=== PATIENT | male | born 1940 | race Caucasian/White ===

== ENCOUNTER 2016-06-07 17:27 | Inpatient (IN) | payer MEDICARE ==
[~2016-06-07] VITALS: Ht 182.9 cm; Wt 131.8 kg
[~2016-06-07 17:27] MED LIST: ASCO500T3 PO; ASPI325T4 PO; CHOL100013 PO; CIPR250T30 PO; FERR325T31 PO; FINA5TAB4 PO; FURO-68 PO; HYDR-2666 PO; INSU100V SQ; INSU100V8 SQ; LOSA50TA6 PO; LOVA20TA2 PO; METO25TA4 PO; MULT-246 PO; OMEG1CAP16 PO; TAMS0.4C2 PO
[2016-06-07] MEDS ORDERED: ACETAMINOPHEN 325 MG TABLET. PO ONE (17:45)
[2016-06-07] MEDS ORDERED: IV NORMAL SALINE 500ML BAG 500 ML IV ONE (18:00)
[2016-06-07] MEDS ORDERED: ASPIRIN 81 MG TAB.CHEW PO ONE (18:00)
[2016-06-07 18:17] LABS: BASO # 0.1 x10^3/uL (0.0-0.2); BASO % 0 % (0-3); EOS % 0 % (0-3); HEMATOCRIT 41.1 % (39.0-53.0); HEMOGLOBIN 13.2 g/dL (13.0-17.5); LYMPH # 0.4 x10^3/uL (1.0-4.8); LYMPH % 2 % (24-48); MEAN CORPUSCULAR HEMOGLOBIN 29 pg (25-35); MEAN CORPUSCULAR HGB CONC 32 g/dL (31-37); MEAN CORPUSCULAR VOLUME 89 fL (79-100); MONO % 3 % (0-9); NEUT % 95 % (31-73); PLATELET COUNT 209 x10^3/uL (140-400); RED BLOOD COUNT 4.62 x10^6/uL (4.30-5.70); RED CELL DISTRIBUTION WIDTH 15.1 % (11.5-14.5); WHITE BLOOD COUNT 21.6 x10^3/uL (4.0-11.0)
[2016-06-07 18:29] LABS: CALCIUM 9.4 mg/dL (8.5-10.1); CREATININE 2.5 mg/dL (0.7-1.3); GFR 25.2; POTASSIUM 4.3 mmol/L (3.5-5.1)
[2016-06-07 18:35] LABS: ALBUMIN 3.6 g/dL (3.4-5.0); ALBUMIN/GLOBULIN RATIO 0.8 (1.0-1.7); TOTAL BILIRUBIN 0.4 mg/dL (0.2-1.0); TOTAL PROTEIN 7.9 g/dL (6.4-8.2)
[2016-06-07] MEDS ORDERED: IV NORMAL SALINE 1000ML BAG 1,000 ML IV ONE ×2 (19:00)
[2016-06-07] MEDS: IV NORMAL SALINE 1000ML BAG 1,000 ML IV SCH (19:03)
--- NOTE | 2016-06-07 19:03 | PHYS DOC ---
Past Medical History Past Medical History: Diabetes-Type II, High Cholesterol, Hypertension, Other Additional Past Medical Histor: NEUROPATHY Past Surgical History: Appendectomy Alcohol Use: None Drug Use: None Adult General Chief Complaint Chief Complaint: CHEST PAIN HPI HPI Patient is a 76 year old male who presents with chest pain. Patient reports he was working on his computer this afternoon around 1330 when he had acute onset of sharp pain in the left side of his chest. The chest pain has resolved by this time. He does report feeling short of breath as well, having chills, and has had productive cough. Vomited 3 times today, but is not nauseous right now. He has not taken anything for symptoms today. Review of Systems Review of Systems Constitutional: Chills Eyes: Denies change in visual acuity or eye pain HENT: Denies nasal congestion or sore throat Respiratory: Productive cough, shortness of breath Cardiovascular: Sharp L side chest pain (now resolved) GI: Emesis x3 today. Denies abdominal pain, nausea, bloody stools or diarrhea : Denies dysuria or hematuria Musculoskeletal: Denies back pain or joint pain Integument: Denies rash or skin lesions Neurologic: Denies headache, focal weakness or sensory changes Current Medications Current Medications Current Medications Medications (Trade) Dose Ordered Sig/[facility] Start Time Stop Time Status Last Admin Dose Admin Acetaminophen 650 mg 650 mg 1X ONCE 06/07/16 17:45 06/07/16 17:49 DC 06/07/16 18:07 650 MG Aspirin 324 mg 324 mg 1X ONCE 06/07/16 18:00 06/07/16 18:01 DC 06/07/16 18:07 324 MG Levofloxacin/ Dextrose (LEVAQUIN 750mg PREMIX) 150 ml @ 100 mls/hr 1X ONCE 06/07/16 17:45 06/07/16 19:14 DC 06/07/16 18:08 100 MLS/HR Sodium Chloride (Iv Sodium Chloride 0.9% 1000ml Bag) 1,000 ml @ 1,000 mls/hr 1X ONCE 06/07/16 19:00 06/07/16 19:59 DC 06/07/16 20:55 1,000 MLS/HR Allergies Allergies Allergies Coded Allergies Type Severity Reaction Last Updated Verified No Known Drug Allergies 10/26/15 No Physical Exam Physical Exam Constitutional: Well developed, well nourished, no acute distress, non-toxic appearance HENT: Normocephalic, atraumatic, bilateral external ears normal Eyes: EOMI, conjunctiva normal, no discharge Neck: Normal range of motion, no stridor Cardiovascular: Tachycardic, regular rhythm, no murmur Lungs & Thorax: Bilateral breath sounds clear to auscultation Abdomen: Bowel sounds normal, soft, non-distended, no TTP; large midline scar Skin: Hot to touch, dry, no erythema, no rash Extremities: No obvious deformity. Trace BLE edema Neurologic: Alert and oriented X 3, no gross deficits noted Current Patient Data Vital Signs Vital Signs Date Time Temp Pulse Resp B/P Pulse Ox O2 Delivery O2 Flow Rate FiO2 06/07/16 19:00 112 22 164/63 93 Room Air 06/07/16 17:37 101.3 101.3 Lab Values Laboratory Tests Test 06/07/16 18:07 White Blood Count 21.6x10^3/uL (4.0-11.0) H Red Blood Count 4.62x10^6/uL (4.30-5.70) Hemoglobin 13.2g/dL (13.0-17.5) Hematocrit 41.1% (39.0-53.0) Mean Corpuscular Volume 89fL (79-100) Mean Corpuscular Hemoglobin 29pg (25-35) Mean Corpuscular Hemoglobin Concent 32g/dL (31-37) Red Cell Distribution Width 15.1% (11.5-14.5) H Platelet Count 209x10^3/uL (140-400) Neutrophils (%) (Auto) 95% (31-73) H Lymphocytes (%) (Auto) 2% (24-48) L Monocytes (%) (Auto) 3% (0-9) Eosinophils (%) (Auto) 0% (0-3) Basophils (%) (Auto) 0% (0-3) Neutrophils # (Auto) 20.4x10^3uL (1.8-7.7) H Lymphocytes # (Auto) 0.4x10^3/uL (1.0-4.8) L Monocytes # (Auto) 0.7x10^3/uL (0.0-1.1) Eosinophils # (Auto) 0.0x10^3/uL (0.0-0.7) Basophils # (Auto) 0.1x10^3/uL (0.0-0.2) Segmented Neutrophils % 78% (35-66) H Band Neutrophils % 14% (0-9) H Lymphocytes % 4% (24-48) L Monocytes % 4% (0-10) Toxic Granulation Slight Platelet Estimate Adequate (ADEQUATE) Anisocytosis Slight Sodium Level 140mmol/L (136-145) Potassium Level 4.3mmol/L (3.5-5.1) Chloride Level 101mmol/L (98-107) Carbon Dioxide Level 26mmol/L (21-32) Anion Gap 13 (6-14) Blood Urea Nitrogen 32mg/dL (8-26) H Creatinine 2.5mg/dL (0.7-1.3) H Estimated GFR (Cockcroft-Gault) 25.2 BUN/Creatinine Ratio 13 (6-20) Glucose Level 284mg/dL (70-99) H Lactic Acid Level 4.3mmol/L (0.4-2.0) *H Calcium Level 9.4mg/dL (8.5-10.1) Total Bilirubin 0.4mg/dL (0.2-1.0) Aspartate Amino Transferase (AST) 24U/L (15-37) Alanine Aminotransferase (ALT) 32U/L (16-63) Alkaline Phosphatase 68U/L (46-116) Troponin I Quantitative 0.365ng/mL (0.000-0.055) IK-Vfq-E-Type Natriuretic Peptide 343pg/mL (0-449) Total Protein 7.9g/dL (6.4-8.2) Albumin 3.6g/dL (3.4-5.0) Albumin/Globulin Ratio 0.8 (1.0-1.7) L Laboratory Tests 06/07/16 18:07 Laboratory Tests 06/07/16 18:07 EKG EKG EKG (my read): appears sinus tachycardia although unclear if true P wave present , rate 123, LAD, TWI leads aVR/aVL/V1-2, nonspecific ST changes Radiology/Procedures Radiology/Procedures CXR (my read): No acute abnormality Course & Med Decision Making Course & Med Decision Making Pertinent Labs and Imaging studies reviewed. (See chart for details) Patient is 76-year-old male who presents with fever, shortness of breath, episode of chest pain. With productive cough, fever, tachycardia in the emergency department suspect pneumonia. Will check EKG, chest x-ray, labs to evaluate. Fluid bolus, Tylenol, Levaquin, aspirin ordered to cover for community -acquired pneumonia. EKG and imaging results as above. Labs notable for leukocytosis, elevated lactic acid, elevated troponin. Suspect elevated troponin due to demand ischemia rather than ACS. I did speak to Dr. Menendez; will not anticoagulate at this time but will instead trend troponin. Additional fluids ordered given elevated lactic acid; although this does not meet the 30ml/ kg goal, I believe there is significant risk of pulmonary edema with this large of bolus, and HR is trending down with fluids and BP is ok. I will order a basal fluid rate as well. Discussed results with patient and family. Discussed with Dr. Frost, will admit under his care for further evaluation and treatment. Dragon Disclaimer Dragon Disclaimer This electronic medical record was generated, in whole or in part, using a voice recognition dictation system. Departure Departure Impression: Primary Impression: Pneumonia Additional Impression: Elevated troponin Disposition: ADMITTED INPATIENT Admitting Physician: Alan Frost Condition: GUARDED Referrals: ALAN FROST MD (PCP) Problem Qualifiers NABILA WALLACE MD Jun 07, 2016 19:03
[2016-06-07 19:05] LABS: ANISOCYTOSIS SLIGHT; PLT ESTIMATE ADEQUATE (ADEQUATE); TOXIC GRANULATION SLIGHT
[2016-06-07] MEDS ORDERED: DEXTROSE 50% 25 GM / 50ML DISP.SYRIN. IV PRN (19:15)
[2016-06-07] MEDS ORDERED: MORPHINE SULFATE 2 MG/ML DISP.SYRIN. IV PRN (19:15)
[2016-06-07] MEDS ORDERED: ACETAMINOPHEN 325 MG TABLET. PO PRN (19:15)
[2016-06-07] MEDS ORDERED: ONDANSETRON PF 4 MG/2 ML VIAL. IV PRN (19:15)
[2016-06-07 21:45] VITALS: BP 113/58
[2016-06-07 22:00] VITALS: BP 113/58
[2016-06-07] MEDS ORDERED: ENOXAPARIN 40 MG/0.4 ML SYRINGE. SQ SCH (22:00)
--- NOTE | 2016-06-07 22:08 | ACF ---
Admission Forms Criteria CARDIOLOGY GRG Clinical Indications for Admission to Inpatient Care ( Place 'X' for any and all applicable criteria): Hospital admission is needed for appropriate care of the patient because of ANY ONE of the following (1): [ ] I. Hemodynamic instability as indicated by ALL of the following (1)(2)(3) (4)(5) [ ]a) Vital signs or other findings not as expected for chronic patient condition or baseline [ ]b) Instability indicated by ANY ONE of the following: [ ]i) Hypotension [ ]ii) Symptomatic Tachycardia unresponsive to treatment ( e.g., analgesia, fluids, sedation as indicated) [ ]iii) Inadequate perfusion indicated by ANY ONE of the following: [ ] 1) Lactic acidosis (> 2 mmol/L) [ ] 2) New abnormal capillary refill (> 3 seconds) [ ] 3) Reduced urine output [ ] 4) New altered mental status [ ]iv) Orthostatic vital sign changes unresponsive to treatment (e.g., fluids) [ ]v) IV inotropic or vasopressor medication required to maintain adequate blood pressure or perfusion [ ] II. Severe heart failure as indicated by ANY ONE of the following(17)(18) [ ]a) Respiratory distress [ ]b) Hypotension [ ]c) Anasarca (refractory to outpatient therapy) [ ]d) Cardiac arrhythmias of immediate concern [ ]e) Myocardial ischemia [ ] III. Cardiac arrhythmias or findings of immediate concern indicated by ANY ONE of the following (19)(20): [ ] a) Heart rhythms that are inherently dangerous or unstable indicated by ANY ONE of the following (21)(22)(23): [ ] i) Resuscitated ventricular fibrillation or cardiac arrest [ ] ii) Ventricular escape rhythm [ ] iii) Sustained ventricular tachycardia (30 seconds or more of ventricular rhythm at greater than 100 beats per minute) [ ] iv) Nonsustained ventricular tachycardia and ANY ONE of the following: [ ] 1) Suspected cardiac ischemia as cause or consequence of ventricular tachycardia [ ] 2) In setting of acute myocarditis [ ] b) Unstable cardiac conduction defects indicated by ANY ONE of the following(23)(24)(25) [ ] i) Type II second-degree atrioventricular block [ ]ii) Third-degree atrioventricular block [ ]iii) New-onset left bundle branch block with suspected myocardial ischemia [ ]c) Any heart rhythm and ANY ONE of the following (21)(22)(26)(27) (28) [ ] i) Continuous long-term ECG monitoring needed (e.g., initiation of drug requiring monitoring for more than 24 hours) [ ] ii) Patient has automatic implanted cardioverter defibrillator that is repeatedly firing, malfunctioning, or in need of immediate adjustment of settings beyond the scope of ambulatory or observation care [ ]d) Heart rhythms of concern due to ANY ONE of the following: [ ] i) Hypotension [ ] ii) Respiratory distress [ ] iii) Association with other significant symptoms (e.g., bradycardia with syncope or ongoing dizziness, supraventricular tachycardia with chest pain (14)(15)(17) [ ] IV. Monitoring for cardiac contusion beyond the scope of observation care needed [A](30)(31)(32) [ ] V. Surgical or device complication (e.g., valve replacement complication , pacemaker dysfunction) (35)(41)(44)(45)(46) [ ] . Inpatient palliative care needed. [B](49) Also use Inpatient Palliative Care Criteria [ ] VII. Nonbacterial thrombotic (marantic) endocarditis (36)(43)(47)(48) [X] VIII. Cardiology condition, symptom, or finding for which emergency and observation care has failed or are not considered appropriate. [ ] IX. Acute valvular disease requiring inpatient as indicated by ANY ONE of the following (41) [ ]a) Acute valvular regurgitation (42) [ ]b) Noninfectious valvulitis (43) [ ]c) Obstructive valve thrombosis [ ]d) Paravalvular leak [ ]e) Other significant valvular disorder remaining after emergency or observation level of care (as appropriate) [ ]X. Pericardial disease requiring inpatient treatment as indicated by ANY ONE of the following (33)(34)(35)(36)(37) [ ]a) Suspected tamponade (38)(39)(40) [ ]b) Hemopericardium [ ]c) Other significant pericardial disorder remaining after emergency or observation level of care (as appropriate) [ ] XI. Cardiac ischemia beyond scope of emergency and observation care. [ ] XII. Hypertension requiring inpatient treatment as indicated by ANY ONE of the following (6)(7)(8) [ ]a) SBP greater than 220 mm Hg or DBP greater than 120 mmHg despite treatment [ ]b) SBP greater than 140 mm Hg or DBP greater than 100 mm Hg with evidence of acute end organ damage as indicated by ANY ONE of the following [ ] i) Encephalopathy [ ] ii) Acute renal failure as indicated by new onset of ANY ONE of the following (9)(10)(11)(12)(13) [ ]1) 3-fold rise in serum creatinine from baseline [ ]2) Serum creatinine greater than 4 mg/dL ( 354 micromoles/L) with acute rise greater than 0.5 mg/dL (44.2 micromoles/L) [ ]3) Reduction of more than 75% in estimated glomerular filtration rate from baseline [ ]4) Estimated glomerular filtration rate less than 35 mL/min/1.73m2 (0.59 mL/sec/1.73m2) in child up to 18 years of age [ ]5) Cessation of urine output indicated by ALL of the following [ ]A. Adequate volume status [ ]B. Inadequate urine output as indicated by ANY ONE of the following [ ]a. Urine output less than 0.3 mL/kg/hr for 24 hours [ ]b. Anuria (urine output less than 0.1 mL/kg/hr) for 12 hours [ ] iii) Aortic dissection [ ] iv) Myocardial Ischemia [ ] v) Left ventricular heart failure [ ]vi) Retinal Hemorrhage [ ]vii) Other significant finding [ ]c) Hypertension in child requiring inpatient treatment as indicated by ALL of the following(14)(15)(16) [ ] i) Outpatient treatment not effective, not available, or not appropriate [ ]ii) SBP or DBP greater than 95th percentile for age [ ]iii) Evidence of acute end organ damage as indicated by ANY ONE of the following [ ]1) Altered mental status [ ]2) Acute renal failure as indicated by new onset of ANY ONE of the following(9)(10)(11)(12)(13) [ ]A. 3-fold rise in serum creatinine from baseline [ ]B. Serum creatinine greater than 4 mg/dL (354 micromoles/L) with acute rise greater than 0.5 mg/dL (44.2 micromoles/L) [ ]C. Reduction of more than 75% in estimated glomerular filtration rate from baseline [ ]D. Estimated glomerular filtration rate less than 35 mL/min/1.73m2 (0.59 mL/sec/1.73m2) in child up to 18 years of age [ ]E. Cessation of urine output indicated by ALL of the following [ ]a. Adequate volume status [ ]b. Inadequate urine output as indicated by ANY ONE of the following [ ]i) Urine output less than 0.3 mL/kg/hr for 24 hours [ ]ii) Anuria ( urine output less than 0.1 mL/kg/hr) for 12 hours [ ]3) Severe headache [ ]4) Visual disturbance [ ]5) Retinal hemorrhage [ ]6) Other significant finding [ ]XIII. Complications of transplanted heart indicated by ANY ONE of the following(61): [ ]a) Acute graft rejection requiring inpatient management (eg, intravenous immunosuppression)(62)(63) [ ]b) Acute graft heart failure indicated by ANY ONE of the following(64): [ ]i) Hemodynamic instability [ ]ii) Cardiac arrhythmias of immediate concern [ ]iii) Pulmonary edema that is very severe (eg, mechanical ventilation needed, imminent or likely, need for 100% oxygen to keep oxygen saturation above 90%) [ ]iv) Pulmonary edema that is persistent as indicated by ALL of the following: [ ]1) New need for oxygen therapy to keep oxygen saturation above 90% (or increased FiO2 need from baseline) [ ]2) Has not improved sufficiently with emergency department or observation care IV diuretics or other heart failure treatments[E] [ ]v) Altered mental status that is severe or persistent [ ]vi) Increased creatinine (new on laboratory test) with reduction of more than 50% in estimated glomerular filtration rate from baseline [ ]vii) Progressively (ongoing) rising creatinine (known from past laboratory test) with reduction of more than 25% in estimated glomerular filtration rate from baseline [ ]viii) Acute renal failure [ ]ix) Acute peripheral ischemia (eg, examination shows pulseless, cool, mottled, or cyanotic extremity) [ ]x) Pulmonary artery catheter monitoring needed [ ]xi) Other sign or symptom of heart failure requiring inpatient treatment (ie, too severe or not responsive to outpatient and observation care treatment) [ ]c) Infection requiring inpatient management (eg, Hemodynamic instability, need for intravenous antimicrobial treatment)(66)(67)(68)(69)(70) [ ]d) Cardiac allograft vasculopathy requiring inpatient management ( eg evidence of cardiac ischemia)(71) [ ]e) Other complication of transplanted heart (eg, stroke, severe pulmonary hypertension, severe valvular dysfunction) requiring inpatient management(72) The original [facility] content created by [facility] has been revised. The portions of the content which have been revised are identified through the use of italic text or in bold, and [facility] has neither reviewed nor approved the modified material. All other unmodified content is copyright [facility]. Please see references footnoted in the original [facility] edition 2016 Admission Criteria Met?: Yes JANINE KUMAR Jun 07, 2016 22:07
[2016-06-07] MEDS: ATORVASTATIN CALCIUM 10 MG TABLET. PO SCH (23:07)
[2016-06-07] MEDS: INSULIN DETEMIR 300 UNITS/3 ML INSULN.PEN. SQ SCH (23:08)
[2016-06-07] MEDS: INSULIN ASPART 300 UNITS/3 ML INSULN.PEN SQ SCH (23:09)
[2016-06-08] MEDS: IV NORMAL SALINE 1000ML BAG 1,000 ML IV SCH ×3 (01:43→16:44)
[2016-06-08 02:29] VITALS: BP 157/75
--- NOTE | 2016-06-08 02:56 | EKG ---
[facility] [address] [place] [address] Test Date: 2016-06-07 Test Time: 17:32:31 Pat Name: CARLOS EDUARDO BOLANOS Department: Room: 209 1 Gender: M Resident Director: : 1940 Requested By: NABILA WALLACE Order Number: [id number] Reading MD: Richie Menendez Measurements Intervals [place] Rate: 123 P: -116 NE: 142 QRS: -70 QRSD: 90 T: 80 QT: 302 QTc: 438 Interpretive Statements SINUS TACHYCARDIA ABNORMAL LEFT AXIS DEVIATION CONSIDER LEFT VENTRICULAR HYPERTROPHY CANNOT RULE OUT ANTEROLATERAL ISCHEMIA Electronically Signed On 06-26-2016 10:32:04 CDT by Richie Menendez
[2016-06-08 02:59] LABS: OBC FLU VALID
[2016-06-08 04:35] LABS: BASO % 0 % (0-3); EOS % 0 % (0-3); HEMATOCRIT 35.8 % (39.0-53.0); HEMOGLOBIN 11.6 g/dL (13.0-17.5); LYMPH # 0.9 x10^3/uL (1.0-4.8); LYMPH % 5 % (24-48); MEAN CORPUSCULAR HEMOGLOBIN 29 pg (25-35); MEAN CORPUSCULAR HGB CONC 32 g/dL (31-37); MEAN CORPUSCULAR VOLUME 88 fL (79-100); MONO % 4 % (0-9); NEUT % 91 % (31-73); PLATELET COUNT 174 x10^3/uL (140-400); RED BLOOD COUNT 4.05 x10^6/uL (4.30-5.70); RED CELL DISTRIBUTION WIDTH 15.4 % (11.5-14.5); WHITE BLOOD COUNT 20.2 x10^3/uL (4.0-11.0)
[2016-06-08 07:05] LABS: ALBUMIN 2.8 g/dL (3.4-5.0); ALBUMIN/GLOBULIN RATIO 0.8 (1.0-1.7); CALCIUM 8.2 mg/dL (8.5-10.1); CREATININE 2.3 mg/dL (0.7-1.3); GFR 27.8; POTASSIUM 4.2 mmol/L (3.5-5.1); TOTAL BILIRUBIN 0.4 mg/dL (0.2-1.0); TOTAL PROTEIN 6.1 g/dL (6.4-8.2)
[2016-06-08 07:30] VITALS: BP 107/60
--- NOTE | 2016-06-08 07:59 | RAD ---
Exam: AP portable chest. History: Chest pain, shortness of breath, fever, rule out acute process. Comparison: June 16, 2005. Findings: Cardiac silhouette appears within normal limits for size. No pneumothorax or pleural effusion is seen. No focal consolidation is identified. There appears to be accentuation of interstitial markings. Impression: 1. Interstitial markings appear mildly accentuated. This may be artifact of technique; mild fibrotic process or atypical pneumonia could be possible. Interstitial edema is thought less likely.
[2016-06-08] MEDS ORDERED: INSULIN ASPART 300 UNITS/3 ML INSULN.PEN SQ SCH (08:00)
[2016-06-08] MEDS ORDERED: ASPIRIN 325 MG TABLET PO SCH (09:00)
[2016-06-08] MEDS ORDERED: LOSARTAN POTASSIUM 50 MG TABLET. PO SCH (09:00)
--- NOTE | 2016-06-08 09:13 | PDOC2 ---
ERVIN ORELLANA EARLY BREASTFEEDING CARE SPECIALIST 06/08/16 0913: CARDIAC CONSULT DATE OF CONSULT Date of Consult DATE: 06/08/16 TIME: 08:54 REASON FOR CONSULT Reason for Consult: Elevated troponin level REFERRING PHYSICIAN Referring Physician: Brian SOURCE Source: Chart review, Patient HISTORY OF PRESENT ILLNESS HISTORY OF PRESENT ILLNESS This is a pleasant 76 yo male admitted for complains of vomiting. Reports that starting about 1 PM yesterday he felt hot, was shivering and was having chills. He then got nauseated and started vomiting. There was no diarrhea. Prior to his GI symptoms he was actually was having left chest pain sharp in consistency and lasted for about an hour. Inaddition to that he felt SOA at that time with some palpitations. He denies any hx of CAD, VTE, recent falls or injury. In the last few weeks he has been feeling more fatigued and gets BOONE using his stairs going to the basement. In addition the other day he was pulling the trash bin which was already emptied and just with this exertion he was having chest pain and SOA. IN the last few weeks there were also times when he woke up at night and he was drenched in sweat. He is positive for ESTHELA but he does not use his CPAP device consistently. He has DM2 and HTN and told me that his numbers were controlled. PAST MEDICAL HISTORY Past Medical History Cardiovascular: HTN, HLP Pulmonary: ESTHELA with CPAP CENTRAL NERVOUS SYSTEM: DPN GI: Constipation, GERD Heme/Onc: No pertinent hx Hepatobiliary: No pertinent hx Psych: No pertinent hx Musculoskeletal: OA Rheumatologic: No pertinent hx Infectious disease: No pertinent hx ENT: No pertinent hx Renal/: BPH Endocrine: DM2 Dermatology: No pertinent hx Musculoskeletal: Osteoarthritis Renal/: Benign prostatic enlarg., Hematuria PAST SURGICAL HISTORY Past Surgical History: Other (10/2015 right colon resection with abscess drain; cystoscopy; back surgery) FAMILY HISTORY Family History: Diabetes, Heart Disease, Hypertension SOCIAL HISTORY Social History Smoke: Quit (previously at least 2 ppd ) ALCOHOL: other (quit) Drugs: None Lives: Alone CURRENT MEDICATIONS CURRENT MEDICATIONS Current Medications Medications (Trade) Dose Ordered Sig/Feli Route PRN Reason Start Time Stop Time Status Last Admin Dose Admin Acetaminophen 650 mg 650 mg 1X ONCE PO 06/07/16 17:45 06/07/16 17:49 DC 06/07/16 18:07 Levofloxacin/ Dextrose (LEVAQUIN 750mg PREMIX) 150 ml @ 100 mls/hr 1X ONCE IV 06/07/16 17:45 06/07/16 19:14 DC 06/07/16 18:08 Aspirin 324 mg 324 mg 1X ONCE PO 06/07/16 18:00 06/07/16 18:01 DC 06/07/16 18:07 Sodium Chloride 500 ml @ 500 mls/hr 1X ONCE IV 06/07/16 18:00 06/07/16 18:59 DC 06/07/16 18:07 Sodium Chloride 1,000 ml @ 1,000 mls/hr 1X ONCE IV 06/07/16 19:00 06/07/16 19:59 DC 06/07/16 19:40 Sodium Chloride 1,000 ml @ 1,000 mls/hr 1X ONCE IV 06/07/16 19:00 06/07/16 19:59 DC 06/07/16 20:55 Sodium Chloride (Iv Sodium Chloride 0.9% 1000ml Bag) 1,000 ml @ 150 mls/hr Q6H40M IV 06/07/16 19:03 06/08/16 19:02 06/07/16 19:03 Acetaminophen (Tylenol) 650 mg PRN Q4HRS PRN PO FEVER 06/07/16 19:15 06/08/16 19:14 06/08/16 06:49 Atorvastatin Calcium (Lipitor) 5 mg HS PO 06/07/16 22:30 06/07/16 23:07 Insulin Detemir (Levemir) 64 units QHS SQ 06/07/16 22:30 06/07/16 23:08 Enoxaparin Sodium (Lovenox 40mg Syringe) 40 mg Q24H SQ 06/07/16 22:00 06/07/16 23:06 Insulin Aspart (Novolog) 0-12 UNITS QIDACHS SQ 06/07/16 22:30 06/07/16 23:09 ALLERGIES ALLERGIES: Coded Allergies: No Known Drug Allergies (Unverified , 10/26/15) ROS Review of System 14 point ROS evaluated with pertinent positives noted per HPI PHYSICAL EXAM General: Alert, Oriented X3, Cooperative, No acute distress HEENT: Atraumatic, Mucous membr. moist/pink Lungs: Other (faint basilar crackles) Heart: Regular rate (SR), Normal S1, Normal S2 Abdomen: Soft, No tenderness, Other (obese) Extremities: No cyanosis, Other (1+ bilateral LE pitting edema) Skin: No breakdown, No significant lesion Neuro: Normal speech, Sensation intact Psych/Mental Status: Mental status NL, Mood NL MUSCULOSKELETAL: Osteoarthritic changes both hands VITALS VITALS Vital Signs Date Time Temp Pulse Resp B/P Pulse Ox O2 Delivery O2 Flow Rate FiO2 06/08/16 07:30 99.6 97 24 107/60 93 Room Air 99.6 LABS Lab: Laboratory Tests Test 06/07/16 18:07 06/07/16 21:00 06/07/16 21:53 06/08/16 00:55 White Blood Count 21.6x10^3/uL (4.0-11.0) Red Blood Count 4.62x10^6/uL (4.30-5.70) Hemoglobin 13.2g/dL (13.0-17.5) Hematocrit 41.1% (39.0-53.0) Mean Corpuscular Volume 89fL (79-100) Mean Corpuscular Hemoglobin 29pg (25-35) Mean Corpuscular Hemoglobin Concent 32g/dL (31-37) Red Cell Distribution Width 15.1% (11.5-14.5) Platelet Count 209x10^3/uL (140-400) Neutrophils (%) (Auto) 95% (31-73) Lymphocytes (%) (Auto) 2% (24-48) Monocytes (%) (Auto) 3% (0-9) Eosinophils (%) (Auto) 0% (0-3) Basophils (%) (Auto) 0% (0-3) Neutrophils # (Auto) 20.4x10^3uL (1.8-7.7) Lymphocytes # (Auto) 0.4x10^3/uL (1.0-4.8) Monocytes # (Auto) 0.7x10^3/uL (0.0-1.1) Eosinophils # (Auto) 0.0x10^3/uL (0.0-0.7) Basophils # (Auto) 0.1x10^3/uL (0.0-0.2) Segmented Neutrophils % 78% (35-66) Band Neutrophils % 14% (0-9) Lymphocytes % 4% (24-48) Monocytes % 4% (0-10) Toxic Granulation Slight Platelet Estimate Adequate (ADEQUATE) Anisocytosis Slight Sodium Level 140mmol/L (136-145) Potassium Level 4.3mmol/L (3.5-5.1) Chloride Level 101mmol/L (98-107) Carbon Dioxide Level 26mmol/L (21-32) Anion Gap 13 (6-14) Blood Urea Nitrogen 32mg/dL (8-26) Creatinine 2.5mg/dL (0.7-1.3) Estimated GFR (Cockcroft-Gault) 25.2 BUN/Creatinine Ratio 13 (6-20) Glucose Level 284mg/dL (70-99) Lactic Acid Level 4.3mmol/L (0.4-2.0) 3.0mmol/L (0.4-2.0) Calcium Level 9.4mg/dL (8.5-10.1) Total Bilirubin 0.4mg/dL (0.2-1.0) Aspartate Amino Transf (AST/SGOT) 24U/L (15-37) Alanine Aminotransferase (ALT/SGPT) 32U/L (16-63) Alkaline Phosphatase 68U/L (46-116) Troponin I Quantitative 0.365ng/mL (0.000-0.055) 0.726ng/mL (0.000-0.055) OU-Gbd-P-Type Natriuretic Peptide 343pg/mL (0-449) Total Protein 7.9g/dL (6.4-8.2) Albumin 3.6g/dL (3.4-5.0) Albumin/Globulin Ratio 0.8 (1.0-1.7) Glucose (Fingerstick) 271mg/dL (70-99) Test 06/08/16 02:30 06/08/16 04:05 06/08/16 06:50 06/08/16 07:25 Influenza Type A Antigen Negative (NEGATIVE) Influenza Type B Antigen Negative (NEGATIVE) White Blood Count 20.2x10^3/uL (4.0-11.0) Red Blood Count 4.05x10^6/uL (4.30-5.70) Hemoglobin 11.6g/dL (13.0-17.5) Hematocrit 35.8% (39.0-53.0) Mean Corpuscular Volume 88fL (79-100) Mean Corpuscular Hemoglobin 29pg (25-35) Mean Corpuscular Hemoglobin Concent 32g/dL (31-37) Red Cell Distribution Width 15.4% (11.5-14.5) Platelet Count 174x10^3/uL (140-400) Neutrophils (%) (Auto) 91% (31-73) Lymphocytes (%) (Auto) 5% (24-48) Monocytes (%) (Auto) 4% (0-9) Eosinophils (%) (Auto) 0% (0-3) Basophils (%) (Auto) 0% (0-3) Neutrophils # (Auto) 18.4x10^3uL (1.8-7.7) Lymphocytes # (Auto) 0.9x10^3/uL (1.0-4.8) Monocytes # (Auto) 0.8x10^3/uL (0.0-1.1) Eosinophils # (Auto) 0.0x10^3/uL (0.0-0.7) Basophils # (Auto) 0.0x10^3/uL (0.0-0.2) Sodium Level 140mmol/L (136-145) Potassium Level 4.2mmol/L (3.5-5.1) Chloride Level 105mmol/L (98-107) Carbon Dioxide Level 24mmol/L (21-32) Anion Gap 11 (6-14) Blood Urea Nitrogen 29mg/dL (8-26) Creatinine 2.3mg/dL (0.7-1.3) Estimated GFR (Cockcroft-Gault) 27.8 BUN/Creatinine Ratio 13 (6-20) Glucose Level 242mg/dL (70-99) Calcium Level 8.2mg/dL (8.5-10.1) Total Bilirubin 0.4mg/dL (0.2-1.0) Aspartate Amino Transf (AST/SGOT) 29U/L (15-37) Alanine Aminotransferase (ALT/SGPT) 31U/L (16-63) Alkaline Phosphatase 55U/L (46-116) Troponin I Quantitative 1.078ng/mL (0.000-0.055) Total Protein 6.1g/dL (6.4-8.2) Albumin 2.8g/dL (3.4-5.0) Albumin/Globulin Ratio 0.8 (1.0-1.7) Lactic Acid Level 2.8mmol/L (0.4-2.0) Test 06/08/16 08:24 Glucose (Fingerstick) 216mg/dL (70-99) ECHOCARDIOGRAM ECHOCARDIOGRAM <Conclusion> The left ventricular systolic function is normal. The Ejection Fraction is estimated at 55-60%. There is normal LV segmental wall motion. Mild aortic regurgitation. Trace mitral regurgitation. There is no evidence of significant pericardial effusion. DATE: 10/24/15 1451 ASSESSMENT/PLAN ASSESSMENT/PLAN 1. Pneumonia/fever/sepsis 2. NSTEMI: Notable for typical features. Troponin at 1.8, trending. EKG SR/LAFB with posterolateral changes. Neg for S1Q3T3. 3. CKD4: baseline Cr 2.0. 4. HTN: controlled 5. DM2/HLP/DPN 6. ESTHELA: does not utilized his CPAP 7. Family hx of premature CAD: mother in her 30s 8. Morbid obesity: BMI 41 Recommendations 1. Pulmonary consult pending 2. Recommend renal consult for optimization in anticipation for ischemic workup once pneumonia/sepsis controlled. 3. Continue on ASA. Stop lovenox and start on heparin drip. 4. Continue with secondary prevention. Hold ARB. 5. Await TTE, Mg, lipid panel. 6. Lifestyle modifications. Problems: AGATA CARDENAS MD 06/09/16 0746: CARDIAC CONSULT ALLERGIES ALLERGIES: Coded Allergies: No Known Drug Allergies (Unverified , 10/26/15) ASSESSMENT/PLAN ASSESSMENT/PLAN Patient seen and examined 06/08/16. Agree with SUPERVISING EDITOR NEWS REEL's assessment and plan Patient presently chest pain-free. Continue intravenous antibiotics for pneumonia/sepsis. Agree with heparin infusion per protocol for non-STEMI. Plan for cardiac catheterization possibly Sunday. Thank you for your consultation. Problems: ERVIN ORELLANA EARLY BREASTFEEDING CARE SPECIALIST Jun 08, 2016 09:13 AGATA CARDENAS MD Jun 09, 2016 07:46
[2016-06-08 09:29] LABS: MAGNESIUM 2.2 mg/dL (1.8-2.4)
[2016-06-08 09:30] LABS: CHOLESTEROL/HDL RATIO 2.7
[2016-06-08] MEDS: FERROUS SULFATE 325 MG TABLET. PO SCH (10:04)
[2016-06-08] MEDS: ASCORBIC ACID 500 MG TABLET PO SCH (10:04)
[2016-06-08] MEDS: ASPIRIN ENTERIC COATED 81 MG TABLET.DR. PO SCH (10:04)
[2016-06-08] MEDS: TAMSULOSIN 0.4 MG CAP.ER.24H. PO SCH (10:04)
[2016-06-08] MEDS: FINASTERIDE 5 MG TABLET. PO SCH (10:05)
[2016-06-08] MEDS: OMEGA-3 FATTY ACIDS/FISH OIL 1,000 MG CAPSULE. PO SCH (10:05)
[2016-06-08] MEDS: INSULIN ASPART 300 UNITS/3 ML INSULN.PEN SQ SCH ×7 (10:39→21:31)
[2016-06-08] MEDS: HEPARIN 25,000UTS/500ML PREMIX 500 ML IV PRN (10:53)
[2016-06-08 11:31] VITALS: BP 128/72
--- NOTE | 2016-06-08 11:51 | PDOC ---
Provider Note Provider Note dictated ISMA CHAMPAGNE MD Jun 08, 2016 11:51
[2016-06-08] MEDS ORDERED: VANCOMYCIN PER PHARMACY MC PRN (12:15)
[2016-06-08] MEDS ORDERED: hydrALAZINE 20 MG/ML VIAL. IVP PRN (12:15)
--- NOTE | 2016-06-08 12:31 | HP ---
ADMIT DATE: 06/07/2016 CHIEF COMPLAINT: Chest pain. HISTORY OF PRESENT ILLNESS AND HOSPITAL COURSE: The patient is a 76-year-old male with history of diabetes, hypertension and chronic renal insufficiency, came to the hospital with acute chest pain. He states he was feeling well 48 hours prior to admission and was actually able to mow his lawn. After this, the patient had an episode of chest pain and shortness of breath. He also complained of fever and chills. The patient states he had a similar episode of chills approximately one month prior to this Emergency Room visit. He was seen in the Emergency Room and felt to clinically have pneumonia with chest x-ray showing fibrosis and possible infiltrate with a high white count noted. The patient also had elevated troponin of 0.356, increasing to 0.726 and then 1.078. Due to severity of symptoms, the patient was admitted for further evaluation, was given IV antibiotics and consults for Cardiology and Pulmonology were made. PAST MEDICAL HISTORY: Significant for, 1. Type 2 diabetes, under control. 2. Hypertension. 3. High cholesterol. 4. Obstructive sleep apnea. 5. Chronic kidney disease, stage 3. 6. Peripheral neuropathy. 7. Obesity. 8. Peripheral vascular disease. PAST SURGICAL HISTORY: Significant for wisdom teeth extraction in 1959, back surgery in 1981, knee scope in 2011, laparoscopic drainage of abdominal abscess in October 2015, hemorrhoidectomy and right hemicolectomy in 2015. FAMILY HISTORY: Mother of complications of diabetes, hypertension and did have cardiac disease and leg amputation. Two brothers who with prostate cancer. SOCIAL HISTORY: The patient denies smoking. The patient does live alone. Denies alcohol use. REVIEW OF SYSTEMS: The patient was in his usual state of health until 48 hours prior to admission. He did have one episode of night sweats approximately one month ago. PHYSICAL EXAMINATION: GENERAL: This is a well-nourished, obese male in no apparent distress on my exam, 12 hours after admission. HEENT: Benign. NECK: Supple, without JVD or bruit. CARDIAC: Regular rate and rhythm. LUNGS: Clear. ABDOMEN: Protuberant, but soft, nontender with positive bowel sounds and a well-healed surgical scar. EXTREMITIES: Showed 1+ pulses bilaterally with 1-2+ pitting edema. NEUROLOGIC: Showed no unilateral findings. ASSESSMENT: 1. Chest pain with elevated troponins. 2. Elevated white count with suspicion for pneumonia. 3. Acute on chronic renal failure. 4. Type 2 diabetes. 5. Lactic acidosis. PLAN: To proceed with IV antibiotics, IV fluids. Consult Pulmonary Medicine and Cardiology for further evaluation. Monitor patient's symptoms. ALAN VERDIN MD DR: MARI/christophe JOB#: [id number] / [id number]
--- NOTE | 2016-06-08 12:51 | CONS ---
DATE OF CONSULTATION: ATTENDING PHYSICIAN: Dr. Ricardo Frost. REASON FOR CONSULTATION: Chest pain, dyspnea, abnormal chest x-ray. HISTORY OF PRESENT ILLNESS: The patient is a 76-year-old male who has a history of heavy tobacco use in the past, but he quit more than 25 years ago. He presented to the hospital with complaint of left-sided chest pain. He also had some shortness of breath as well. The patient states he was working on his computer and the dyspnea and chest pain came on suddenly and was affecting his left side of the chest. He states pain was on his back as well. It did not radiate to the shoulder or arm. He also had a history of recent productive cough. He said he threw up 3 times. The patient was noted to have a low grade fever of 99.6 during admission. I have reviewed chest x-ray, it shows prominent interstitial marking and possible focal infiltrate in the left lung base in the retrocardiac area. Cardiology has been consulted. I have been asked to see him for further evaluation. PAST MEDICAL HISTORY: Significant for history of type 2 diabetes, history of dyslipidemia, hypertension, history of neuropathy, history of underlying COPD, unknown FEV1. He smoked heavily in the past. PAST SURGICAL HISTORY: Appendectomy and colon resection. ALLERGIES: None. CURRENT MEDICATIONS: Reviewed as listed in the MRAD. REVIEW OF SYSTEMS: Twelve-point systems were obtained. Pertinent positives discussed in my history of present illness, otherwise noncontributory. All systems that were negative were reviewed as well. SOCIAL HISTORY: Smoked heavily up to 3 packs per day. However, he quit more than 25 years ago. FAMILY HISTORY: Noncontributory. PHYSICAL EXAMINATION: VITAL SIGNS: T-max of 99.6. Pulse ox 94% on room air, blood pressure ____. HEENT: Sclerae nonicteric. NECK: Supple. LUNGS: With diminished breath sounds. No wheezing. CARDIOVASCULAR: Regular ____. ABDOMEN: Soft, obese. EXTREMITIES: With bilateral pitting edema and signs of venous stasis. LABORATORY DATA: Reviewed. White cell count was 21.6, hemoglobin 11.6 and platelets are 174. BUN is 29 and the creatinine of ____. Albumin 2.8. IMPRESSION: 1. Acute chest pain and dyspnea. I suspect related to mild congestive heart failure. However, cannot exclude the possibility of thromboembolic disease and will obtain VQ scan. 2. Fever / chills with recent cough and emesis. Could be related to viral syndrome. Cannot exclude mild left lower lobe pneumonia. r/o bacteremia. We will obtain noncontrast CT chest for further evaluation. If no source in lungs, consider ct abdomen. 3. Suspected underlying chronic obstructive pulmonary disease. 4. Increased troponin level, possible non-ST myocardial infarction. Cardiology is following. RECOMMENDATIONS: 1. Obtain VQ scan. 2. Venous Dopplers of the lower extremities. 3. PFTs as an outpatient. 4. Echocardiogram and follow Cardiology recommendation. 5. Diuresis. 6. Empiric antibiotics. 7. Noncontrast CT chest to better assess for focal infiltrate in the retrocardiac area. 8. Follow BC ISMA CHAMPAGNE MD DR: EDWIN/christophe JOB#: [id number] / [id number] MEHUL
[2016-06-08] MEDS ORDERED: VANCOMYCIN 2 GM in IV NORMAL SALINE 500ML BAG 500 ML IV ONE (13:00)
[2016-06-08] MEDS ORDERED: SULFUR HEXAFLUORIDE MICROSPHR 25 MG VIAL. IVP ONE (14:48)
[2016-06-08 15:00] VITALS: BP 130/63
--- NOTE | 2016-06-08 15:59 | CARD ---
APPROVED REPORT EXAM: Two-dimensional and M-mode echocardiogram with Doppler and color Doppler. Other Information Quality : FairHR: 98bpm Rhythm : NSRTechnically limited study due to body habitus. INDICATION Abnormal ECG Elevated troponin 2D DIMENSIONS RVDd3.0 (2.9-3.5cm)Left Atrium(2D)3.0 (1.6-4.0cm) IVSd0.9 (0.7-1.1cm)Aortic Root(2D)3.5 (2.0-3.7cm) LVDd5.2 (3.9-5.9cm)LVOT Diameter2.2 (1.8-2.4cm) PWd0.9 (0.7-1.1cm)LVDs3.3 (2.5-4.0cm) FS (%) 36.5 %SV84.6 ml LVEF(%)65.9 (>50%) Aortic Valve AoV Peak Colby.90.2cm/sAoV VTI19.0cm AO Peak GR.3.3mmHgAO Mean GR.2mmHg AUBREY (VTI)3.99cm2 Mitral Valve MV E Extretqm718.3cm/sMV E Peak Gr.4mmHg MV DECEL [id number] A Ekqkqanh74.6cm/s MV [id number] Ratio1.3 MVA (PHT)3.67cm2 TDI Lateral E' P. V11.84cm/sMedial E' P. V9.72cm/s E/Lateral E'9.8E/Medial E'12.0 LEFT VENTRICLE The left ventricle is normal size. There is normal left ventricular wall thickness. Left ventricle sy stolic function is normal. The Ejection Fraction is 55-60%. There is normal LV segmental wall motion. The left ventricular diastolic function and filling is normal for age. There is no ventricular septa l defect visualized. RIGHT VENTRICLE The right ventricle is not well visualized but appears normal in size. The right ventricular systolic function is normal. ATRIA The left atrium size is normal. The right atrium size is normal. The interatrial septum is intact wit h no evidence for an atrial septal defect or patent foramen ovale as noted on 2-D or Doppler imaging. AORTIC VALVE The aortic valve is calcified but opens well. The aortic valve is trileaflet. Doppler and Color Flow revealed no significant aortic regurgitation. There is no significant aortic valvular stenosis. MITRAL VALVE The mitral valve is calcified but opens well. There is no evidence of mitral valve prolapse. There is no mitral valve stenosis. Doppler and Color Flow revealed trace mitral regurgitation. TRICUSPID VALVE The tricuspid valve is normal in structure and function. Doppler and Color Flow revealed trace tricus pid regurgitation. There is no tricuspid valve stenosis. PULMONIC VALVE The pulmonary valve is normal in structure and function. Doppler and Color Flow revealed no pulmonic valvular regurgitation. There is no pulmonic valvular stenosis. GREAT VESSELS The aortic root is normal in size. The ascending aorta is not well seen. The IVC is normal in size an d collapses >50% with inspiration. PERICARDIAL EFFUSION There is no pleural effusion. There is no evidence of significant pericardial effusion. Critical Notification Critical Value: No <Conclusion> The left ventricle is normal size. Left ventricle systolic function is normal. The Ejection Fraction is 55-60%. There is normal left ventricular wall thickness. There is no significant aortic valvular stenosis. Doppler and Color Flow revealed no significant aortic regurgitation. Doppler and Color Flow revealed trace mitral regurgitation. Doppler and Color Flow revealed trace tricuspid regurgitation.
--- NOTE | 2016-06-08 16:30 | RAD ---
CT of the chest without contrast, 06/08/2016: History: Pneumonia Noncontrast scans were obtained through the patient's known renal insufficiency. There is moderate calcific plaquing of the thoracic aorta without evidence of aneurysm. Moderate scattered coronary artery calcifications are present. No mediastinal adenopathy is seen. There are scattered calcified granulomata in both lungs. There is interlobular septal thickening in the lung basis and posterior aspects of both lungs. There are also peripheral linear opacities in both lung bases. Some of these peripheral opacities were present on an old study from 10/23/2015, suggesting a component of fibrosis. There appears to be a trace amount of bilateral pleural fluid posteriorly. IMPRESSION: 1. Calcific plaquing of the aorta and coronary arteries. 2. Streaky bibasilar pulmonary opacities most likely represent a combination of interstitial pulmonary edema and fibrosis. PQRS Compliance Statement: One or more of the following individualized dose reduction techniques were utilized for this examination: 1. Automated exposure control 2. Adjustment of the mA and/or kV according to patient size 3. Use of iterative reconstruction technique
[2016-06-08] MEDS: METOPROLOL TART IMMED RELEASE 25 MG TABLET. PO SCH ×2 (16:44→21:23)
[2016-06-08] MEDS: HEPARIN for IV BOLUS 10,000 UNIT/10 ML VIAL. IV PRN ×2 (17:31→23:24)
--- NOTE | 2016-06-08 19:03 | RAD ---
PROCEDURE Lung scan 06/08/2016 HISTORY Shortness of breath for 1 day. Chest pain. TECHNIQUE After the administration of 17 millicuries of Xenon 133 gas, ventilation images of both lungs were obtained using the Gamma camera. After the intravenous administration of 6.6 millicuries of Technetium 99 M MAA, perfusion images of both lungs were obtained using the Gamma camera. FINDINGS Comparison is made to a portable chest radiograph dated 06/07/2016. This demonstrates mild congestive changes involving both lungs. Homogeneous ventilation and perfusion to both lungs is seen. No perfusion defect is noted. These findings are consistent with a normal lung scan. IMPRESSION Normal lung scan. Electronically signed by: Otoniel Lozada MD (Jun 08, 2016 19:02:26)
[2016-06-08 19:21] VITALS: BP 133/57
[2016-06-08] MEDS ORDERED: ATORVASTATIN CALCIUM 10 MG TABLET. PO SCH (21:00)
[2016-06-08] MEDS: ATORVASTATIN CALCIUM 10 MG TABLET. PO SCH (21:23)
[2016-06-08] MEDS: INSULIN DETEMIR 300 UNITS/3 ML INSULN.PEN. SQ SCH (21:27)
[2016-06-08 23:00] VITALS: BP 129/64
[2016-06-09 02:39] VITALS: BP 132/63
[2016-06-09] MEDS: HEPARIN 25,000UTS/500ML PREMIX 500 ML IV PRN ×2 (03:08→15:05)
[2016-06-09] MEDS: INSULIN ASPART 300 UNITS/3 ML INSULN.PEN SQ SCH ×7 (07:30→20:50)
[2016-06-09 07:55] VITALS: BP 110/53
--- NOTE | 2016-06-09 07:55 | RAD ---
Bilateral lower extremity venous Doppler ultrasound History: Shortness of air, chronic bilateral lower extremity swelling. Comparison: None. Procedure: Color Doppler, spectral Doppler, and grayscale images are obtained with and without compression in the area of the common femoral vein, superficial femoral vein - femoral vein junction, main femoral vein (superficial femoral vein) and popliteal vein. Veins of the proximal calf are suboptimally visualized. Findings: There is normal duplex flow, color flow and compressibility of all visualized vein segments. No evidence of deep venous thrombosis is present. Impression: No evidence of lower extremity deep venous thrombosis.
--- NOTE | 2016-06-09 08:55 | PDOC ---
Infectious Disease Note ROS ROS GEN: Denies fevers, chills, sweats HEENT: Denies blurred vision, sore throat CV: Denies chest pain RESP: Denies shortness of air, cough GI: Denies n/v/d NEURO: Denies confusion, dizziness MSK: Denies weakness, joint pain/swelling Vital Sign Vital Signs Vital Signs Date Time Temp Pulse Resp B/P Pulse Ox O2 Delivery O2 Flow Rate FiO2 06/09/16 02:39 100.0 88 18 132/63 91 Nasal Cannula 2.0 100.0 Physical Exam PHYSICAL EXAM GENERAL: NAD, Alert HEENT: PERRL, OC/OP NECK: Supple, no JVD, no LN LUNGS: Clear HEART: S1S2, no gallop, no murmur ABD: Soft, NT, no organomegaly, no rebound EXT: No edema, no cyanosis TEST TECHNICIAN: Alert, oriented x 3, no focal neurologic deficit SKIN: No rash IV: ok Labs Lab Laboratory Tests Test 06/08/16 13:10 06/08/16 16:05 06/08/16 16:42 06/08/16 19:15 Troponin I Quantitative 1.839ng/mL (0.000-0.055) 1.597ng/mL (0.000-0.055) Heparin Anti-Xa Act, Unfractionated < 0.10IU/mL (0.30-0.70) Lactic Acid Level 1.5mmol/L (0.4-2.0) Glucose (Fingerstick) 136mg/dL (70-99) Test 06/08/16 22:00 06/09/16 05:30 06/09/16 07:57 Heparin Anti-Xa Act, Unfractionated 0.11IU/mL (0.30-0.70) 0.25IU/mL (0.30-0.70) Glucose (Fingerstick) 149mg/dL (70-99) Objective Assessment Strep G sepsis - POA 4/5 - d/w micro LLE cellulitis s/p NSTEMI CKD Plan Plan of Care D/c Vanc Cont Rocephin but change to 2 gm F/u ECHO Repeat Blood cults in am Monitor leg labs today Thank you # [id number] KALI GUERRERO MD Jun 09, 2016 08:55
--- NOTE | 2016-06-09 09:08 | PDOC ---
ERVIN ORELLANA ATM TECHNICIAN 06/09/16 0908: CARDIO Progress Notes Date and Time Date of Service 06/09/2016 Time of Evaluation 1020 Subjective Subjective: No Chest Pain, No Palpitations, No Dizziness, Other (feels SOA today) Vitals Vitals Vital Signs Date Time Temp Pulse Resp B/P Pulse Ox O2 Delivery O2 Flow Rate FiO2 06/09/16 02:39 100.0 88 18 132/63 91 Nasal Cannula 2.0 100.0 Weight Weight [ ] Input and Output Intake and Output Intake and Output 06/09/16 07:00 Intake Total 760 ml Output Total 1225 ml Balance -465 ml Intake Oral 360 ml Other 400 ml Output Urine Total 1225 ml # Voids 1 # Bowel Movements 1 Laboratory Labs Laboratory Tests Test 06/08/16 13:10 06/08/16 16:05 06/08/16 16:42 06/08/16 19:15 Troponin I Quantitative 1.839ng/mL (0.000-0.055) 1.597ng/mL (0.000-0.055) Heparin Anti-Xa Act, Unfractionated < 0.10IU/mL (0.30-0.70) Lactic Acid Level 1.5mmol/L (0.4-2.0) Glucose (Fingerstick) 136mg/dL (70-99) Test 06/08/16 22:00 06/09/16 05:30 06/09/16 07:57 Heparin Anti-Xa Act, Unfractionated 0.11IU/mL (0.30-0.70) 0.25IU/mL (0.30-0.70) Glucose (Fingerstick) 149mg/dL (70-99) Microbiology Micro Microbiology 06/07/16 Blood Culture - Final, Complete Physical Exam HEENT: Neck Supple W Full Motion Chest: Symmetric LUNGS: Other (bibasilar crackles) Heart: S1S2, RRR (SR) Abdomen: Soft N/T, Other (obese) Extremities: No Calf Tenderness, Other (3+ bilateral LE pitting edema) Neurology: alert, oriented, follow commands Assessment Assessment 1. Pneumonia/fever/sepsis/LLE cellulitis: preliminary BC+, remains febrile 2. NSTEMI: peaked trop at 1.8 with posterolateral changes to EKG. NEG for PE 3. Acute diastolic CHF: TTE with normal EF and wall motion. superimposed 4. CKD4: baseline Cr 2.0. 5. HTN: controlled 6. DM2/HLP/DPN 7. ESTHELA: noncompliant with CPAP 8. Family hx of premature CAD: mother in her 30s 9. Morbid obesity: BMI 41 Recommendations 1. Pulmonary/ID on board. 2. Nephrology consult for optimization in anticipation for ischemic workup once infectious process controlled. Likely Sunday for [facility]. 3. Continue on ASA. Continue with heparin drip. Lasix 4. Continue with secondary prevention. Hold ARB. 5. BMP, Mg, CBC 6. Lifestyle modifications. AGATA CARDENAS MD 06/09/16 1704: CARDIO Progress Notes Assessment Assessment Patient seen and examined. Agree with CERTIFIED MEDICAL TECHNICIAN ASSISTANT's assessment and plan. CV status stable. Continue heparin infusion. Telemetry did not show any significant arrhythmias. Plan for cardiac catheterization on Sunday. ERVIN ORELLANA APRN Jun 09, 2016 09:08 AGATA CARDENAS MD Jun 09, 2016 17:06
[2016-06-09] MEDS: OMEGA-3 FATTY ACIDS/FISH OIL 1,000 MG CAPSULE. PO SCH (09:12)
[2016-06-09] MEDS: ASCORBIC ACID 500 MG TABLET PO SCH (09:12)
[2016-06-09] MEDS: TAMSULOSIN 0.4 MG CAP.ER.24H. PO SCH (09:12)
[2016-06-09] MEDS: FERROUS SULFATE 325 MG TABLET. PO SCH (09:12)
[2016-06-09] MEDS: ASPIRIN ENTERIC COATED 81 MG TABLET.DR. PO SCH (09:12)
[2016-06-09] MEDS: METOPROLOL TART IMMED RELEASE 25 MG TABLET. PO SCH ×2 (09:13→20:43)
[2016-06-09] MEDS: FINASTERIDE 5 MG TABLET. PO SCH (09:13)
--- NOTE | 2016-06-09 09:15 | PDOC ---
PROGRESS NOTES Subjective Subjective Patient feeling better. Blood clx +. card work up pending. renal status stable. Objective Objective Vital Signs Date Time Temp Pulse Resp B/P Pulse Ox O2 Delivery O2 Flow Rate FiO2 06/09/16 02:39 100.0 88 18 132/63 91 Nasal Cannula 2.0 100.0 Intake and Output 06/09/16 07:00 Intake Total 760 ml Output Total 1225 ml Balance -465 ml Intake Oral 360 ml Other 400 ml Output Urine Total 1225 ml # Voids 1 # Bowel Movements 1 Physical Exam Abdomen: Normal bowel sounds Heart: Regular rate Extremities: No edema General: Alert Lungs: Clear to auscultation Assessment Assessment Problems Medical Problems: (1) Elevated troponin Status: Acute (2) Pneumonia Status: Acute Positive blood clx Chest pain with elevated troponins. Elevated white count with suspicion for pneumonia. Acute on chronic renal failure. Type 2 diabetes. Lactic acidosis. Plan Plan of Care Consult renal med to optimize renal status prior to likely card cath Sunday Continue iv antbx ASA planned Comment Review of Relevant I have reviewed the following items tereso (where applicable) has been applied. Labs Laboratory Tests Test 06/07/16 18:07 06/07/16 21:00 06/07/16 21:53 06/08/16 00:55 White Blood Count 21.6x10^3/uL (4.0-11.0) Red Blood Count 4.62x10^6/uL (4.30-5.70) Hemoglobin 13.2g/dL (13.0-17.5) Hematocrit 41.1% (39.0-53.0) Mean Corpuscular Volume 89fL (79-100) Mean Corpuscular Hemoglobin 29pg (25-35) Mean Corpuscular Hemoglobin Concent 32g/dL (31-37) Red Cell Distribution Width 15.1% (11.5-14.5) Platelet Count 209x10^3/uL (140-400) Neutrophils (%) (Auto) 95% (31-73) Lymphocytes (%) (Auto) 2% (24-48) Monocytes (%) (Auto) 3% (0-9) Eosinophils (%) (Auto) 0% (0-3) Basophils (%) (Auto) 0% (0-3) Neutrophils # (Auto) 20.4x10^3uL (1.8-7.7) Lymphocytes # (Auto) 0.4x10^3/uL (1.0-4.8) Monocytes # (Auto) 0.7x10^3/uL (0.0-1.1) Eosinophils # (Auto) 0.0x10^3/uL (0.0-0.7) Basophils # (Auto) 0.1x10^3/uL (0.0-0.2) Segmented Neutrophils % 78% (35-66) Band Neutrophils % 14% (0-9) Lymphocytes % 4% (24-48) Monocytes % 4% (0-10) Toxic Granulation Slight Platelet Estimate Adequate (ADEQUATE) Anisocytosis Slight Sodium Level 140mmol/L (136-145) Potassium Level 4.3mmol/L (3.5-5.1) Chloride Level 101mmol/L (98-107) Carbon Dioxide Level 26mmol/L (21-32) Anion Gap 13 (6-14) Blood Urea Nitrogen 32mg/dL (8-26) Creatinine 2.5mg/dL (0.7-1.3) Estimated GFR (Cockcroft-Gault) 25.2 BUN/Creatinine Ratio 13 (6-20) Glucose Level 284mg/dL (70-99) Lactic Acid Level 4.3mmol/L (0.4-2.0) 3.0mmol/L (0.4-2.0) Calcium Level 9.4mg/dL (8.5-10.1) Total Bilirubin 0.4mg/dL (0.2-1.0) Aspartate Amino Transf (AST/SGOT) 24U/L (15-37) Alanine Aminotransferase (ALT/SGPT) 32U/L (16-63) Alkaline Phosphatase 68U/L (46-116) Troponin I Quantitative 0.365ng/mL (0.000-0.055) 0.726ng/mL (0.000-0.055) ZC-Tkl-Q-Type Natriuretic Peptide 343pg/mL (0-449) Total Protein 7.9g/dL (6.4-8.2) Albumin 3.6g/dL (3.4-5.0) Albumin/Globulin Ratio 0.8 (1.0-1.7) Glucose (Fingerstick) 271mg/dL (70-99) Test 06/08/16 02:30 06/08/16 04:05 06/08/16 06:50 06/08/16 07:25 Influenza Type A Antigen Negative (NEGATIVE) Influenza Type B Antigen Negative (NEGATIVE) White Blood Count 20.2x10^3/uL (4.0-11.0) Red Blood Count 4.05x10^6/uL (4.30-5.70) Hemoglobin 11.6g/dL (13.0-17.5) Hematocrit 35.8% (39.0-53.0) Mean Corpuscular Volume 88fL (79-100) Mean Corpuscular Hemoglobin 29pg (25-35) Mean Corpuscular Hemoglobin Concent 32g/dL (31-37) Red Cell Distribution Width 15.4% (11.5-14.5) Platelet Count 174x10^3/uL (140-400) Neutrophils (%) (Auto) 91% (31-73) Lymphocytes (%) (Auto) 5% (24-48) Monocytes (%) (Auto) 4% (0-9) Eosinophils (%) (Auto) 0% (0-3) Basophils (%) (Auto) 0% (0-3) Neutrophils # (Auto) 18.4x10^3uL (1.8-7.7) Lymphocytes # (Auto) 0.9x10^3/uL (1.0-4.8) Monocytes # (Auto) 0.8x10^3/uL (0.0-1.1) Eosinophils # (Auto) 0.0x10^3/uL (0.0-0.7) Basophils # (Auto) 0.0x10^3/uL (0.0-0.2) Sodium Level 140mmol/L (136-145) Potassium Level 4.2mmol/L (3.5-5.1) Chloride Level 105mmol/L (98-107) Carbon Dioxide Level 24mmol/L (21-32) Anion Gap 11 (6-14) Blood Urea Nitrogen 29mg/dL (8-26) Creatinine 2.3mg/dL (0.7-1.3) Estimated GFR (Cockcroft-Gault) 27.8 BUN/Creatinine Ratio 13 (6-20) Glucose Level 242mg/dL (70-99) Calcium Level 8.2mg/dL (8.5-10.1) Magnesium Level 2.2mg/dL (1.8-2.4) Total Bilirubin 0.4mg/dL (0.2-1.0) Aspartate Amino Transf (AST/SGOT) 29U/L (15-37) Alanine Aminotransferase (ALT/SGPT) 31U/L (16-63) Alkaline Phosphatase 55U/L (46-116) Troponin I Quantitative 1.078ng/mL (0.000-0.055) Total Protein 6.1g/dL (6.4-8.2) Albumin 2.8g/dL (3.4-5.0) Albumin/Globulin Ratio 0.8 (1.0-1.7) Triglycerides Level 95mg/dL (0-150) Cholesterol Level 104mg/dL (0-200) LDL Cholesterol, Calculated 46mg/dL (0-100) VLDL Cholesterol, Calculated 19mg/dL (0-40) HDL Cholesterol 39mg/dL (40-60) Cholesterol/HDL Ratio 2.7 Lactic Acid Level 2.8mmol/L (0.4-2.0) Test 06/08/16 08:24 06/08/16 13:10 06/08/16 16:05 06/08/16 16:42 Glucose (Fingerstick) 216mg/dL (70-99) 136mg/dL (70-99) Troponin I Quantitative 1.839ng/mL (0.000-0.055) Heparin Anti-Xa Act, Unfractionated < 0.10IU/mL (0.30-0.70) Lactic Acid Level 1.5mmol/L (0.4-2.0) Test 06/08/16 19:15 06/08/16 22:00 06/09/16 05:30 06/09/16 07:57 Troponin I Quantitative 1.597ng/mL (0.000-0.055) Heparin Anti-Xa Act, Unfractionated 0.11IU/mL (0.30-0.70) 0.25IU/mL (0.30-0.70) Glucose (Fingerstick) 149mg/dL (70-99) Laboratory Tests Test 06/08/16 13:10 06/08/16 16:05 06/08/16 16:42 06/08/16 19:15 Troponin I Quantitative 1.839ng/mL (0.000-0.055) 1.597ng/mL (0.000-0.055) Heparin Anti-Xa Act, Unfractionated < 0.10IU/mL (0.30-0.70) Lactic Acid Level 1.5mmol/L (0.4-2.0) Glucose (Fingerstick) 136mg/dL (70-99) Test 06/08/16 22:00 06/09/16 05:30 06/09/16 07:57 Heparin Anti-Xa Act, Unfractionated 0.11IU/mL (0.30-0.70) 0.25IU/mL (0.30-0.70) Glucose (Fingerstick) 149mg/dL (70-99) Microbiology 06/07/16 Blood Culture - Final, Complete Medications Current Medications Acetaminophen 650 mg 650 mg 1X ONCE PO Last administered on 06/07/16 18:07; Start 06/07/16 at 17:45; Stop 06/07/16 at 17:49; Status DC Levofloxacin/ Dextrose (LEVAQUIN 750mg PREMIX) 150 ml @ 100 mls/hr 1X ONCE IV Last administered on 06/07/16 18:08; Start 06/07/16 at 17:45; Stop 06/07/16 at 19:14; Status DC Aspirin 324 mg 324 mg 1X ONCE PO Last administered on 06/07/16 18:07; Start at 18:00; Stop 06/07/16 at 18:01; Status DC Sodium Chloride 500 ml @ 500 mls/hr 1X ONCE IV Last administered on 06/07/16 18:07; Start 06/07/16 at 18:00; Stop 06/07/16 at 18:59; Status DC Sodium Chloride 1,000 ml @ 1,000 mls/hr 1X ONCE IV Last administered on 19:40; Start 06/07/16 at 19:00; Stop 06/07/16 at 19:59; Status DC Sodium Chloride (Iv Sodium Chloride 0.9% 1000ml Bag) 1,000 ml @ 1,000 mls/hr 1X ONCE IV Last administered on 06/07/16 20:55; Start 06/07/16 at 19:00; Stop 06/07/16 at 19:59; Status DC Ondansetron HCl (Zofran) 4 mg PRN Q8HRS PRN IV NAUSEA/VOMITING; Start 06/07/16 at 19:15; Stop 06/08/16 at 19:14; Status DC Morphine Sulfate 2 mg 2 mg PRN Q2HR PRN IV PAIN; Start 06/07/16 at 19:15; Stop 06/08/16 at 19:14; Status DC Sodium Chloride (Iv Sodium Chloride 0.9% 1000ml Bag) 1,000 ml @ 150 mls/hr Q6H40M IV Last administered on 06/08/16 16:44; Start 06/07/16 at 19:03; Stop 06/08/16 at 19:02; Status DC Acetaminophen (Tylenol) 650 mg PRN Q4HRS PRN PO FEVER Last administered on 06:49; Start 06/07/16 at 19:15; Stop 06/08/16 at 19:14; Status DC Insulin Aspart (Novolog) 0-7 UNITS TIDWMEALS SQ ; Start 06/08/16 at 08:00; Stop 06/08/16 at 11:42; Status DC Dextrose (Dextrose 50%-Water Syringe) 12.5 gm PRN Q15MIN PRN IV SEE COMMENTS; Start 06/07/16 at 19:15 Ascorbic Acid (Vitamin C) 500 mg DAILY PO Last administered on 06/08/16 10:04; Start 06/08/16 at 09:00 Aspirin (Cherelle Aspirin) 325 mg DAILY PO ; Start 06/08/16 at 09:00; Stop 06/08/16 at 09:13; Status DC Ferrous Sulfate (Feosol) 325 mg DAILY PO Last administered on 06/08/16 10:04; Start 06/08/16 at 09:00 Finasteride (Proscar) 5 mg DAILY PO Last administered on 06/08/16 10:05; Start 06/08/16 at 09:00 Losartan Potassium (Cozaar) 50 mg DAILY PO ; Start 06/08/16 at 09:00; Stop at 09:05; Status DC Tamsulosin HCl (Flomax) 0.4 mg DAILY PO Last administered on 06/08/16 10:04; Start 06/08/16 at 09:00 Atorvastatin Calcium (Lipitor) 5 mg HS PO Last administered on 06/08/16 21:23; Start 06/07/16 at 22:30 Insulin Detemir (Levemir) 64 units QHS SQ Last administered on 06/08/16 21:27; Start 06/07/16 at 22:30 Insulin Aspart (Novolog) 40 units TIDAC SQ Last administered on 06/08/16 16:54 ; Start 06/08/16 at 07:30 Fish Oil (Fish Oil) 1,000 mg DAILY PO Last administered on 06/08/16 10:05; Start 06/08/16 at 09:00 Enoxaparin Sodium (Lovenox 40mg Syringe) 40 mg Q24H SQ Last administered on 06/07 23:06; Start 06/07/16 at 22:00; Stop 06/08/16 at 09:13; Status DC Insulin Aspart 0-12 UNITS QIDACHS SQ Last administered on 06/08/16 21:31; Start 06/07/16 at 22:30 Heparin Sodium/ Dextrose 500 ml @ 0 mls/hr CONT PRN IV SEE I/O RECORD Last administered on 06/09/16 03:08; Start 06/08/16 at 09:15 Heparin Sodium (Porcine) (Heparin Sodium) 3,400 unit PRN Q6HRS PRN IV FOR UFH LEVEL LESS THAN 0.2 Last administered on 06/08/16 23:24; Start 06/08/16 at 09:15 Aspirin (Ecotrin) 81 mg [id number] PO Last administered on 06/08/16 10:04; Start 06/08/16 at 10:00 Info 1 each 1 each PRN DAILY PRN MC SEE COMMENTS; Start 06/08/16 at 09:30 Ceftriaxone Sodium/Sodium Chloride (Rocephin/Iv Sodium Chloride 0.9% 50ml) 50 ml @ 100 mls/hr Q24H IV Last administered on 06/08/16 16:45; Start 06/08/16 at 13:00; Stop 06/09/16 at 08:44; Status DC Vancomycin HCl 1 each 1 each PRN DAILY PRN MC SEE COMMENTS Last administered on 06/08/16 14:08; Start 06/08/16 at 12:15; Stop 06/09/16 at 08:44; Status DC Vancomycin HCl/ Sodium Chloride (Iv Sodium Chloride 0.9% 500ml Bag) 500 ml @ 250 mls/hr 1X ONCE IV Last administered on 06/08/16 16:45; Start 06/08/16 at 13 :00; Stop 06/08/16 at 14:59; Status DC Metoprolol Tartrate (Lopressor) 25 mg BID PO Last administered on 06/08/16 21: 23; Start 06/08/16 at 13:00 Atorvastatin Calcium (Lipitor) 5 mg QHS PO ; Start 06/08/16 at 21:00; Status UNV Hydralazine HCl 10 mg 10 mg PRN Q4HRS PRN IVP ELEVATED BP, SEE COMMENTS; Start 06/08/16 at 12:15 Vancomycin HCl/ Sodium Chloride (Iv Sodium Chloride 0.9% 500ml Bag) 500 ml @ 250 mls/hr Q24H IV ; Start 06/09/16 at 15:00; Stop 06/09/16 at 15:00; Status DC Vancomycin HCl 1 each 1X ONCE MC ; Start 06/09/16 at 14:30; Stop 06/09/16 at 14: 31 Sulfur Hexafluoride Microspheres 25 mg 25 mg STK-MED ONCE IVP ; Start 06/08/16 at 14:48; Stop 06/08/16 at 14:49; Status DC Ceftriaxone Sodium/Sodium Chloride (Rocephin/Iv Sodium Chloride 0.9% 50ml) 50 ml @ 100 mls/hr Q24H IV ; Start 06/09/16 at 17:00 Active Scripts Active Hydrocodone-Apap 5-325 (Hydrocodone Bit/Acetaminophen) 1 Each Tablet 1 Tab PO PRN Q4HRS PRN Cipro (Ciprofloxacin Hcl) 250 Mg Tablet 250 Mg PO BID Reported Finasteride 5 Mg Tablet 5 Mg PO DAILY Tamsulosin Hcl 0.4 Mg Cap.er.24h 0.4 Mg PO DAILY Iron (Ferrous Sulfate) 325 Mg Tablet 325 Mg PO Fish Oil 1,000 Mg Softgel ([place]-3 Fatty Acids/Fish Oil) 1 Each Capsule 1,000 Each PO Vitamin D (Cholecalciferol (Vitamin D3)) 1,000 Unit Capsule 1,000 Unit PO Ascorbic Acid 500 Mg Tablet 500 Mg PO Aspirin 325 Mg Tablet 325 Mg PO Lantus (Insulin Glargine,Hum.rec.anlog) 100 Unit/1 Ml Vial 1 Unit SQ Humalog (Insulin Lispro) 100 Unit/1 Ml Vial 100 Unit SQ Lovastatin 20 Mg Tablet 20 Mg PO HS Lasix (Furosemide) 40 Mg Tablet 40 Mg PO BID Losartan Potassium 50 Mg Tablet 50 Mg PO DAILY Vitals/I & O Vital Sign - Last 24 Hours 06/08/16 06/08/16 06/08/16 06/08/16 11:31 15:00 16:44 19:21 Temp 99.0 98.4 99.3 99.0 98.4 99.3 Pulse 91 93 93 89 Resp 22 24 22 B/P 128/72 130/63 130/63 133/57 Pulse Ox 94 93 O2 Delivery Room Air Room Air Room Air 06/08/16 06/08/16 06/08/16 06/08/16 19:30 19:35 21:23 23:00 Temp 100.8 100.8 Pulse 89 90 Resp 18 B/P 133/57 129/64 Pulse Ox 92 91 O2 Delivery Nasal Cannula Nasal Cannula Nasal Cannula O2 Flow Rate 2.0 2.0 2.0 06/08/16 06/09/16 23:29 02:39 Temp 98.5 100.0 98.5 100.0 Pulse 88 Resp 18 B/P 132/63 Pulse Ox 91 O2 Delivery Nasal Cannula O2 Flow Rate 2.0 Intake and Output 06/08/16 06/08/16 06/09/16 15:00 23:00 07:00 Intake Total 360 ml 400 ml Output Total 450 ml 775 ml Balance -90 ml -375 ml ALAN VERDIN MD Jun 09, 2016 09:15
[2016-06-09 11:01] VITALS: BP 130/66
[2016-06-09 12:45] LABS: BASO # 0.1 x10^3/uL (0.0-0.2); BASO % 0 % (0-3); EOS % 1 % (0-3); HEMATOCRIT 37.3 % (39.0-53.0); HEMOGLOBIN 11.8 g/dL (13.0-17.5); LYMPH # 1.4 x10^3/uL (1.0-4.8); LYMPH % 11 % (24-48); MEAN CORPUSCULAR HEMOGLOBIN 28 pg (25-35); MEAN CORPUSCULAR HGB CONC 32 g/dL (31-37); MEAN CORPUSCULAR VOLUME 90 fL (79-100); MONO % 5 % (0-9); NEUT % 84 % (31-73); PLATELET COUNT 161 x10^3/uL (140-400); RED BLOOD COUNT 4.17 x10^6/uL (4.30-5.70); RED CELL DISTRIBUTION WIDTH 15.8 % (11.5-14.5); WHITE BLOOD COUNT 12.6 x10^3/uL (4.0-11.0)
--- NOTE | 2016-06-09 12:51 | PDOC2 ---
CONSULT Date of Consult Date of Consult DATE: 06/09/16 TIME: 12:44 Reason for Consult Reason for Consult: CKD III? IV Referring Physician Referring Physician: Dr Frost Identification/Chief Complaint Chief Complaint CP BOONE Problems: Source Source: Chart review, Patient History of Present Illness Reason for Visit: as dictated Past Medical History Cardiovascular: HTN, Hyperlipidemia Pulmonary: No pertinent hx CENTRAL NERVOUS SYSTEM: Periperal neuropathy GI: Constipation Heme/Onc: No pertinent hx Hepatobiliary: No pertinent hx Psych: No pertinent hx Musculoskeletal: Osteoarthritis Rheumatologic: No pertinent hx Infectious disease: No pertinent hx Renal/: Benign prostatic enlarg., Hematuria Endocrine: Diabetes Past Surgical History Past Surgical History: Other (10/2015 right colon resection with abscess drain; cystoscopy; back surgery) Family History Family History: Diabetes, Heart Disease, Hypertension Social History ALCOHOL: other Drugs: None Lives: Alone Current Problem List Problem List Problems Medical Problems: (1) Elevated troponin Status: Acute (2) Pneumonia Status: Acute Current Medications Current Medications Current Medications Acetaminophen 650 mg 650 mg 1X ONCE PO Last administered on 06/07/16 18:07; Start 06/07/16 at 17:45; Stop 06/07/16 at 17:49; Status DC Levofloxacin/ Dextrose (LEVAQUIN 750mg PREMIX) 150 ml @ 100 mls/hr 1X ONCE IV Last administered on 06/07/16 18:08; Start 06/07/16 at 17:45; Stop 06/07/16 at 19:14; Status DC Aspirin 324 mg 324 mg 1X ONCE PO Last administered on 06/07/16 18:07; Start at 18:00; Stop 06/07/16 at 18:01; Status DC Sodium Chloride 500 ml @ 500 mls/hr 1X ONCE IV Last administered on 06/07/16 18:07; Start 06/07/16 at 18:00; Stop 06/07/16 at 18:59; Status DC Sodium Chloride 1,000 ml @ 1,000 mls/hr 1X ONCE IV Last administered on 19:40; Start 06/07/16 at 19:00; Stop 06/07/16 at 19:59; Status DC Sodium Chloride (Iv Sodium Chloride 0.9% 1000ml Bag) 1,000 ml @ 1,000 mls/hr 1X ONCE IV Last administered on 06/07/16 20:55; Start 06/07/16 at 19:00; Stop 06/07/16 at 19:59; Status DC Ondansetron HCl (Zofran) 4 mg PRN Q8HRS PRN IV NAUSEA/VOMITING; Start 06/07/16 at 19:15; Stop 06/08/16 at 19:14; Status DC Morphine Sulfate 2 mg 2 mg PRN Q2HR PRN IV PAIN; Start 06/07/16 at 19:15; Stop 06/08/16 at 19:14; Status DC Sodium Chloride (Iv Sodium Chloride 0.9% 1000ml Bag) 1,000 ml @ 150 mls/hr Q6H40M IV Last administered on 06/08/16 16:44; Start 06/07/16 at 19:03; Stop 06/08/16 at 19:02; Status DC Acetaminophen (Tylenol) 650 mg PRN Q4HRS PRN PO FEVER Last administered on 06:49; Start 06/07/16 at 19:15; Stop 06/08/16 at 19:14; Status DC Insulin Aspart (Novolog) 0-7 UNITS TIDWMEALS SQ ; Start 06/08/16 at 08:00; Stop 06/08/16 at 11:42; Status DC Dextrose (Dextrose 50%-Water Syringe) 12.5 gm PRN Q15MIN PRN IV SEE COMMENTS; Start 06/07/16 at 19:15 Ascorbic Acid (Vitamin C) 500 mg DAILY PO Last administered on 06/09/16 09:12; Start 06/08/16 at 09:00 Aspirin (Cherelle Aspirin) 325 mg DAILY PO ; Start 06/08/16 at 09:00; Stop 06/08/16 at 09:13; Status DC Ferrous Sulfate (Feosol) 325 mg DAILY PO Last administered on 06/09/16 09:12; Start 06/08/16 at 09:00 Finasteride (Proscar) 5 mg DAILY PO Last administered on 06/09/16 09:13; Start 06/08/16 at 09:00 Losartan Potassium (Cozaar) 50 mg DAILY PO ; Start 06/08/16 at 09:00; Stop at 09:05; Status DC Tamsulosin HCl (Flomax) 0.4 mg DAILY PO Last administered on 06/09/16 09:12; Start 06/08/16 at 09:00 Atorvastatin Calcium (Lipitor) 5 mg HS PO Last administered on 06/08/16 21:23; Start 06/07/16 at 22:30 Insulin Detemir (Levemir) 64 units QHS SQ Last administered on 06/08/16 21:27; Start 06/07/16 at 22:30 Insulin Aspart (Novolog) 40 units TIDAC SQ Last administered on 06/09/16 09:23 ; Start 06/08/16 at 07:30 Fish Oil (Fish Oil) 1,000 mg DAILY PO Last administered on 06/09/16 09:12; Start 06/08/16 at 09:00 Enoxaparin Sodium (Lovenox 40mg Syringe) 40 mg Q24H SQ Last administered on 06/07 23:06; Start 06/07/16 at 22:00; Stop 06/08/16 at 09:13; Status DC Insulin Aspart 0-12 UNITS QIDACHS SQ Last administered on 06/08/16 21:31; Start 06/07/16 at 22:30 Heparin Sodium/ Dextrose 500 ml @ 0 mls/hr CONT PRN IV SEE I/O RECORD Last administered on 06/09/16 03:08; Start 06/08/16 at 09:15 Heparin Sodium (Porcine) (Heparin Sodium) 3,400 unit PRN Q6HRS PRN IV FOR UFH LEVEL LESS THAN 0.2 Last administered on 06/08/16 23:24; Start 06/08/16 at 09:15 Aspirin (Ecotrin) 81 mg DAILYWBKFT PO Last administered on 06/09/16 09:12; Start 06/08/16 at 10:00 Info 1 each 1 each PRN DAILY PRN MC SEE COMMENTS; Start 06/08/16 at 09:30 Ceftriaxone Sodium/Sodium Chloride (Rocephin/Iv Sodium Chloride 0.9% 50ml) 50 ml @ 100 mls/hr Q24H IV Last administered on 06/08/16 16:45; Start 06/08/16 at 13:00; Stop 06/09/16 at 08:44; Status DC Vancomycin HCl 1 each 1 each PRN DAILY PRN MC SEE COMMENTS Last administered on 06/08/16 14:08; Start 06/08/16 at 12:15; Stop 06/09/16 at 08:44; Status DC Vancomycin HCl/ Sodium Chloride (Iv Sodium Chloride 0.9% 500ml Bag) 500 ml @ 250 mls/hr 1X ONCE IV Last administered on 06/08/16 16:45; Start 06/08/16 at 13 :00; Stop 06/08/16 at 14:59; Status DC Metoprolol Tartrate (Lopressor) 25 mg BID PO Last administered on 06/09/16 09: 13; Start 06/08/16 at 13:00 Atorvastatin Calcium (Lipitor) 5 mg QHS PO ; Start 06/08/16 at 21:00; Status UNV Hydralazine HCl 10 mg 10 mg PRN Q4HRS PRN IVP ELEVATED BP, SEE COMMENTS; Start 06/08/16 at 12:15 Vancomycin HCl/ Sodium Chloride (Iv Sodium Chloride 0.9% 500ml Bag) 500 ml @ 250 mls/hr Q24H IV ; Start 06/09/16 at 15:00; Stop 06/09/16 at 15:00; Status DC Vancomycin HCl 1 each 1X ONCE MC ; Start 06/09/16 at 14:30; Stop 06/09/16 at 14: 31 Sulfur Hexafluoride Microspheres 25 mg 25 mg STK-MED ONCE IVP ; Start 06/08/16 at 14:48; Stop 06/08/16 at 14:49; Status DC Ceftriaxone Sodium 2 gm/ Sodium Chloride 50 ml @ 100 mls/hr Q24H IV ; Start 06/09/16 at 17:00; Stop 06/09/16 at 17:00; Status DC Ceftriaxone Sodium/Sodium Chloride (Rocephin/Iv Sodium Chloride 0.9% 100ml) 100 ml @ 200 mls/hr Q24H IV ; Start 06/09/16 at 17:00 Active Scripts Active Hydrocodone-Apap 5-325 (Hydrocodone Bit/Acetaminophen) 1 Each Tablet 1 Tab PO PRN Q4HRS PRN Cipro (Ciprofloxacin Hcl) 250 Mg Tablet 250 Mg PO BID Reported Finasteride 5 Mg Tablet 5 Mg PO DAILY Tamsulosin Hcl 0.4 Mg Cap.er.24h 0.4 Mg PO DAILY Iron (Ferrous Sulfate) 325 Mg Tablet 325 Mg PO Fish Oil 1,000 Mg Softgel (Colbert-3 Fatty Acids/Fish Oil) 1 Each Capsule 1,000 Each PO Vitamin D (Cholecalciferol (Vitamin D3)) 1,000 Unit Capsule 1,000 Unit PO Ascorbic Acid 500 Mg Tablet 500 Mg PO Aspirin 325 Mg Tablet 325 Mg PO Lantus (Insulin Glargine,Hum.rec.anlog) 100 Unit/1 Ml Vial 1 Unit SQ Humalog (Insulin Lispro) 100 Unit/1 Ml Vial 100 Unit SQ Lovastatin 20 Mg Tablet 20 Mg PO HS Lasix (Furosemide) 40 Mg Tablet 40 Mg PO BID Losartan Potassium 50 Mg Tablet 50 Mg PO DAILY Allergies Allergies: Coded Allergies: No Known Drug Allergies (Unverified , 10/26/15) ROS Review of System GEN: subj Fevers ? Chills EYES: no new Visual Complaints ENT: no EN Drainage no Hearing deficiets CVS: + Orthopnea + CP RESP: + SOB + BOONE GI: no Nausea no Vomiting : no Dysuria occ Urgency HEME: no easy bruising no Palp Ly Nodes NEURO no Focal Weakness no Sz PSYCH: no Suicidal Ideation no Depression SKIN: no Rashes ENDO: no Polyuria or Polydipsia no Hot/Cold Intolerance MU SK: occ Arthraigia no Myalgia Physical Exam Physical Exam General Appearance: Awake Alert Oriented x 3 In no Distress Eyes: VIsion Unchanged Conjunctiva Normal EN: No EN Drainage Mucous Memb. moist Neck: no JVD no JVP Supple no Thyromegaly; Thick neck CVS: S1 S2 no audible Murmur No Gallop No Rub +2 Edema Resp: rare Rales no Rhonchi no Acc. Muscle use; distal BS GI: BAS +ve NO Bruit Non Tender Non Distended; Morbildy obese : no CVA tenderness; no Suprapubic Tenderness SKIN: no visible Rashes Breast Exam deferred Mu.Sk: Adequate ROM no Muscle Atrophy Heme: Unable to palpate Obvious LAD n o palp Splenomegaly NEURO: Good Strength and Tone Cranial Nerves II - XII grossly intact Psych: not Depressed no Active hallucination Vital Signs Vital Signs Date Time Temp Pulse Resp B/P Pulse Ox O2 Delivery O2 Flow Rate FiO2 06/09/16 11:01 98.0 87 19 130/66 91 Nasal Cannula 4.0 98.0 Assessment & Plan CKD IV - No uremic s/s, Current FLuid and E-lyte status does not necessitate emergent need for Dialysis. Will re-evaluate for Dialysis in am, chechk 24-hr Urine for CrCl BOONE and Orthopnea - IV lasix as ordered Anemia: check Rooks; may need Epogen Transfuse as needed. NSTEMI with Previous Angina - now resolved - For [facility] on Sunday - will optimize fluid status over the weekend for same. HTN: Current BP meds reviewed. See orders for changes. Febrile illness with Grp G Strep bacteremia -defer to Dr Frost et al; Discussed Plan of Care and prognosis etc. at length with family. Labs Labs Laboratory Tests Test 06/07/16 18:07 06/07/16 21:00 06/07/16 21:53 06/08/16 00:55 White Blood Count 21.6x10^3/uL (4.0-11.0) Red Blood Count 4.62x10^6/uL (4.30-5.70) Hemoglobin 13.2g/dL (13.0-17.5) Hematocrit 41.1% (39.0-53.0) Mean Corpuscular Volume 89fL (79-100) Mean Corpuscular Hemoglobin 29pg (25-35) Mean Corpuscular Hemoglobin Concent 32g/dL (31-37) Red Cell Distribution Width 15.1% (11.5-14.5) Platelet Count 209x10^3/uL (140-400) Neutrophils (%) (Auto) 95% (31-73) Lymphocytes (%) (Auto) 2% (24-48) Monocytes (%) (Auto) 3% (0-9) Eosinophils (%) (Auto) 0% (0-3) Basophils (%) (Auto) 0% (0-3) Neutrophils # (Auto) 20.4x10^3uL (1.8-7.7) Lymphocytes # (Auto) 0.4x10^3/uL (1.0-4.8) Monocytes # (Auto) 0.7x10^3/uL (0.0-1.1) Eosinophils # (Auto) 0.0x10^3/uL (0.0-0.7) Basophils # (Auto) 0.1x10^3/uL (0.0-0.2) Segmented Neutrophils % 78% (35-66) Band Neutrophils % 14% (0-9) Lymphocytes % 4% (24-48) Monocytes % 4% (0-10) Toxic Granulation Slight Platelet Estimate Adequate (ADEQUATE) Anisocytosis Slight Sodium Level 140mmol/L (136-145) Potassium Level 4.3mmol/L (3.5-5.1) Chloride Level 101mmol/L (98-107) Carbon Dioxide Level 26mmol/L (21-32) Anion Gap 13 (6-14) Blood Urea Nitrogen 32mg/dL (8-26) Creatinine 2.5mg/dL (0.7-1.3) Estimated GFR (Cockcroft-Gault) 25.2 BUN/Creatinine Ratio 13 (6-20) Glucose Level 284mg/dL (70-99) Lactic Acid Level 4.3mmol/L (0.4-2.0) 3.0mmol/L (0.4-2.0) Calcium Level 9.4mg/dL (8.5-10.1) Total Bilirubin 0.4mg/dL (0.2-1.0) Aspartate Amino Transf (AST/SGOT) 24U/L (15-37) Alanine Aminotransferase (ALT/SGPT) 32U/L (16-63) Alkaline Phosphatase 68U/L (46-116) Troponin I Quantitative 0.365ng/mL (0.000-0.055) 0.726ng/mL (0.000-0.055) IV-Wyz-M-Type Natriuretic Peptide 343pg/mL (0-449) Total Protein 7.9g/dL (6.4-8.2) Albumin 3.6g/dL (3.4-5.0) Albumin/Globulin Ratio 0.8 (1.0-1.7) Glucose (Fingerstick) 271mg/dL (70-99) Test 06/08/16 02:30 06/08/16 04:05 06/08/16 06:50 06/08/16 07:25 Influenza Type A Antigen Negative (NEGATIVE) Influenza Type B Antigen Negative (NEGATIVE) White Blood Count 20.2x10^3/uL (4.0-11.0) Red Blood Count 4.05x10^6/uL (4.30-5.70) Hemoglobin 11.6g/dL (13.0-17.5) Hematocrit 35.8% (39.0-53.0) Mean Corpuscular Volume 88fL (79-100) Mean Corpuscular Hemoglobin 29pg (25-35) Mean Corpuscular Hemoglobin Concent 32g/dL (31-37) Red Cell Distribution Width 15.4% (11.5-14.5) Platelet Count 174x10^3/uL (140-400) Neutrophils (%) (Auto) 91% (31-73) Lymphocytes (%) (Auto) 5% (24-48) Monocytes (%) (Auto) 4% (0-9) Eosinophils (%) (Auto) 0% (0-3) Basophils (%) (Auto) 0% (0-3) Neutrophils # (Auto) 18.4x10^3uL (1.8-7.7) Lymphocytes # (Auto) 0.9x10^3/uL (1.0-4.8) Monocytes # (Auto) 0.8x10^3/uL (0.0-1.1) Eosinophils # (Auto) 0.0x10^3/uL (0.0-0.7) Basophils # (Auto) 0.0x10^3/uL (0.0-0.2) Sodium Level 140mmol/L (136-145) Potassium Level 4.2mmol/L (3.5-5.1) Chloride Level 105mmol/L (98-107) Carbon Dioxide Level 24mmol/L (21-32) Anion Gap 11 (6-14) Blood Urea Nitrogen 29mg/dL (8-26) Creatinine 2.3mg/dL (0.7-1.3) Estimated GFR (Cockcroft-Gault) 27.8 BUN/Creatinine Ratio 13 (6-20) Glucose Level 242mg/dL (70-99) Calcium Level 8.2mg/dL (8.5-10.1) Magnesium Level 2.2mg/dL (1.8-2.4) Total Bilirubin 0.4mg/dL (0.2-1.0) Aspartate Amino Transf (AST/SGOT) 29U/L (15-37) Alanine Aminotransferase (ALT/SGPT) 31U/L (16-63) Alkaline Phosphatase 55U/L (46-116) Troponin I Quantitative 1.078ng/mL (0.000-0.055) Total Protein 6.1g/dL (6.4-8.2) Albumin 2.8g/dL (3.4-5.0) Albumin/Globulin Ratio 0.8 (1.0-1.7) Triglycerides Level 95mg/dL (0-150) Cholesterol Level 104mg/dL (0-200) LDL Cholesterol, Calculated 46mg/dL (0-100) VLDL Cholesterol, Calculated 19mg/dL (0-40) HDL Cholesterol 39mg/dL (40-60) Cholesterol/HDL Ratio 2.7 Lactic Acid Level 2.8mmol/L (0.4-2.0) Test 06/08/16 08:24 06/08/16 13:10 06/08/16 16:05 06/08/16 16:42 Glucose (Fingerstick) 216mg/dL (70-99) 136mg/dL (70-99) Troponin I Quantitative 1.839ng/mL (0.000-0.055) Heparin Anti-Xa Act, Unfractionated < 0.10IU/mL (0.30-0.70) Lactic Acid Level 1.5mmol/L (0.4-2.0) Test 06/08/16 19:15 06/08/16 22:00 06/09/16 05:30 06/09/16 07:57 Troponin I Quantitative 1.597ng/mL (0.000-0.055) Heparin Anti-Xa Act, Unfractionated 0.11IU/mL (0.30-0.70) 0.25IU/mL (0.30-0.70) Glucose (Fingerstick) 149mg/dL (70-99) Test 06/09/16 12:05 Glucose (Fingerstick) 120mg/dL (70-99) Laboratory Tests Test 06/08/16 13:10 06/08/16 16:05 06/08/16 16:42 06/08/16 19:15 Troponin I Quantitative 1.839ng/mL (0.000-0.055) 1.597ng/mL (0.000-0.055) Heparin Anti-Xa Act, Unfractionated < 0.10IU/mL (0.30-0.70) Lactic Acid Level 1.5mmol/L (0.4-2.0) Glucose (Fingerstick) 136mg/dL (70-99) Test 06/08/16 22:00 06/09/16 05:30 06/09/16 07:57 06/09/16 12:05 Heparin Anti-Xa Act, Unfractionated 0.11IU/mL (0.30-0.70) 0.25IU/mL (0.30-0.70) Glucose (Fingerstick) 149mg/dL (70-99) 120mg/dL (70-99) Images Images 1. Calcific plaquing of the aorta and coronary arteries. 2. Streaky bibasilar pulmonary opacities most likely represent a combination of interstitial pulmonary edema and fibrosis. ECHO The left ventricle is normal size. Left ventricle systolic function is normal. The Ejection Fraction is 55-60%. There is normal left ventricular wall thickness. There is no significant aortic valvular stenosis. Doppler and Color Flow revealed no significant aortic regurgitation. Doppler and Color Flow revealed trace mitral regurgitation. Doppler and Color Flow revealed trace tricuspid regurgitation. UNA AMAYA MD Jun 09, 2016 12:51
[2016-06-09] MEDS ORDERED: MAGNESIUM SULFATE 2GM 50 ML IV PRN (13:00)
[2016-06-09 13:05] LABS: CALCIUM 8.7 mg/dL (8.5-10.1); CREATININE 2.3 mg/dL (0.7-1.3); GFR 27.8; POTASSIUM 4.1 mmol/L (3.5-5.1)
--- NOTE | 2016-06-09 13:17 | RAD ---
Exam: AP portable chest. History: Congestive heart failure, shortness of air. Comparison: 06/07/2016. Findings: Cardiac silhouette is borderline in size. No pneumothorax is seen. There is evidence of small bilateral pleural effusions. Pulmonary vascularity appears increased. Right perihilar and infrahilar parenchymal densities are seen. These could represent asymmetric pulmonary edema versus pneumonia. Impression: 1. Congestive heart failure. 2. Right perihilar infiltrate second represent pulmonary edema. Pneumonia would be additional possibility.
--- NOTE | 2016-06-09 13:30 | CONS ---
DATE OF CONSULTATION: 06/09/2016 PATIENT'S ROOM: 209. REQUESTING PHYSICIAN: Dr. Frost. REASON FOR CONSULTATION: Sepsis. HISTORY OF PRESENT ILLNESS: The patient is a pleasant 76-year-old gentleman with longstanding history of diabetes for approximately 25 years or so and has neuropathy. He does have a history of tobacco abuse, but quit 25 years ago. He presented to [facility] with left-sided chest pain which he states came on very suddenly. He denies any trauma and no cough. He did vomit several times, had low-grade fever. No gross headaches. No problems with passing his urine. He denies any rashes. At presentation, he had a white blood cell count of 21.6 on 06/07/2016. Blood cultures were obtained. He was placed on vancomycin and Rocephin on the 06/08/2016 after blood cultures returned positive for Gram-positive cocci in chains. I was consulted. I reviewed his chart and agreed and continued with the current antibiotics. I also spoke with the nurse, Arianne. This morning, the patient states he is feeling okay. He did have an IV in his left arm that apparently infiltrated but has subsequently improved. He does have an appetite. He has since been diagnosed with a non-STEMI, and he is to undergo an echocardiogram. PAST MEDICAL HISTORY: Positive for type 2 diabetes, history of dyslipidemia, hypertension, neuropathy, and COPD. He has also undergone a previous cystoscopy and appendectomy, which had some periapical inflammation with phlegmon and resulted as part of a right colon resection as well. REVIEW OF SYSTEMS: Otherwise negative except for mentioned above. ALLERGIES: No known drug allergies. SOCIAL HISTORY: He quit smoking 25 years ago. FAMILY HISTORY: Noncontributory. CURRENT MEDICATIONS: Include vancomycin and Rocephin. Other medications include heparin, aspirin, ferrous sulfate, hydralazine, insulin, morphine, and Flomax. Other medications available have been reviewed in chart. PHYSICAL EXAMINATION: VITAL SIGNS: Temperature is 100 degrees, pulse 80, respirations 18, blood pressure 132/63, and saturating 91% on 2 liters. CONSTITUTIONAL: He is cooperative. He is in no acute distress. He is lying in bed. He is obese. HEENT: Pupils are equal and reactive. He has normal conjunctivae. Oral cavity, pharynx is clear. NECK: Supple, no JVD. HEART: S1 and S2 without murmur. LUNGS: Clear to auscultation. ABDOMEN: Obese, soft, nontender, nondistended, positive bowel sounds. EXTREMITIES: No clubbing, cyanosis. He has got chronic pitting edema bilaterally. However, his left lower extremity is warm to touch. There are no open wounds or drainage, but the erythema is just below his knee through above his ankle. There is no fluctuance. SKIN: Otherwise, warm to touch without signs of rash. NEUROLOGIC: He is nonfocal, moves all extremities. PSYCHIATRIC: Affect is appropriate. LABORATORY DATA: White count from 06/08/2016 is 20.2, hemoglobin 11.6, and platelets of 171 with 91% neutrophils. Creatinine in October was 1.8, yesterday was 2.3, glucose of 216, normal liver function study tests. Urinalysis is not consistent with urinary tract infections. Blood cultures are again positive for Gram-positive cocci. CT scan of the chest showed streaky bilateral basilar pulmonary opacities, and pulmonary perfusion scan was normal. IMPRESSION: 1. Group G Streptococcal sepsis present on admission. I did discuss with Microbiology this morning. Sensitivities are pending. 2. Left lower extremity cellulitis. 3. Status post non-ST elevation myocardial infarction. 4. Chronic kidney disease. RECOMMENDATIONS: For now, we will discontinue the vancomycin. We will continue the Rocephin but change to 2 grams. We will follow up with an echocardiogram. Repeat blood cultures in the morning and monitor his legs and get labs today. Thank you for allowing me to participate in this patient's care. If you have any questions, please do not hesitate to contact me. I reviewed previous records. KALI GUERRERO MD DR: ARIN/christophe JOB#: [id number] / [id number]
[2016-06-09] MEDS: FUROSEMIDE 40 MG/4 ML VIAL. IVP SCH (13:38)
--- NOTE | 2016-06-09 14:11 | PDOC ---
PULMONARY PROGRESS NOTES Subjective feels better Vitals Vital Signs Date Time Temp Pulse Resp B/P Pulse Ox O2 Delivery O2 Flow Rate FiO2 06/09/16 11:01 98.0 87 19 130/66 91 Nasal Cannula 4.0 98.0 General: Alert, No acute distress Lungs: Clear Cardiovascular: S1 Abdomen: Soft, Other (obese) Neuro Exam: Alert Extremities: Other (1+edema) Labs Laboratory Tests Test 06/07/16 18:07 06/07/16 21:00 06/07/16 21:53 06/08/16 00:55 White Blood Count 21.6x10^3/uL (4.0-11.0) Red Blood Count 4.62x10^6/uL (4.30-5.70) Hemoglobin 13.2g/dL (13.0-17.5) Hematocrit 41.1% (39.0-53.0) Mean Corpuscular Volume 89fL (79-100) Mean Corpuscular Hemoglobin 29pg (25-35) Mean Corpuscular Hemoglobin Concent 32g/dL (31-37) Red Cell Distribution Width 15.1% (11.5-14.5) Platelet Count 209x10^3/uL (140-400) Neutrophils (%) (Auto) 95% (31-73) Lymphocytes (%) (Auto) 2% (24-48) Monocytes (%) (Auto) 3% (0-9) Eosinophils (%) (Auto) 0% (0-3) Basophils (%) (Auto) 0% (0-3) Neutrophils # (Auto) 20.4x10^3uL (1.8-7.7) Lymphocytes # (Auto) 0.4x10^3/uL (1.0-4.8) Monocytes # (Auto) 0.7x10^3/uL (0.0-1.1) Eosinophils # (Auto) 0.0x10^3/uL (0.0-0.7) Basophils # (Auto) 0.1x10^3/uL (0.0-0.2) Segmented Neutrophils % 78% (35-66) Band Neutrophils % 14% (0-9) Lymphocytes % 4% (24-48) Monocytes % 4% (0-10) Toxic Granulation Slight Platelet Estimate Adequate (ADEQUATE) Anisocytosis Slight Sodium Level 140mmol/L (136-145) Potassium Level 4.3mmol/L (3.5-5.1) Chloride Level 101mmol/L (98-107) Carbon Dioxide Level 26mmol/L (21-32) Anion Gap 13 (6-14) Blood Urea Nitrogen 32mg/dL (8-26) Creatinine 2.5mg/dL (0.7-1.3) Estimated GFR (Cockcroft-Gault) 25.2 BUN/Creatinine Ratio 13 (6-20) Glucose Level 284mg/dL (70-99) Lactic Acid Level 4.3mmol/L (0.4-2.0) 3.0mmol/L (0.4-2.0) Calcium Level 9.4mg/dL (8.5-10.1) Total Bilirubin 0.4mg/dL (0.2-1.0) Aspartate Amino Transf (AST/SGOT) 24U/L (15-37) Alanine Aminotransferase (ALT/SGPT) 32U/L (16-63) Alkaline Phosphatase 68U/L (46-116) Troponin I Quantitative 0.365ng/mL (0.000-0.055) 0.726ng/mL (0.000-0.055) QT-Mrr-E-Type Natriuretic Peptide 343pg/mL (0-449) Total Protein 7.9g/dL (6.4-8.2) Albumin 3.6g/dL (3.4-5.0) Albumin/Globulin Ratio 0.8 (1.0-1.7) Glucose (Fingerstick) 271mg/dL (70-99) Test 06/08/16 02:30 06/08/16 04:05 06/08/16 06:50 06/08/16 07:25 Influenza Type A Antigen Negative (NEGATIVE) Influenza Type B Antigen Negative (NEGATIVE) White Blood Count 20.2x10^3/uL (4.0-11.0) Red Blood Count 4.05x10^6/uL (4.30-5.70) Hemoglobin 11.6g/dL (13.0-17.5) Hematocrit 35.8% (39.0-53.0) Mean Corpuscular Volume 88fL (79-100) Mean Corpuscular Hemoglobin 29pg (25-35) Mean Corpuscular Hemoglobin Concent 32g/dL (31-37) Red Cell Distribution Width 15.4% (11.5-14.5) Platelet Count 174x10^3/uL (140-400) Neutrophils (%) (Auto) 91% (31-73) Lymphocytes (%) (Auto) 5% (24-48) Monocytes (%) (Auto) 4% (0-9) Eosinophils (%) (Auto) 0% (0-3) Basophils (%) (Auto) 0% (0-3) Neutrophils # (Auto) 18.4x10^3uL (1.8-7.7) Lymphocytes # (Auto) 0.9x10^3/uL (1.0-4.8) Monocytes # (Auto) 0.8x10^3/uL (0.0-1.1) Eosinophils # (Auto) 0.0x10^3/uL (0.0-0.7) Basophils # (Auto) 0.0x10^3/uL (0.0-0.2) Sodium Level 140mmol/L (136-145) Potassium Level 4.2mmol/L (3.5-5.1) Chloride Level 105mmol/L (98-107) Carbon Dioxide Level 24mmol/L (21-32) Anion Gap 11 (6-14) Blood Urea Nitrogen 29mg/dL (8-26) Creatinine 2.3mg/dL (0.7-1.3) Estimated GFR (Cockcroft-Gault) 27.8 BUN/Creatinine Ratio 13 (6-20) Glucose Level 242mg/dL (70-99) Calcium Level 8.2mg/dL (8.5-10.1) Magnesium Level 2.2mg/dL (1.8-2.4) Total Bilirubin 0.4mg/dL (0.2-1.0) Aspartate Amino Transf (AST/SGOT) 29U/L (15-37) Alanine Aminotransferase (ALT/SGPT) 31U/L (16-63) Alkaline Phosphatase 55U/L (46-116) Troponin I Quantitative 1.078ng/mL (0.000-0.055) Total Protein 6.1g/dL (6.4-8.2) Albumin 2.8g/dL (3.4-5.0) Albumin/Globulin Ratio 0.8 (1.0-1.7) Triglycerides Level 95mg/dL (0-150) Cholesterol Level 104mg/dL (0-200) LDL Cholesterol, Calculated 46mg/dL (0-100) VLDL Cholesterol, Calculated 19mg/dL (0-40) HDL Cholesterol 39mg/dL (40-60) Cholesterol/HDL Ratio 2.7 Lactic Acid Level 2.8mmol/L (0.4-2.0) Test 06/08/16 08:24 06/08/16 13:10 06/08/16 16:05 06/08/16 16:42 Glucose (Fingerstick) 216mg/dL (70-99) 136mg/dL (70-99) Troponin I Quantitative 1.839ng/mL (0.000-0.055) Heparin Anti-Xa Act, Unfractionated < 0.10IU/mL (0.30-0.70) Lactic Acid Level 1.5mmol/L (0.4-2.0) Test 06/08/16 19:15 06/08/16 22:00 06/09/16 05:30 06/09/16 07:57 Troponin I Quantitative 1.597ng/mL (0.000-0.055) Heparin Anti-Xa Act, Unfractionated 0.11IU/mL (0.30-0.70) 0.25IU/mL (0.30-0.70) Glucose (Fingerstick) 149mg/dL (70-99) Test 06/09/16 12:05 06/09/16 12:30 Glucose (Fingerstick) 120mg/dL (70-99) White Blood Count 12.6x10^3/uL (4.0-11.0) Red Blood Count 4.17x10^6/uL (4.30-5.70) Hemoglobin 11.8g/dL (13.0-17.5) Hematocrit 37.3% (39.0-53.0) Mean Corpuscular Volume 90fL (79-100) Mean Corpuscular Hemoglobin 28pg (25-35) Mean Corpuscular Hemoglobin Concent 32g/dL (31-37) Red Cell Distribution Width 15.8% (11.5-14.5) Platelet Count 161x10^3/uL (140-400) Neutrophils (%) (Auto) 84% (31-73) Lymphocytes (%) (Auto) 11% (24-48) Monocytes (%) (Auto) 5% (0-9) Eosinophils (%) (Auto) 1% (0-3) Basophils (%) (Auto) 0% (0-3) Neutrophils # (Auto) 10.5x10^3uL (1.8-7.7) Lymphocytes # (Auto) 1.4x10^3/uL (1.0-4.8) Monocytes # (Auto) 0.6x10^3/uL (0.0-1.1) Eosinophils # (Auto) 0.1x10^3/uL (0.0-0.7) Basophils # (Auto) 0.1x10^3/uL (0.0-0.2) Heparin Anti-Xa Act, Unfractionated 0.25IU/mL (0.30-0.70) Sodium Level 140mmol/L (136-145) Potassium Level 4.1mmol/L (3.5-5.1) Chloride Level 107mmol/L (98-107) Carbon Dioxide Level 24mmol/L (21-32) Anion Gap 9 (6-14) Blood Urea Nitrogen 27mg/dL (8-26) Creatinine 2.3mg/dL (0.7-1.3) Estimated GFR (Cockcroft-Gault) 27.8 Glucose Level 117mg/dL (70-99) Calcium Level 8.7mg/dL (8.5-10.1) Magnesium Level 2.3mg/dL (1.8-2.4) Laboratory Tests Test 06/08/16 16:05 06/08/16 16:42 06/08/16 19:15 06/08/16 22:00 Heparin Anti-Xa Act, Unfractionated < 0.10IU/mL (0.30-0.70) 0.11IU/mL (0.30-0.70) Lactic Acid Level 1.5mmol/L (0.4-2.0) Glucose (Fingerstick) 136mg/dL (70-99) Troponin I Quantitative 1.597ng/mL (0.000-0.055) Test 06/09/16 05:30 06/09/16 07:57 06/09/16 12:05 06/09/16 12:30 Heparin Anti-Xa Act, Unfractionated 0.25IU/mL (0.30-0.70) 0.25IU/mL (0.30-0.70) Glucose (Fingerstick) 149mg/dL (70-99) 120mg/dL (70-99) White Blood Count 12.6x10^3/uL (4.0-11.0) Red Blood Count 4.17x10^6/uL (4.30-5.70) Hemoglobin 11.8g/dL (13.0-17.5) Hematocrit 37.3% (39.0-53.0) Mean Corpuscular Volume 90fL (79-100) Mean Corpuscular Hemoglobin 28pg (25-35) Mean Corpuscular Hemoglobin Concent 32g/dL (31-37) Red Cell Distribution Width 15.8% (11.5-14.5) Platelet Count 161x10^3/uL (140-400) Neutrophils (%) (Auto) 84% (31-73) Lymphocytes (%) (Auto) 11% (24-48) Monocytes (%) (Auto) 5% (0-9) Eosinophils (%) (Auto) 1% (0-3) Basophils (%) (Auto) 0% (0-3) Neutrophils # (Auto) 10.5x10^3uL (1.8-7.7) Lymphocytes # (Auto) 1.4x10^3/uL (1.0-4.8) Monocytes # (Auto) 0.6x10^3/uL (0.0-1.1) Eosinophils # (Auto) 0.1x10^3/uL (0.0-0.7) Basophils # (Auto) 0.1x10^3/uL (0.0-0.2) Sodium Level 140mmol/L (136-145) Potassium Level 4.1mmol/L (3.5-5.1) Chloride Level 107mmol/L (98-107) Carbon Dioxide Level 24mmol/L (21-32) Anion Gap 9 (6-14) Blood Urea Nitrogen 27mg/dL (8-26) Creatinine 2.3mg/dL (0.7-1.3) Estimated GFR (Cockcroft-Gault) 27.8 Glucose Level 117mg/dL (70-99) Calcium Level 8.7mg/dL (8.5-10.1) Magnesium Level 2.3mg/dL (1.8-2.4) Medications Active Scripts Medications Dose Route/Sig Days Date Category Hydrocodone-Apap 5-325 (Hydrocodone Bit/Acetaminophen) 1 Each Tablet 1 Tab PO PRN Q4HRS PRN 10/29/15 Rx Cipro (Ciprofloxacin Hcl) 250 Mg Tablet 250 Mg PO BID 10/29/15 Rx Finasteride 5 Mg Tablet 5 Mg PO DAILY 10/23/15 Reported Tamsulosin Hcl 0.4 Mg Cap.er.24h 0.4 Mg PO DAILY 10/23/15 Reported Iron (Ferrous Sulfate) 325 Mg Tablet 325 Mg PO 10/23/15 Reported Fish Oil 1,000 Mg Softgel ([place]-3 Fatty Acids/Fish Oil) 1 Each Capsule 1,000 Each PO 10/23/15 Reported Vitamin D (Cholecalciferol (Vitamin D3)) 1,000 Unit Capsule 1,000 Unit PO 10/23/15 Reported Ascorbic Acid 500 Mg Tablet 500 Mg PO 10/23/15 Reported Aspirin 325 Mg Tablet 325 Mg PO 10/23/15 Reported Lantus (Insulin Glargine,Hum.rec.anlog) 100 Unit/1 Ml Vial 1 Unit SQ 10/23/15 Reported Humalog (Insulin Lispro) 100 Unit/1 Ml Vial 100 Unit SQ 10/23/15 Reported Lovastatin 20 Mg Tablet 20 Mg PO HS 10/23/15 Reported Lasix (Furosemide) 40 Mg Tablet 40 Mg PO BID 10/23/15 Reported Losartan Potassium 50 Mg Tablet 50 Mg PO DAILY 10/23/15 Reported Impression . 1. Acute chest pain and dyspnea. I suspect related to mild congestive heart failure. No evidence of thromboembolic disease by VQ scan. 2. Fever / chills with recent cough and emesis. Could be related to viral syndrome. no pneumonia seen on ct chest. strep G bacteremia. 3. Suspected underlying chronic obstructive pulmonary disease. 4. Increased troponin level, possible non-ST myocardial infarction. Cardiology is following. Plan . 1. Neg VQ scan. 2. Neg Venous Dopplers of the lower extremities. 3. PFTs as an outpatient. 4. Echocardiogram with normal EF. follow Cardiology recommendation. cath Sunday 5. Diuresis. 6. Empiric antibiotics. repeat BC/ follow ID recommendations ISMA CHAMPAGNE MD Jun 09, 2016 14:11
[2016-06-09 15:00] VITALS: BP 96/63
[2016-06-09] MEDS ORDERED: VANCOMYCIN 1.75 GM in IV NORMAL SALINE 500ML BAG 500 ML IV SCH (15:00)
[2016-06-09] MEDS: ANTI-COAG MONITOR BY PHARMACY. MC PRN (15:29)
[2016-06-09] MEDS ORDERED: ACETAMINOPHEN 325 MG TABLET. PO PRN (19:15)
[2016-06-09 19:22] VITALS: BP 110/61
[2016-06-09] MEDS: ATORVASTATIN CALCIUM 10 MG TABLET. PO SCH (20:42)
[2016-06-09] MEDS: INSULIN DETEMIR 300 UNITS/3 ML INSULN.PEN. SQ SCH (20:48)
[2016-06-09 23:19] VITALS: BP 141/72
[2016-06-10] MEDS: HEPARIN 25,000UTS/500ML PREMIX 500 ML IV PRN ×3 (01:43→20:49)
[2016-06-10 02:21] VITALS: BP 140/73
--- NOTE | 2016-06-10 02:36 | CONS ---
DATE OF CONSULTATION: HISTORY OF PRESENT ILLNESS: The patient is a 76-year-old gentleman followed by Dr. 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 He developed anginal chest pain and presented to the ER, was found to have gradually rising troponins with a preserved EF. He also vomited thrice before he came in. He also complains of shortness of breath with ambulation and some amount of orthopnea in the setting, we were asked to see him in anticipation of optimizing his fluid and renal status prior to left heart catheterization on Sunday. His creatinine currently runs at 2.5-2.3 range. EF is preserved as mentioned previously. Urine specimens were not available at this time. He is not sure if he has underlying proteinuria per se. In this setting, we were asked to see him for further evaluation. For rest of details, see electronic records. UNA AMAYA MD DR: CLAUDIA/christophe JOB#: [id number] / [id number]
[2016-06-10 04:01] LABS: BASO % 0 % (0-3); EOS % 2 % (0-3); HEMATOCRIT 36.8 % (39.0-53.0); HEMOGLOBIN 11.7 g/dL (13.0-17.5); LYMPH # 1.2 x10^3/uL (1.0-4.8); LYMPH % 12 % (24-48); MEAN CORPUSCULAR HEMOGLOBIN 29 pg (25-35); MEAN CORPUSCULAR HGB CONC 32 g/dL (31-37); MEAN CORPUSCULAR VOLUME 89 fL (79-100); MONO % 7 % (0-9); NEUT % 79 % (31-73); PLATELET COUNT 160 x10^3/uL (140-400); RED BLOOD COUNT 4.12 x10^6/uL (4.30-5.70); RED CELL DISTRIBUTION WIDTH 15.5 % (11.5-14.5); WHITE BLOOD COUNT 10.1 x10^3/uL (4.0-11.0)
[2016-06-10 04:37] LABS: ALBUMIN 2.4 g/dL (3.4-5.0); CALCIUM 8.5 mg/dL (8.5-10.1); CREATININE 2.1 mg/dL (0.7-1.3); GFR 30.9; POTASSIUM 3.6 mmol/L (3.5-5.1)
[2016-06-10 07:00] VITALS: BP 133/74
[2016-06-10] MEDS: INSULIN ASPART 300 UNITS/3 ML INSULN.PEN SQ SCH ×7 (07:30→20:47)
[2016-06-10] MEDS: FINASTERIDE 5 MG TABLET. PO SCH (08:39)
[2016-06-10] MEDS: FERROUS SULFATE 325 MG TABLET. PO SCH (08:39)
[2016-06-10] MEDS: METOPROLOL TART IMMED RELEASE 25 MG TABLET. PO SCH ×2 (08:39→20:46)
[2016-06-10] MEDS: ASPIRIN ENTERIC COATED 81 MG TABLET.DR. PO SCH (08:39)
[2016-06-10] MEDS: OMEGA-3 FATTY ACIDS/FISH OIL 1,000 MG CAPSULE. PO SCH (08:39)
[2016-06-10] MEDS: FUROSEMIDE 40 MG/4 ML VIAL. IVP SCH ×2 (08:39→15:03)
[2016-06-10] MEDS: TAMSULOSIN 0.4 MG CAP.ER.24H. PO SCH (08:39)
[2016-06-10] MEDS: ASCORBIC ACID 500 MG TABLET PO SCH (08:39)
--- NOTE | 2016-06-10 09:00 | PDOC ---
PULMONARY PROGRESS NOTES Subjective sob better, has cough, sputum, no pain. Vitals Vital Signs Date Time Temp Pulse Resp B/P Pulse Ox O2 Delivery O2 Flow Rate FiO2 06/10/16 08:39 73 133/74 06/10/16 07:00 97.9 25 96 Nasal Cannula 97.9 06/10/16 02:21 4.0 ROS: No Nausea, No Chest Pain, No Abdominal Pain, No Increase Cough General: Alert, No acute distress Lungs: Clear Cardiovascular: S1, S2 Abdomen: Soft, Non-tender, Other (no mass) Neuro Exam: Alert Extremities: Other (1+edema) Skin: Warm Labs Laboratory Tests Test 06/08/16 13:10 06/08/16 16:05 06/08/16 16:42 06/08/16 19:15 Troponin I Quantitative 1.839ng/mL (0.000-0.055) 1.597ng/mL (0.000-0.055) Heparin Anti-Xa Act, Unfractionated < 0.10IU/mL (0.30-0.70) Lactic Acid Level 1.5mmol/L (0.4-2.0) Glucose (Fingerstick) 136mg/dL (70-99) Test 06/08/16 22:00 06/09/16 05:30 06/09/16 07:57 06/09/16 12:05 Heparin Anti-Xa Act, Unfractionated 0.11IU/mL (0.30-0.70) 0.25IU/mL (0.30-0.70) Glucose (Fingerstick) 149mg/dL (70-99) 120mg/dL (70-99) Test 06/09/16 12:30 06/09/16 20:05 06/09/16 20:41 06/10/16 03:00 White Blood Count 12.6x10^3/uL (4.0-11.0) 10.1x10^3/uL (4.0-11.0) Red Blood Count 4.17x10^6/uL (4.30-5.70) 4.12x10^6/uL (4.30-5.70) Hemoglobin 11.8g/dL (13.0-17.5) 11.7g/dL (13.0-17.5) Hematocrit 37.3% (39.0-53.0) 36.8% (39.0-53.0) Mean Corpuscular Volume 90fL (79-100) 89fL (79-100) Mean Corpuscular Hemoglobin 28pg (25-35) 29pg (25-35) Mean Corpuscular Hemoglobin Concent 32g/dL (31-37) 32g/dL (31-37) Red Cell Distribution Width 15.8% (11.5-14.5) 15.5% (11.5-14.5) Platelet Count 161x10^3/uL (140-400) 160x10^3/uL (140-400) Neutrophils (%) (Auto) 84% (31-73) 79% (31-73) Lymphocytes (%) (Auto) 11% (24-48) 12% (24-48) Monocytes (%) (Auto) 5% (0-9) 7% (0-9) Eosinophils (%) (Auto) 1% (0-3) 2% (0-3) Basophils (%) (Auto) 0% (0-3) 0% (0-3) Neutrophils # (Auto) 10.5x10^3uL (1.8-7.7) 8.0x10^3uL (1.8-7.7) Lymphocytes # (Auto) 1.4x10^3/uL (1.0-4.8) 1.2x10^3/uL (1.0-4.8) Monocytes # (Auto) 0.6x10^3/uL (0.0-1.1) 0.7x10^3/uL (0.0-1.1) Eosinophils # (Auto) 0.1x10^3/uL (0.0-0.7) 0.2x10^3/uL (0.0-0.7) Basophils # (Auto) 0.1x10^3/uL (0.0-0.2) 0.0x10^3/uL (0.0-0.2) Heparin Anti-Xa Act, Unfractionated 0.25IU/mL (0.30-0.70) 0.38IU/mL (0.30-0.70) 0.39IU/mL (0.30-0.70) Sodium Level 140mmol/L (136-145) 137mmol/L (136-145) Potassium Level 4.1mmol/L (3.5-5.1) 3.6mmol/L (3.5-5.1) Chloride Level 107mmol/L (98-107) 104mmol/L (98-107) Carbon Dioxide Level 24mmol/L (21-32) 23mmol/L (21-32) Anion Gap 9 (6-14) 10 (6-14) Blood Urea Nitrogen 27mg/dL (8-26) 27mg/dL (8-26) Creatinine 2.3mg/dL (0.7-1.3) 2.1mg/dL (0.7-1.3) Estimated GFR (Cockcroft-Gault) 27.8 30.9 Glucose Level 117mg/dL (70-99) 144mg/dL (70-99) Calcium Level 8.7mg/dL (8.5-10.1) 8.5mg/dL (8.5-10.1) Magnesium Level 2.3mg/dL (1.8-2.4) Glucose (Fingerstick) 119mg/dL (70-99) Phosphorus Level 4.0mg/dL (2.6-4.7) Albumin 2.4g/dL (3.4-5.0) Test 06/10/16 04:36 06/10/16 07:46 Magnesium Level 2.1mg/dL (1.8-2.4) Glucose (Fingerstick) 114mg/dL (70-99) Laboratory Tests Test 06/09/16 12:05 06/09/16 12:30 06/09/16 20:05 06/09/16 20:41 Glucose (Fingerstick) 120mg/dL (70-99) 119mg/dL (70-99) White Blood Count 12.6x10^3/uL (4.0-11.0) Red Blood Count 4.17x10^6/uL (4.30-5.70) Hemoglobin 11.8g/dL (13.0-17.5) Hematocrit 37.3% (39.0-53.0) Mean Corpuscular Volume 90fL (79-100) Mean Corpuscular Hemoglobin 28pg (25-35) Mean Corpuscular Hemoglobin Concent 32g/dL (31-37) Red Cell Distribution Width 15.8% (11.5-14.5) Platelet Count 161x10^3/uL (140-400) Neutrophils (%) (Auto) 84% (31-73) Lymphocytes (%) (Auto) 11% (24-48) Monocytes (%) (Auto) 5% (0-9) Eosinophils (%) (Auto) 1% (0-3) Basophils (%) (Auto) 0% (0-3) Neutrophils # (Auto) 10.5x10^3uL (1.8-7.7) Lymphocytes # (Auto) 1.4x10^3/uL (1.0-4.8) Monocytes # (Auto) 0.6x10^3/uL (0.0-1.1) Eosinophils # (Auto) 0.1x10^3/uL (0.0-0.7) Basophils # (Auto) 0.1x10^3/uL (0.0-0.2) Heparin Anti-Xa Act, Unfractionated 0.25IU/mL (0.30-0.70) 0.38IU/mL (0.30-0.70) Sodium Level 140mmol/L (136-145) Potassium Level 4.1mmol/L (3.5-5.1) Chloride Level 107mmol/L (98-107) Carbon Dioxide Level 24mmol/L (21-32) Anion Gap 9 (6-14) Blood Urea Nitrogen 27mg/dL (8-26) Creatinine 2.3mg/dL (0.7-1.3) Estimated GFR (Cockcroft-Gault) 27.8 Glucose Level 117mg/dL (70-99) Calcium Level 8.7mg/dL (8.5-10.1) Magnesium Level 2.3mg/dL (1.8-2.4) Test 06/10/16 03:00 06/10/16 04:36 06/10/16 07:46 White Blood Count 10.1x10^3/uL (4.0-11.0) Red Blood Count 4.12x10^6/uL (4.30-5.70) Hemoglobin 11.7g/dL (13.0-17.5) Hematocrit 36.8% (39.0-53.0) Mean Corpuscular Volume 89fL (79-100) Mean Corpuscular Hemoglobin 29pg (25-35) Mean Corpuscular Hemoglobin Concent 32g/dL (31-37) Red Cell Distribution Width 15.5% (11.5-14.5) Platelet Count 160x10^3/uL (140-400) Neutrophils (%) (Auto) 79% (31-73) Lymphocytes (%) (Auto) 12% (24-48) Monocytes (%) (Auto) 7% (0-9) Eosinophils (%) (Auto) 2% (0-3) Basophils (%) (Auto) 0% (0-3) Neutrophils # (Auto) 8.0x10^3uL (1.8-7.7) Lymphocytes # (Auto) 1.2x10^3/uL (1.0-4.8) Monocytes # (Auto) 0.7x10^3/uL (0.0-1.1) Eosinophils # (Auto) 0.2x10^3/uL (0.0-0.7) Basophils # (Auto) 0.0x10^3/uL (0.0-0.2) Heparin Anti-Xa Act, Unfractionated 0.39IU/mL (0.30-0.70) Sodium Level 137mmol/L (136-145) Potassium Level 3.6mmol/L (3.5-5.1) Chloride Level 104mmol/L (98-107) Carbon Dioxide Level 23mmol/L (21-32) Anion Gap 10 (6-14) Blood Urea Nitrogen 27mg/dL (8-26) Creatinine 2.1mg/dL (0.7-1.3) Estimated GFR (Cockcroft-Gault) 30.9 Glucose Level 144mg/dL (70-99) Calcium Level 8.5mg/dL (8.5-10.1) Phosphorus Level 4.0mg/dL (2.6-4.7) Albumin 2.4g/dL (3.4-5.0) Magnesium Level 2.1mg/dL (1.8-2.4) Glucose (Fingerstick) 114mg/dL (70-99) Medications Active Scripts Medications Dose Route/Sig Days Date Category Hydrocodone-Apap 5-325 (Hydrocodone Bit/Acetaminophen) 1 Each Tablet 1 Tab PO PRN Q4HRS PRN 10/29/15 Rx Cipro (Ciprofloxacin Hcl) 250 Mg Tablet 250 Mg PO BID 10/29/15 Rx Finasteride 5 Mg Tablet 5 Mg PO DAILY 10/23/15 Reported Tamsulosin Hcl 0.4 Mg Cap.er.24h 0.4 Mg PO DAILY 10/23/15 Reported Iron (Ferrous Sulfate) 325 Mg Tablet 325 Mg PO 10/23/15 Reported Fish Oil 1,000 Mg Softgel ([place]-3 Fatty Acids/Fish Oil) 1 Each Capsule 1,000 Each PO 10/23/15 Reported Vitamin D (Cholecalciferol (Vitamin D3)) 1,000 Unit Capsule 1,000 Unit PO 10/23/15 Reported Ascorbic Acid 500 Mg Tablet 500 Mg PO 10/23/15 Reported Aspirin 325 Mg Tablet 325 Mg PO 10/23/15 Reported Lantus (Insulin Glargine,Hum.rec.anlog) 100 Unit/1 Ml Vial 1 Unit SQ 10/23/15 Reported Humalog (Insulin Lispro) 100 Unit/1 Ml Vial 100 Unit SQ 10/23/15 Reported Lovastatin 20 Mg Tablet 20 Mg PO HS 10/23/15 Reported Lasix (Furosemide) 40 Mg Tablet 40 Mg PO BID 10/23/15 Reported Losartan Potassium 50 Mg Tablet 50 Mg PO DAILY 10/23/15 Reported Impression . 1. Acute chest pain and dyspnea. I suspect related to mild congestive heart failure. No evidence of thromboembolic disease by VQ scan. 2. Fever / chills with recent cough and emesis. Could be related to viral syndrome. no pneumonia seen on ct chest. strep G bacteremia. 3. Suspected underlying chronic obstructive pulmonary disease. 4. Increased troponin level, possible non-ST myocardial infarction. Cardiology is following. 5. ? stefania Plan . 1. Neg VQ scan. 2. Neg Venous Dopplers of the lower extremities. 3. PFTs as an outpatient. 4. Echocardiogram with normal EF. follow Cardiology recommendation. cath Sunday 5. Diuresis. 6. Empiric antibiotics. repeat BC/ follow ID recommendations 7. psg as out pt discussed w pt POLY CURIEL MD Jun 10, 2016 09:00
--- NOTE | 2016-06-10 09:20 | PDOC ---
PROGRESS NOTES Subjective Subjective Patient feeling better. Still requiring o2 3l and SOB with activity. fever improved. Objective Objective Vital Signs Date Time Temp Pulse Resp B/P Pulse Ox O2 Delivery O2 Flow Rate FiO2 06/10/16 08:39 73 133/74 06/10/16 07:00 97.9 25 96 Nasal Cannula 97.9 06/10/16 02:21 4.0 Intake and Output 06/10/16 07:00 Intake Total 1163 ml Output Total 3200 ml Balance -2037 ml Intake Oral 600 ml Other 563 ml Output Urine Total 3200 ml # Bowel Movements 1 Physical Exam Abdomen: Normal bowel sounds Heart: Regular rate Extremities: Other (3 + edema) General: Alert Lungs: Clear to auscultation Assessment Assessment Problems Medical Problems: (1) Elevated troponin Status: Acute (2) Pneumonia Status: Acute Bronchitis Sepsis Acute on chronic renal failure acute respiratory failure NSTEMI copd Plan Plan of Care Continue Pulm toilet Renal eval in progress Card cath sunday if stable Continue ID care. Comment Review of Relevant I have reviewed the following items tereso (where applicable) has been applied. Labs Laboratory Tests Test 06/08/16 13:10 06/08/16 16:05 06/08/16 16:42 06/08/16 19:15 Troponin I Quantitative 1.839ng/mL (0.000-0.055) 1.597ng/mL (0.000-0.055) Heparin Anti-Xa Act, Unfractionated < 0.10IU/mL (0.30-0.70) Lactic Acid Level 1.5mmol/L (0.4-2.0) Glucose (Fingerstick) 136mg/dL (70-99) Test 06/08/16 22:00 06/09/16 05:30 06/09/16 07:57 06/09/16 12:05 Heparin Anti-Xa Act, Unfractionated 0.11IU/mL (0.30-0.70) 0.25IU/mL (0.30-0.70) Glucose (Fingerstick) 149mg/dL (70-99) 120mg/dL (70-99) Test 06/09/16 12:30 06/09/16 20:05 06/09/16 20:41 06/10/16 03:00 White Blood Count 12.6x10^3/uL (4.0-11.0) 10.1x10^3/uL (4.0-11.0) Red Blood Count 4.17x10^6/uL (4.30-5.70) 4.12x10^6/uL (4.30-5.70) Hemoglobin 11.8g/dL (13.0-17.5) 11.7g/dL (13.0-17.5) Hematocrit 37.3% (39.0-53.0) 36.8% (39.0-53.0) Mean Corpuscular Volume 90fL (79-100) 89fL (79-100) Mean Corpuscular Hemoglobin 28pg (25-35) 29pg (25-35) Mean Corpuscular Hemoglobin Concent 32g/dL (31-37) 32g/dL (31-37) Red Cell Distribution Width 15.8% (11.5-14.5) 15.5% (11.5-14.5) Platelet Count 161x10^3/uL (140-400) 160x10^3/uL (140-400) Neutrophils (%) (Auto) 84% (31-73) 79% (31-73) Lymphocytes (%) (Auto) 11% (24-48) 12% (24-48) Monocytes (%) (Auto) 5% (0-9) 7% (0-9) Eosinophils (%) (Auto) 1% (0-3) 2% (0-3) Basophils (%) (Auto) 0% (0-3) 0% (0-3) Neutrophils # (Auto) 10.5x10^3uL (1.8-7.7) 8.0x10^3uL (1.8-7.7) Lymphocytes # (Auto) 1.4x10^3/uL (1.0-4.8) 1.2x10^3/uL (1.0-4.8) Monocytes # (Auto) 0.6x10^3/uL (0.0-1.1) 0.7x10^3/uL (0.0-1.1) Eosinophils # (Auto) 0.1x10^3/uL (0.0-0.7) 0.2x10^3/uL (0.0-0.7) Basophils # (Auto) 0.1x10^3/uL (0.0-0.2) 0.0x10^3/uL (0.0-0.2) Heparin Anti-Xa Act, Unfractionated 0.25IU/mL (0.30-0.70) 0.38IU/mL (0.30-0.70) 0.39IU/mL (0.30-0.70) Sodium Level 140mmol/L (136-145) 137mmol/L (136-145) Potassium Level 4.1mmol/L (3.5-5.1) 3.6mmol/L (3.5-5.1) Chloride Level 107mmol/L (98-107) 104mmol/L (98-107) Carbon Dioxide Level 24mmol/L (21-32) 23mmol/L (21-32) Anion Gap 9 (6-14) 10 (6-14) Blood Urea Nitrogen 27mg/dL (8-26) 27mg/dL (8-26) Creatinine 2.3mg/dL (0.7-1.3) 2.1mg/dL (0.7-1.3) Estimated GFR (Cockcroft-Gault) 27.8 30.9 Glucose Level 117mg/dL (70-99) 144mg/dL (70-99) Calcium Level 8.7mg/dL (8.5-10.1) 8.5mg/dL (8.5-10.1) Magnesium Level 2.3mg/dL (1.8-2.4) Glucose (Fingerstick) 119mg/dL (70-99) Phosphorus Level 4.0mg/dL (2.6-4.7) Albumin 2.4g/dL (3.4-5.0) Test 06/10/16 04:36 06/10/16 07:46 Magnesium Level 2.1mg/dL (1.8-2.4) Glucose (Fingerstick) 114mg/dL (70-99) Laboratory Tests Test 06/09/16 12:05 06/09/16 12:30 06/09/16 20:05 06/09/16 20:41 Glucose (Fingerstick) 120mg/dL (70-99) 119mg/dL (70-99) White Blood Count 12.6x10^3/uL (4.0-11.0) Red Blood Count 4.17x10^6/uL (4.30-5.70) Hemoglobin 11.8g/dL (13.0-17.5) Hematocrit 37.3% (39.0-53.0) Mean Corpuscular Volume 90fL (79-100) Mean Corpuscular Hemoglobin 28pg (25-35) Mean Corpuscular Hemoglobin Concent 32g/dL (31-37) Red Cell Distribution Width 15.8% (11.5-14.5) Platelet Count 161x10^3/uL (140-400) Neutrophils (%) (Auto) 84% (31-73) Lymphocytes (%) (Auto) 11% (24-48) Monocytes (%) (Auto) 5% (0-9) Eosinophils (%) (Auto) 1% (0-3) Basophils (%) (Auto) 0% (0-3) Neutrophils # (Auto) 10.5x10^3uL (1.8-7.7) Lymphocytes # (Auto) 1.4x10^3/uL (1.0-4.8) Monocytes # (Auto) 0.6x10^3/uL (0.0-1.1) Eosinophils # (Auto) 0.1x10^3/uL (0.0-0.7) Basophils # (Auto) 0.1x10^3/uL (0.0-0.2) Heparin Anti-Xa Act, Unfractionated 0.25IU/mL (0.30-0.70) 0.38IU/mL (0.30-0.70) Sodium Level 140mmol/L (136-145) Potassium Level 4.1mmol/L (3.5-5.1) Chloride Level 107mmol/L (98-107) Carbon Dioxide Level 24mmol/L (21-32) Anion Gap 9 (6-14) Blood Urea Nitrogen 27mg/dL (8-26) Creatinine 2.3mg/dL (0.7-1.3) Estimated GFR (Cockcroft-Gault) 27.8 Glucose Level 117mg/dL (70-99) Calcium Level 8.7mg/dL (8.5-10.1) Magnesium Level 2.3mg/dL (1.8-2.4) Test 06/10/16 03:00 06/10/16 04:36 06/10/16 07:46 White Blood Count 10.1x10^3/uL (4.0-11.0) Red Blood Count 4.12x10^6/uL (4.30-5.70) Hemoglobin 11.7g/dL (13.0-17.5) Hematocrit 36.8% (39.0-53.0) Mean Corpuscular Volume 89fL (79-100) Mean Corpuscular Hemoglobin 29pg (25-35) Mean Corpuscular Hemoglobin Concent 32g/dL (31-37) Red Cell Distribution Width 15.5% (11.5-14.5) Platelet Count 160x10^3/uL (140-400) Neutrophils (%) (Auto) 79% (31-73) Lymphocytes (%) (Auto) 12% (24-48) Monocytes (%) (Auto) 7% (0-9) Eosinophils (%) (Auto) 2% (0-3) Basophils (%) (Auto) 0% (0-3) Neutrophils # (Auto) 8.0x10^3uL (1.8-7.7) Lymphocytes # (Auto) 1.2x10^3/uL (1.0-4.8) Monocytes # (Auto) 0.7x10^3/uL (0.0-1.1) Eosinophils # (Auto) 0.2x10^3/uL (0.0-0.7) Basophils # (Auto) 0.0x10^3/uL (0.0-0.2) Heparin Anti-Xa Act, Unfractionated 0.39IU/mL (0.30-0.70) Sodium Level 137mmol/L (136-145) Potassium Level 3.6mmol/L (3.5-5.1) Chloride Level 104mmol/L (98-107) Carbon Dioxide Level 23mmol/L (21-32) Anion Gap 10 (6-14) Blood Urea Nitrogen 27mg/dL (8-26) Creatinine 2.1mg/dL (0.7-1.3) Estimated GFR (Cockcroft-Gault) 30.9 Glucose Level 144mg/dL (70-99) Calcium Level 8.5mg/dL (8.5-10.1) Phosphorus Level 4.0mg/dL (2.6-4.7) Albumin 2.4g/dL (3.4-5.0) Magnesium Level 2.1mg/dL (1.8-2.4) Glucose (Fingerstick) 114mg/dL (70-99) Microbiology 06/07/16 Blood Culture - Final, Complete 06/07/16 Blood Culture Result 1 (AUBREE) - Final, Complete 06/07/16 Antimicrobic Susceptibility - Final, Complete Medications Current Medications Acetaminophen 650 mg 650 mg 1X ONCE PO Last administered on 06/07/16 18:07; Start 06/07/16 at 17:45; Stop 06/07/16 at 17:49; Status DC Levofloxacin/ Dextrose (LEVAQUIN 750mg PREMIX) 150 ml @ 100 mls/hr 1X ONCE IV Last administered on 06/07/16 18:08; Start 06/07/16 at 17:45; Stop 06/07/16 at 19:14; Status DC Aspirin 324 mg 324 mg 1X ONCE PO Last administered on 06/07/16 18:07; Start at 18:00; Stop 06/07/16 at 18:01; Status DC Sodium Chloride 500 ml @ 500 mls/hr 1X ONCE IV Last administered on 06/07/16 18:07; Start 06/07/16 at 18:00; Stop 06/07/16 at 18:59; Status DC Sodium Chloride 1,000 ml @ 1,000 mls/hr 1X ONCE IV Last administered on 19:40; Start 06/07/16 at 19:00; Stop 06/07/16 at 19:59; Status DC Sodium Chloride (Iv Sodium Chloride 0.9% 1000ml Bag) 1,000 ml @ 1,000 mls/hr 1X ONCE IV Last administered on 06/07/16 20:55; Start 06/07/16 at 19:00; Stop 06/07/16 at 19:59; Status DC Ondansetron HCl (Zofran) 4 mg PRN Q8HRS PRN IV NAUSEA/VOMITING; Start 06/07/16 at 19:15; Stop 06/08/16 at 19:14; Status DC Morphine Sulfate 2 mg 2 mg PRN Q2HR PRN IV PAIN; Start 06/07/16 at 19:15; Stop 06/08/16 at 19:14; Status DC Sodium Chloride (Iv Sodium Chloride 0.9% 1000ml Bag) 1,000 ml @ 150 mls/hr Q6H40M IV Last administered on 06/08/16 16:44; Start 06/07/16 at 19:03; Stop 06/08/16 at 19:02; Status DC Acetaminophen (Tylenol) 650 mg PRN Q4HRS PRN PO FEVER Last administered on 06:49; Start 06/07/16 at 19:15; Stop 06/08/16 at 19:14; Status DC Insulin Aspart (Novolog) 0-7 UNITS TIDWMEALS SQ ; Start 06/08/16 at 08:00; Stop 06/08/16 at 11:42; Status DC Dextrose (Dextrose 50%-Water Syringe) 12.5 gm PRN Q15MIN PRN IV SEE COMMENTS; Start 06/07/16 at 19:15 Ascorbic Acid (Vitamin C) 500 mg DAILY PO Last administered on 06/10/16 08:39; Start 06/08/16 at 09:00 Aspirin (Cherelle Aspirin) 325 mg DAILY PO ; Start 06/08/16 at 09:00; Stop 06/08/16 at 09:13; Status DC Ferrous Sulfate (Feosol) 325 mg DAILY PO Last administered on 06/10/16 08:39; Start 06/08/16 at 09:00 Finasteride (Proscar) 5 mg DAILY PO Last administered on 06/10/16 08:39; Start 06/08/16 at 09:00 Losartan Potassium (Cozaar) 50 mg DAILY PO ; Start 06/08/16 at 09:00; Stop at 09:05; Status DC Tamsulosin HCl (Flomax) 0.4 mg DAILY PO Last administered on 06/10/16 08:39; Start 06/08/16 at 09:00 Atorvastatin Calcium (Lipitor) 5 mg HS PO Last administered on 06/09/16 20:42; Start 06/07/16 at 22:30 Insulin Detemir (Levemir) 64 units QHS SQ Last administered on 06/09/16 20:48; Start 06/07/16 at 22:30 Insulin Aspart (Novolog) 40 units TIDAC SQ Last administered on 06/10/16 08:48 ; Start 06/08/16 at 07:30 Fish Oil (Fish Oil) 1,000 mg DAILY PO Last administered on 06/10/16 08:39; Start 06/08/16 at 09:00 Enoxaparin Sodium (Lovenox 40mg Syringe) 40 mg Q24H SQ Last administered on 06/07 23:06; Start 06/07/16 at 22:00; Stop 06/08/16 at 09:13; Status DC Insulin Aspart 0-12 UNITS QIDACHS SQ Last administered on 06/08/16 21:31; Start 06/07/16 at 22:30 Heparin Sodium/ Dextrose 500 ml @ 0 mls/hr CONT PRN IV SEE I/O RECORD Last administered on 06/10/16 01:43; Start 06/08/16 at 09:15 Heparin Sodium (Porcine) (Heparin Sodium) 3,400 unit PRN Q6HRS PRN IV FOR UFH LEVEL LESS THAN 0.2 Last administered on 06/08/16 23:24; Start 06/08/16 at 09:15 Aspirin (Ecotrin) 81 mg [id number] PO Last administered on 06/10/16 08:39; Start 06/08/16 at 10:00 Info 1 each 1 each PRN DAILY PRN MC SEE COMMENTS Last administered on 06/09/16 15:29; Start 06/08/16 at 09:30 Ceftriaxone Sodium/Sodium Chloride (Rocephin/Iv Sodium Chloride 0.9% 50ml) 50 ml @ 100 mls/hr Q24H IV Last administered on 06/08/16 16:45; Start 06/08/16 at 13:00; Stop 06/09/16 at 08:44; Status DC Vancomycin HCl 1 each 1 each PRN DAILY PRN MC SEE COMMENTS Last administered on 06/08/16 14:08; Start 06/08/16 at 12:15; Stop 06/09/16 at 08:44; Status DC Vancomycin HCl/ Sodium Chloride (Iv Sodium Chloride 0.9% 500ml Bag) 500 ml @ 250 mls/hr 1X ONCE IV Last administered on 06/08/16 16:45; Start 06/08/16 at 13 :00; Stop 06/08/16 at 14:59; Status DC Metoprolol Tartrate (Lopressor) 25 mg BID PO Last administered on 06/10/16 08: 39; Start 06/08/16 at 13:00 Atorvastatin Calcium (Lipitor) 5 mg QHS PO ; Start 06/08/16 at 21:00; Status UNV Hydralazine HCl 10 mg 10 mg PRN Q4HRS PRN IVP ELEVATED BP, SEE COMMENTS; Start 06/08/16 at 12:15 Vancomycin HCl/ Sodium Chloride (Iv Sodium Chloride 0.9% 500ml Bag) 500 ml @ 250 mls/hr Q24H IV ; Start 06/09/16 at 15:00; Stop 06/09/16 at 15:00; Status DC Vancomycin HCl 1 each 1X ONCE MC ; Start 06/09/16 at 14:30; Stop 06/09/16 at 14: 31; Status Cancel Sulfur Hexafluoride Microspheres 25 mg 25 mg STK-MED ONCE IVP ; Start 06/08/16 at 14:48; Stop 06/08/16 at 14:49; Status DC Ceftriaxone Sodium 2 gm/ Sodium Chloride 50 ml @ 100 mls/hr Q24H IV ; Start 06/09/16 at 17:00; Stop 06/09/16 at 17:00; Status DC Ceftriaxone Sodium 2 gm/ Sodium Chloride 100 ml @ 200 mls/hr Q24H IV Last administered on 06/09/16 18:36; Start 06/09/16 at 17:00 Magnesium Sulfate/ Dextrose (Magnesium Sulfate PREMIX 2GM) 50 ml @ 25 mls/hr PRN DAILY PRN IV for Mag < 1.7 on am labs; Start 06/09/16 at 13:00 Furosemide (Lasix) 60 mg [id number] IVP Last administered on 06/10/16 08:39; Start 06/09/16 at 14:00; Stop 06/10/16 at 14:01 Acetaminophen (Tylenol) 650 mg PRN Q6HRS PRN PO fever; Start 06/09/16 at 19:15 Active Scripts Active Hydrocodone-Apap 5-325 (Hydrocodone Bit/Acetaminophen) 1 Each Tablet 1 Tab PO PRN Q4HRS PRN Cipro (Ciprofloxacin Hcl) 250 Mg Tablet 250 Mg PO BID Reported Finasteride 5 Mg Tablet 5 Mg PO DAILY Tamsulosin Hcl 0.4 Mg Cap.er.24h 0.4 Mg PO DAILY Iron (Ferrous Sulfate) 325 Mg Tablet 325 Mg PO Fish Oil 1,000 Mg Softgel (May-3 Fatty Acids/Fish Oil) 1 Each Capsule 1,000 Each PO Vitamin D (Cholecalciferol (Vitamin D3)) 1,000 Unit Capsule 1,000 Unit PO Ascorbic Acid 500 Mg Tablet 500 Mg PO Aspirin 325 Mg Tablet 325 Mg PO Lantus (Insulin Glargine,Hum.rec.anlog) 100 Unit/1 Ml Vial 1 Unit SQ Humalog (Insulin Lispro) 100 Unit/1 Ml Vial 100 Unit SQ Lovastatin 20 Mg Tablet 20 Mg PO HS Lasix (Furosemide) 40 Mg Tablet 40 Mg PO BID Losartan Potassium 50 Mg Tablet 50 Mg PO DAILY Vitals/I & O Vital Sign - Last 24 Hours 06/09/16 06/09/16 06/09/16 06/09/16 09:13 11:01 15:00 19:15 Temp 98.0 98.6 98.0 98.6 Pulse 88 87 90 Resp 19 20 B/P 132/63 130/66 96/63 Pulse Ox 91 95 O2 Delivery Nasal Cannula Nasal Cannula Room Air O2 Flow Rate 4.0 4.0 4.0 06/09/16 06/09/16 06/09/16 06/10/16 19:22 20:43 23:19 02:21 Temp 98.7 98.8 98.0 98.7 98.8 98.0 Pulse 84 84 83 84 Resp 18 18 18 B/P 110/61 110/61 141/72 140/73 Pulse Ox 92 93 92 O2 Delivery Nasal Cannula Nasal Cannula Nasal Cannula O2 Flow Rate 4.0 3.0 4.0 06/10/16 06/10/16 07:00 08:39 Temp 97.9 97.9 Pulse 73 73 Resp 25 B/P 133/74 133/74 Pulse Ox 96 O2 Delivery Nasal Cannula Intake and Output 06/09/16 06/09/16 06/10/16 15:00 23:00 07:00 Intake Total 1163 ml Output Total 1450 ml 1750 ml Balance -1450 ml -587 ml ALAN VERDIN MD Jun 10, 2016 09:20
[2016-06-10 10:47] VITALS: BP 142/67
--- NOTE | 2016-06-10 11:29 | PDOC ---
Infectious Disease Note Subjective Subjective Feeling much better today, + productive cough. Denies SOA/CP Supplemental O2 4LNC No fever past 24 hours Denies pain ROS ROS GEN: Denies chills, sweats CV: Denies chest pain GI: Denies n/v/d NEURO: Denies confusion, dizziness MSK: Denies weakness, joint pain Vital Sign Vital Signs Vital Signs Date Time Temp Pulse Resp B/P Pulse Ox O2 Delivery O2 Flow Rate FiO2 06/10/16 10:47 97.9 82 24 142/67 97 Nasal Cannula 97.9 06/10/16 02:21 4.0 Physical Exam PHYSICAL EXAM GENERAL: Up in the chair, relaxed appearance, legs dangling LUNGS: Clear HEART: S1S2, no gallop, no murmur ABD: Obese, BS present, soft, NT EXT: BLE edema, no cyanosis. LLE erythematous and warm. CURB SETTER: Alert, oriented x 3, no focal neurologic deficit SKIN: No rash IV: ok Labs Lab Laboratory Tests Test 06/09/16 12:05 06/09/16 12:30 06/09/16 20:05 06/09/16 20:41 Glucose (Fingerstick) 120mg/dL (70-99) 119mg/dL (70-99) White Blood Count 12.6x10^3/uL (4.0-11.0) Red Blood Count 4.17x10^6/uL (4.30-5.70) Hemoglobin 11.8g/dL (13.0-17.5) Hematocrit 37.3% (39.0-53.0) Mean Corpuscular Volume 90fL (79-100) Mean Corpuscular Hemoglobin 28pg (25-35) Mean Corpuscular Hemoglobin Concent 32g/dL (31-37) Red Cell Distribution Width 15.8% (11.5-14.5) Platelet Count 161x10^3/uL (140-400) Neutrophils (%) (Auto) 84% (31-73) Lymphocytes (%) (Auto) 11% (24-48) Monocytes (%) (Auto) 5% (0-9) Eosinophils (%) (Auto) 1% (0-3) Basophils (%) (Auto) 0% (0-3) Neutrophils # (Auto) 10.5x10^3uL (1.8-7.7) Lymphocytes # (Auto) 1.4x10^3/uL (1.0-4.8) Monocytes # (Auto) 0.6x10^3/uL (0.0-1.1) Eosinophils # (Auto) 0.1x10^3/uL (0.0-0.7) Basophils # (Auto) 0.1x10^3/uL (0.0-0.2) Heparin Anti-Xa Act, Unfractionated 0.25IU/mL (0.30-0.70) 0.38IU/mL (0.30-0.70) Sodium Level 140mmol/L (136-145) Potassium Level 4.1mmol/L (3.5-5.1) Chloride Level 107mmol/L (98-107) Carbon Dioxide Level 24mmol/L (21-32) Anion Gap 9 (6-14) Blood Urea Nitrogen 27mg/dL (8-26) Creatinine 2.3mg/dL (0.7-1.3) Estimated GFR (Cockcroft-Gault) 27.8 Glucose Level 117mg/dL (70-99) Calcium Level 8.7mg/dL (8.5-10.1) Magnesium Level 2.3mg/dL (1.8-2.4) Test 06/10/16 03:00 06/10/16 04:36 06/10/16 07:46 White Blood Count 10.1x10^3/uL (4.0-11.0) Red Blood Count 4.12x10^6/uL (4.30-5.70) Hemoglobin 11.7g/dL (13.0-17.5) Hematocrit 36.8% (39.0-53.0) Mean Corpuscular Volume 89fL (79-100) Mean Corpuscular Hemoglobin 29pg (25-35) Mean Corpuscular Hemoglobin Concent 32g/dL (31-37) Red Cell Distribution Width 15.5% (11.5-14.5) Platelet Count 160x10^3/uL (140-400) Neutrophils (%) (Auto) 79% (31-73) Lymphocytes (%) (Auto) 12% (24-48) Monocytes (%) (Auto) 7% (0-9) Eosinophils (%) (Auto) 2% (0-3) Basophils (%) (Auto) 0% (0-3) Neutrophils # (Auto) 8.0x10^3uL (1.8-7.7) Lymphocytes # (Auto) 1.2x10^3/uL (1.0-4.8) Monocytes # (Auto) 0.7x10^3/uL (0.0-1.1) Eosinophils # (Auto) 0.2x10^3/uL (0.0-0.7) Basophils # (Auto) 0.0x10^3/uL (0.0-0.2) Heparin Anti-Xa Act, Unfractionated 0.39IU/mL (0.30-0.70) Sodium Level 137mmol/L (136-145) Potassium Level 3.6mmol/L (3.5-5.1) Chloride Level 104mmol/L (98-107) Carbon Dioxide Level 23mmol/L (21-32) Anion Gap 10 (6-14) Blood Urea Nitrogen 27mg/dL (8-26) Creatinine 2.1mg/dL (0.7-1.3) Estimated GFR (Cockcroft-Gault) 30.9 Glucose Level 144mg/dL (70-99) Calcium Level 8.5mg/dL (8.5-10.1) Phosphorus Level 4.0mg/dL (2.6-4.7) Albumin 2.4g/dL (3.4-5.0) Magnesium Level 2.1mg/dL (1.8-2.4) Glucose (Fingerstick) 114mg/dL (70-99) Micro BLD CULT RESULT 1 Final Comment Beta hemolytic Streptococcus, group G Recovered from aerobic and anaerobic bottles. ANTIMICROBIAL SUSCEPTIBILITY Final Comment S = Susceptible; I = Intermediate; R = Resistant P = Positive; N = Negative MICS are expressed in micrograms per mL Antibiotic RSLT#1 Cefepime S Cefotaxime S Ceftriaxone S Chloramphenicol S Clindamycin S Erythromycin S Levofloxacin S Penicillin S Vancomycin S Objective Assessment Strep G sepsis - POA 06/07 -Repeat BC 06/10 pending. Echo neg veg Cellulitis of left lower leg s/p NSTEMI CKD Plan Plan of Care Cont Rocephin Repeat Blood pending Monitor leg Attending Co-Sign The patient was seen and interviewed as well as examined at the bedside. The chart was reviewed. The case was discussed. Agree with the plan of care. SAM MAYFIELD APRN Jun 10, 2016 11:29 TAE AMAYA MD Jun 10, 2016 15:17
[2016-06-10 15:32] VITALS: BP 112/52
--- NOTE | 2016-06-10 16:25 | PDOC ---
Provider Note Provider Note RENAL F/U : CINTHYA. Subjective No active c/o reported. Feels better. No CP/SOA Vitals: Stable. Afebrile. ROS : No new c/o or issues. General: No distreess. Awake. HEENT: Neck supple. No JVD. Lungs: Decreased bases.No rales. Cardiovascular: S1, S2 Abdomen: Soft, Non-tender, Other (no mass). Portly. Extremities: No Edema, Other Skin: Warm Neuro ; Non focal. Labs, I/Os, meds : reviewed. A/P : ARF CKD. HTN w CKD. CHEST PAIN/CHF. 24 hr urine done. Check. CPM. JOMAR MENDES MD Jun 10, 2016 16:24
[2016-06-10 19:01] VITALS: BP 130/62
[2016-06-10] MEDS: ATORVASTATIN CALCIUM 10 MG TABLET. PO SCH (20:45)
[2016-06-10] MEDS: INSULIN DETEMIR 300 UNITS/3 ML INSULN.PEN. SQ SCH (20:48)
[2016-06-10 23:15] VITALS: BP 138/68
[2016-06-11 03:00] VITALS: BP 144/65
[2016-06-11 04:13] LABS: ALBUMIN 2.6 g/dL (3.4-5.0); CALCIUM 8.8 mg/dL (8.5-10.1); CREATININE 2.2 mg/dL (0.7-1.3); GFR 29.2; POTASSIUM 3.4 mmol/L (3.5-5.1)
[2016-06-11 07:00] VITALS: BP 148/77
[2016-06-11] MEDS: INSULIN ASPART 300 UNITS/3 ML INSULN.PEN SQ SCH ×7 (07:30→21:00)
[2016-06-11] MEDS: ASPIRIN ENTERIC COATED 81 MG TABLET.DR. PO SCH (08:25)
[2016-06-11] MEDS: OMEGA-3 FATTY ACIDS/FISH OIL 1,000 MG CAPSULE. PO SCH (08:25)
[2016-06-11] MEDS: METOPROLOL TART IMMED RELEASE 25 MG TABLET. PO SCH ×2 (08:26→21:09)
[2016-06-11] MEDS: FERROUS SULFATE 325 MG TABLET. PO SCH (08:26)
[2016-06-11] MEDS: ASCORBIC ACID 500 MG TABLET PO SCH (08:26)
[2016-06-11] MEDS: TAMSULOSIN 0.4 MG CAP.ER.24H. PO SCH (08:26)
[2016-06-11] MEDS: FINASTERIDE 5 MG TABLET. PO SCH (08:26)
[2016-06-11] MEDS: HEPARIN 25,000UTS/500ML PREMIX 500 ML IV PRN ×2 (08:30→21:22)
[2016-06-11 09:37] LABS: BILIRUBIN,URINE NEGATIVE (NEG); GLUCOSE,URINE NEGATIVE (NEG); NITRITE,URINE NEGATIVE (NEG); PROTEIN,URINE NEGATIVE (NEG-TRACE); UROBILINOGEN,URINE 0.2 mg/dL (0.2 mg/dL)
--- NOTE | 2016-06-11 09:59 | PDOC ---
PULMONARY PROGRESS NOTES Subjective sob better, has cough, sputum, no pain. Vitals Vital Signs Date Time Temp Pulse Resp B/P Pulse Ox O2 Delivery O2 Flow Rate FiO2 06/11/16 08:26 85 148/77 06/11/16 08:00 Room Air 06/11/16 07:00 97.8 22 97 97.8 06/10/16 23:15 4.0 ROS: No Nausea, No Chest Pain, No Abdominal Pain, No Increase Cough General: Alert, No acute distress Lungs: Clear Cardiovascular: S1, S2 Abdomen: Soft, Non-tender, Other (no mass) Neuro Exam: Alert Extremities: Other (1+edema) Skin: Warm Labs Laboratory Tests Test 06/09/16 12:05 06/09/16 12:30 06/09/16 20:05 06/09/16 20:41 Glucose (Fingerstick) 120mg/dL (70-99) 119mg/dL (70-99) White Blood Count 12.6x10^3/uL (4.0-11.0) Red Blood Count 4.17x10^6/uL (4.30-5.70) Hemoglobin 11.8g/dL (13.0-17.5) Hematocrit 37.3% (39.0-53.0) Mean Corpuscular Volume 90fL (79-100) Mean Corpuscular Hemoglobin 28pg (25-35) Mean Corpuscular Hemoglobin Concent 32g/dL (31-37) Red Cell Distribution Width 15.8% (11.5-14.5) Platelet Count 161x10^3/uL (140-400) Neutrophils (%) (Auto) 84% (31-73) Lymphocytes (%) (Auto) 11% (24-48) Monocytes (%) (Auto) 5% (0-9) Eosinophils (%) (Auto) 1% (0-3) Basophils (%) (Auto) 0% (0-3) Neutrophils # (Auto) 10.5x10^3uL (1.8-7.7) Lymphocytes # (Auto) 1.4x10^3/uL (1.0-4.8) Monocytes # (Auto) 0.6x10^3/uL (0.0-1.1) Eosinophils # (Auto) 0.1x10^3/uL (0.0-0.7) Basophils # (Auto) 0.1x10^3/uL (0.0-0.2) Heparin Anti-Xa Act, Unfractionated 0.25IU/mL (0.30-0.70) 0.38IU/mL (0.30-0.70) Sodium Level 140mmol/L (136-145) Potassium Level 4.1mmol/L (3.5-5.1) Chloride Level 107mmol/L (98-107) Carbon Dioxide Level 24mmol/L (21-32) Anion Gap 9 (6-14) Blood Urea Nitrogen 27mg/dL (8-26) Creatinine 2.3mg/dL (0.7-1.3) Estimated GFR (Cockcroft-Gault) 27.8 Glucose Level 117mg/dL (70-99) Calcium Level 8.7mg/dL (8.5-10.1) Magnesium Level 2.3mg/dL (1.8-2.4) Test 06/10/16 03:00 06/10/16 04:36 06/10/16 07:46 06/10/16 11:38 White Blood Count 10.1x10^3/uL (4.0-11.0) Red Blood Count 4.12x10^6/uL (4.30-5.70) Hemoglobin 11.7g/dL (13.0-17.5) Hematocrit 36.8% (39.0-53.0) Mean Corpuscular Volume 89fL (79-100) Mean Corpuscular Hemoglobin 29pg (25-35) Mean Corpuscular Hemoglobin Concent 32g/dL (31-37) Red Cell Distribution Width 15.5% (11.5-14.5) Platelet Count 160x10^3/uL (140-400) Neutrophils (%) (Auto) 79% (31-73) Lymphocytes (%) (Auto) 12% (24-48) Monocytes (%) (Auto) 7% (0-9) Eosinophils (%) (Auto) 2% (0-3) Basophils (%) (Auto) 0% (0-3) Neutrophils # (Auto) 8.0x10^3uL (1.8-7.7) Lymphocytes # (Auto) 1.2x10^3/uL (1.0-4.8) Monocytes # (Auto) 0.7x10^3/uL (0.0-1.1) Eosinophils # (Auto) 0.2x10^3/uL (0.0-0.7) Basophils # (Auto) 0.0x10^3/uL (0.0-0.2) Heparin Anti-Xa Act, Unfractionated 0.39IU/mL (0.30-0.70) Sodium Level 137mmol/L (136-145) Potassium Level 3.6mmol/L (3.5-5.1) Chloride Level 104mmol/L (98-107) Carbon Dioxide Level 23mmol/L (21-32) Anion Gap 10 (6-14) Blood Urea Nitrogen 27mg/dL (8-26) Creatinine 2.1mg/dL (0.7-1.3) Estimated GFR (Cockcroft-Gault) 30.9 Glucose Level 144mg/dL (70-99) Calcium Level 8.5mg/dL (8.5-10.1) Phosphorus Level 4.0mg/dL (2.6-4.7) Albumin 2.4g/dL (3.4-5.0) Magnesium Level 2.1mg/dL (1.8-2.4) Glucose (Fingerstick) 114mg/dL (70-99) 143mg/dL (70-99) Test 06/10/16 16:41 06/10/16 20:43 06/11/16 03:30 06/11/16 08:26 Glucose (Fingerstick) 117mg/dL (70-99) 219mg/dL (70-99) 130mg/dL (70-99) Heparin Anti-Xa Act, Unfractionated 0.46IU/mL (0.30-0.70) Sodium Level 139mmol/L (136-145) Potassium Level 3.4mmol/L (3.5-5.1) Chloride Level 104mmol/L (98-107) Carbon Dioxide Level 24mmol/L (21-32) Anion Gap 11 (6-14) Blood Urea Nitrogen 33mg/dL (8-26) Creatinine 2.2mg/dL (0.7-1.3) Estimated GFR (Cockcroft-Gault) 29.2 Glucose Level 145mg/dL (70-99) Calcium Level 8.8mg/dL (8.5-10.1) Phosphorus Level 5.0mg/dL (2.6-4.7) Magnesium Level 2.5mg/dL (1.8-2.4) Albumin 2.6g/dL (3.4-5.0) Laboratory Tests Test 06/10/16 11:38 06/10/16 16:41 06/10/16 20:43 06/11/16 03:30 Glucose (Fingerstick) 143mg/dL (70-99) 117mg/dL (70-99) 219mg/dL (70-99) Heparin Anti-Xa Act, Unfractionated 0.46IU/mL (0.30-0.70) Sodium Level 139mmol/L (136-145) Potassium Level 3.4mmol/L (3.5-5.1) Chloride Level 104mmol/L (98-107) Carbon Dioxide Level 24mmol/L (21-32) Anion Gap 11 (6-14) Blood Urea Nitrogen 33mg/dL (8-26) Creatinine 2.2mg/dL (0.7-1.3) Estimated GFR (Cockcroft-Gault) 29.2 Glucose Level 145mg/dL (70-99) Calcium Level 8.8mg/dL (8.5-10.1) Phosphorus Level 5.0mg/dL (2.6-4.7) Magnesium Level 2.5mg/dL (1.8-2.4) Albumin 2.6g/dL (3.4-5.0) Test 06/11/16 08:26 Glucose (Fingerstick) 130mg/dL (70-99) Medications Active Scripts Medications Dose Route/Sig Days Date Category Hydrocodone-Apap 5-325 (Hydrocodone Bit/Acetaminophen) 1 Each Tablet 1 Tab PO PRN Q4HRS PRN 10/29/15 Rx Cipro (Ciprofloxacin Hcl) 250 Mg Tablet 250 Mg PO BID 10/29/15 Rx Finasteride 5 Mg Tablet 5 Mg PO DAILY 10/23/15 Reported Tamsulosin Hcl 0.4 Mg Cap.er.24h 0.4 Mg PO DAILY 10/23/15 Reported Iron (Ferrous Sulfate) 325 Mg Tablet 325 Mg PO 10/23/15 Reported Fish Oil 1,000 Mg Softgel ([place]-3 Fatty Acids/Fish Oil) 1 Each Capsule 1,000 Each PO 10/23/15 Reported Vitamin D (Cholecalciferol (Vitamin D3)) 1,000 Unit Capsule 1,000 Unit PO 10/23/15 Reported Ascorbic Acid 500 Mg Tablet 500 Mg PO 10/23/15 Reported Aspirin 325 Mg Tablet 325 Mg PO 10/23/15 Reported Lantus (Insulin Glargine,Hum.rec.anlog) 100 Unit/1 Ml Vial 1 Unit SQ 10/23/15 Reported Humalog (Insulin Lispro) 100 Unit/1 Ml Vial 100 Unit SQ 10/23/15 Reported Lovastatin 20 Mg Tablet 20 Mg PO HS 10/23/15 Reported Lasix (Furosemide) 40 Mg Tablet 40 Mg PO BID 10/23/15 Reported Losartan Potassium 50 Mg Tablet 50 Mg PO DAILY 10/23/15 Reported Comments CXR reviewed. 1. Congestive heart failure. 2. Right perihilar infiltrate second represent pulmonary edema. Pneumonia would be additional possibility. Impression . 1. Acute chest pain and dyspnea. I suspect related to mild congestive heart failure. No evidence of thromboembolic disease by VQ scan. 2. Fever / chills with recent cough and emesis. Could be related to viral syndrome. no pneumonia seen on ct chest. strep G bacteremia. 3. Suspected underlying chronic obstructive pulmonary disease. 4. Increased troponin level, possible non-ST myocardial infarction. Cardiology is following. 5. ? stefania Plan . 1. Neg VQ scan. 2. Neg Venous Dopplers of the lower extremities. 3. PFTs as an outpatient. 4. Echocardiogram with normal EF. follow Cardiology recommendation. cath Sunday 5. Diuresis. 6. Empiric antibiotics. repeat BC/ follow ID recommendations 7. psg as out pt 8. lose wt 9. 6 min walk bf dc discussed w pt POLY CURIEL MD Jun 11, 2016 09:59
--- NOTE | 2016-06-11 10:06 | PDOC ---
Infectious Disease Note Subjective Subjective Feels well, Less O2 supplementation, 2LNC + productive cough. Denies SOA/CP Denies pain ROS ROS GEN: Denies fevers, chills, sweats HEENT: Denies sore throat GI: Denies n/v/d NEURO: Denies confusion, dizziness Vital Sign Vital Signs Vital Signs Date Time Temp Pulse Resp B/P Pulse Ox O2 Delivery O2 Flow Rate FiO2 06/11/16 08:26 85 148/77 06/11/16 08:00 Room Air 06/11/16 07:00 97.8 22 97 97.8 06/10/16 23:15 4.0 Physical Exam PHYSICAL EXAM GENERAL: Up in the chair, relaxed appearance, legs dangling LUNGS: Clear HEART: S1S2, no gallop, no murmur ABD: Obese, BS present, soft, NT EXT: BLE edema, no cyanosis. LLE erythematous and warm. CREDIT ADJUSTER: Alert, oriented x 3, no focal neurologic deficit SKIN: No rash IV: ok Labs Lab Laboratory Tests Test 06/10/16 11:38 06/10/16 16:41 06/10/16 20:43 06/11/16 03:30 Glucose (Fingerstick) 143mg/dL (70-99) 117mg/dL (70-99) 219mg/dL (70-99) Heparin Anti-Xa Act, Unfractionated 0.46IU/mL (0.30-0.70) Sodium Level 139mmol/L (136-145) Potassium Level 3.4mmol/L (3.5-5.1) Chloride Level 104mmol/L (98-107) Carbon Dioxide Level 24mmol/L (21-32) Anion Gap 11 (6-14) Blood Urea Nitrogen 33mg/dL (8-26) Creatinine 2.2mg/dL (0.7-1.3) Estimated GFR (Cockcroft-Gault) 29.2 Glucose Level 145mg/dL (70-99) Calcium Level 8.8mg/dL (8.5-10.1) Phosphorus Level 5.0mg/dL (2.6-4.7) Magnesium Level 2.5mg/dL (1.8-2.4) Albumin 2.6g/dL (3.4-5.0) Test 4/9/17 08:26 Glucose (Fingerstick) 130mg/dL (70-99) Micro 06/10. BLOOD CULTURE Preliminary NO GROWTH AFTER 1 DAY 06/07. BLOOD CULT RESULT 1 Final Beta hemolytic Streptococcus, group G MICS are expressed in micrograms per mL Antibiotic RSLT#1 Cefepime S Cefotaxime S Ceftriaxone S Chloramphenicol S Clindamycin S Erythromycin S Levofloxacin S Penicillin S Vancomycin S Objective Assessment Strep G sepsis - POA 06/07 -Repeat BC 06/10 pending. Echo neg veg Cellulitis of left lower leg s/p NSTEMI CKD Plan Plan of Care Cont Rocephin Repeat Blood neg so far Leg elevation Attending Co-Sign The patient was seen and interviewed as well as examined at the bedside. The chart was reviewed. The case was discussed. Agree with the plan of care. SAM MAYFIELD APRN Jun 11, 2016 10:05 TAE AMAYA MD Jun 11, 2016 13:28
[2016-06-11 10:18] LABS: BACTERIA,URINE 0 /HPF (0-FEW); RBC,URINE 0 /HPF (0-2); SQUAMOUS EPITHELIAL CELL,UR FEW /LPF; WBC,URINE 0 /HPF (0-4)
--- NOTE | 2016-06-11 11:21 | PDOC ---
PROGRESS NOTES Subjective Subjective Feeling better - denied any chest pain Objective Objective Vital Signs Date Time Temp Pulse Resp B/P Pulse Ox O2 Delivery O2 Flow Rate FiO2 06/11/16 08:26 85 148/77 06/11/16 08:00 Room Air 06/11/16 07:00 97.8 22 97 97.8 06/10/16 23:15 4.0 Intake and Output 06/11/16 07:00 Intake Total 2240 ml Output Total 4700 ml Balance -2460 ml Intake Oral 2240 ml Output Urine Total 4700 ml Physical Exam Abdomen: Normal bowel sounds Heart: Regular rate Extremities: Other (3 + edema) General: Alert HEENT: Atraumatic, Mucous membr. moist/pink Lungs: Clear to auscultation MUSCULOSKELETAL: Osteoarthritic changes both hands Neuro: Normal speech, Sensation intact Psych/Mental Status: Mental status NL, Mood NL Skin: No breakdown, No significant lesion Assessment Assessment 1. Pneumonia/fever/sepsis/LLE cellulitis: continue IV abx 2. NSTEMI: peaked trop at 1.8 with posterolateral changes to EKG. NEG for PE. Plan for cardiac cath tomorrow - risks and benefits explained. Continue heparin gtt 3. Acute diastolic CHF: TTE with normal EF and wall motion. superimposed 4. CKD4: baseline Cr 2.0. - nephrology following 5. HTN: controlled 6. DM2/HLP/DPN - per IM Plan Plan of Care Problems Medical Problems: (1) Elevated troponin Status: Acute (2) Pneumonia Status: Acute Comment Review of Relevant I have reviewed the following items tereso (where applicable) has been applied. Labs Laboratory Tests Test 06/10/16 11:38 06/10/16 16:41 06/10/16 20:43 06/11/16 01:00 Glucose (Fingerstick) 143mg/dL (70-99) 117mg/dL (70-99) 219mg/dL (70-99) Urine Collection Type Unknown Urine Color Yellow Urine Clarity Clear Urine pH 6.0 Urine Specific [place] <=1.005 Urine Protein Negativemg/dL (NEG-TRACE) Urine Glucose (UA) Negativemg/dL (NEG) Urine Ketones (Stick) Negativemg/dL (NEG) Urine Blood Negative (NEG) Urine Nitrite Negative (NEG) Urine Bilirubin Negative (NEG) Urine Urobilinogen Dipstick 0.2mg/dL (0.2 mg/dL) Urine Leukocyte Esterase Negative (NEG) Urine RBC 0/HPF (0-2) Urine WBC 0/HPF (0-4) Urine Squamous Epithelial Cells Few/LPF Urine Bacteria 0/HPF (0-FEW) Test 06/11/16 03:30 06/11/16 08:26 Heparin Anti-Xa Act, Unfractionated 0.46IU/mL (0.30-0.70) Sodium Level 139mmol/L (136-145) Potassium Level 3.4mmol/L (3.5-5.1) Chloride Level 104mmol/L (98-107) Carbon Dioxide Level 24mmol/L (21-32) Anion Gap 11 (6-14) Blood Urea Nitrogen 33mg/dL (8-26) Creatinine 2.2mg/dL (0.7-1.3) Estimated GFR (Cockcroft-Gault) 29.2 Glucose Level 145mg/dL (70-99) Calcium Level 8.8mg/dL (8.5-10.1) Phosphorus Level 5.0mg/dL (2.6-4.7) Magnesium Level 2.5mg/dL (1.8-2.4) Albumin 2.6g/dL (3.4-5.0) Glucose (Fingerstick) 130mg/dL (70-99) Microbiology 06/10/16 Blood Culture - Preliminary, Resulted NO GROWTH AFTER 1 DAY Vitals/I & O Vital Sign - Last 24 Hours 06/10/16 06/10/16 06/10/16 06/10/16 15:32 19:00 19:01 20:46 Temp 97.5 98.4 97.5 98.4 Pulse 84 83 86 Resp 20 18 B/P 112/52 130/62 130/62 Pulse Ox 97 96 O2 Delivery Room Air Nasal Cannula Nasal Cannula O2 Flow Rate 4.0 2.0 06/10/16 06/11/16 06/11/16 06/11/16 23:15 03:00 07:00 08:00 Temp 98.2 98.2 97.8 98.2 98.2 97.8 Pulse 80 80 82 Resp 23 24 22 B/P 138/68 144/65 148/77 Pulse Ox 97 94 97 O2 Delivery Nasal Cannula Room Air Nasal Cannula Room Air O2 Flow Rate 4.0 06/11/16 08:26 Pulse 85 B/P 148/77 Intake and Output 06/10/16 06/10/16 06/11/16 15:00 23:00 07:00 Intake Total 1840 ml 400 ml Output Total 2025 ml 1675 ml 1000 ml Balance -2025 ml 165 ml -600 ml AGATA CARDENAS MD Jun 11, 2016 11:21
[2016-06-11 11:34] VITALS: BP 126/56
--- NOTE | 2016-06-11 12:15 | PDOC ---
PROGRESS NOTES Subjective Subjective Patient continue to improve. Patient gives new hx of recent dental cleaning which may have lead to his bacteremia. Card eval planned Objective Objective Vital Signs Date Time Temp Pulse Resp B/P Pulse Ox O2 Delivery O2 Flow Rate FiO2 06/11/16 11:34 98.1 73 20 126/56 95 Room Air 98.1 06/10/16 23:15 4.0 Intake and Output 06/11/16 07:00 Intake Total 2240 ml Output Total 4700 ml Balance -2460 ml Intake Oral 2240 ml Output Urine Total 4700 ml Physical Exam Abdomen: Normal bowel sounds Heart: Regular rate Extremities: Other (2+ edema) General: Alert Lungs: Clear to auscultation Assessment Assessment Problems Medical Problems: (1) Elevated troponin Status: Acute (2) Pneumonia Status: Acute Bronchitis Sepsis Acute on chronic renal failure acute respiratory failure NSTEMI copd Plan Plan of Care Continue pulm toilet card cath in am await 24hr urine results Comment Review of Relevant I have reviewed the following items tereso (where applicable) has been applied. Labs Laboratory Tests Test 06/09/16 12:30 06/09/16 20:05 06/09/16 20:41 06/10/16 03:00 White Blood Count 12.6x10^3/uL (4.0-11.0) 10.1x10^3/uL (4.0-11.0) Red Blood Count 4.17x10^6/uL (4.30-5.70) 4.12x10^6/uL (4.30-5.70) Hemoglobin 11.8g/dL (13.0-17.5) 11.7g/dL (13.0-17.5) Hematocrit 37.3% (39.0-53.0) 36.8% (39.0-53.0) Mean Corpuscular Volume 90fL (79-100) 89fL (79-100) Mean Corpuscular Hemoglobin 28pg (25-35) 29pg (25-35) Mean Corpuscular Hemoglobin Concent 32g/dL (31-37) 32g/dL (31-37) Red Cell Distribution Width 15.8% (11.5-14.5) 15.5% (11.5-14.5) Platelet Count 161x10^3/uL (140-400) 160x10^3/uL (140-400) Neutrophils (%) (Auto) 84% (31-73) 79% (31-73) Lymphocytes (%) (Auto) 11% (24-48) 12% (24-48) Monocytes (%) (Auto) 5% (0-9) 7% (0-9) Eosinophils (%) (Auto) 1% (0-3) 2% (0-3) Basophils (%) (Auto) 0% (0-3) 0% (0-3) Neutrophils # (Auto) 10.5x10^3uL (1.8-7.7) 8.0x10^3uL (1.8-7.7) Lymphocytes # (Auto) 1.4x10^3/uL (1.0-4.8) 1.2x10^3/uL (1.0-4.8) Monocytes # (Auto) 0.6x10^3/uL (0.0-1.1) 0.7x10^3/uL (0.0-1.1) Eosinophils # (Auto) 0.1x10^3/uL (0.0-0.7) 0.2x10^3/uL (0.0-0.7) Basophils # (Auto) 0.1x10^3/uL (0.0-0.2) 0.0x10^3/uL (0.0-0.2) Heparin Anti-Xa Act, Unfractionated 0.25IU/mL (0.30-0.70) 0.38IU/mL (0.30-0.70) 0.39IU/mL (0.30-0.70) Sodium Level 140mmol/L (136-145) 137mmol/L (136-145) Potassium Level 4.1mmol/L (3.5-5.1) 3.6mmol/L (3.5-5.1) Chloride Level 107mmol/L (98-107) 104mmol/L (98-107) Carbon Dioxide Level 24mmol/L (21-32) 23mmol/L (21-32) Anion Gap 9 (6-14) 10 (6-14) Blood Urea Nitrogen 27mg/dL (8-26) 27mg/dL (8-26) Creatinine 2.3mg/dL (0.7-1.3) 2.1mg/dL (0.7-1.3) Estimated GFR (Cockcroft-Gault) 27.8 30.9 Glucose Level 117mg/dL (70-99) 144mg/dL (70-99) Calcium Level 8.7mg/dL (8.5-10.1) 8.5mg/dL (8.5-10.1) Magnesium Level 2.3mg/dL (1.8-2.4) Glucose (Fingerstick) 119mg/dL (70-99) Phosphorus Level 4.0mg/dL (2.6-4.7) Albumin 2.4g/dL (3.4-5.0) Test 06/10/16 04:36 06/10/16 07:46 06/10/16 11:38 06/10/16 16:41 Magnesium Level 2.1mg/dL (1.8-2.4) Glucose (Fingerstick) 114mg/dL (70-99) 143mg/dL (70-99) 117mg/dL (70-99) Test 06/10/16 20:43 06/11/16 01:00 06/11/16 03:30 06/11/16 08:26 Glucose (Fingerstick) 219mg/dL (70-99) 130mg/dL (70-99) Urine Collection Type Unknown Urine Color Yellow Urine Clarity Clear Urine pH 6.0 Urine Specific [place] <=1.005 Urine Protein Negativemg/dL (NEG-TRACE) Urine Glucose (UA) Negativemg/dL (NEG) Urine Ketones (Stick) Negativemg/dL (NEG) Urine Blood Negative (NEG) Urine Nitrite Negative (NEG) Urine Bilirubin Negative (NEG) Urine Urobilinogen Dipstick 0.2mg/dL (0.2 mg/dL) Urine Leukocyte Esterase Negative (NEG) Urine RBC 0/HPF (0-2) Urine WBC 0/HPF (0-4) Urine Squamous Epithelial Cells Few/LPF Urine Bacteria 0/HPF (0-FEW) Heparin Anti-Xa Act, Unfractionated 0.46IU/mL (0.30-0.70) Sodium Level 139mmol/L (136-145) Potassium Level 3.4mmol/L (3.5-5.1) Chloride Level 104mmol/L (98-107) Carbon Dioxide Level 24mmol/L (21-32) Anion Gap 11 (6-14) Blood Urea Nitrogen 33mg/dL (8-26) Creatinine 2.2mg/dL (0.7-1.3) Estimated GFR (Cockcroft-Gault) 29.2 Glucose Level 145mg/dL (70-99) Calcium Level 8.8mg/dL (8.5-10.1) Phosphorus Level 5.0mg/dL (2.6-4.7) Magnesium Level 2.5mg/dL (1.8-2.4) Albumin 2.6g/dL (3.4-5.0) Laboratory Tests Test 06/10/16 16:41 06/10/16 20:43 06/11/16 01:00 06/11/16 03:30 Glucose (Fingerstick) 117mg/dL (70-99) 219mg/dL (70-99) Urine Collection Type Unknown Urine Color Yellow Urine Clarity Clear Urine pH 6.0 Urine Specific [place] <=1.005 Urine Protein Negativemg/dL (NEG-TRACE) Urine Glucose (UA) Negativemg/dL (NEG) Urine Ketones (Stick) Negativemg/dL (NEG) Urine Blood Negative (NEG) Urine Nitrite Negative (NEG) Urine Bilirubin Negative (NEG) Urine Urobilinogen Dipstick 0.2mg/dL (0.2 mg/dL) Urine Leukocyte Esterase Negative (NEG) Urine RBC 0/HPF (0-2) Urine WBC 0/HPF (0-4) Urine Squamous Epithelial Cells Few/LPF Urine Bacteria 0/HPF (0-FEW) Heparin Anti-Xa Act, Unfractionated 0.46IU/mL (0.30-0.70) Sodium Level 139mmol/L (136-145) Potassium Level 3.4mmol/L (3.5-5.1) Chloride Level 104mmol/L (98-107) Carbon Dioxide Level 24mmol/L (21-32) Anion Gap 11 (6-14) Blood Urea Nitrogen 33mg/dL (8-26) Creatinine 2.2mg/dL (0.7-1.3) Estimated GFR (Cockcroft-Gault) 29.2 Glucose Level 145mg/dL (70-99) Calcium Level 8.8mg/dL (8.5-10.1) Phosphorus Level 5.0mg/dL (2.6-4.7) Magnesium Level 2.5mg/dL (1.8-2.4) Albumin 2.6g/dL (3.4-5.0) Test 06/11/16 08:26 Glucose (Fingerstick) 130mg/dL (70-99) Microbiology 06/10/16 Blood Culture - Preliminary, Resulted NO GROWTH AFTER 1 DAY Medications Current Medications Acetaminophen 650 mg 650 mg 1X ONCE PO Last administered on 06/07/16 18:07; Start 06/07/16 at 17:45; Stop 06/07/16 at 17:49; Status DC Levofloxacin/ Dextrose (LEVAQUIN 750mg PREMIX) 150 ml @ 100 mls/hr 1X ONCE IV Last administered on 06/07/16 18:08; Start 06/07/16 at 17:45; Stop 06/07/16 at 19:14; Status DC Aspirin 324 mg 324 mg 1X ONCE PO Last administered on 06/07/16 18:07; Start at 18:00; Stop 06/07/16 at 18:01; Status DC Sodium Chloride 500 ml @ 500 mls/hr 1X ONCE IV Last administered on 06/07/16 18:07; Start 06/07/16 at 18:00; Stop 06/07/16 at 18:59; Status DC Sodium Chloride 1,000 ml @ 1,000 mls/hr 1X ONCE IV Last administered on 19:40; Start 06/07/16 at 19:00; Stop 06/07/16 at 19:59; Status DC Sodium Chloride (Iv Sodium Chloride 0.9% 1000ml Bag) 1,000 ml @ 1,000 mls/hr 1X ONCE IV Last administered on 06/07/16 20:55; Start 06/07/16 at 19:00; Stop 06/07/16 at 19:59; Status DC Ondansetron HCl (Zofran) 4 mg PRN Q8HRS PRN IV NAUSEA/VOMITING; Start 06/07/16 at 19:15; Stop 06/08/16 at 19:14; Status DC Morphine Sulfate 2 mg 2 mg PRN Q2HR PRN IV PAIN; Start 06/07/16 at 19:15; Stop 06/08/16 at 19:14; Status DC Sodium Chloride (Iv Sodium Chloride 0.9% 1000ml Bag) 1,000 ml @ 150 mls/hr Q6H40M IV Last administered on 06/08/16 16:44; Start 06/07/16 at 19:03; Stop 06/08/16 at 19:02; Status DC Acetaminophen (Tylenol) 650 mg PRN Q4HRS PRN PO FEVER Last administered on 06:49; Start 06/07/16 at 19:15; Stop 06/08/16 at 19:14; Status DC Insulin Aspart (Novolog) 0-7 UNITS TIDWMEALS SQ ; Start 06/08/16 at 08:00; Stop 06/08/16 at 11:42; Status DC Dextrose (Dextrose 50%-Water Syringe) 12.5 gm PRN Q15MIN PRN IV SEE COMMENTS; Start 06/07/16 at 19:15 Ascorbic Acid (Vitamin C) 500 mg DAILY PO Last administered on 06/11/16 08:26; Start 06/08/16 at 09:00 Aspirin (Cherelle Aspirin) 325 mg DAILY PO ; Start 06/08/16 at 09:00; Stop 06/08/16 at 09:13; Status DC Ferrous Sulfate (Feosol) 325 mg DAILY PO Last administered on 06/11/16 08:26; Start 06/08/16 at 09:00 Finasteride (Proscar) 5 mg DAILY PO Last administered on 06/11/16 08:26; Start 06/08/16 at 09:00 Losartan Potassium (Cozaar) 50 mg DAILY PO ; Start 06/08/16 at 09:00; Stop at 09:05; Status DC Tamsulosin HCl (Flomax) 0.4 mg DAILY PO Last administered on 06/11/16 08:26; Start 06/08/16 at 09:00 Atorvastatin Calcium (Lipitor) 5 mg HS PO Last administered on 06/10/16 20:45; Start 06/07/16 at 22:30 Insulin Detemir (Levemir) 64 units QHS SQ Last administered on 06/10/16 20:48; Start 06/07/16 at 22:30 Insulin Aspart (Novolog) 40 units TIDAC SQ Last administered on 06/11/16 08:31 ; Start 06/08/16 at 07:30 Fish Oil (Fish Oil) 1,000 mg DAILY PO Last administered on 06/11/16 08:25; Start 06/08/16 at 09:00 Enoxaparin Sodium (Lovenox 40mg Syringe) 40 mg Q24H SQ Last administered on 06/07 23:06; Start 06/07/16 at 22:00; Stop 06/08/16 at 09:13; Status DC Insulin Aspart 0-12 UNITS QIDACHS SQ Last administered on 06/10/16 20:47; Start 06/07/16 at 22:30 Heparin Sodium/ Dextrose 500 ml @ 0 mls/hr CONT PRN IV SEE I/O RECORD Last administered on 06/11/16 08:30; Start 06/08/16 at 09:15 Heparin Sodium (Porcine) (Heparin Sodium) 3,400 unit PRN Q6HRS PRN IV FOR UFH LEVEL LESS THAN 0.2 Last administered on 06/08/16 23:24; Start 06/08/16 at 09:15 Aspirin (Ecotrin) 81 mg [id number] PO Last administered on 06/11/16 08:25; Start 06/08/16 at 10:00 Info 1 each 1 each PRN DAILY PRN MC SEE COMMENTS Last administered on 06/09/16 15:29; Start 06/08/16 at 09:30 Ceftriaxone Sodium/Sodium Chloride (Rocephin/Iv Sodium Chloride 0.9% 50ml) 50 ml @ 100 mls/hr Q24H IV Last administered on 06/08/16 16:45; Start 06/08/16 at 13:00; Stop 06/09/16 at 08:44; Status DC Vancomycin HCl 1 each 1 each PRN DAILY PRN MC SEE COMMENTS Last administered on 06/08/16 14:08; Start 06/08/16 at 12:15; Stop 06/09/16 at 08:44; Status DC Vancomycin HCl/ Sodium Chloride (Iv Sodium Chloride 0.9% 500ml Bag) 500 ml @ 250 mls/hr 1X ONCE IV Last administered on 06/08/16 16:45; Start 06/08/16 at 13 :00; Stop 06/08/16 at 14:59; Status DC Metoprolol Tartrate (Lopressor) 25 mg BID PO Last administered on 06/11/16 08: 26; Start 06/08/16 at 13:00 Atorvastatin Calcium (Lipitor) 5 mg QHS PO ; Start 06/08/16 at 21:00; Status UNV Hydralazine HCl 10 mg 10 mg PRN Q4HRS PRN IVP ELEVATED BP, SEE COMMENTS; Start 06/08/16 at 12:15 Vancomycin HCl/ Sodium Chloride (Iv Sodium Chloride 0.9% 500ml Bag) 500 ml @ 250 mls/hr Q24H IV ; Start 06/09/16 at 15:00; Stop 06/09/16 at 15:00; Status DC Vancomycin HCl 1 each 1X ONCE MC ; Start 06/09/16 at 14:30; Stop 06/09/16 at 14: 31; Status Cancel Sulfur Hexafluoride Microspheres 25 mg 25 mg STK-MED ONCE IVP ; Start 06/08/16 at 14:48; Stop 06/08/16 at 14:49; Status DC Ceftriaxone Sodium 2 gm/ Sodium Chloride 50 ml @ 100 mls/hr Q24H IV ; Start 06/09/16 at 17:00; Stop 06/09/16 at 17:00; Status DC Ceftriaxone Sodium 2 gm/ Sodium Chloride 100 ml @ 200 mls/hr Q24H IV Last administered on 06/10/16 17:05; Start 06/09/16 at 17:00 Magnesium Sulfate/ Dextrose (Magnesium Sulfate PREMIX 2GM) 50 ml @ 25 mls/hr PRN DAILY PRN IV for Mag < 1.7 on am labs; Start 06/09/16 at 13:00 Furosemide (Lasix) 60 mg [id number] IVP Last administered on 06/10/16 15:03; Start 06/09/16 at 14:00; Stop 06/10/16 at 14:01; Status DC Acetaminophen (Tylenol) 650 mg PRN Q6HRS PRN PO fever; Start 06/09/16 at 19:15 Active Scripts Active Hydrocodone-Apap 5-325 (Hydrocodone Bit/Acetaminophen) 1 Each Tablet 1 Tab PO PRN Q4HRS PRN Cipro (Ciprofloxacin Hcl) 250 Mg Tablet 250 Mg PO BID Reported Finasteride 5 Mg Tablet 5 Mg PO DAILY Tamsulosin Hcl 0.4 Mg Cap.er.24h 0.4 Mg PO DAILY Iron (Ferrous Sulfate) 325 Mg Tablet 325 Mg PO Fish Oil 1,000 Mg Softgel ([place]-3 Fatty Acids/Fish Oil) 1 Each Capsule 1,000 Each PO Vitamin D (Cholecalciferol (Vitamin D3)) 1,000 Unit Capsule 1,000 Unit PO Ascorbic Acid 500 Mg Tablet 500 Mg PO Aspirin 325 Mg Tablet 325 Mg PO Lantus (Insulin Glargine,Hum.rec.anlog) 100 Unit/1 Ml Vial 1 Unit SQ Humalog (Insulin Lispro) 100 Unit/1 Ml Vial 100 Unit SQ Lovastatin 20 Mg Tablet 20 Mg PO HS Lasix (Furosemide) 40 Mg Tablet 40 Mg PO BID Losartan Potassium 50 Mg Tablet 50 Mg PO DAILY Vitals/I & O Vital Sign - Last 24 Hours 06/10/16 06/10/16 06/10/16 06/10/16 15:32 19:00 19:01 20:46 Temp 97.5 98.4 97.5 98.4 Pulse 84 83 86 Resp 20 18 B/P 112/52 130/62 130/62 Pulse Ox 97 96 O2 Delivery Room Air Nasal Cannula Nasal Cannula O2 Flow Rate 4.0 2.0 06/10/16 06/11/16 06/11/16 06/11/16 23:15 03:00 07:00 08:00 Temp 98.2 98.2 97.8 98.2 98.2 97.8 Pulse 80 80 82 Resp 23 24 22 B/P 138/68 144/65 148/77 Pulse Ox 97 94 97 O2 Delivery Nasal Cannula Room Air Nasal Cannula Room Air O2 Flow Rate 4.0 06/11/16 06/11/16 08:26 11:34 Temp 98.1 98.1 Pulse 85 73 Resp 20 B/P 148/77 126/56 Pulse Ox 95 O2 Delivery Room Air Intake and Output 06/10/16 06/10/16 06/11/16 15:00 23:00 07:00 Intake Total 1840 ml 400 ml Output Total 2025 ml 1675 ml 1000 ml Balance -2025 ml 165 ml -600 ml ALAN VERDIN MD Jun 11, 2016 12:15
[2016-06-11] MEDS: POLYETHYLENE GLYCOL 3350 17 GM PACKET. PO SCH (12:32)
[2016-06-11 13:12] LABS: PROTEIN 24 HR UR 783.8 mg/24 hr (30.0-150.0)
[2016-06-11 15:44] VITALS: BP 130/56
--- NOTE | 2016-06-11 17:15 | PDOC ---
Provider Note Provider Note Subjective No active c/o reported. Feels better. No CP/SOA Vitals: Stable. Afebrile. ROS : No new c/o or issues. General: No distreess. Awake. HEENT: Neck supple. No JVD. Lungs: Decreased bases.No rales. Cardiovascular: S1, S2 Abdomen: Soft, Non-tender, Other (no mass). Portly. Extremities: No Edema, Other Skin: Warm Neuro ; Non focal. Labs, I/Os, meds : reviewed. A/P : ARF CKD. HTN w CKD. CHEST PAIN/CHF. Doing OK CATH in am. CPM. JOMAR MENDES MD Jun 11, 2016 17:15
[2016-06-11 18:07] LABS: TOTAL SERUM CREATININE 2.11 mg/dL (0.76-1.27)
[2016-06-11 19:40] VITALS: BP 144/63
[2016-06-11] MEDS: ATORVASTATIN CALCIUM 10 MG TABLET. PO SCH (21:09)
[2016-06-11] MEDS: INSULIN DETEMIR 300 UNITS/3 ML INSULN.PEN. SQ SCH (21:16)
[2016-06-11 23:35] VITALS: BP 139/68
[2016-06-12] VITALS (18 sets, daily range): BP systolic 114–182; BP diastolic 52–92
[2016-06-12 05:13] LABS: ALBUMIN 2.5 g/dL (3.4-5.0); CALCIUM 8.2 mg/dL (8.5-10.1); CREATININE 1.9 mg/dL (0.7-1.3); GFR 34.6; PHOSPHORUS 4.6 mg/dL (2.6-4.7)
[2016-06-12] MEDS: HEPARIN 25,000UTS/500ML PREMIX 500 ML IV PRN ×2 (06:19→19:13)
[2016-06-12] MEDS: INSULIN ASPART 300 UNITS/3 ML INSULN.PEN SQ SCH ×7 (07:30→20:45)
[2016-06-12] MEDS: ANTI-COAG MONITOR BY PHARMACY. MC PRN (08:28)
--- NOTE | 2016-06-12 08:54 | PDOC ---
Infectious Disease Note Subjective Subjective Feels well, Less O2 supplementation, 2LNC + productive cough. Denies SOA/CP Denies pain ROS ROS GEN: Denies fevers, chills, sweats HEENT: Denies blurred vision, sore throat CV: Denies chest pain RESP: Denies shortness of air, cough GI: Denies n/v/d NEURO: Denies confusion, dizziness MSK: Denies weakness, joint pain/swelling Vital Sign Vital Signs Vital Signs Date Time Temp Pulse Resp B/P Pulse Ox O2 Delivery O2 Flow Rate FiO2 06/12/16 07:30 98.6 80 20 139/70 97 Nasal Cannula 2.0 98.6 Physical Exam PHYSICAL EXAM GENERAL: NAD, Alert HEENT: PERRL, OC/OP NECK: Supple, no JVD, no LN LUNGS: Clear HEART: S1S2, no gallop, no murmur ABD: Soft, NT, no organomegaly, no rebound EXT: No edema, no cyanosis,, dry skin and yeast in bet toes [employer]: Alert, oriented x 3, no focal neurologic deficit SKIN: No rash IV: ok Labs Lab Laboratory Tests Test 06/11/16 11:49 06/11/16 17:12 06/11/16 20:42 06/12/16 03:30 Glucose (Fingerstick) 115mg/dL (70-99) 58mg/dL (70-99) 174mg/dL (70-99) Heparin Anti-Xa Act, Unfractionated 0.45IU/mL (0.30-0.70) Sodium Level 143mmol/L (136-145) Potassium Level 4.0mmol/L (3.5-5.1) Chloride Level 107mmol/L (98-107) Carbon Dioxide Level 24mmol/L (21-32) Anion Gap 12 (6-14) Blood Urea Nitrogen 28mg/dL (8-26) Creatinine 1.9mg/dL (0.7-1.3) Estimated GFR (Cockcroft-Gault) 34.6 Glucose Level 160mg/dL (70-99) Calcium Level 8.2mg/dL (8.5-10.1) Phosphorus Level 4.6mg/dL (2.6-4.7) Magnesium Level 2.4mg/dL (1.8-2.4) Albumin 2.5g/dL (3.4-5.0) Test 06/12/16 06:16 Glucose (Fingerstick) 142mg/dL (70-99) Objective Assessment Strep G sepsis - POA 06/07 -Repeat BC 06/10 pending. Echo neg veg Cellulitis of left lower leg s/p NSTEMI CKD Very dry skin and yeast in feet/toes Plan Plan of Care Cont Rocephin Repeat Blood neg so far Leg elevation TAE Perez MD Jun 12, 2016 08:54
[2016-06-12] MEDS: ASPIRIN ENTERIC COATED 81 MG TABLET.DR. PO SCH (09:12)
[2016-06-12] MEDS: METOPROLOL TART IMMED RELEASE 25 MG TABLET. PO SCH ×2 (09:13→20:23)
[2016-06-12] MEDS ORDERED: LIDOCAINE 2% 20 ML VIAL. ONE (10:02)
[2016-06-12] MEDS ORDERED: VERAPAMIL 5 MG/2 ML VIAL. ONE (10:08)
[2016-06-12] MEDS ORDERED: HEPARIN for IV BOLUS 10,000 UNIT/10 ML VIAL. ONE (10:08)
[2016-06-12] MEDS ORDERED: NITROGLYCERIN 200 MCG/2 ML SYRINGE FOR CATH/VASC LAB. ONE (10:08)
[2016-06-12] MEDS ORDERED: fentaNYL PF VIAL 100 MCG/2 ML VIAL ONE (10:09)
[2016-06-12] MEDS ORDERED: MIDAZOLAM HCL/PF 2 MG/2 ML VIAL. ONE (10:09)
[2016-06-12] MEDS ORDERED: IOHEXOL 300 MG/ML 100ML VIAL. ONE (10:31)
[2016-06-12] MEDS ORDERED: MIDAZOLAM HCL/PF 2 MG/2 ML VIAL. IV ONE (10:45)
[2016-06-12] MEDS ORDERED: NITROGLYCERIN 200 MCG/2 ML SYRINGE FOR CATH/VASC LAB. IART ONE (10:45)
[2016-06-12] MEDS ORDERED: HEPARIN for IV BOLUS 10,000 UNIT/10 ML VIAL. IART ONE (10:45)
[2016-06-12] MEDS ORDERED: VERAPAMIL 5 MG/2 ML VIAL. IART ONE (10:45)
[2016-06-12] MEDS ORDERED: fentaNYL PF VIAL 100 MCG/2 ML VIAL IV ONE (10:45)
[2016-06-12] MEDS ORDERED: LIDOCAINE 2% 20 ML VIAL. IJ ONE (10:45)
--- NOTE | 2016-06-12 10:51 | PDOC ---
Renal-Progress Notes Subjective Notes Notes NONE, FEELING BETTER, SWELLING HAS IMPROVED History of Present Illness Hx of present illness STABLE Vitals Vitals Vital Signs Date Time Temp Pulse Resp B/P Pulse Ox O2 Delivery O2 Flow Rate FiO2 06/12/16 10:47 71 119/55 06/12/16 08:00 Nasal Cannula 2.0 06/12/16 07:30 98.6 20 97 98.6 Weight Weight [ ] I.O. Intake and Output Intake and Output 06/12/16 07:00 Intake Total 1490 ml Output Total 2150 ml Balance -660 ml Intake Oral 1000 ml IV Total 490 ml Output Urine Total 2150 ml # Voids 3 # Bowel Movements 3 Labs Labs Laboratory Tests Test 06/11/16 11:49 06/11/16 17:12 06/11/16 20:42 06/12/16 03:30 Glucose (Fingerstick) 115mg/dL (70-99) 58mg/dL (70-99) 174mg/dL (70-99) Heparin Anti-Xa Act, Unfractionated 0.45IU/mL (0.30-0.70) Sodium Level 143mmol/L (136-145) Potassium Level 4.0mmol/L (3.5-5.1) Chloride Level 107mmol/L (98-107) Carbon Dioxide Level 24mmol/L (21-32) Anion Gap 12 (6-14) Blood Urea Nitrogen 28mg/dL (8-26) Creatinine 1.9mg/dL (0.7-1.3) Estimated GFR (Cockcroft-Gault) 34.6 Glucose Level 160mg/dL (70-99) Calcium Level 8.2mg/dL (8.5-10.1) Phosphorus Level 4.6mg/dL (2.6-4.7) Magnesium Level 2.4mg/dL (1.8-2.4) Albumin 2.5g/dL (3.4-5.0) Test 06/12/16 06:16 06/12/16 10:12 Glucose (Fingerstick) 142mg/dL (70-99) 145mg/dL (70-99) Micro Micro Microbiology 06/10/16 Blood Culture - Preliminary, Resulted NO GROWTH AFTER 2 DAYS Review of Systems Constitutional: yes: alert, oriented Ears/Nose/Throat: Yes: no symptom reported Eyes: Yes: no symptom reported Pulmonary: Yes dyspnea Cardiovascular: Yes no symptom reported Gastrointestional: Yes: no symptom reported Psychiatric/Neurological: Yes: no symptom reported Physical Exam General Appearance: no apparent distress Skin: warm Respiratory: bilateral CTA Heart: S1S2, RRR Abdomen: soft, bowel sounds present Extremities: pulses present Neurology: alert, oriented Assessment Assessment IMP CKD STAGE 3 WITH CR AT BASELINE OF 1.6 SEPSIS CHF/EDEMA-BETTER NSTEMI DM II HTN PLAN HEART CATH TODAY ANTIBIOTICS LABS IN AM NO LASIX AT THIS TIME IVF'S HELD DUE TO CHF OF RECENT WILL AD OCAMPO MD Jun 12, 2016 10:51
[2016-06-12] MEDS: OMEGA-3 FATTY ACIDS/FISH OIL 1,000 MG CAPSULE. PO SCH (11:45)
[2016-06-12] MEDS: FLUCONAZOLE 100 MG TABLET. PO SCH (11:46)
[2016-06-12] MEDS: POLYETHYLENE GLYCOL 3350 17 GM PACKET. PO SCH (11:50)
[2016-06-12] MEDS: FERROUS SULFATE 325 MG TABLET. PO SCH (11:50)
[2016-06-12] MEDS: ASCORBIC ACID 500 MG TABLET PO SCH (11:50)
[2016-06-12] MEDS: FINASTERIDE 5 MG TABLET. PO SCH (11:50)
[2016-06-12] MEDS: TAMSULOSIN 0.4 MG CAP.ER.24H. PO SCH (11:50)
[2016-06-12 13:18] LABS: PTH INTACT 51 pg/mL (15-65)
--- NOTE | 2016-06-12 14:17 | PDOC ---
PULMONARY PROGRESS NOTES Subjective PT NOT MORE SOA Vitals Vital Signs Date Time Temp Pulse Resp B/P Pulse Ox O2 Delivery O2 Flow Rate FiO2 06/12/16 11:15 97 Nasal Cannula 2.0 06/12/16 10:57 73 18 06/12/16 10:47 119/55 06/12/16 07:30 98.6 98.6 ROS: No Nausea, No Chest Pain, No Abdominal Pain, No Increase Cough General: Alert, No acute distress Lungs: Clear Cardiovascular: S1, S2 Abdomen: Soft, Non-tender, Other (no mass) Neuro Exam: Alert Extremities: Other (1+edema) Skin: Warm Labs Laboratory Tests Test 06/10/16 15:50 06/10/16 16:41 06/10/16 20:43 06/11/16 01:00 Urine Protein 11.4mg/dL (Not Estab.) Negativemg/dL (NEG-TRACE) Urine Creatinine 24 Hour 1856mg/24 hr (4750-3596) Creatinine Clearance 24 Hour 61mL/min (97-137) Urine Protein 24 Hr Calculated 783.8mg/24 hr (30.0-150.0) Creatinine 2.11mg/dL (0.76-1.27) Estimated GFR (Non- 30 (>59) EGFR 34 (>59) Glucose (Fingerstick) 117mg/dL (70-99) 219mg/dL (70-99) Urine Collection Type Unknown Urine Color Yellow Urine Clarity Clear Urine pH 6.0 Urine Specific [place] <=1.005 Urine Glucose (UA) Negativemg/dL (NEG) Urine Ketones (Stick) Negativemg/dL (NEG) Urine Blood Negative (NEG) Urine Nitrite Negative (NEG) Urine Bilirubin Negative (NEG) Urine Urobilinogen Dipstick 0.2mg/dL (0.2 mg/dL) Urine Leukocyte Esterase Negative (NEG) Urine RBC 0/HPF (0-2) Urine WBC 0/HPF (0-4) Urine Squamous Epithelial Cells Few/LPF Urine Bacteria 0/HPF (0-FEW) Test 06/11/16 03:30 06/11/16 08:26 06/11/16 11:49 06/11/16 17:12 Heparin Anti-Xa Act, Unfractionated 0.46IU/mL (0.30-0.70) Sodium Level 139mmol/L (136-145) Potassium Level 3.4mmol/L (3.5-5.1) Chloride Level 104mmol/L (98-107) Carbon Dioxide Level 24mmol/L (21-32) Anion Gap 11 (6-14) Blood Urea Nitrogen 33mg/dL (8-26) Creatinine 2.2mg/dL (0.7-1.3) Estimated GFR (Cockcroft-Gault) 29.2 Glucose Level 145mg/dL (70-99) Calcium Level 8.8mg/dL (8.5-10.1) Phosphorus Level 5.0mg/dL (2.6-4.7) Magnesium Level 2.5mg/dL (1.8-2.4) Albumin 2.6g/dL (3.4-5.0) Glucose (Fingerstick) 130mg/dL (70-99) 115mg/dL (70-99) 58mg/dL (70-99) Test 06/11/16 20:42 06/12/16 03:30 06/12/16 06:16 06/12/16 10:12 Glucose (Fingerstick) 174mg/dL (70-99) 142mg/dL (70-99) 145mg/dL (70-99) Heparin Anti-Xa Act, Unfractionated 0.45IU/mL (0.30-0.70) Sodium Level 143mmol/L (136-145) Potassium Level 4.0mmol/L (3.5-5.1) Chloride Level 107mmol/L (98-107) Carbon Dioxide Level 24mmol/L (21-32) Anion Gap 12 (6-14) Blood Urea Nitrogen 28mg/dL (8-26) Creatinine 1.9mg/dL (0.7-1.3) Estimated GFR (Cockcroft-Gault) 34.6 Glucose Level 160mg/dL (70-99) Calcium Level 8.2mg/dL (8.5-10.1) Phosphorus Level 4.6mg/dL (2.6-4.7) Magnesium Level 2.4mg/dL (1.8-2.4) Albumin 2.5g/dL (3.4-5.0) Test 06/12/16 12:06 Glucose (Fingerstick) 144mg/dL (70-99) Laboratory Tests Test 06/11/16 17:12 06/11/16 20:42 06/12/16 03:30 06/12/16 06:16 Glucose (Fingerstick) 58mg/dL (70-99) 174mg/dL (70-99) 142mg/dL (70-99) Heparin Anti-Xa Act, Unfractionated 0.45IU/mL (0.30-0.70) Sodium Level 143mmol/L (136-145) Potassium Level 4.0mmol/L (3.5-5.1) Chloride Level 107mmol/L (98-107) Carbon Dioxide Level 24mmol/L (21-32) Anion Gap 12 (6-14) Blood Urea Nitrogen 28mg/dL (8-26) Creatinine 1.9mg/dL (0.7-1.3) Estimated GFR (Cockcroft-Gault) 34.6 Glucose Level 160mg/dL (70-99) Calcium Level 8.2mg/dL (8.5-10.1) Phosphorus Level 4.6mg/dL (2.6-4.7) Magnesium Level 2.4mg/dL (1.8-2.4) Albumin 2.5g/dL (3.4-5.0) Test 06/12/16 10:12 06/12/16 12:06 Glucose (Fingerstick) 145mg/dL (70-99) 144mg/dL (70-99) Medications Active Scripts Medications Dose Route/Sig Days Date Category Hydrocodone-Apap 5-325 (Hydrocodone Bit/Acetaminophen) 1 Each Tablet 1 Tab PO PRN Q4HRS PRN 10/29/15 Rx Cipro (Ciprofloxacin Hcl) 250 Mg Tablet 250 Mg PO BID 10/29/15 Rx Finasteride 5 Mg Tablet 5 Mg PO DAILY 10/23/15 Reported Tamsulosin Hcl 0.4 Mg Cap.er.24h 0.4 Mg PO DAILY 10/23/15 Reported Iron (Ferrous Sulfate) 325 Mg Tablet 325 Mg PO 10/23/15 Reported Fish Oil 1,000 Mg Softgel (Sentinel-3 Fatty Acids/Fish Oil) 1 Each Capsule 1,000 Each PO 10/23/15 Reported Vitamin D (Cholecalciferol (Vitamin D3)) 1,000 Unit Capsule 1,000 Unit PO 10/23/15 Reported Ascorbic Acid 500 Mg Tablet 500 Mg PO 10/23/15 Reported Aspirin 325 Mg Tablet 325 Mg PO 10/23/15 Reported Lantus (Insulin Glargine,Hum.rec.anlog) 100 Unit/1 Ml Vial 1 Unit SQ 10/23/15 Reported Humalog (Insulin Lispro) 100 Unit/1 Ml Vial 100 Unit SQ 10/23/15 Reported Lovastatin 20 Mg Tablet 20 Mg PO HS 10/23/15 Reported Lasix (Furosemide) 40 Mg Tablet 40 Mg PO BID 10/23/15 Reported Losartan Potassium 50 Mg Tablet 50 Mg PO DAILY 10/23/15 Reported Comments CXR reviewed. 1. Congestive heart failure. 2. Right perihilar infiltrate second represent pulmonary edema. Pneumonia would be additional possibility. Impression . 1. Acute chest pain and dyspnea. I suspect related to mild congestive heart failure. No evidence of thromboembolic disease by VQ scan. 2. Fever 3. Suspected underlying chronic obstructive pulmonary disease. 4. Increased troponin level, S/P cath 5. ? stefania Plan . follow card input pt may need surgery 1. Neg VQ scan. 2. Neg Venous Dopplers of the lower extremities. 3. PFTs as an outpatient. 4. Echocardiogram with normal EF. follow Cardiology recommendation. cath Sunday 5. Diuresis. 6. Empiric antibiotics. repeat BC/ follow ID recommendations 7. psg as out pt 8. lose wt 9. 6 min walk bf RIVAS Wolfe MD Jun 12, 2016 14:17
--- NOTE | 2016-06-12 18:26 | PDOC ---
PROGRESS NOTES Subjective Subjective Patient doing well s/p card cath with verbal report of three vessel dz. awaiting Card recc. Objective Objective Vital Signs Date Time Temp Pulse Resp B/P Pulse Ox O2 Delivery O2 Flow Rate FiO2 06/12/16 15:55 97.9 75 20 141/52 99 Nasal Cannula 2.0 97.9 Intake and Output 06/12/16 07:00 Intake Total 1490 ml Output Total 2150 ml Balance -660 ml Intake Oral 1000 ml IV Total 490 ml Output Urine Total 2150 ml # Voids 3 # Bowel Movements 3 Physical Exam Abdomen: Normal bowel sounds Heart: Regular rate Extremities: Other (Edema 2 +) General: Alert Lungs: Clear to auscultation Assessment Assessment Problems Medical Problems: (1) Elevated troponin Status: Acute (2) Pneumonia Status: Acute CAD Bronchitis Sepsis Acute on chronic renal failure acute respiratory failure NSTEMI COPD Plan Plan of Care Continue supportive care await Card recc. Comment Review of Relevant I have reviewed the following items tereso (where applicable) has been applied. Labs Laboratory Tests Test 06/10/16 20:43 06/11/16 01:00 06/11/16 03:30 06/11/16 08:26 Glucose (Fingerstick) 219mg/dL (70-99) 130mg/dL (70-99) Urine Collection Type Unknown Urine Color Yellow Urine Clarity Clear Urine pH 6.0 Urine Specific [place] <=1.005 Urine Protein Negativemg/dL (NEG-TRACE) Urine Glucose (UA) Negativemg/dL (NEG) Urine Ketones (Stick) Negativemg/dL (NEG) Urine Blood Negative (NEG) Urine Nitrite Negative (NEG) Urine Bilirubin Negative (NEG) Urine Urobilinogen Dipstick 0.2mg/dL (0.2 mg/dL) Urine Leukocyte Esterase Negative (NEG) Urine RBC 0/HPF (0-2) Urine WBC 0/HPF (0-4) Urine Squamous Epithelial Cells Few/LPF Urine Bacteria 0/HPF (0-FEW) Heparin Anti-Xa Act, Unfractionated 0.46IU/mL (0.30-0.70) Sodium Level 139mmol/L (136-145) Potassium Level 3.4mmol/L (3.5-5.1) Chloride Level 104mmol/L (98-107) Carbon Dioxide Level 24mmol/L (21-32) Anion Gap 11 (6-14) Blood Urea Nitrogen 33mg/dL (8-26) Creatinine 2.2mg/dL (0.7-1.3) Estimated GFR (Cockcroft-Gault) 29.2 Glucose Level 145mg/dL (70-99) Calcium Level 8.8mg/dL (8.5-10.1) Phosphorus Level 5.0mg/dL (2.6-4.7) Magnesium Level 2.5mg/dL (1.8-2.4) Albumin 2.6g/dL (3.4-5.0) Test 06/11/16 11:49 06/11/16 17:12 06/11/16 20:42 06/12/16 03:30 Glucose (Fingerstick) 115mg/dL (70-99) 58mg/dL (70-99) 174mg/dL (70-99) Heparin Anti-Xa Act, Unfractionated 0.45IU/mL (0.30-0.70) Sodium Level 143mmol/L (136-145) Potassium Level 4.0mmol/L (3.5-5.1) Chloride Level 107mmol/L (98-107) Carbon Dioxide Level 24mmol/L (21-32) Anion Gap 12 (6-14) Blood Urea Nitrogen 28mg/dL (8-26) Creatinine 1.9mg/dL (0.7-1.3) Estimated GFR (Cockcroft-Gault) 34.6 Glucose Level 160mg/dL (70-99) Calcium Level 8.2mg/dL (8.5-10.1) Phosphorus Level 4.6mg/dL (2.6-4.7) Magnesium Level 2.4mg/dL (1.8-2.4) Albumin 2.5g/dL (3.4-5.0) Test 06/12/16 06:16 06/12/16 10:12 06/12/16 12:06 06/12/16 16:57 Glucose (Fingerstick) 142mg/dL (70-99) 145mg/dL (70-99) 144mg/dL (70-99) 88mg/dL (70-99) Laboratory Tests Test 06/11/16 20:42 06/12/16 03:30 06/12/16 06:16 06/12/16 10:12 Glucose (Fingerstick) 174mg/dL (70-99) 142mg/dL (70-99) 145mg/dL (70-99) Heparin Anti-Xa Act, Unfractionated 0.45IU/mL (0.30-0.70) Sodium Level 143mmol/L (136-145) Potassium Level 4.0mmol/L (3.5-5.1) Chloride Level 107mmol/L (98-107) Carbon Dioxide Level 24mmol/L (21-32) Anion Gap 12 (6-14) Blood Urea Nitrogen 28mg/dL (8-26) Creatinine 1.9mg/dL (0.7-1.3) Estimated GFR (Cockcroft-Gault) 34.6 Glucose Level 160mg/dL (70-99) Calcium Level 8.2mg/dL (8.5-10.1) Phosphorus Level 4.6mg/dL (2.6-4.7) Magnesium Level 2.4mg/dL (1.8-2.4) Albumin 2.5g/dL (3.4-5.0) Test 06/12/16 12:06 06/12/16 16:57 Glucose (Fingerstick) 144mg/dL (70-99) 88mg/dL (70-99) Microbiology 06/10/16 Blood Culture - Preliminary, Resulted NO GROWTH AFTER 2 DAYS Medications Current Medications Acetaminophen 650 mg 650 mg 1X ONCE PO Last administered on 06/07/16 18:07; Start 06/07/16 at 17:45; Stop 06/07/16 at 17:49; Status DC Levofloxacin/ Dextrose (LEVAQUIN 750mg PREMIX) 150 ml @ 100 mls/hr 1X ONCE IV Last administered on 06/07/16 18:08; Start 06/07/16 at 17:45; Stop 06/07/16 at 19:14; Status DC Aspirin 324 mg 324 mg 1X ONCE PO Last administered on 06/07/16 18:07; Start at 18:00; Stop 06/07/16 at 18:01; Status DC Sodium Chloride 500 ml @ 500 mls/hr 1X ONCE IV Last administered on 06/07/16 18:07; Start 06/07/16 at 18:00; Stop 06/07/16 at 18:59; Status DC Sodium Chloride 1,000 ml @ 1,000 mls/hr 1X ONCE IV Last administered on 19:40; Start 06/07/16 at 19:00; Stop 06/07/16 at 19:59; Status DC Sodium Chloride (Iv Sodium Chloride 0.9% 1000ml Bag) 1,000 ml @ 1,000 mls/hr 1X ONCE IV Last administered on 06/07/16 20:55; Start 06/07/16 at 19:00; Stop 06/07/16 at 19:59; Status DC Ondansetron HCl (Zofran) 4 mg PRN Q8HRS PRN IV NAUSEA/VOMITING; Start 06/07/16 at 19:15; Stop 06/08/16 at 19:14; Status DC Morphine Sulfate 2 mg 2 mg PRN Q2HR PRN IV PAIN; Start 06/07/16 at 19:15; Stop 06/08/16 at 19:14; Status DC Sodium Chloride (Iv Sodium Chloride 0.9% 1000ml Bag) 1,000 ml @ 150 mls/hr Q6H40M IV Last administered on 06/08/16 16:44; Start 06/07/16 at 19:03; Stop 06/08/16 at 19:02; Status DC Acetaminophen (Tylenol) 650 mg PRN Q4HRS PRN PO FEVER Last administered on 06:49; Start 06/07/16 at 19:15; Stop 06/08/16 at 19:14; Status DC Insulin Aspart (Novolog) 0-7 UNITS TIDWMEALS SQ ; Start 06/08/16 at 08:00; Stop 06/08/16 at 11:42; Status DC Dextrose (Dextrose 50%-Water Syringe) 12.5 gm PRN Q15MIN PRN IV SEE COMMENTS Last administered on 06/11/16 17:20; Start 06/07/16 at 19:15 Ascorbic Acid (Vitamin C) 500 mg DAILY PO Last administered on 06/12/16 11:50 ; Start 06/08/16 at 09:00 Aspirin (Cherelle Aspirin) 325 mg DAILY PO ; Start 06/08/16 at 09:00; Stop 06/08/16 at 09:13; Status DC Ferrous Sulfate (Feosol) 325 mg DAILY PO Last administered on 06/12/16 11:50; Start 06/08/16 at 09:00 Finasteride (Proscar) 5 mg DAILY PO Last administered on 06/12/16 11:50; Start 06/08/16 at 09:00 Losartan Potassium (Cozaar) 50 mg DAILY PO ; Start 06/08/16 at 09:00; Stop at 09:05; Status DC Tamsulosin HCl (Flomax) 0.4 mg DAILY PO Last administered on 06/12/16 11:50; Start 06/08/16 at 09:00 Atorvastatin Calcium (Lipitor) 5 mg HS PO Last administered on 06/11/16 21:09; Start 06/07/16 at 22:30 Insulin Detemir (Levemir) 64 units QHS SQ Last administered on 06/11/16 21:16; Start 06/07/16 at 22:30 Insulin Aspart (Novolog) 40 units TIDAC SQ Last administered on 06/12/16 13:36 ; Start 06/08/16 at 07:30 Fish Oil (Fish Oil) 1,000 mg DAILY PO Last administered on 06/12/16 11:45; Start 06/08/16 at 09:00 Enoxaparin Sodium (Lovenox 40mg Syringe) 40 mg Q24H SQ Last administered on 06/07 23:06; Start 06/07/16 at 22:00; Stop 06/08/16 at 09:13; Status DC Insulin Aspart 0-12 UNITS QIDACHS SQ Last administered on 06/10/16 20:47; Start 06/07/16 at 22:30 Heparin Sodium/ Dextrose 500 ml @ 0 mls/hr CONT PRN IV SEE I/O RECORD Last administered on 06/12/16 06:19; Start 06/08/16 at 09:15 Heparin Sodium (Porcine) (Heparin Sodium) 3,400 unit PRN Q6HRS PRN IV FOR UFH LEVEL LESS THAN 0.2 Last administered on 06/08/16 23:24; Start 06/08/16 at 09:15 Aspirin (Ecotrin) 81 mg DAILYWBKFT PO Last administered on 06/12/16 09:12; Start 06/08/16 at 10:00 Info 1 each 1 each PRN DAILY PRN MC SEE COMMENTS Last administered on 08:28; Start 06/08/16 at 09:30 Ceftriaxone Sodium/Sodium Chloride (Rocephin/Iv Sodium Chloride 0.9% 50ml) 50 ml @ 100 mls/hr Q24H IV Last administered on 06/08/16 16:45; Start 06/08/16 at 13:00; Stop 06/09/16 at 08:44; Status DC Vancomycin HCl 1 each 1 each PRN DAILY PRN MC SEE COMMENTS Last administered on 06/08/16 14:08; Start 06/08/16 at 12:15; Stop 06/09/16 at 08:44; Status DC Vancomycin HCl/ Sodium Chloride (Iv Sodium Chloride 0.9% 500ml Bag) 500 ml @ 250 mls/hr 1X ONCE IV Last administered on 06/08/16 16:45; Start 06/08/16 at 13 :00; Stop 06/08/16 at 14:59; Status DC Metoprolol Tartrate (Lopressor) 25 mg BID PO Last administered on 06/12/16 09: 13; Start 06/08/16 at 13:00 Atorvastatin Calcium (Lipitor) 5 mg QHS PO ; Start 06/08/16 at 21:00; Status UNV Hydralazine HCl 10 mg 10 mg PRN Q4HRS PRN IVP ELEVATED BP, SEE COMMENTS Last administered on 06/12/16 14:21; Start 06/08/16 at 12:15 Vancomycin HCl/ Sodium Chloride (Iv Sodium Chloride 0.9% 500ml Bag) 500 ml @ 250 mls/hr Q24H IV ; Start 06/09/16 at 15:00; Stop 06/09/16 at 15:00; Status DC Vancomycin HCl 1 each 1X ONCE MC ; Start 06/09/16 at 14:30; Stop 06/09/16 at 14: 31; Status Cancel Sulfur Hexafluoride Microspheres 25 mg 25 mg STK-MED ONCE IVP ; Start 06/08/16 at 14:48; Stop 06/08/16 at 14:49; Status DC Ceftriaxone Sodium 2 gm/ Sodium Chloride 50 ml @ 100 mls/hr Q24H IV ; Start 06/09/16 at 17:00; Stop 06/09/16 at 17:00; Status DC Ceftriaxone Sodium 2 gm/ Sodium Chloride 100 ml @ 200 mls/hr Q24H IV Last administered on 06/12/16 18:04; Start 06/09/16 at 17:00 Magnesium Sulfate/ Dextrose (Magnesium Sulfate PREMIX 2GM) 50 ml @ 25 mls/hr PRN DAILY PRN IV for Mag < 1.7 on am labs; Start 06/09/16 at 13:00 Furosemide (Lasix) 60 mg BID92 IVP Last administered on 06/10/16 15:03; Start 06/09/16 at 14:00; Stop 06/10/16 at 14:01; Status DC Acetaminophen (Tylenol) 650 mg PRN Q6HRS PRN PO fever; Start 06/09/16 at 19:15 Polyethylene Glycol (miraLAX PACKET) 17 gm DAILY PO Last administered on 11:50; Start 06/11/16 at 13:00 Fluconazole 200 mg 200 mg DAILY PO Last administered on 06/12/16 11:46; Start 06/12/16 at 09:00 Heparin Sodium/ Sodium Chloride 1,000 ml @ As Directed STK-MED ONCE .ROUTE ; Start 06/12/16 at 10:02; Stop 06/12/16 at 10:03; Status DC Lidocaine HCl 20 ml STK-MED ONCE .ROUTE ; Start 06/12/16 at 10:02; Stop at 10:03; Status DC Nitroglycerin (Nitroglycerin) 200 mcg STK-MED ONCE .ROUTE ; Start 06/12/16 at 10 :08; Stop 06/12/16 at 10:09; Status DC Verapamil HCl (Verapamil) 5 mg STK-MED ONCE .ROUTE ; Start 06/12/16 at 10:08; Stop 06/12/16 at 10:09; Status DC Heparin Sodium (Porcine) (Heparin Sodium) 10,000 unit STK-MED ONCE .ROUTE ; Start 06/12/16 at 10:08; Stop 06/12/16 at 10:09; Status DC Fentanyl Citrate (Fentanyl 2ml Vial) 100 mcg STK-MED ONCE .ROUTE ; Start at 10:09; Stop 06/12/16 at 10:10; Status DC Midazolam HCl (Versed) 2 mg STK-MED ONCE .ROUTE ; Start 06/12/16 at 10:09; Stop 06/12/16 at 10:10; Status DC Iohexol (Omnipaque 300 Mg/ml) 100 ml STK-MED ONCE .ROUTE ; Start 06/12/16 at 10: 31; Stop 06/12/16 at 10:32; Status DC Nitroglycerin (Nitroglycerin) 200 mcg 1X ONCE IART Last administered on 10:47; Start 06/12/16 at 10:45; Stop 06/12/16 at 10:46; Status DC Verapamil HCl (Verapamil) 2.5 mg 1X ONCE IART Last administered on 06/12/16 10:47; Start 06/12/16 at 10:45; Stop 06/12/16 at 10:46; Status DC Heparin Sodium (Porcine) (Heparin Sodium) 2,500 unit 1X ONCE IART Last administered on 06/12/16 10:57; Start 06/12/16 at 10:45; Stop 06/12/16 at 10:46 ; Status DC Heparin Sodium/ Sodium Chloride 1,000 unit 1X ONCE IART Last administered on 10:47; Start 06/12/16 at 10:45; Stop 06/12/16 at 10:46; Status DC Midazolam HCl (Versed) 2 mg 1X ONCE IV Last administered on 06/12/16 10:49; Start 06/12/16 at 10:45; Stop 06/12/16 at 10:46; Status DC Fentanyl Citrate (Fentanyl 2ml Vial) 100 mcg 1X ONCE IV Last administered on 10:49; Start 06/12/16 at 10:45; Stop 06/12/16 at 10:46; Status DC Lidocaine HCl 20 ml 1X ONCE IJ Last administered on 06/12/16 10:48; Start 12/19 at 10:45; Stop 06/12/16 at 10:46; Status DC Active Scripts Active Hydrocodone-Apap 5-325 (Hydrocodone Bit/Acetaminophen) 1 Each Tablet 1 Tab PO PRN Q4HRS PRN Cipro (Ciprofloxacin Hcl) 250 Mg Tablet 250 Mg PO BID Reported Finasteride 5 Mg Tablet 5 Mg PO DAILY Tamsulosin Hcl 0.4 Mg Cap.er.24h 0.4 Mg PO DAILY Iron (Ferrous Sulfate) 325 Mg Tablet 325 Mg PO Fish Oil 1,000 Mg Softgel ([place]-3 Fatty Acids/Fish Oil) 1 Each Capsule 1,000 Each PO Vitamin D (Cholecalciferol (Vitamin D3)) 1,000 Unit Capsule 1,000 Unit PO Ascorbic Acid 500 Mg Tablet 500 Mg PO Aspirin 325 Mg Tablet 325 Mg PO Lantus (Insulin Glargine,Hum.rec.anlog) 100 Unit/1 Ml Vial 1 Unit SQ Humalog (Insulin Lispro) 100 Unit/1 Ml Vial 100 Unit SQ Lovastatin 20 Mg Tablet 20 Mg PO HS Lasix (Furosemide) 40 Mg Tablet 40 Mg PO BID Losartan Potassium 50 Mg Tablet 50 Mg PO DAILY Vitals/I & O Vital Sign - Last 24 Hours 06/11/16 06/11/16 06/11/16 06/11/16 19:40 20:00 21:09 23:35 Temp 97.9 97.5 97.9 97.5 Pulse 82 82 86 Resp 20 18 B/P 144/63 144/63 139/68 Pulse Ox 98 96 O2 Delivery Nasal Cannula Room Air Nasal Cannula O2 Flow Rate 2.0 2.0 06/12/16 06/12/16 06/12/16 06/12/16 03:05 07:30 08:00 09:13 Temp 97.6 98.6 97.6 98.6 Pulse 81 80 80 Resp 20 20 B/P 131/67 139/70 139/70 Pulse Ox 96 97 O2 Delivery Nasal Cannula Nasal Cannula Nasal Cannula O2 Flow Rate 2.0 2.0 2.0 06/12/16 06/12/16 06/12/16 06/12/16 10:47 10:49 10:57 11:15 Pulse 71 73 Resp 18 B/P 119/55 Pulse Ox 95 90 97 O2 Delivery Nasal Cannula Nasal Cannula Nasal Cannula O2 Flow Rate 2.0 2.0 2.0 06/12/16 06/12/16 14:21 15:55 Temp 97.9 97.9 Pulse 79 75 Resp 20 B/P 182/92 141/52 Pulse Ox 99 O2 Delivery Nasal Cannula O2 Flow Rate 2.0 Intake and Output 06/11/16 06/11/16 06/12/16 15:00 23:00 07:00 Intake Total 490 ml 1000 ml 0 ml Output Total 600 ml 500 ml 1050 ml Balance -110 ml 500 ml -1050 ml ALAN VERDIN MD Jun 12, 2016 18:26
[2016-06-12] MEDS: ATORVASTATIN CALCIUM 10 MG TABLET. PO SCH (20:22)
[2016-06-12] MEDS: INSULIN DETEMIR 300 UNITS/3 ML INSULN.PEN. SQ SCH (20:45)
[2016-06-13] VITALS (18 sets, daily range): BP systolic 136–187; BP diastolic 63–101
--- NOTE | 2016-06-13 00:01 | PDOC ---
Provider Note Provider Note Patient with 3 V CAD. Discussed options including medical mgmt, PCI and CABG with patient and family. Discussed cath films with Dr. Young. He feels that CABG would not be ideal given his poor LAD targets. Will plan for PCI tomorrow. Discussed r/b/a to the procedure with son and patient including , [place], stroke and renal failure/bleeding. They understand risks/benefits and wish to proceed. Plan PCI in a.katie. JAIRON ESPINOZA MD Jun 13, 2016 00:01
[2016-06-13 05:48] LABS: ALBUMIN 2.7 g/dL (3.4-5.0); CALCIUM 8.7 mg/dL (8.5-10.1); CREATININE 1.8 mg/dL (0.7-1.3); GFR 36.9; PHOSPHORUS 3.9 mg/dL (2.6-4.7); POTASSIUM 4.1 mmol/L (3.5-5.1)
[2016-06-13] MEDS: HEPARIN 25,000UTS/500ML PREMIX 500 ML IV PRN (06:46)
[2016-06-13] MEDS: INSULIN ASPART 300 UNITS/3 ML INSULN.PEN SQ SCH ×6 (07:30→20:30)
[2016-06-13] MEDS: ASPIRIN ENTERIC COATED 81 MG TABLET.DR. PO SCH (07:41)
[2016-06-13] MEDS: METOPROLOL TART IMMED RELEASE 25 MG TABLET. PO SCH ×2 (07:42→20:17)
[2016-06-13] MEDS ORDERED: HEPARIN for ARTERIAL LINE 1,500 ML ONE (08:04)
[2016-06-13] MEDS ORDERED: IODIXANOL 320 MG/ML 100 ML VIAL. ONE ×2 (08:05→09:59)
[2016-06-13] MEDS ORDERED: LIDOCAINE 2% 20 ML VIAL. ONE (08:05)
[2016-06-13] MEDS ORDERED: VERAPAMIL 5 MG/2 ML VIAL. ONE (08:41)
[2016-06-13] MEDS ORDERED: HEPARIN for IV BOLUS 10,000 UNIT/10 ML VIAL. ONE (08:41)
[2016-06-13] MEDS ORDERED: fentaNYL PF VIAL 250 MCG/5 ML VIAL ONE (08:41)
[2016-06-13] MEDS ORDERED: NITROGLYCERIN 200 MCG/2 ML SYRINGE FOR CATH/VASC LAB. ONE ×2 (08:41→09:40)
[2016-06-13] MEDS ORDERED: MIDAZOLAM HCL/PF 5 MG/5 ML VIAL. ONE (08:42)
[2016-06-13] MEDS ORDERED: TIROFIBAN 12.5MG -0.9% NS 250 ML IV ONE (08:59)
[2016-06-13] MEDS ORDERED: PHENYLEPHRINE in 0.9% NACL PF 1 MG/10 ML DISP.SYRIN. IV ONE (09:09)
[2016-06-13] MEDS ORDERED: TIROFIBAN 12.5MG -0.9% NS 250 ML IV PRN (09:11)
[2016-06-13] MEDS ORDERED: MIDAZOLAM HCL/PF 5 MG/5 ML VIAL. IV ONE (09:30)
[2016-06-13] MEDS ORDERED: NITROGLYCERIN 200 MCG/2 ML SYRINGE FOR CATH/VASC LAB. IART ONE ×2 (09:30→10:15)
[2016-06-13] MEDS ORDERED: LIDOCAINE 2% 20 ML VIAL. IJ ONE (09:30)
[2016-06-13] MEDS ORDERED: IODIXANOL 320 MG/ML 100 ML VIAL. IART ONE (09:30)
[2016-06-13] MEDS ORDERED: VERAPAMIL 5 MG/2 ML VIAL. IART ONE (09:30)
[2016-06-13] MEDS ORDERED: HEPARIN for IV BOLUS 10,000 UNIT/10 ML VIAL. IART ONE (09:30)
[2016-06-13] MEDS ORDERED: fentaNYL PF VIAL 250 MCG/5 ML VIAL IV ONE (09:30)
[2016-06-13] MEDS ORDERED: HEPARIN for IV BOLUS 10,000 UNIT/10 ML VIAL. IV ONE (10:15)
[2016-06-13] MEDS ORDERED: PRASUGREL 10 MG TABLET. ONE (10:27)
[2016-06-13] MEDS ORDERED: IV NORMAL SALINE 1000ML BAG 1,000 ML IV ONE (10:30)
[2016-06-13] MEDS ORDERED: PRASUGREL 10 MG TABLET. PO ONE (10:30)
--- NOTE | 2016-06-13 10:52 | PDOC ---
Renal-Progress Notes Subjective Notes Notes NONE History of Present Illness Hx of present illness NO CHANGE Vitals Vitals Vital Signs Date Time Temp Pulse Resp B/P Pulse Ox O2 Delivery O2 Flow Rate FiO2 06/13/16 08:00 Nasal Cannula 2.0 06/13/16 07:56 98.0 81 21 151/68 99 98.0 Weight Weight [ ] I.O. Intake and Output Intake and Output 06/13/16 07:00 Output Total 900 ml Balance -900 ml Output Urine Total 900 ml # Voids 4 # Bowel Movements 1 Labs Labs Laboratory Tests Test 06/12/16 12:06 06/12/16 16:57 06/12/16 17:45 06/12/16 20:25 Glucose (Fingerstick) 144mg/dL (70-99) 88mg/dL (70-99) 119mg/dL (70-99) Heparin Anti-Xa Act, Unfractionated 0.57IU/mL (0.30-0.70) Test 06/13/16 04:44 06/13/16 07:23 Heparin Anti-Xa Act, Unfractionated 0.43IU/mL (0.30-0.70) Sodium Level 142mmol/L (136-145) Potassium Level 4.1mmol/L (3.5-5.1) Chloride Level 107mmol/L (98-107) Carbon Dioxide Level 24mmol/L (21-32) Anion Gap 11 (6-14) Blood Urea Nitrogen 23mg/dL (8-26) Creatinine 1.8mg/dL (0.7-1.3) Estimated GFR (Cockcroft-Gault) 36.9 Glucose Level 145mg/dL (70-99) Calcium Level 8.7mg/dL (8.5-10.1) Phosphorus Level 3.9mg/dL (2.6-4.7) Magnesium Level 2.6mg/dL (1.8-2.4) Albumin 2.7g/dL (3.4-5.0) Glucose (Fingerstick) 147mg/dL (70-99) Micro Micro Microbiology 06/10/16 Blood Culture - Preliminary, Resulted NO GROWTH AFTER 3 DAYS Review of Systems Constitutional: yes: alert, oriented Ears/Nose/Throat: Yes: no symptom reported Eyes: Yes: no symptom reported Pulmonary: Yes dyspnea Cardiovascular: Yes no symptom reported Gastrointestional: Yes: no symptom reported Psychiatric/Neurological: Yes: no symptom reported Physical Exam General Appearance: no apparent distress Skin: warm Respiratory: bilateral CTA Heart: S1S2, RRR Abdomen: soft, bowel sounds present Extremities: pulses present Neurology: alert, oriented Assessment Assessment IMP CKD STAGE 3 WITH CR AT BASELINE OF 1.6 SEPSIS CHF/EDEMA-BETTER NSTEMI-CAD DM II HTN PLAN PCI TOMORROW ANTIBIOTICS LOW FLOW NS WILL FOLLOW AD ALCALA MD Jun 13, 2016 10:52
[2016-06-13] MEDS: OMEGA-3 FATTY ACIDS/FISH OIL 1,000 MG CAPSULE. PO SCH (12:49)
[2016-06-13] MEDS: TAMSULOSIN 0.4 MG CAP.ER.24H. PO SCH (12:49)
[2016-06-13] MEDS: POLYETHYLENE GLYCOL 3350 17 GM PACKET. PO SCH (12:49)
[2016-06-13] MEDS: FLUCONAZOLE 100 MG TABLET. PO SCH (12:49)
[2016-06-13] MEDS: FERROUS SULFATE 325 MG TABLET. PO SCH (12:49)
[2016-06-13] MEDS: ASCORBIC ACID 500 MG TABLET PO SCH (12:49)
[2016-06-13] MEDS: FINASTERIDE 5 MG TABLET. PO SCH (12:49)
[2016-06-13] MEDS: IV NORMAL SALINE 1000ML BAG 1,000 ML IV SCH (12:50)
--- NOTE | 2016-06-13 13:56 | CARD ---
APPROVED REPORT Procedure(s) performed: [facility], Coronary angiography HISTORY The patient is a 76 year-old male with a history of : previous [place], diabetes mellitus with treatment, hypertension, dyslipidemia. INDICATION The indication(s) include : non-STEMI . PROCEDURE NARRATIVE The patient was brought electively to the cardiac catheterization lab. A timeout was performed confi rming the patient's name, date of , procedure, and site of procedure. All necessary personnel w ere wearing the appropriate protective equipment and radiation monitor devices. After explaining the risks and benefits of the procedure and alternatives, informed consent was obtained. (See nursing no jessica for medications administered). The right wrist was sterilely prepped and draped in the usual fas hion. The right wrist was infiltrated with 1 mL of 2% lidocaine for subcutaneous anesthesia. A 6 Fr ench Terumo glide sheath was inserted into the right radial artery without difficulty. Right and lef t coronary angiography was performed using a 6Fr TIG 4.0 catheter. Left ventricular end diastolic pr essure was obtained with a pigtail catheter and pullback was performed. All catheter exchanges and a dvancements were performed over a guidewire. At case completion the right radial sheath was removed and a Terumo radial band was applied with 13 ml of air. The patient tolerated the procedure well and there were no immediate complications. HEMODYNAMICS: LVEDP 18 mm Hg No gradient on LV to aortic pullback. LEFT VENTRICULOGRAM: Deferred due to renal insufficiency. CORONARY ANGIOGRAPHY: LM is a large caliber vessel with normal angiographic appearance. LAD is a moderate caliber vessel with proximal 80% stenosis, and distal/apical moderate to severe dif fuse disease in a less than 2mm caliber vessel. D1 is a moderate caliber vessel with moderate diffuse disease of up to 50%. LCx is a moderate caliber non-dominant vessel with a mid 80% stenosis at the origion of OM1 extending into a small caliber AV groove circumflex. OM1 is a moderate caliber vesse proximallyl with an ostial 80% stenosis and a subtotal occlusion of a small caliber superior branch. RCA is a large caliber dominant vessel with diffuse disease of up to 80% from the proximal to distal segment. RPDA is a small caliber vessel with an ostial occlusion, the distal vessel is seen to fill via left t o right collaterals. RPL is a small caliber bifurcating vessel with mild diffuse irregularities of up to 50%. Conclusion 1. Severe three vessel coronary artery disease with small caliber distal vessels Recommendations CABG consultation. If deemed to have poor targets, then plan for PCI of the RCA/LAD and then staged PCI of the LCx if ne eded.
--- NOTE | 2016-06-13 16:41 | PDOC ---
PULMONARY PROGRESS NOTES Subjective PT NOT MORE SOA Vitals Vital Signs Date Time Temp Pulse Resp B/P Pulse Ox O2 Delivery O2 Flow Rate FiO2 06/13/16 14:40 98.1 84 20 159/66 100 Nasal Cannula 2.0 98.1 ROS: No Nausea, No Chest Pain, No Abdominal Pain, No Increase Cough General: Alert, No acute distress Lungs: Clear Cardiovascular: S1, S2 Abdomen: Soft, Non-tender, Other (no mass) Neuro Exam: Alert Extremities: Other (1+edema) Skin: Warm Labs Laboratory Tests Test 06/11/16 17:12 06/11/16 20:42 06/12/16 03:30 06/12/16 06:16 Glucose (Fingerstick) 58mg/dL (70-99) 174mg/dL (70-99) 142mg/dL (70-99) Heparin Anti-Xa Act, Unfractionated 0.45IU/mL (0.30-0.70) Sodium Level 143mmol/L (136-145) Potassium Level 4.0mmol/L (3.5-5.1) Chloride Level 107mmol/L (98-107) Carbon Dioxide Level 24mmol/L (21-32) Anion Gap 12 (6-14) Blood Urea Nitrogen 28mg/dL (8-26) Creatinine 1.9mg/dL (0.7-1.3) Estimated GFR (Cockcroft-Gault) 34.6 Glucose Level 160mg/dL (70-99) Calcium Level 8.2mg/dL (8.5-10.1) Phosphorus Level 4.6mg/dL (2.6-4.7) Magnesium Level 2.4mg/dL (1.8-2.4) Albumin 2.5g/dL (3.4-5.0) Test 06/12/16 10:12 06/12/16 12:06 06/12/16 16:57 06/12/16 17:45 Glucose (Fingerstick) 145mg/dL (70-99) 144mg/dL (70-99) 88mg/dL (70-99) Heparin Anti-Xa Act, Unfractionated 0.57IU/mL (0.30-0.70) Test 06/12/16 20:25 06/13/16 04:44 06/13/16 07:23 06/13/16 11:26 Glucose (Fingerstick) 119mg/dL (70-99) 147mg/dL (70-99) 146mg/dL (70-99) Heparin Anti-Xa Act, Unfractionated 0.43IU/mL (0.30-0.70) Sodium Level 142mmol/L (136-145) Potassium Level 4.1mmol/L (3.5-5.1) Chloride Level 107mmol/L (98-107) Carbon Dioxide Level 24mmol/L (21-32) Anion Gap 11 (6-14) Blood Urea Nitrogen 23mg/dL (8-26) Creatinine 1.8mg/dL (0.7-1.3) Estimated GFR (Cockcroft-Gault) 36.9 Glucose Level 145mg/dL (70-99) Calcium Level 8.7mg/dL (8.5-10.1) Phosphorus Level 3.9mg/dL (2.6-4.7) Magnesium Level 2.6mg/dL (1.8-2.4) Albumin 2.7g/dL (3.4-5.0) Laboratory Tests Test 06/12/16 16:57 06/12/16 17:45 06/12/16 20:25 06/13/16 04:44 Glucose (Fingerstick) 88mg/dL (70-99) 119mg/dL (70-99) Heparin Anti-Xa Act, Unfractionated 0.57IU/mL (0.30-0.70) 0.43IU/mL (0.30-0.70) Sodium Level 142mmol/L (136-145) Potassium Level 4.1mmol/L (3.5-5.1) Chloride Level 107mmol/L (98-107) Carbon Dioxide Level 24mmol/L (21-32) Anion Gap 11 (6-14) Blood Urea Nitrogen 23mg/dL (8-26) Creatinine 1.8mg/dL (0.7-1.3) Estimated GFR (Cockcroft-Gault) 36.9 Glucose Level 145mg/dL (70-99) Calcium Level 8.7mg/dL (8.5-10.1) Phosphorus Level 3.9mg/dL (2.6-4.7) Magnesium Level 2.6mg/dL (1.8-2.4) Albumin 2.7g/dL (3.4-5.0) Test 06/13/16 07:23 06/13/16 11:26 Glucose (Fingerstick) 147mg/dL (70-99) 146mg/dL (70-99) Medications Active Scripts Medications Dose Route/Sig Days Date Category Hydrocodone-Apap 5-325 (Hydrocodone Bit/Acetaminophen) 1 Each Tablet 1 Tab PO PRN Q4HRS PRN 10/29/15 Rx Cipro (Ciprofloxacin Hcl) 250 Mg Tablet 250 Mg PO BID 10/29/15 Rx Finasteride 5 Mg Tablet 5 Mg PO DAILY 10/23/15 Reported Tamsulosin Hcl 0.4 Mg Cap.er.24h 0.4 Mg PO DAILY 10/23/15 Reported Iron (Ferrous Sulfate) 325 Mg Tablet 325 Mg PO 10/23/15 Reported Fish Oil 1,000 Mg Softgel ([place]-3 Fatty Acids/Fish Oil) 1 Each Capsule 1,000 Each PO 10/23/15 Reported Vitamin D (Cholecalciferol (Vitamin D3)) 1,000 Unit Capsule 1,000 Unit PO 10/23/15 Reported Ascorbic Acid 500 Mg Tablet 500 Mg PO 10/23/15 Reported Aspirin 325 Mg Tablet 325 Mg PO 10/23/15 Reported Lantus (Insulin Glargine,Hum.rec.anlog) 100 Unit/1 Ml Vial 1 Unit SQ 10/23/15 Reported Humalog (Insulin Lispro) 100 Unit/1 Ml Vial 100 Unit SQ 10/23/15 Reported Lovastatin 20 Mg Tablet 20 Mg PO HS 10/23/15 Reported Lasix (Furosemide) 40 Mg Tablet 40 Mg PO BID 10/23/15 Reported Losartan Potassium 50 Mg Tablet 50 Mg PO DAILY 10/23/15 Reported Comments CXR reviewed. 1. Congestive heart failure. 2. Right perihilar infiltrate second represent pulmonary edema. Pneumonia would be additional possibility. Impression . 1. Acute chest pain and dyspnea. I suspect related to mild congestive heart failure. No evidence of thromboembolic disease by VQ scan, Venous Doppler negative 2. Fever 3. Suspected underlying chronic obstructive pulmonary disease. 4. CAD 5. ? stefania Plan . not a candidate for CABG PCI today outpt sleep study 6 min walk prior to d/c antibx per RIVAS DOCKERY MD Jun 13, 2016 16:41
--- NOTE | 2016-06-13 17:16 | CARD ---
APPROVED REPORT Procedure(s) performed: PTCA/PCI of the RCA PTCA/PCI of the proximal LAD PTCA of the distal LAD PTCA of the ostial 1st Diagonal HISTORY The patient is a 76 year-old male with a history of : previous SC, coronary artery disease. INDICATION The indication(s) include : non-STEMI . PROCEDURE NARRATIVE Please see previous report for full details. After appropriate informed consent the patient was broug ht back to the catheterization laboratory for a planned percutaneous coronary intervention of the RCA and LAD. Under 1% lidocaine local anesthesia a 6 Monegasque sheath was inserted into the right radial artery via t he Seldinger technique. Next, a 6 Monegasque AR-2 guide catheter was used to engage the RCA. Initial prosper ography confirmed severe diffuse calcified proximal to distal RCA disease of up to 80%. The bifurcati ng right posterolateral branches were small to moderate in caliber with mild to moderate diffuse dise ase. Heparin weight-based bolus dosing was used to achieve anticoagulation. In addition a bolus and d rip of tirofiban was started. Through the guide catheter a 0.014 inch Prowater wire was placed in the distal RPL. Next, a 2.5 x 20 mm Trek balloon was used to angioplasty the distal to proximal LAD. Ne xt repeat angioplasty was performed with a 3.0 x 15 mm balloon, noncompliant. Next with the aid of a 6 Monegasque guide liner a 2.75 x 38 mm drug-eluting stent was placed in the distal RCA. Subsequently, a 3.0 x 38 mm, 3.25 x 38 mm and a 3.5 mm x 15 mm drug-eluting stents were placed in overlapping fashio n from the distal to proximal RCA. The proximal RCA was then angioplastied with a noncompliant 4 mm b alloon at high pressure. Post-PCI angiography demonstrated excellent stent expansion with HELEN-3 flow in the vessel. No acute guider wire-related complications were noted. Attention was then turned towards the LAD stenosis. Through a 6 Monegasque EBU 3.5 guide catheter a 0.014 '' Prowater wire was placed in the distal LAD. The distal to apical LAD was quite small and diameter and therefore a balloon angioplasty only was performed using a 2.0 x 12 mm balloon at nominal pressur es. The distal LAD had a good enteroplasty result with resolution of the stenosis. Next, a noncomplia nt 3.0 by 12 mm balloon was used to angioplasty the proximal LAD and the lesion was stented with a 3. 0 x 18 mm drug-eluting stent. Post stent implantation the first diagonal had some plaque shift and an ostial 80% stenosis. Therefore this vessel was then rewired and balloon angioplasty was performed us ing a 2.0 x 15 mm balloon. Subsequently, a final post-dilation was performed on the proximal LAD sten t using a noncompliant balloon at high pressure. Final post-PCI angiography revealed excellent stent expansion in the LAD with residual less than 50% stenosis of the diagonal which was previously diseas ed. Given good flow in the diagonal vessel no further intervention was performed in favor of a single stent strategy. The patient received 60 mg of Effient at case completion. There were no acute compli cations. Conclusion 1. Successful PCI of the proximal to distal RCA with implantation of 4 overlapping Xience drug-elutin g stents (2.75 mm x 38 mm, 3.0 x 38 mm, 3.25 mm x 38 mm, 3.5 mm x 15 mm) 2. Successful PTCA of the distal LAD with a 2.0 mm balloon. 3. Successful PTCA of the 1st diagonal for plaque shift with good residual flow. 4. Successful PCI of the proximal LAD with implantation of a Xience 3.0/18 mm TOVA. 5. Residual LCx stenosis involving small caliber distal bifurcating OM1 was not intervened upon due t o subtotal occlusion. Recommendations ASA 81mg daily indefinitely Plavix 75mg daily indefinitely if tolerated Cardiac rehab referral Consider outpt cath if he has symptoms to intervene on residual small vessel disease. Repeat renal panel in 1 week to assess Cr given CKD and contrast load.
[2016-06-13] MEDS: ATORVASTATIN CALCIUM 10 MG TABLET. PO SCH (20:16)
[2016-06-13] MEDS ORDERED: INSULIN DETEMIR 300 UNITS/3 ML INSULN.PEN. SQ SCH (21:00)
[2016-06-14] MEDS: IV NORMAL SALINE 1000ML BAG 1,000 ML IV SCH (00:07)
[2016-06-14 03:35] VITALS: BP 114/69
[2016-06-14 04:16] LABS: ALBUMIN 2.7 g/dL (3.4-5.0); CALCIUM 8.6 mg/dL (8.5-10.1); GFR 32.6; PHOSPHORUS 3.8 mg/dL (2.6-4.7); POTASSIUM 4.1 mmol/L (3.5-5.1)
[2016-06-14 07:00] VITALS: BP 129/63
[2016-06-14] MEDS: INSULIN ASPART 300 UNITS/3 ML INSULN.PEN SQ SCH ×4 (07:30→12:30)
[2016-06-14] MEDS ORDERED: CLOPIDOGREL BISULFATE 75 MG TABLET PO SCH (08:00)
--- NOTE | 2016-06-14 08:39 | PDOC ---
Infectious Disease Note Subjective Subjective feeling good ROS ROS GEN: Denies fevers, chills, sweats HEENT: Denies blurred vision, sore throat CV: Denies chest pain RESP: Denies shortness of air, cough GI: Denies n/v/d NEURO: Denies confusion, dizziness MSK: Denies weakness, joint pain/swelling Vital Sign Vital Signs Vital Signs Date Time Temp Pulse Resp B/P Pulse Ox O2 Delivery O2 Flow Rate FiO2 06/14/16 07:00 97.9 80 17 129/63 98 Nasal Cannula 97.9 06/13/16 23:20 2.0 Physical Exam PHYSICAL EXAM GENERAL: NAD, Alert HEENT: PERRL, OC/OP NECK: Supple, no JVD, no LN LUNGS: Clear HEART: S1S2, no gallop, no murmur ABD: Soft, NT, no organomegaly, no rebound EXT: No edema, no cyanosis FAMILY PROGRAM SPECIALIST: Alert, oriented x 3, no focal neurologic deficit SKIN: No rash IV: ok Labs Lab Laboratory Tests Test 06/13/16 11:26 06/13/16 16:36 06/13/16 20:15 06/14/16 03:10 Glucose (Fingerstick) 146mg/dL (70-99) 129mg/dL (70-99) 207mg/dL (70-99) Sodium Level 142mmol/L (136-145) Potassium Level 4.1mmol/L (3.5-5.1) Chloride Level 109mmol/L (98-107) Carbon Dioxide Level 23mmol/L (21-32) Anion Gap 10 (6-14) Blood Urea Nitrogen 23mg/dL (8-26) Creatinine 2.0mg/dL (0.7-1.3) Estimated GFR (Cockcroft-Gault) 32.6 Glucose Level 142mg/dL (70-99) Calcium Level 8.6mg/dL (8.5-10.1) Phosphorus Level 3.8mg/dL (2.6-4.7) Magnesium Level 2.5mg/dL (1.8-2.4) Albumin 2.7g/dL (3.4-5.0) Test 06/14/16 07:59 Glucose (Fingerstick) 119mg/dL (70-99) Objective Assessment Strep G sepsis - POA 06/07 -Repeat BC 06/10 pending. Echo neg veg Cellulitis of left lower leg s/p NSTEMI CKD Very dry skin and yeast in feet/toes Plan Plan of Care Change Rocephin to po augmentin Repeat Blood neg so far Leg elevation diflucan d/c ok from ID stand point TAE AMAYA MD Jun 14, 2016 08:39
[2016-06-14] MEDS ORDERED: AMOXICILLIN/K CLAV 875/125MG TABLET. PO SCH (09:00)
[2016-06-14] MEDS ORDERED: AMOX1TAB11 PO (09:03)
[2016-06-14] MEDS ORDERED: CLOP75TA PO (09:03)
[2016-06-14] MEDS ORDERED: ASPI81TA9 PO (09:03)
[2016-06-14] MEDS ORDERED: FLUC100T4 PO (09:16)
[2016-06-14] MEDS ORDERED: INSU100V SQ (09:19)
[2016-06-14] MEDS ORDERED: INSU100V8 SQ (09:19)
[2016-06-14] MEDS: FERROUS SULFATE 325 MG TABLET. PO SCH (10:12)
[2016-06-14] MEDS: ASPIRIN ENTERIC COATED 81 MG TABLET.DR. PO SCH (10:12)
[2016-06-14] MEDS: FLUCONAZOLE 100 MG TABLET. PO SCH (10:12)
[2016-06-14] MEDS: TAMSULOSIN 0.4 MG CAP.ER.24H. PO SCH (10:12)
[2016-06-14] MEDS: ASCORBIC ACID 500 MG TABLET PO SCH (10:12)
[2016-06-14] MEDS: OMEGA-3 FATTY ACIDS/FISH OIL 1,000 MG CAPSULE. PO SCH (10:12)
[2016-06-14] MEDS: FINASTERIDE 5 MG TABLET. PO SCH (10:12)
[2016-06-14] MEDS: POLYETHYLENE GLYCOL 3350 17 GM PACKET. PO SCH (10:13)
[2016-06-14] MEDS: METOPROLOL TART IMMED RELEASE 25 MG TABLET. PO SCH (10:14)
--- NOTE | 2016-06-14 10:36 | DS ---
DATE OF DISCHARGE: 06/14/2016 ADMITTING DIAGNOSIS: Non-ST elevated myocardial infarction. SECONDARY DIAGNOSES: 1. Severe bronchitis. 2. Lactic acidosis. 3. Acute on chronic renal failure. 4. Type 2 diabetes. 5. Morbid obesity. 6. Chronic kidney disease stage III. HISTORY OF PRESENT ILLNESS AND HOSPITAL COURSE: This patient was seen in the hospital with increasing chest pain which approximately 24-48 hours prior to admission. He also had severe cough with congestion and a high white count. Due to the constellation of symptoms, the patient was admitted for cardiac evaluation and was also treated for suspected pneumonia. The patient proved not to have pneumonia or evidence of PE, but did have elevating troponins and was evaluated by Cardiology. Once infectious process was under control, he was found to have multivessel disease, but due to poor runoff and after thoracic surgery consultation, he was deemed a poor surgical candidate and underwent percutaneous intervention and stent placement by Cardiology. The patient's renal status remained stable and pulmonary status improved during his hospital stay and post stenting and cardiac catheterization, the patient was nearly back to baseline; therefore, plans for discharge were made pending a 6-minute walk for evaluation of oxygen needs. DISCHARGE MEDICATIONS: The patient will be discharged on the following medications: Augmentin 875 one p.o. b.i.d., aspirin 81 mg daily, Plavix 75 mg daily, NovoLog 20 units with meals, Levemir 40 units at bedtime, metoprolol 25 mg b.i.d., vitamin C 500 mg daily, vitamin D 1000 international units daily, iron sulfate 325 mg daily, finasteride 5 mg daily, Lasix 40 mg b.i.d., hydrocodone 5 q. 4 hours p.r.n., losartan 50 mg daily, lovastatin 20 mg daily, omega 3 fatty acid 1000 mg daily, tamsulosin 0.4 mg daily, Diflucan 200 mg daily for 1 week. The patient will follow up in family practice clinic in 1 week and will have BUN and creatinine redrawn in 1 week. Follow up with Cardiology in 1-2 weeks and Renal Medicine in 2 weeks. LAAN VERDIN MD DR: MARI/christophe JOB#: [id number] / [id number]
--- NOTE | 2016-06-14 11:25 | PDOC ---
ERVIN ORELLANA OLIVE BRINE TESTER 06/14/16 1125: CARDIO Progress Notes Date and Time Date of Service 06/14/2016 Time of Evaluation 1210 Subjective Subjective: No Chest Pain, No shortness of breath, No Palpitations, No Dizziness Vitals Vitals Vital Signs Date Time Temp Pulse Resp B/P Pulse Ox O2 Delivery O2 Flow Rate FiO2 06/14/16 10:14 80 129/63 06/14/16 08:00 Nasal Cannula 2.0 06/14/16 07:00 97.9 17 98 97.9 Weight Weight [ ] Input and Output Intake and Output Intake and Output 06/14/16 07:00 Intake Total 2439 ml Output Total 1900 ml Balance 539 ml Intake Oral 1460 ml IV Total 979 ml Output Urine Total 1900 ml Laboratory Labs Laboratory Tests Test 06/13/16 11:26 06/13/16 16:36 06/13/16 20:15 06/14/16 03:10 Glucose (Fingerstick) 146mg/dL (70-99) 129mg/dL (70-99) 207mg/dL (70-99) Sodium Level 142mmol/L (136-145) Potassium Level 4.1mmol/L (3.5-5.1) Chloride Level 109mmol/L (98-107) Carbon Dioxide Level 23mmol/L (21-32) Anion Gap 10 (6-14) Blood Urea Nitrogen 23mg/dL (8-26) Creatinine 2.0mg/dL (0.7-1.3) Estimated GFR (Cockcroft-Gault) 32.6 Glucose Level 142mg/dL (70-99) Calcium Level 8.6mg/dL (8.5-10.1) Phosphorus Level 3.8mg/dL (2.6-4.7) Magnesium Level 2.5mg/dL (1.8-2.4) Albumin 2.7g/dL (3.4-5.0) Test 06/14/16 07:59 Glucose (Fingerstick) 119mg/dL (70-99) Microbiology Micro Microbiology 06/10/16 Blood Culture - Preliminary, Resulted NO GROWTH AFTER 4 DAYS Review of Systems Constitutional: yes: alert, oriented Ears/Nose/Throat: Yes: no symptom reported Eyes: Yes: no symptom reported Pulmonary: Yes dyspnea Cardiovascular: Yes no symptom reported Gastrointestional: Yes: no symptom reported Psychiatric/Neurological: Yes: no symptom reported Physical Exam HEENT: Neck Supple W Full Motion Chest: Symmetric LUNGS: Other (bibasilar crackles) Heart: S1S2, RRR (SR, no significant ectopies overnight) Abdomen: Soft N/T, Other (obese) Extremities: No Calf Tenderness, Other (trace to 1+ bilateral LE edema) Neurology: alert, oriented, follow commands Other Exams right radial arteriotomy site D/I with no erythema, neurovascular status normal. Assessment Assessment 1. Pneumonia/fever/sepsis/LLE cellulitis: ID following 2. NSTEMI/CAD: S/P PCI/TOVA to RCA/proximalLAD, PTCA to distal LAD/D1, Residual LCx stenosis involving small caliber distal bifurcating OM1 was not intervened upon due to subtotal occlusion. 3. Acute diastolic CHF: compensated 4. 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 nephrology following 5. HTN: controlled 6. DM2/HLP/DPN 7. ESTHELA: noncompliant with CPAP 8. Morbid obesity: BMI 41 Recommendations 1. Follow Renal/Pulmonary/ID recommendation 2. Start on low dose ARB once OK with nephrology 3. DAPT with ASA/plavix 4. Continue with secondary prevention. 5. Lifestyle modifications. 6. Consider outpt cath if he has symptoms to intervene on residual small vessel disease. 7. BP check and renal panel in our office in 1 week 8. Follow up in 4 weeks. 9. Lasix therapy per renal JAIRON ESPINOZA MD 06/14/16 3113: CARDIO Progress Notes Plan Plan Pt. seen and examined. Doing well overnight. Agree with above GRAINING MACHINE OPERATOR note. R wrist access site is C/D/I. No chest pain. Labs stable. Ok to dc today with close f/u in the office. ERVIN ORELLANA APRN Jun 14, 2016 11:25 JAIRON ESPINOZA MD Jun 14, 2016 22:43
--- NOTE | 2016-06-14 11:28 | PDOC ---
Renal-Progress Notes Subjective Notes Notes NONE History of Present Illness Hx of present illness STABLE Vitals Vitals Vital Signs Date Time Temp Pulse Resp B/P Pulse Ox O2 Delivery O2 Flow Rate FiO2 06/14/16 10:14 80 129/63 06/14/16 08:00 Nasal Cannula 2.0 06/14/16 07:00 97.9 17 98 97.9 Weight Weight [ ] I.O. Intake and Output Intake and Output 06/14/16 07:00 Intake Total 2439 ml Output Total 1900 ml Balance 539 ml Intake Oral 1460 ml IV Total 979 ml Output Urine Total 1900 ml Labs Labs Laboratory Tests Test 06/13/16 16:36 06/13/16 20:15 06/14/16 03:10 06/14/16 07:59 Glucose (Fingerstick) 129mg/dL (70-99) 207mg/dL (70-99) 119mg/dL (70-99) Sodium Level 142mmol/L (136-145) Potassium Level 4.1mmol/L (3.5-5.1) Chloride Level 109mmol/L (98-107) Carbon Dioxide Level 23mmol/L (21-32) Anion Gap 10 (6-14) Blood Urea Nitrogen 23mg/dL (8-26) Creatinine 2.0mg/dL (0.7-1.3) Estimated GFR (Cockcroft-Gault) 32.6 Glucose Level 142mg/dL (70-99) Calcium Level 8.6mg/dL (8.5-10.1) Phosphorus Level 3.8mg/dL (2.6-4.7) Magnesium Level 2.5mg/dL (1.8-2.4) Albumin 2.7g/dL (3.4-5.0) Micro Micro Microbiology 06/10/16 Blood Culture - Preliminary, Resulted NO GROWTH AFTER 4 DAYS Review of Systems Constitutional: yes: alert, oriented Ears/Nose/Throat: Yes: no symptom reported Eyes: Yes: no symptom reported Pulmonary: Yes dyspnea Cardiovascular: Yes no symptom reported Gastrointestional: Yes: no symptom reported Psychiatric/Neurological: Yes: no symptom reported Physical Exam General Appearance: no apparent distress Skin: warm Respiratory: bilateral CTA Heart: S1S2, RRR Abdomen: soft, bowel sounds present Extremities: pulses present Neurology: alert, oriented Assessment Assessment IMP CKD STAGE 3 WITH CR AT BASELINE OF 1.6-2.0 SEPSIS CHF/EDEMA-BETTER NSTEMI-CAD DM II HTN PLAN OK TO D/C FROM RENAL STANDPOINT STOP IVF'S START PO LASIX WILL FOLLOW AD ALCALA MD Jun 14, 2016 11:28
[2016-06-14 11:31] VITALS: BP 176/69
--- NOTE | 2016-06-14 14:53 | PDOC ---
PULMONARY PROGRESS NOTES Subjective PT NOT MORE SOA Vitals Vital Signs Date Time Temp Pulse Resp B/P Pulse Ox O2 Delivery O2 Flow Rate FiO2 06/14/16 11:31 98.0 94 25 176/69 97 Nasal Cannula 98.0 06/14/16 08:00 2.0 ROS: No Nausea, No Chest Pain, No Abdominal Pain, No Increase Cough General: Alert, No acute distress Lungs: Clear Cardiovascular: S1, S2 Abdomen: Soft, Non-tender, Other (no mass) Neuro Exam: Alert Extremities: Other (1+edema) Skin: Warm Labs Laboratory Tests Test 06/12/16 16:57 06/12/16 17:45 06/12/16 20:25 06/13/16 04:44 Glucose (Fingerstick) 88mg/dL (70-99) 119mg/dL (70-99) Heparin Anti-Xa Act, Unfractionated 0.57IU/mL (0.30-0.70) 0.43IU/mL (0.30-0.70) Sodium Level 142mmol/L (136-145) Potassium Level 4.1mmol/L (3.5-5.1) Chloride Level 107mmol/L (98-107) Carbon Dioxide Level 24mmol/L (21-32) Anion Gap 11 (6-14) Blood Urea Nitrogen 23mg/dL (8-26) Creatinine 1.8mg/dL (0.7-1.3) Estimated GFR (Cockcroft-Gault) 36.9 Glucose Level 145mg/dL (70-99) Calcium Level 8.7mg/dL (8.5-10.1) Phosphorus Level 3.9mg/dL (2.6-4.7) Magnesium Level 2.6mg/dL (1.8-2.4) Albumin 2.7g/dL (3.4-5.0) Test 06/13/16 07:23 06/13/16 11:26 06/13/16 16:36 06/13/16 20:15 Glucose (Fingerstick) 147mg/dL (70-99) 146mg/dL (70-99) 129mg/dL (70-99) 207mg/dL (70-99) Test 06/14/16 03:10 06/14/16 07:59 Sodium Level 142mmol/L (136-145) Potassium Level 4.1mmol/L (3.5-5.1) Chloride Level 109mmol/L (98-107) Carbon Dioxide Level 23mmol/L (21-32) Anion Gap 10 (6-14) Blood Urea Nitrogen 23mg/dL (8-26) Creatinine 2.0mg/dL (0.7-1.3) Estimated GFR (Cockcroft-Gault) 32.6 Glucose Level 142mg/dL (70-99) Calcium Level 8.6mg/dL (8.5-10.1) Phosphorus Level 3.8mg/dL (2.6-4.7) Magnesium Level 2.5mg/dL (1.8-2.4) Albumin 2.7g/dL (3.4-5.0) Glucose (Fingerstick) 119mg/dL (70-99) Laboratory Tests Test 06/13/16 16:36 06/13/16 20:15 06/14/16 03:10 06/14/16 07:59 Glucose (Fingerstick) 129mg/dL (70-99) 207mg/dL (70-99) 119mg/dL (70-99) Sodium Level 142mmol/L (136-145) Potassium Level 4.1mmol/L (3.5-5.1) Chloride Level 109mmol/L (98-107) Carbon Dioxide Level 23mmol/L (21-32) Anion Gap 10 (6-14) Blood Urea Nitrogen 23mg/dL (8-26) Creatinine 2.0mg/dL (0.7-1.3) Estimated GFR (Cockcroft-Gault) 32.6 Glucose Level 142mg/dL (70-99) Calcium Level 8.6mg/dL (8.5-10.1) Phosphorus Level 3.8mg/dL (2.6-4.7) Magnesium Level 2.5mg/dL (1.8-2.4) Albumin 2.7g/dL (3.4-5.0) Medications Active Scripts Medications Dose Route/Sig Days Date Category Hydrocodone-Apap 5-325 (Hydrocodone Bit/Acetaminophen) 1 Each Tablet 1 Tab PO PRN Q4HRS PRN 10/29/15 Rx Cipro (Ciprofloxacin Hcl) 250 Mg Tablet 250 Mg PO BID 10/29/15 Rx Finasteride 5 Mg Tablet 5 Mg PO DAILY 10/23/15 Reported Tamsulosin Hcl 0.4 Mg Cap.er.24h 0.4 Mg PO DAILY 10/23/15 Reported Iron (Ferrous Sulfate) 325 Mg Tablet 325 Mg PO 10/23/15 Reported Fish Oil 1,000 Mg Softgel (Rembrandt-3 Fatty Acids/Fish Oil) 1 Each Capsule 1,000 Each PO 10/23/15 Reported Vitamin D (Cholecalciferol (Vitamin D3)) 1,000 Unit Capsule 1,000 Unit PO 10/23/15 Reported Ascorbic Acid 500 Mg Tablet 500 Mg PO 10/23/15 Reported Aspirin 325 Mg Tablet 325 Mg PO 10/23/15 Reported Lantus (Insulin Glargine,Hum.rec.anlog) 100 Unit/1 Ml Vial 1 Unit SQ 10/23/15 Reported Humalog (Insulin Lispro) 100 Unit/1 Ml Vial 100 Unit SQ 10/23/15 Reported Lovastatin 20 Mg Tablet 20 Mg PO HS 10/23/15 Reported Lasix (Furosemide) 40 Mg Tablet 40 Mg PO BID 10/23/15 Reported Losartan Potassium 50 Mg Tablet 50 Mg PO DAILY 10/23/15 Reported Comments CXR reviewed. 1. Congestive heart failure. 2. Right perihilar infiltrate second represent pulmonary edema. Pneumonia would be additional possibility. Impression . 1. Acute chest pain and dyspnea. I suspect related to mild congestive heart failure. No evidence of thromboembolic disease by VQ scan, Venous Doppler negative 2. Fever 3. Suspected underlying chronic obstructive pulmonary disease. 4. CAD 5. ? stefania Plan . D/C HOME WILL SET UP SLEEP STUDY AND THEN FOLLOW UP IN OFFIC PCI SUCCESSFUL RIVAS ALFARO MD Jun 14, 2016 14:53
== END 2016-06-14 14:22 | disposition home or self-care (01) | DRG 853 ==
LOC: ER 17:27 → 2 NORTH 19:01
PROVIDERS: ADMIT Family Medicine; ATTEND Family Medicine
PROC: 4A023N7 Measurement of Cardiac Sampling and Pressure, Left Heart, Percutaneous Approach (ICD-10-PCS; principal; 2016-06-13)
PROC: B2111ZZ Fluoroscopy of Multiple Coronary Arteries using Low Osmolar Contrast (ICD-10-PCS; 2016-06-13)
PROC: 027137Z Dilation of Coronary Artery, Two Arteries with Four or More Drug-eluting Intraluminal Devices, Percutaneous Approach (ICD-10-PCS; 2016-06-13)
PROC: 02713ZZ Dilation of Coronary Artery, Two Arteries, Percutaneous Approach (ICD-10-PCS; 2016-06-13)
DX: A40.1 Sepsis due to streptococcus, group B (principal); I21.4 Non-ST elevation (NSTEMI) myocardial infarction; J96.00 Acute respiratory failure, unspecified whether with hypoxia or hypercapnia; I50.31 Acute diastolic (congestive) heart failure; I13.0 Hypertensive heart and chronic kidney disease with heart failure and stage 1 through stage 4 chronic kidney disease, or unspecified chronic kidney disease; J44.0 Chronic obstructive pulmonary disease with (acute) lower respiratory infection; L03.116 Cellulitis of left lower limb; N17.9 Acute kidney failure, unspecified; N18.4 Chronic kidney disease, stage 4 (severe); Z68.41 Body mass index [BMI] 40.0-44.9, adult; E11.22 Type 2 diabetes mellitus with diabetic chronic kidney disease; E11.40 Type 2 diabetes mellitus with diabetic neuropathy, unspecified; K21.9 Gastro-esophageal reflux disease without esophagitis; N40.0 Benign prostatic hyperplasia without lower urinary tract symptoms; E66.01 Morbid (severe) obesity due to excess calories; E78.00 Pure hypercholesterolemia, unspecified; E78.5 Hyperlipidemia, unspecified; G47.33 Obstructive sleep apnea (adult) (pediatric); I25.119 Atherosclerotic heart disease of native coronary artery with unspecified angina pectoris; I73.9 Peripheral vascular disease, unspecified; E11.51 Type 2 diabetes mellitus with diabetic peripheral angiopathy without gangrene; Z79.4 Long term (current) use of insulin; Z80.42 Family history of malignant neoplasm of prostate; Z82.49 Family history of ischemic heart disease and other diseases of the circulatory system; Z83.3 Family history of diabetes mellitus; Z87.891 Personal history of nicotine dependence; Z90.49 Acquired absence of other specified parts of digestive tract; Z91.19 Patient's noncompliance with other medical treatment and regimen; Z98.61 Coronary angioplasty status; J40 Bronchitis, not specified as acute or chronic
CPT/HCPCS: 36415; 71010; 71250; 78582; 80048; 80053; 80061; 80069; 81001; 82575; 82947; 83605; 83735; 83880; 83970; 84156; 84484; 85007; 85027; 85347; 85520; 87040; 87205; 87804; 92920; 92928; 93005; 93306; 93458; 93571; 93970; 94620; 96361; 96374; A9540; A9558; C1725; C1769; C1874; C1887; C1892; J0360; J0696; J1650; J1815; J1940; J1956; J2250; J3010; J3370; J3490; J7030; J7040; J7042; 99285-25; J3246

== ENCOUNTER → 2016-07-11 | Outpatient (CLI) | payer BC, MEDICARE ==
[2016-06-14 11:31] VITALS: BP 176/69
[~2016-07-11] MED LIST changes: +AMOX1TAB11 PO; +ASPI81TA9 PO; +CLOP75TA PO; +FLUC100T4 PO
--- NOTE | 2016-07-12 17:22 | SLEEP ---
DATE OF STUDY: 07/11/2016 ATTENDING PHYSICIAN: Dr. Frost. REFERRED BY: Dr. Ding. The patient is a 76-year-old, who weighs 292 pounds with a BMI of 39. The patient's Holden score was 17 suggesting moderate to severe subjective hypersomnia. A split night study was performed at [facility]. During the night study, the patient spent 444 minutes in bed and slept for 298 minutes with a sleep efficiency of 67%, which was low. Sleep latency was 30 minutes with a REM latency of 95 minutes. Overall, sleep architecture showed increased stage I sleep, reduced stage II sleep, normal slow wave and increased REM sleep. During the initial diagnostic portion of the study, the patient slept for 182 minutes. During this time, there were 33 obstructive apneas, 136 mixed apneas, no central apneas and 37 hypopneas. The patient's apnea-hypopnea index was 68 per hour. Supine index 100 per hour and REM index of 69 per hour. Review of nocturnal oximetry study revealed a mean oxygen saturation 90% with the lowest of 84%. 48% of time oxygen saturation remained between 80% and 89%. EKG monitoring revealed normal sinus rhythm. Occasional PVCs were seen. Average heart rate was 81 beats per minute. PLMS were seen at an index of 18 per hour, but none caused EEG arousals. The patient met the criteria for CPAP initiation. It was started at 5 cm of water and titrated up to 12 cm of water. With therapeutic CPAP pressure was not achieved on this split night study with the patient's AHI was still 87 per hour from 26 minutes of sleep. Mixed apneas did persisted. Oxygen saturations remained above 88% at the final pressure with 1 spot desaturation of 84%. The patient used small sized nasal pillows. I would recommend the patient should be placed on auto CPAP with a minimum pressure of 13 and a maximum pressure of 19. IMPRESSION: 1. Severe sleep apnea-hypopnea syndrome at an AHI of 68 per hour. 2. Nocturnal hypoxia secondary to obstructive sleep apnea, significantly improved with CPAP. 3. Mild PLMS without any significant EEG arousals. This does not need to be treated unless the patient has symptoms of restless legs during the day. RECOMMENDATIONS: 1. The patient should be placed on auto CPAP with a minimum pressure of 13 and a maximum pressure of 19. 2. The patient should have download information in 30 days to assess the need for any changes in patients CPAP pressure. 3. Weight loss is strongly advised. 4. Avoid ARCHITECTURAL ENGINEER depressants. 5. Caution regarding driving until symptoms of sleep apnea resolve with the use of CPAP. ISMA CHAMPAGNE MD DR: EDWIN/christophe JOB#: [id number] / [id number] ALAN Sosa MD, SABATO MD MTDD
== END | disposition home or self-care (01) ==
LOC: SLPLAB 18:12
PROVIDERS: ATTEND Internal Medicine Pulmonary Disease
DX: G47.33 Obstructive sleep apnea (adult) (pediatric) (principal)
CPT/HCPCS: 95810

== ENCOUNTER → 2016-07-14 | Outpatient (CLI) | payer BC ==
[2016-06-14 11:31] VITALS: BP 176/69
--- NOTE | 2016-07-14 16:29 | RAD ---
APPROVED REPORT Left Lower Extremity Venous Study for DVT Patient Location: OUT-PATIENT Indications Lower Extremity Edema: Left Stasis Disease Shortness of breath CHRONIC EDEMA, BRAWNY APPEARANCE AND THICKENED SKIN OF LT. LOWER EXT. Risk Factors Cardiac Disease Obesity Post OP 5 STENTS PLACED 4 WKS. AGO Findings Medina scale images of the left lower extremity were performed for evaluation of deep venous thrombosis . The left common femoral vein, superficial femoral vein, deep femoral vein and popliteal veins appea r to be fully compressible. The spectral waveforms and color Doppler do not reveal any evidence of ob struction. The below-knee veins reveal spontaneous flow. Overall no evidence of deep venous thrombosi s. Critical Notification Critical Value: No <Conclusion> Negative for DVT in the left lower extremity.
== END | disposition home or self-care (01) ==
LOC: US 11:54
PROVIDERS: ATTEND Internal Medicine Cardiovascular Disease
DX: R60.0 Localized edema (principal)
CPT/HCPCS: 93971

== ENCOUNTER 2016-12-17 20:02 | Inpatient (IN) | payer BC ==
[~2016-12-17] VITALS: Ht 182.9 cm; Wt 130.6 kg
[~2016-12-17 20:02] MED LIST changes: +ASPI-612 PO; -ASPI325T4 PO; +ASPI325T8 PO; -ASPI81TA9 PO; +FERR-36 PO; -FERR325T31 PO; -HYDR-2666 PO; +HYDR-2758 PO; -OMEG1CAP16 PO; +OMEG1CAP27 PO
[2016-12-17 20:22] LABS: BASO # 0.1 x10^3/uL (0.0-0.2); BASO % 1 % (0-3); EOS % 2 % (0-3); HEMATOCRIT 42.4 % (39.0-53.0); HEMOGLOBIN 14.1 g/dL (13.0-17.5); LYMPH # 1.8 x10^3/uL (1.0-4.8); LYMPH % 18 % (24-48); MEAN CORPUSCULAR HEMOGLOBIN 30 pg (25-35); MEAN CORPUSCULAR HGB CONC 33 g/dL (31-37); MEAN CORPUSCULAR VOLUME 91 fL (79-100); MONO % 8 % (0-9); NEUT % 71 % (31-73); PLATELET COUNT 266 x10^3/uL (140-400); RED BLOOD COUNT 4.68 x10^6/uL (4.30-5.70); RED CELL DISTRIBUTION WIDTH 14.9 % (11.5-14.5); WHITE BLOOD COUNT 9.8 x10^3/uL (4.0-11.0)
[2016-12-17] MEDS ORDERED: INSU100C4 SQ (20:30)
[2016-12-17] MEDS ORDERED: HEPARIN for IV BOLUS 10,000 UNIT/10 ML VIAL. IV ONE ×2 (20:30→22:00)
[2016-12-17] MEDS ORDERED: POTA20TA82 PO (20:30)
[2016-12-17] MEDS ORDERED: CINN500C2 PO (20:30)
[2016-12-17] MEDS ORDERED: MULT-366 PO (20:30)
[2016-12-17] MEDS ORDERED: OMEG1CAP6 PO (20:30)
[2016-12-17] MEDS ORDERED: SAW450CA2 PO (20:30)
--- NOTE | 2016-12-17 20:30 | PHYS DOC ---
Past Medical History Past Medical History: Diabetes-Type II, High Cholesterol, Hypertension, Other Additional Past Medical Histor: NEUROPATHY Past Surgical History: Appendectomy Smoking: Quit Greater Than 1 Year Alcohol Use: None Drug Use: None Adult General Chief Complaint Chief Complaint: CHEST PAIN HPI HPI Patient is a 76 year old male who presents with chest pain. His family member brings him and that he's been having chest pain off and on for at least 4 days. The pain increased tonight after eating at 1900 p.m. It feels like "a rock in the middle my chest". Pain is 8 on a pain scale and radiates to his left shoulder blade. Some mild shortness of breath. No nausea vomiting. He states he' s had a mild cough but no hemoptysis. No recent travel. he had prior cardiac stents placed here [facility] in June 2016. Review of Systems Review of Systems Constitutional: Denies fever or chills Eyes: Denies change in visual acuity, redness, or eye pain HENT: Denies nasal congestion or sore throat Respiratory: dry cough with shortness of breath Cardiovascular: See HPI GI: Denies abdominal pain, nausea, vomiting, bloody stools or diarrhea : Denies dysuria or hematuria Musculoskeletal: Denies back pain or joint pain Integument: Denies rash or skin lesions Neurologic: Denies headache, focal weakness or sensory changes Current Medications Current Medications Current Medications Medications (Trade) Dose Ordered Sig/Feli Start Time Stop Time Status Last Admin Dose Admin Aspirin (Children'S Aspirin) 324 mg 1X ONCE 12/17/16 20:45 12/17/16 20:46 DC 12/17/16 20:23 324 MG Dopamine HCl/ Dextrose 250 ml @ As Directed STK-MED ONCE 12/17/16 20:40 12/17/16 20:41 DC Fentanyl Citrate (Fentanyl 2ml Vial) 100 mcg STK-MED ONCE 12/17/16 20:39 12/17/16 20:40 DC Heparin Sodium (Porcine) (Heparin Sodium) 10,000 unit STK-MED ONCE 12/17/16 20:39 12/17/16 20:40 DC Heparin Sodium/ Sodium Chloride 1,000 ml @ As Directed STK-MED ONCE 12/17/16 20:48 12/17/16 20:49 DC Iohexol (Omnipaque 350 Mg/ml) 100 ml STK-MED ONCE 12/17/16 20:47 12/17/16 20:48 DC Lidocaine HCl 20 ml STK-MED ONCE 12/17/16 20:47 12/17/16 20:48 DC Midazolam HCl (Versed) 2 mg STK-MED ONCE 12/17/16 20:39 12/17/16 20:40 DC Morphine Sulfate 2 mg 1X ONCE 12/17/16 21:15 12/17/16 21:16 Ondansetron HCl (Zofran) 4 mg 1X ONCE 12/17/16 21:15 12/17/16 21:16 Tirofiban/Sodium Chloride 250 ml @ As Directed STK-MED ONCE 12/17/16 20:39 12/17/16 20:40 DC Allergies Allergies Allergies Coded Allergies Type Severity Reaction Last Updated Verified No Known Drug Allergies 10/26/15 No Physical Exam Physical Exam Constitutional: Well developed, well nourished, no acute distress, non-toxic appearance. HENT: Normocephalic, atraumatic, bilateral external ears normal, oropharynx moist, no oral exudates, nose normal. Eyes: PERRLA, EOMI, conjunctiva normal, no discharge. Neck: Normal range of motion, no tenderness, supple, no stridor. Cardiovascular:Heart rate regular rhythm, no murmur Lungs & Thorax: Bilateral breath sounds clear to auscultation Abdomen: Bowel sounds normal, soft, no tenderness, no masses, no pulsatile masses. Skin: Warm, dry, no erythema, no rash. Back: No tenderness, no CVA tenderness. Extremities: No tenderness, no cyanosis, no clubbing, ROM intact, no edema. Neurologic: Alert and oriented X 3, normal motor function, normal sensory function, no focal deficits noted. Current Patient Data Vital Signs Vital Signs Date Time Temp Pulse Resp B/P (MAP) Pulse Ox O2 Delivery O2 Flow Rate FiO2 12/17/16 20:16 97.8 105 18 209/88 (128) 98 Room Air 97.8 Lab Values Laboratory Tests Test 12/17/16 20:15 White Blood Count 9.8 x10^3/uL (4.0-11.0) Red Blood Count 4.68 x10^6/uL (4.30-5.70) Hemoglobin 14.1 g/dL (13.0-17.5) Hematocrit 42.4 % (39.0-53.0) Mean Corpuscular Volume 91 fL (79-100) Mean Corpuscular Hemoglobin 30 pg (25-35) Mean Corpuscular Hemoglobin Concent 33 g/dL (31-37) Red Cell Distribution Width 14.9 % (11.5-14.5) H Platelet Count 266 x10^3/uL (140-400) Neutrophils (%) (Auto) 71 % (31-73) Lymphocytes (%) (Auto) 18 % (24-48) L Monocytes (%) (Auto) 8 % (0-9) Eosinophils (%) (Auto) 2 % (0-3) Basophils (%) (Auto) 1 % (0-3) Neutrophils # (Auto) 7.0 x10^3uL (1.8-7.7) Lymphocytes # (Auto) 1.8 x10^3/uL (1.0-4.8) Monocytes # (Auto) 0.8 x10^3/uL (0.0-1.1) Eosinophils # (Auto) 0.1 x10^3/uL (0.0-0.7) Basophils # (Auto) 0.1 x10^3/uL (0.0-0.2) Sodium Level 139 mmol/L (136-145) Potassium Level 4.0 mmol/L (3.5-5.1) Chloride Level 102 mmol/L (98-107) Carbon Dioxide Level 27 mmol/L (21-32) Anion Gap 10 (6-14) Blood Urea Nitrogen 40 mg/dL (8-26) H Creatinine 2.4 mg/dL (0.7-1.3) H Estimated GFR (Cockcroft-Gault) 26.5 BUN/Creatinine Ratio 17 (6-20) Glucose Level 287 mg/dL (70-99) H Calcium Level 8.9 mg/dL (8.5-10.1) Magnesium Level 2.4 mg/dL (1.8-2.4) Total Bilirubin 0.3 mg/dL (0.2-1.0) Aspartate Amino Transferase (AST) 31 U/L (15-37) Alanine Aminotransferase (ALT) 27 U/L (16-63) Alkaline Phosphatase 84 U/L (46-116) Creatine Kinase 117 U/L (39-308) Troponin I Quantitative 1.333 ng/mL (0.000-0.055) Total Protein 8.4 g/dL (6.4-8.2) H Albumin 3.6 g/dL (3.4-5.0) Albumin/Globulin Ratio 0.8 (1.0-1.7) L Lipase 95 U/L (73-393) Laboratory Tests 12/17/16 20:15 Laboratory Tests 12/17/16 20:15 EKG EKG EKG at 2009 PM: ST ELEVATION INFERIOR LEADS WITH RECIPROCAL DEPRESSION LATERAL ( changed from prior 06/07/2016)-STEMI ACTIVATED Course & Med Decision Making Course & Med Decision Making Received EKG; STEMI ACTIVATED UPON READING. ASA dosed. Spoke with Dr Gomez at 2015 PM; added 4000 U heparin per his request. Updated patient on findings. Kept NPO. Contacted PCP Dr [facility] (Dr Ramirez trade union secretary at 2034 PM). Trop elevated lab called at 2044 PM. Morphine IV for pain. 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 CXR not performed prior to leaving ED. I spent approximately 30 minutes working and engaged directly in the patient care providing critical care evaluation this includes but not limited to time spent engaged in work directly related to the individual patients care. I spent time at the bedside, reviewing test results, discussing the case with staff, documenting the medical record and time spent with EMS discussing specific treatment issues when the patient presented and during his evaluation. This includes any discussion and updates with family members and/or patient. I have spoken with the patient and/or caregivers. I have explained the patient' s condition, diagnosis and treatment plan based on the information available to me at this time. I have answered the patient's and/or caregiver's questions and addressed any concerns. The patient and/or caregivers have as good an understanding of the patient's diagnosis, condition and treatment plan as can be expected at this point. The patient has been stabilized within the capability of the emergency department. The patient will be transported for further care and management or will be moved to an observation or inpatient service. I have communicated with the staff or medical practitioner taking over this patient's care. Dragon Disclaimer Dragon Disclaimer This electronic medical record was generated, in whole or in part, using a voice recognition dictation system. Departure Departure Impression: Primary Impression: Acute LA, inferior wall, initial episode of care Additional Impression: Kidney disease Disposition: ADMITTED INPATIENT Admitting Physician: Yaz Ramirez Condition: CRITICAL Referrals: ALAN [facility] MD (PCP) Problem Qualifiers MICHELL GANDHI MD Dec 17, 2016 20:30
[2016-12-17 20:38] LABS: ALBUMIN 3.6 g/dL (3.4-5.0); ALBUMIN/GLOBULIN RATIO 0.8 (1.0-1.7); CALCIUM 8.9 mg/dL (8.5-10.1); CREATININE 2.4 mg/dL (0.7-1.3); GFR 26.5; TOTAL BILIRUBIN 0.3 mg/dL (0.2-1.0); TOTAL PROTEIN 8.4 g/dL (6.4-8.2)
[2016-12-17] MEDS ORDERED: HEPARIN for IV BOLUS 10,000 UNIT/10 ML VIAL. ONE ×2 (20:39→21:37)
[2016-12-17] MEDS ORDERED: fentaNYL PF VIAL 100 MCG/2 ML VIAL ONE (20:39)
[2016-12-17] MEDS ORDERED: TIROFIBAN 12.5MG -0.9% NS 0 ML IV ONE (20:39)
[2016-12-17] MEDS ORDERED: MIDAZOLAM HCL/PF 2 MG/2 ML VIAL. ONE (20:39)
[2016-12-17 20:41] LABS: MAGNESIUM 2.4 mg/dL (1.8-2.4)
[2016-12-17] MEDS ORDERED: ASPIRIN CHEWABLE 81 MG TABLET. PO ONE (20:45)
[2016-12-17 20:46] LABS: CKMB MASS 2.7 ng/mL (0.0-3.6)
[2016-12-17] MEDS ORDERED: IOHEXOL 350 MG/ML 100 ML VIAL. ONE (20:47)
[2016-12-17] MEDS ORDERED: LIDOCAINE 2% 20 ML VIAL. ONE (20:47)
[2016-12-17] MEDS ORDERED: NITROGLYCERIN PREMIX 250 ML IV ONE ×2 (21:01→21:30)
[2016-12-17] MEDS ORDERED: MORPHINE SULFATE 2 MG/ML DISP.SYRIN. IV ONE (21:15)
[2016-12-17] MEDS ORDERED: ONDANSETRON PF 4 MG/2 ML VIAL. IV ONE (21:15)
[2016-12-17] MEDS ORDERED: IODIXANOL 320 MG/ML 100 ML VIAL. IART ONE (21:15)
[2016-12-17] MEDS ORDERED: LIDOCAINE 2% 20 ML VIAL. IJ ONE (21:15)
[2016-12-17] MEDS ORDERED: fentaNYL PF VIAL 100 MCG/2 ML VIAL IV ONE (21:15)
[2016-12-17] MEDS ORDERED: MIDAZOLAM HCL/PF 2 MG/2 ML VIAL. IV ONE (21:15)
[2016-12-17] MEDS ORDERED: HEPARIN 25,000UTS/500ML PREMIX 500 ML IV ONE ×3 (21:24→21:45)
[2016-12-17 21:41] VITALS: BP 176/95
[2016-12-17 22:08] VITALS: BP 158/70
--- NOTE | 2016-12-17 22:11 | PDOC2 ---
CONSULT Date of Consult Date of Consult DATE: 12/17/16 TIME: 22:00 Reason for Consult Reason for Consult: Chest pain Referring Physician Referring Physician: Dr. Ramirez Identification/Chief Complaint Chief Complaint Chest pain Problems: Source Source: Patient History of Present Illness Reason for Visit: The patient is a 76 year old male who presented to the ER with four days of periodic chest pain. He has a history of CAD and had multiple stents placed on 06-07-16. His pain increased later today and he was brought to the ER. Initial creat. is elevated at 2.4 and his EKG shows ST changes in the inferior leads. He has been treated with ASA and heparin. Old records show that he received four stents to his RCA, a proximal LAD stent and a distal LAD PTCA on his previous cath. Past Medical History Cardiovascular: CAD, CHF, HTN, [place], Hyperlipidemia Pulmonary: No pertinent hx CENTRAL NERVOUS SYSTEM: Periperal neuropathy GI: Constipation Heme/Onc: No pertinent hx Hepatobiliary: No pertinent hx Psych: No pertinent hx Rheumatologic: No pertinent hx Infectious disease: No pertinent hx Renal/: Chronic renal failure, Benign prostatic enlarg., Hematuria Endocrine: Diabetes Past Surgical History Past Surgical History: Other (stenting as above) Family History Family History: Diabetes, Heart Disease, Hypertension Social History ALCOHOL: other Drugs: None Lives: Alone Current Problem List Problem List Problems Medical Problems: (1) Acute [place], inferior wall, initial episode of care Status: Acute (2) Kidney disease Status: Acute Current Medications Current Medications Current Medications Aspirin (Children'S Aspirin) 324 mg 1X ONCE PO Last administered on 20:23; Start 12/17/16 at 20:45; Stop 12/17/16 at 20:46; Status DC Heparin Sodium (Porcine) (Heparin Sodium) 4,000 unit 1X ONCE IV Last administered on 12/17/16 20:24; Start 12/17/16 at 20:30; Stop 12/17/16 at 20 :31; Status DC Fentanyl Citrate (Fentanyl 2ml Vial) 100 mcg STK-MED ONCE .ROUTE ; Start at 20:39; Stop 12/17/16 at 20:40; Status DC Midazolam HCl (Versed) 2 mg STK-MED ONCE .ROUTE ; Start 12/17/16 at 20:39; Stop 12/17/16 at 20:40; Status DC Heparin Sodium (Porcine) (Heparin Sodium) 10,000 unit STK-MED ONCE .ROUTE ; Start 12/17/16 at 20:39; Stop 12/17/16 at 20:40; Status DC Tirofiban/Sodium Chloride 0 ml @ As Directed STK-MED ONCE IV ; Start 12/17/16 at 20:39; Stop 12/17/16 at 20:40; Status DC Dopamine HCl/ Dextrose 0 ml @ As Directed STK-MED ONCE IV ; Start 12/17/16 at 20:40; Stop 12/17/16 at 20:41; Status DC Lidocaine HCl 20 ml STK-MED ONCE .ROUTE ; Start 12/17/16 at 20:47; Stop at 20:48; Status DC Iohexol (Omnipaque 350 Mg/ml) 100 ml STK-MED ONCE .ROUTE ; Start 12/17/16 at 20 :47; Stop 12/17/16 at 20:48; Status DC Heparin Sodium/ Sodium Chloride 1,000 ml @ As Directed STK-MED ONCE .ROUTE ; Start 12/17/16 at 20:48; Stop 12/17/16 at 20:49; Status DC Morphine Sulfate 2 mg 1X ONCE IV ; Start 12/17/16 at 21:15; Stop 12/17/16 at 21:16; Status DC Ondansetron HCl (Zofran) 4 mg 1X ONCE IV ; Start 12/17/16 at 21:15; Stop at 21:16; Status DC Nitroglycerin/ Dextrose 250 ml @ As Directed STK-MED ONCE IV ; Start 12/17/16 at 21:01; Stop 12/17/16 at 21:02; Status DC Heparin Sodium/ Sodium Chloride 1,000 unit 1X ONCE IART ; Start 12/17/16 at 21 :15; Stop 12/17/16 at 21:19; Status DC Midazolam HCl (Versed) 1 mg 1X ONCE IV ; Start 12/17/16 at 21:15; Stop at 21:19; Status DC Fentanyl Citrate (Fentanyl 2ml Vial) 25 mcg 1X ONCE IV ; Start 12/17/16 at 21: 15; Stop 12/17/16 at 21:19; Status DC Iodixanol (Visipaque 320) 100 ml 1X ONCE IART ; Start 12/17/16 at 21:15; Stop 12/17/16 at 21:19; Status DC Lidocaine HCl 20 ml 1X ONCE IJ ; Start 12/17/16 at 21:15; Stop 12/17/16 at 21 :20; Status DC Nitroglycerin/ Dextrose 250 ml @ 0 mls/hr 1X ONCE IV ; Start 12/17/16 at 21:30 ; Stop 12/17/16 at 21:31; Status DC Heparin Sodium/ Sodium Chloride 500 ml @ As Directed STK-MED ONCE .ROUTE ; Start 12/17/16 at 21:21; Stop 12/17/16 at 21:22; Status DC Heparin Sodium/ Dextrose 500 ml @ As Directed STK-MED ONCE IV ; Start at 21:24; Stop 12/17/16 at 21:49; Status DC Heparin Sodium/ Dextrose 500 ml @ 0 mls/hr 1X ONCE IV ; Start 12/17/16 at 21: 30; Stop 12/17/16 at 21:31; Status DC Heparin Sodium (Porcine) (Heparin Sodium) 10,000 unit STK-MED ONCE .ROUTE ; Start 12/17/16 at 21:37; Stop 12/17/16 at 21:38; Status DC Heparin Sodium (Porcine) (Heparin Sodium) 1,500 unit 1X ONCE IV ; Start at 22:00; Stop 12/17/16 at 22:01 Heparin Sodium/ Dextrose 500 ml @ 0 mls/hr 1X ONCE IV ; Start 12/17/16 at 21: 45; Stop 12/17/16 at 21:46; Status UNV Heparin Sodium/ Dextrose 500 ml @ 0 mls/hr CONT PRN IV SEE I/O RECORD; Start 12/17/16 at 21:45 Heparin Sodium (Porcine) (Heparin Sodium) 3,400 unit PRN Q6HRS PRN IV FOR UFH LEVEL LESS THAN 0.2; Start 12/17/16 at 21:45 Active Scripts Active Lantus (Insulin Glargine,Hum.rec.anlog) 100 Unit/1 Ml Vial 40 Unit SQ HS Humalog (Insulin Lispro) 100 Unit/1 Ml Vial 20 Unit SQ TIDAC Fluconazole 100 Mg Tablet 200 Mg PO DAILY Amox Tr-K Clv 875-125 Mg Tab (Amoxicillin/Potassium Clav) 1 Each Tablet 1 Tab PO BID Aspirin Ec (Aspirin) 81 Mg Tablet.dr 81 Mg PO DAILYWBKFT Clopidogrel (Clopidogrel Bisulfate) 75 Mg Tablet 75 Mg PO DAILYWBKFT Hydrocodone-Apap 5-325 (Hydrocodone Bit/Acetaminophen) 1 Each Tablet 1 Tab PO PRN Q4HRS PRN Metoprolol Tartrate 25 Mg Tablet 25 Mg PO BID Reported Potassium Chloride 20 Meq Tablet.er 20 Meq PO DAILY Saw [place] (Saw [place] Fruit) 450 Mg Capsule 450 Mg PO Novolog (Insulin Aspart) 100 Unit/1 Ml Cartridge 40 Unit SQ Cinnamon (Cinnamon Bark) 500 Mg Capsule 1,000 Mg PO Spectravite Senior (Multivitamin W/Iron, Minerals) 1 Each Tablet 1 Each PO Fish Oil 1,000 Mg Capsule (Benton-3 Fatty Acids/Fish Oil) 1 Each Capsule 1 Each PO Finasteride 5 Mg Tablet 5 Mg PO DAILY Tamsulosin Hcl 0.4 Mg Cap.er.24h 0.4 Mg PO DAILY Iron (Ferrous Sulfate) 325 Mg Tablet 325 Mg PO Fish Oil 1,000 Mg Softgel (Benton-3 Fatty Acids/Fish Oil) 1 Each Capsule 1,000 Each PO Vitamin D (Cholecalciferol (Vitamin D3)) 1,000 Unit Capsule 1,000 Unit PO Ascorbic Acid 500 Mg Tablet 500 Mg PO Lovastatin 20 Mg Tablet 20 Mg PO HS Lasix (Furosemide) 40 Mg Tablet 40 Mg PO BID Losartan Potassium 50 Mg Tablet 50 Mg PO DAILY Allergies Allergies: Coded Allergies: No Known Drug Allergies (Unverified , 10/26/15) ROS General: YES: Fatigue Cardiovascular: yes Chest Pain Physical Exam General: mild distress HEENT: Atraumatic Lungs: Other (mildly decreased breath sounds) Heart: Regular rate Abdomen: Normal bowel sounds Vitals VITALS Vital Signs Date Time Temp Pulse Resp B/P (MAP) Pulse Ox O2 Delivery O2 Flow Rate FiO2 12/17/16 21:41 87 20 100 NonRebreather Mask 15.0 12/17/16 20:45 175/77 (109) 12/17/16 20:16 97.8 97.8 Labs Labs Laboratory Tests Test 12/17/16 20:15 White Blood Count 9.8 x10^3/uL (4.0-11.0) Red Blood Count 4.68 x10^6/uL (4.30-5.70) Hemoglobin 14.1 g/dL (13.0-17.5) Hematocrit 42.4 % (39.0-53.0) Mean Corpuscular Volume 91 fL (79-100) Mean Corpuscular Hemoglobin 30 pg (25-35) Mean Corpuscular Hemoglobin Concent 33 g/dL (31-37) Red Cell Distribution Width 14.9 % (11.5-14.5) Platelet Count 266 x10^3/uL (140-400) Neutrophils (%) (Auto) 71 % (31-73) Lymphocytes (%) (Auto) 18 % (24-48) Monocytes (%) (Auto) 8 % (0-9) Eosinophils (%) (Auto) 2 % (0-3) Basophils (%) (Auto) 1 % (0-3) Neutrophils # (Auto) 7.0 x10^3uL (1.8-7.7) Lymphocytes # (Auto) 1.8 x10^3/uL (1.0-4.8) Monocytes # (Auto) 0.8 x10^3/uL (0.0-1.1) Eosinophils # (Auto) 0.1 x10^3/uL (0.0-0.7) Basophils # (Auto) 0.1 x10^3/uL (0.0-0.2) Sodium Level 139 mmol/L (136-145) Potassium Level 4.0 mmol/L (3.5-5.1) Chloride Level 102 mmol/L (98-107) Carbon Dioxide Level 27 mmol/L (21-32) Anion Gap 10 (6-14) Blood Urea Nitrogen 40 mg/dL (8-26) Creatinine 2.4 mg/dL (0.7-1.3) Estimated GFR (Cockcroft-Gault) 26.5 BUN/Creatinine Ratio 17 (6-20) Glucose Level 287 mg/dL (70-99) Calcium Level 8.9 mg/dL (8.5-10.1) Magnesium Level 2.4 mg/dL (1.8-2.4) Total Bilirubin 0.3 mg/dL (0.2-1.0) Aspartate Amino Transf (AST/SGOT) 31 U/L (15-37) Alanine Aminotransferase (ALT/SGPT) 27 U/L (16-63) Alkaline Phosphatase 84 U/L (46-116) Creatine Kinase 117 U/L (39-308) Creatine Kinase MB (Mass) 2.7 ng/mL (0.0-3.6) Creatine Kinase MB Relative Index 2.4 % (0-4) Troponin I Quantitative 1.333 ng/mL (0.000-0.055) MN-Vqw-A-Type Natriuretic Peptide 1061 pg/mL (0-449) Total Protein 8.4 g/dL (6.4-8.2) Albumin 3.6 g/dL (3.4-5.0) Albumin/Globulin Ratio 0.8 (1.0-1.7) Lipase 95 U/L (73-393) Laboratory Tests Test 12/17/16 20:15 White Blood Count 9.8 x10^3/uL (4.0-11.0) Red Blood Count 4.68 x10^6/uL (4.30-5.70) Hemoglobin 14.1 g/dL (13.0-17.5) Hematocrit 42.4 % (39.0-53.0) Mean Corpuscular Volume 91 fL (79-100) Mean Corpuscular Hemoglobin 30 pg (25-35) Mean Corpuscular Hemoglobin Concent 33 g/dL (31-37) Red Cell Distribution Width 14.9 % (11.5-14.5) Platelet Count 266 x10^3/uL (140-400) Neutrophils (%) (Auto) 71 % (31-73) Lymphocytes (%) (Auto) 18 % (24-48) Monocytes (%) (Auto) 8 % (0-9) Eosinophils (%) (Auto) 2 % (0-3) Basophils (%) (Auto) 1 % (0-3) Neutrophils # (Auto) 7.0 x10^3uL (1.8-7.7) Lymphocytes # (Auto) 1.8 x10^3/uL (1.0-4.8) Monocytes # (Auto) 0.8 x10^3/uL (0.0-1.1) Eosinophils # (Auto) 0.1 x10^3/uL (0.0-0.7) Basophils # (Auto) 0.1 x10^3/uL (0.0-0.2) Sodium Level 139 mmol/L (136-145) Potassium Level 4.0 mmol/L (3.5-5.1) Chloride Level 102 mmol/L (98-107) Carbon Dioxide Level 27 mmol/L (21-32) Anion Gap 10 (6-14) Blood Urea Nitrogen 40 mg/dL (8-26) Creatinine 2.4 mg/dL (0.7-1.3) Estimated GFR (Cockcroft-Gault) 26.5 BUN/Creatinine Ratio 17 (6-20) Glucose Level 287 mg/dL (70-99) Calcium Level 8.9 mg/dL (8.5-10.1) Magnesium Level 2.4 mg/dL (1.8-2.4) Total Bilirubin 0.3 mg/dL (0.2-1.0) Aspartate Amino Transf (AST/SGOT) 31 U/L (15-37) Alanine Aminotransferase (ALT/SGPT) 27 U/L (16-63) Alkaline Phosphatase 84 U/L (46-116) Creatine Kinase 117 U/L (39-308) Creatine Kinase MB (Mass) 2.7 ng/mL (0.0-3.6) Creatine Kinase MB Relative Index 2.4 % (0-4) Troponin I Quantitative 1.333 ng/mL (0.000-0.055) AE-Ket-R-Type Natriuretic Peptide 1061 pg/mL (0-449) Total Protein 8.4 g/dL (6.4-8.2) Albumin 3.6 g/dL (3.4-5.0) Albumin/Globulin Ratio 0.8 (1.0-1.7) Lipase 95 U/L (73-393) Assessment/Plan Assessment/Plan 1. Chest pain. Multiple previous stents. Probable [place]. Discussed heart cath and possible intervention with the patient. He has agreed to proceed. 2. Accelerated HTN. SBP of 200. Will treat with IV NTG and monitor. 3. CKD. Creatinine of 2.4. Believe the need for a cardiac cath is of first priority. Will attempt to minimize contrast and give fluids as tolerated. 4. HLD. Statin and check lab. 5. DM. As per the primary service. Thank you for allowing us to participate in the care of your patient. CINDY HERNANDEZ MD Dec 17, 2016 22:11
[2016-12-17 22:20] VITALS: BP 142/60
[2016-12-17] MEDS ORDERED: NITROGLYCERIN SUBLINGUAL 0.4 MG BOTTLE OF 25. SL PRN (22:30)
[2016-12-17] MEDS ORDERED: ACETAMINOPHEN 325 MG TABLET. PO PRN (22:30)
[2016-12-17] MEDS ORDERED: 0.9 % SODIUM CHLORIDE 10 ML DISP.SYRIN. IV PRN (22:30)
--- NOTE | 2016-12-17 22:36 | PDOC4 ---
OPERATIVE NOTE: Brief cath note. Initial Systolic BP greater than 200, controlled with IV NTG. Cath results. LAD. Proximal lesion 80%, mid distal lesion of 80%, distal lesion of 90%, D1 lesion of 90%. LCX. Proximal lesion of 30%. Smaller vessel disease of OM1 of 85%, mid LCX lesion of 90%. RCA. Proximal lesion of greater than 90%, mid lesion of 85%, more distal lesion of greater than 90%. LVEDP of 25 mmHg. Creatine of 2.4. The patient became pain free after control of his BP and 25 mics of Fent. In the setting of multiple lesions in multiple vessels and the patient becoming pain fee. Will continue NTG and heparin. Will discuss best option for repeat revascularization. Discussed with the patient's family. CINDY HERNANDEZ MD Dec 17, 2016 22:36
[2016-12-17 22:45] VITALS: BP 158/60
[2016-12-17] MEDS ORDERED: HYDROcodone/APAP 5/325MG 1 TAB TABLET PO PRN (22:45)
[2016-12-17] MEDS: fentaNYL PF VIAL 100 MCG/2 ML VIAL IV PRN (22:48)
[2016-12-17] MEDS: IV NORMAL SALINE 1000ML BAG 1,000 ML IV SCH (22:55)
[2016-12-17 23:00] VITALS: BP 150/64
[2016-12-18] VITALS (28 sets, daily range): BP systolic 95–163; BP diastolic 48–81
[2016-12-18] MEDS ORDERED: ONDANSETRON PF 4 MG/2 ML VIAL. IV ONE (00:45)
[2016-12-18] MEDS ORDERED: INFLUENZA VAX SCREEN BY RX. MC ONE (01:30)
[2016-12-18] MEDS ORDERED: BISACODYL 10 MG SUPP.RECT. PR ONE (04:00)
[2016-12-18 05:05] LABS: BASO % 0 % (0-3); EOS % 0 % (0-3); HEMATOCRIT 38.8 % (39.0-53.0); HEMOGLOBIN 12.8 g/dL (13.0-17.5); LYMPH # 0.7 x10^3/uL (1.0-4.8); LYMPH % 7 % (24-48); MEAN CORPUSCULAR HEMOGLOBIN 30 pg (25-35); MEAN CORPUSCULAR HGB CONC 33 g/dL (31-37); MEAN CORPUSCULAR VOLUME 90 fL (79-100); MONO % 4 % (0-9); NEUT % 89 % (31-73); PLATELET COUNT 265 x10^3/uL (140-400); RED BLOOD COUNT 4.32 x10^6/uL (4.30-5.70); RED CELL DISTRIBUTION WIDTH 14.1 % (11.5-14.5); WHITE BLOOD COUNT 9.9 x10^3/uL (4.0-11.0)
[2016-12-18] MEDS: HEPARIN for IV BOLUS 10,000 UNIT/10 ML VIAL. IV PRN ×2 (05:29→23:50)
[2016-12-18 05:35] LABS: ALBUMIN 3.4 g/dL (3.4-5.0); ALBUMIN/GLOBULIN RATIO 0.9 (1.0-1.7); CALCIUM 8.5 mg/dL (8.5-10.1); CREATININE 2.1 mg/dL (0.7-1.3); GFR 30.9; MAGNESIUM 2.6 mg/dL (1.8-2.4); TOTAL BILIRUBIN 0.4 mg/dL (0.2-1.0); TOTAL PROTEIN 7.2 g/dL (6.4-8.2)
[2016-12-18 06:03] LABS: CHOLESTEROL/HDL RATIO 4.1
--- NOTE | 2016-12-18 06:13 | EKG ---
[facility] [address] [place] [address] Test Date: 2016-12-17 Test Time: 20:10:05 Pat Name: CARLOS EDUARDO BOLANOS Department: Room: Gender: M Publisher Assistant: : 1940 Requested By: MICHELL GANDHI Order Number: [id number] Reading MD: Measurements Intervals [place] Rate: 103 P: -90 KS: 222 QRS: -22 QRSD: 106 T: 101 QT: 350 QTc: 461 Interpretive Statements SINUS TACHYCARDIA PROLONGED [place] INTERVAL LEFTWARD AXIS LVH WITH REPOLARIZATION ABNORMALITY RI6.01 Unconfirmed report No previous ECG available for comparison
[2016-12-18] MEDS: fentaNYL PF VIAL 100 MCG/2 ML VIAL IV PRN ×3 (06:57→10:05)
[2016-12-18] MEDS: INSULIN ASPART 300 UNITS/3 ML INSULN.PEN SQ SCH ×7 (07:30→21:00)
--- NOTE | 2016-12-18 07:36 | RAD ---
Indication: Post STEMI. Technique: Supine portable chest radiograph was obtained and compared to a study from June 09, 2016. Findings: The heart is upper limits of normal in size. The pulmonary vasculature is cephalized and interstitial lung markings mildly increased. There is no pleural effusion. There is atheromatous disease in the thoracic aorta. Leads overlie the patient. Impression: Mild CHF suspected.
[2016-12-18] MEDS: ASPIRIN ENTERIC COATED 81 MG TABLET.DR. PO SCH (07:49)
[2016-12-18] MEDS: LOSARTAN POTASSIUM 50 MG TABLET. PO SCH (07:50)
[2016-12-18] MEDS: TAMSULOSIN 0.4 MG CAP.ER.24H. PO SCH (07:50)
[2016-12-18] MEDS: METOPROLOL TART IMMED RELEASE 25 MG TABLET. PO SCH ×2 (07:51→21:13)
[2016-12-18] MEDS: FINASTERIDE 5 MG TABLET. PO SCH (07:51)
[2016-12-18] MEDS ORDERED: ASPIRIN ENTERIC COATED 81 MG TABLET.DR. PO SCH (08:00)
[2016-12-18] MEDS ORDERED: CLOPIDOGREL BISULFATE 75 MG TABLET PO SCH (08:00)
[2016-12-18] MEDS ORDERED: FLU VACC QS2017-18 (36MOS+)/PF 0.5 ML SYRINGE. VAX IM ONE (09:00)
[2016-12-18] MEDS ORDERED: METOPROLOL TART IMMED RELEASE 25 MG TABLET. PO SCH (09:00)
[2016-12-18] MEDS ORDERED: LOSARTAN POTASSIUM 50 MG TABLET. PO SCH (09:00)
[2016-12-18] MEDS: ASCORBIC ACID 500 MG TABLET PO SCH (09:00)
[2016-12-18] MEDS ORDERED: IV NORMAL SALINE 1000ML BAG 1,000 ML IV SCH (09:45)
--- NOTE | 2016-12-18 09:46 | PDOC ---
CARDIO Progress Notes Date and Time Date of Service 12/18/2016 Time of Evaluation 0930 Subjective Subjective: No shortness of breath, No Palpitations, No Dizziness, Other ( still having CP) Vitals Vitals Vital Signs Date Time Temp Pulse Resp B/P (MAP) Pulse Ox O2 Delivery O2 Flow Rate FiO2 12/18/16 08:00 98.0 98 20 148/67 (94) 93 Nasal Cannula 98.0 12/18/16 08:00 5.0 Weight Weight [ ] Input and Output Intake and Output Intake and Output 12/19/16 07:00 Intake Total 100 ml Output Total 0 ml Balance 100 ml Intake Oral 100 ml Output Urine Total 0 ml Laboratory Labs Laboratory Tests Test 12/17/16 20:15 12/17/16 20:29 12/18/16 04:49 White Blood Count 9.8 x10^3/uL (4.0-11.0) 9.9 x10^3/uL (4.0-11.0) Red Blood Count 4.68 x10^6/uL (4.30-5.70) 4.32 x10^6/uL (4.30-5.70) Hemoglobin 14.1 g/dL (13.0-17.5) 12.8 g/dL (13.0-17.5) Hematocrit 42.4 % (39.0-53.0) 38.8 % (39.0-53.0) Mean Corpuscular Volume 91 fL (79-100) 90 fL (79-100) Mean Corpuscular Hemoglobin 30 pg (25-35) 30 pg (25-35) Mean Corpuscular Hemoglobin Concent 33 g/dL (31-37) 33 g/dL (31-37) Red Cell Distribution Width 14.9 % (11.5-14.5) 14.1 % (11.5-14.5) Platelet Count 266 x10^3/uL (140-400) 265 x10^3/uL (140-400) Neutrophils (%) (Auto) 71 % (31-73) 89 % (31-73) Lymphocytes (%) (Auto) 18 % (24-48) 7 % (24-48) Monocytes (%) (Auto) 8 % (0-9) 4 % (0-9) Eosinophils (%) (Auto) 2 % (0-3) 0 % (0-3) Basophils (%) (Auto) 1 % (0-3) 0 % (0-3) Neutrophils # (Auto) 7.0 x10^3uL (1.8-7.7) 8.8 x10^3uL (1.8-7.7) Lymphocytes # (Auto) 1.8 x10^3/uL (1.0-4.8) 0.7 x10^3/uL (1.0-4.8) Monocytes # (Auto) 0.8 x10^3/uL (0.0-1.1) 0.4 x10^3/uL (0.0-1.1) Eosinophils # (Auto) 0.1 x10^3/uL (0.0-0.7) 0.0 x10^3/uL (0.0-0.7) Basophils # (Auto) 0.1 x10^3/uL (0.0-0.2) 0.0 x10^3/uL (0.0-0.2) Sodium Level 139 mmol/L (136-145) 139 mmol/L (136-145) Potassium Level 4.0 mmol/L (3.5-5.1) 5.0 mmol/L (3.5-5.1) Chloride Level 102 mmol/L (98-107) 104 mmol/L (98-107) Carbon Dioxide Level 27 mmol/L (21-32) 23 mmol/L (21-32) Anion Gap 10 (6-14) 12 (6-14) Blood Urea Nitrogen 40 mg/dL (8-26) 37 mg/dL (8-26) Creatinine 2.4 mg/dL (0.7-1.3) 2.1 mg/dL (0.7-1.3) Estimated GFR (Cockcroft-Gault) 26.5 30.9 BUN/Creatinine Ratio 17 (6-20) 18 (6-20) Glucose Level 287 mg/dL (70-99) 290 mg/dL (70-99) Calcium Level 8.9 mg/dL (8.5-10.1) 8.5 mg/dL (8.5-10.1) Magnesium Level 2.4 mg/dL (1.8-2.4) 2.6 mg/dL (1.8-2.4) Total Bilirubin 0.3 mg/dL (0.2-1.0) 0.4 mg/dL (0.2-1.0) Aspartate Amino Transf (AST/SGOT) 31 U/L (15-37) 180 U/L (15-37) Alanine Aminotransferase (ALT/SGPT) 27 U/L (16-63) 43 U/L (16-63) Alkaline Phosphatase 84 U/L (46-116) 77 U/L (46-116) Creatine Kinase 117 U/L (39-308) Creatine Kinase MB (Mass) 2.7 ng/mL (0.0-3.6) Creatine Kinase MB Relative Index 2.4 % (0-4) Troponin I Quantitative 1.333 ng/mL (0.000-0.055) 53.207 ng/mL (0.000-0.055) LK-Swj-E-Type Natriuretic Peptide 1061 pg/mL (0-449) Total Protein 8.4 g/dL (6.4-8.2) 7.2 g/dL (6.4-8.2) Albumin 3.6 g/dL (3.4-5.0) 3.4 g/dL (3.4-5.0) Albumin/Globulin Ratio 0.8 (1.0-1.7) 0.9 (1.0-1.7) Lipase 95 U/L (73-393) Bedside Troponin I 0.94 ng/ml (<0.08) Heparin Anti-Xa Act, Unfractionated < 0.10 IU/mL (0.30-0.70) Triglycerides Level 142 mg/dL (0-150) Cholesterol Level 147 mg/dL (0-200) LDL Cholesterol, Calculated 83 mg/dL (0-100) VLDL Cholesterol, Calculated 28 mg/dL (0-40) Non-HDL Cholesterol Calculated 111 mg/dL (0-129) HDL Cholesterol 36 mg/dL (40-60) Cholesterol/HDL Ratio 4.1 Physical Exam HEENT: Neck Supple W Full Motion Chest: Symmetric LUNGS: Clear to Auscultation Heart: S1S2, RRR (SR with PVC) Abdomen: Soft N/T Extremities: No Calf Tenderness Neurology: alert, oriented, follow commands Assessment Assessment 1. Severe 3VD: Post LHC. 2. CP: remains. Troponin 53. still having mild 3. Acute CHF: mild. Appears compensated. 4. YURIY on CKD3 Recommendations 1. Right femoral sheath in and intact. ASA, Heparin gtt. Uptitrate NTG per BP tolerance. Fentanyl as needed. 2. Continue with secondary prevention. DC plavix. CTS consult. 3. TTE today. 4. Discussed with primary assistant infant toddler teacher. 5. Continue with maintenance IVF while NPO. ERVIN ORELLANA APRN Dec 18, 2016 09:45
--- NOTE | 2016-12-18 10:43 | HP ---
ADMIT DATE: 12/18/2016 CHIEF COMPLAINT: Chest pain. HISTORY OF PRESENT ILLNESS AND HOSPITAL COURSE: This patient is a 76-year-old male who comes to the Emergency Room with a 4-day history of increasing chest pain. The patient states the pain became worse, especially when he eats and he was unable to sleep. The patient describes the pain as a rock in the middle of his chest, rated it 8/10 on pain scale. During Emergency Room evaluation, the patient was found to have ST depressions in the inferior leads with increased troponin and he was taken immediately the animal laboratory helper with a diagnosis of a STEMI. He was found to have significant 3-vessel disease, was placed on heparin and nitroglycerin as well as fentanyl for pain control. The patient is to be admitted directly to the ICU, and Cardiovascular Surgery was consulted. PAST MEDICAL HISTORY: Significant for: 1. Type 2 diabetes. 2. Hypertension. 3. High cholesterol. 4. Obstructive sleep apnea. 5. Coronary artery disease with previous stenting. 6. Chronic kidney disease stage III. 7. Peripheral neuropathy. 8. Peripheral vascular disease. 9. Morbid obesity. PAST SURGICAL HISTORY: Significant for wisdom teeth extraction in the 60s, back surgery in 1981. Laparoscopic drainage of abdominal abscess in 2015, colon resection in 2016, hemorrhoidectomy, right hemicolectomy. FAMILY HISTORY: His father is with history of prostate cancer. SOCIAL HISTORY: The patient has never smoked. He does not used alcohol significantly. He lives alone, but his son has recently moved to town. He is retired. ALLERGIES: Denies any known drug allergies. REVIEW OF SYSTEMS: The patient has been constipated and states his pain is worse when he eats. He denies any nausea, vomiting, fever, or congestion. PHYSICAL EXAMINATION: GENERAL: This is an obese male, in mild distress on my exam. He is alert and oriented x 3. HEENT: Benign. NECK: Supple. No JVD or bruits. CARDIAC: Regular rate and rhythm. LUNGS: Clear. ABDOMEN: Soft with some mild tenderness in the right upper quadrant and epigastrium. He had positive bowel sounds and no rebound. EXTREMITIES: 2+ pulses without significant edema. NEUROLOGIC: Showed evidence of any significant peripheral neuropathy of lower extremities and 1+ pulses bilaterally. ASSESSMENT: 1. Acute ST changes of myocardial infarction. 2. Severe 3-vessel coronary artery disease. 3. Type 2 diabetes. 4. Hypertension. 5. Chronic kidney disease with current creatinine 2.4. PLAN: To proceed with cardiac catheterization emergently as has already been done and consult cardiothoracic surgery for further evaluation. Continue gentle hydration for renal function. Baseline creatinine in October 2016 was 2.0. ALAN VERDIN MD DR: MARI/christophe JOB#: [id number] / [id number]
[2016-12-18 11:14] LABS: PLT ESTIMATE ADEQUATE (ADEQUATE)
--- NOTE | 2016-12-18 12:28 | CARD ---
APPROVED REPORT EXAM: Two-dimensional and M-mode echocardiogram with Doppler and color Doppler. Other Information Quality : Fair Rhythm : NSR INDICATION Cardiac Disease: CAD Chest Pain Congestive Heart Failure 2D DIMENSIONS RVDd2.6 (2.9-3.5cm)Left Atrium(2D)3.4 (1.6-4.0cm) IVSd1.0 (0.7-1.1cm)Aortic Root(2D)3.5 (2.0-3.7cm) LVDd4.7 (3.9-5.9cm)LVOT Diameter2.4 (1.8-2.4cm) PWd1.0 (0.7-1.1cm)LVDs3.5 (2.5-4.0cm) FS (%) 25.7 %SV51.3 ml LVEF(%)50.6 (>50%) Aortic Valve AoV Peak Colby.132.4cm/sAoV VTI21.4cm AO Peak GR.7.0mmHgLVOT VTI 14.73cm AO Mean GR.4mmHgAI P 1/2 [id number] Mitral Valve MV E Zlcxnhiq69.3cm/sMV E Peak Gr.7mmHg MV DECEL [id number] A Zuoxourr82.9cm/s MV E Mean Gr.4mmHgMV [id number] E/A Ratio1.1MV A Rairhrrx16ha MVA (PHT)4.40cm2 TDI Lateral E' P. V9.28cm/sMedial E' P. V5.33cm/s E/Lateral E'10.7E/Medial E'18.6 LEFT VENTRICLE The left ventricle is normal size. There is normal left ventricular wall thickness. Left ventricle sy stolic function is normal. The Ejection Fraction is 50-55%. The inferolateral wall is moderately hypo kinetic. Mild global hypokinesis. Technically difficult study due to body habitus. The left ventricul ar diastolic function and filling is normal for age. RIGHT VENTRICLE The right ventricle is normal size. The right ventricular systolic function is normal. ATRIA The left atrium size is normal. The right atrium size is normal. The interatrial septum is intact wit h no evidence for an atrial septal defect or patent foramen ovale as noted on 2-D or Doppler imaging. AORTIC VALVE The aortic valve is not well visualized but opens well. Doppler and Color Flow revealed trace to mild aortic regurgitation. There is no significant aortic valvular stenosis. MITRAL VALVE The mitral valve is normal in structure. There is no mitral valve stenosis. Doppler and Color Flow re vealed trace to mild to moderate mitral regurgitation. TRICUSPID VALVE The tricuspid valve is not well visualized. Doppler and Color Flow revealed no tricuspid valve regurg itation noted. Unable to estimate PA pressure. There is no tricuspid valve stenosis. PULMONIC VALVE The pulmonic valve is not well visualized. Doppler and Color Flow revealed no pulmonic valvular regur gitation. There is no pulmonic valvular stenosis. GREAT VESSELS The aortic root is normal in size. The IVC is normal in size and collapses >50% with inspiration. PERICARDIAL EFFUSION There is no evidence of significant pericardial effusion. Critical Notification Critical Value: No <Conclusion> Left ventricle systolic function is normal. The Ejection Fraction is 50-55%. The inferolateral wall is moderately hypokinetic. Mild global hypokinesis. Technically difficult stud y due to body habitus. Doppler and Color Flow revealed trace to mild to moderate mitral regurgitation. Technically difficult study
--- NOTE | 2016-12-18 14:26 | PDOC2 ---
CONSULT Date of Consult Date of Consult DATE: 12/18/16 TIME: 14:08 Reason for Consult Reason for Consult: NSTEMI Referring Physician Referring Physician: Dr Menendez Identification/Chief Complaint Chief Complaint Chest pain Problems: Source Source: Chart review, Patient History of Present Illness Reason for Visit: The patient is a 76-year-old male who was admitted yesterday with a 4 day history of intermittent chest pain. He was admitted with analogous symptoms back in June 2016, when he underwent 4 stents in the RCA, proximal stent in the LAD and a PTCA in the distal LAD. Early this morning his troponin peaked at 53. He underwent coronary angiography which demonstrated that all his stents were occluded. He is a diffusely diseased RCA with a dual RPDA, diffuse disease in the left circumflex with a possible obtuse marginal targets, a proximal mid and distal LAD stenosis, with a diffusely calcified high diagonal. His LV function is preserved. He received Plavix today. He is hypoxic with sats in the low 90s with 6 L nasal cannula. His chronic kidney disease with a baseline creatinine of 2.2. He is currently on a heparin and nitroglycerin drip. His pain has now subsided, although he did have angina earlier this morning. I was consulted to consider the patient for surgical coronary revascularization. Past Medical History Cardiovascular: CAD, CHF, HTN, IA, Hyperlipidemia Pulmonary: No pertinent hx CENTRAL NERVOUS SYSTEM: Periperal neuropathy GI: Constipation Heme/Onc: No pertinent hx Hepatobiliary: No pertinent hx Psych: No pertinent hx Rheumatologic: No pertinent hx Infectious disease: No pertinent hx Renal/: Chronic renal failure, Benign prostatic enlarg., Hematuria Endocrine: Diabetes Past Surgical History Past Surgical History: Other (stenting as above) Family History Family History: Diabetes, Heart Disease, Hypertension Social History ALCOHOL: other Drugs: None Lives: Alone Current Problem List Problem List Problems Medical Problems: (1) Acute IA, inferior wall, initial episode of care Status: Acute (2) Kidney disease Status: Acute Current Medications Current Medications Current Medications Aspirin (Children'S Aspirin) 324 mg 1X ONCE PO Last administered on 20:23; Start 12/17/16 at 20:45; Stop 12/17/16 at 20:46; Status DC Heparin Sodium (Porcine) (Heparin Sodium) 4,000 unit 1X ONCE IV Last administered on 12/17/16 20:24; Start 12/17/16 at 20:30; Stop 12/17/16 at 20 :31; Status DC Fentanyl Citrate (Fentanyl 2ml Vial) 100 mcg STK-MED ONCE .ROUTE ; Start at 20:39; Stop 12/17/16 at 20:40; Status DC Midazolam HCl (Versed) 2 mg STK-MED ONCE .ROUTE ; Start 12/17/16 at 20:39; Stop 12/17/16 at 20:40; Status DC Heparin Sodium (Porcine) (Heparin Sodium) 10,000 unit STK-MED ONCE .ROUTE ; Start 12/17/16 at 20:39; Stop 12/17/16 at 20:40; Status DC Tirofiban/Sodium Chloride 0 ml @ As Directed STK-MED ONCE IV ; Start 12/17/16 at 20:39; Stop 12/17/16 at 20:40; Status DC Dopamine HCl/ Dextrose 0 ml @ As Directed STK-MED ONCE IV ; Start 12/17/16 at 20:40; Stop 12/17/16 at 20:41; Status DC Lidocaine HCl 20 ml STK-MED ONCE .ROUTE ; Start 12/17/16 at 20:47; Stop at 20:48; Status DC Iohexol (Omnipaque 350 Mg/ml) 100 ml STK-MED ONCE .ROUTE ; Start 12/17/16 at 20 :47; Stop 12/17/16 at 20:48; Status DC Heparin Sodium/ Sodium Chloride 1,000 ml @ As Directed STK-MED ONCE .ROUTE ; Start 12/17/16 at 20:48; Stop 12/17/16 at 20:49; Status DC Morphine Sulfate 2 mg 1X ONCE IV ; Start 12/17/16 at 21:15; Stop 12/17/16 at 21:16; Status DC Ondansetron HCl (Zofran) 4 mg 1X ONCE IV ; Start 12/17/16 at 21:15; Stop at 21:16; Status DC Nitroglycerin/ Dextrose 250 ml @ As Directed STK-MED ONCE IV ; Start 12/17/16 at 21:01; Stop 12/17/16 at 21:02; Status DC Heparin Sodium/ Sodium Chloride 1,000 unit 1X ONCE IART ; Start 12/17/16 at 21 :15; Stop 12/17/16 at 21:19; Status DC Midazolam HCl (Versed) 1 mg 1X ONCE IV Last administered on 12/17/16 21:15; Start 12/17/16 at 21:15; Stop 12/17/16 at 21:19; Status DC Fentanyl Citrate (Fentanyl 2ml Vial) 25 mcg 1X ONCE IV Last administered on 21:15; Start 12/17/16 at 21:15; Stop 12/17/16 at 21:19; Status DC Iodixanol (Visipaque 320) 100 ml 1X ONCE IART Last administered on 12/17/16 21:15; Start 12/17/16 at 21:15; Stop 12/17/16 at 21:19; Status DC Lidocaine HCl 20 ml 1X ONCE IJ Last administered on 12/17/16 21:15; Start 12/17/16 at 21:15; Stop 12/17/16 at 21:20; Status DC Nitroglycerin/ Dextrose 250 ml @ 0 mls/hr 1X ONCE IV Last administered on 21:06; Start 12/17/16 at 21:30; Stop 12/17/16 at 21:31; Status DC Heparin Sodium/ Sodium Chloride 500 ml @ As Directed STK-MED ONCE .ROUTE ; Start 12/17/16 at 21:21; Stop 12/17/16 at 21:22; Status DC Heparin Sodium/ Dextrose 500 ml @ As Directed STK-MED ONCE IV ; Start at 21:24; Stop 12/17/16 at 21:49; Status DC Heparin Sodium/ Dextrose 500 ml @ 0 mls/hr 1X ONCE IV ; Start 12/17/16 at 21: 30; Stop 12/17/16 at 21:31; Status DC Heparin Sodium (Porcine) (Heparin Sodium) 10,000 unit STK-MED ONCE .ROUTE ; Start 12/17/16 at 21:37; Stop 12/17/16 at 21:38; Status DC Heparin Sodium (Porcine) (Heparin Sodium) 1,500 unit 1X ONCE IV ; Start at 22:00; Stop 12/17/16 at 22:01; Status DC Heparin Sodium/ Dextrose 500 ml @ 0 mls/hr 1X ONCE IV ; Start 12/17/16 at 21: 45; Stop 12/17/16 at 21:46; Status UNV Heparin Sodium/ Dextrose 500 ml @ 0 mls/hr CONT PRN IV SEE I/O RECORD; Start 12/17/16 at 21:45 Heparin Sodium (Porcine) (Heparin Sodium) 3,400 unit PRN Q6HRS PRN IV FOR UFH LEVEL LESS THAN 0.2 Last administered on 12/18/16 05:29; Start 12/17/16 at 21 :45 Sodium Chloride (Normal Saline Flush) 3 ml QSHIFT PRN IV AFTER MEDS AND BLOOD DRAWS; Start 12/17/16 at 22:30 Sodium Chloride 1,000 ml @ 60 mls/hr [id number] IV Last administered on 22:55; Start 12/17/16 at 22:23 Aspirin (Ecotrin) 81 mg DAILYWBKFT PO Last administered on 12/18/16 07:49; Start 12/18/16 at 08:00 Metoprolol Tartrate (Lopressor) 25 mg BID PO Last administered on 12/18/16 07 :51; Start 12/18/16 at 09:00 Losartan Potassium (Cozaar) 50 mg DAILY PO Last administered on 12/18/16 07: 50; Start 12/18/16 at 09:00 Atorvastatin Calcium (Lipitor) 20 mg QHS PO ; Start 12/18/16 at 21:00 Acetaminophen (Tylenol) 650 mg PRN Q6HRS PRN PO MILD PAIN; Start 12/17/16 at 22:30 Fentanyl Citrate (Fentanyl 2ml Vial) 25 mcg PRN Q1HR PRN IV Moderate or severe pain Last administered on 12/18/16 10:05; Start 12/17/16 at 22:30; Stop at 11:50; Status DC Nitroglycerin (Nitrostat) 0.4 mg PRN Q5MIN PRN SL CHEST PAIN; Start 12/17/16 at 22:30 Ascorbic Acid (Vitamin C) 500 mg DAILY PO ; Start 12/18/16 at 09:00 Aspirin (Ecotrin) 81 mg DAILYWBKFT PO ; Start 12/18/16 at 08:00; Status UNV Clopidogrel Bisulfate (Plavix) 75 mg DAILYWBKFT PO Last administered on 07:49; Start 12/18/16 at 08:00; Stop 12/18/16 at 09:35; Status DC Finasteride (Proscar) 5 mg DAILY PO Last administered on 12/18/16 07:51; Start 12/18/16 at 09:00 Acetaminophen/ Hydrocodone Bitart (Lortab 5/325) 1 tab PRN Q4HRS PRN PO MODERATE PAIN; Start 12/17/16 at 22:45 Losartan Potassium (Cozaar) 50 mg DAILY PO ; Start 12/18/16 at 09:00; Status UNV Metoprolol Tartrate (Lopressor) 25 mg BID PO ; Start 12/18/16 at 09:00; Status UNV Tamsulosin HCl (Flomax) 0.4 mg DAILY PO Last administered on 12/18/16 07:50; Start 12/18/16 at 09:00 Insulin Detemir (Levemir) 40 units QHS SQ ; Start 12/18/16 at 21:00 Insulin Aspart (NovoLOG) 20 units TIDAC SQ ; Start 12/18/16 at 07:30 Non-Formulary Medication 20 mg HS PO ; Start 12/18/16 at 21:00; Status UNV Insulin Aspart (NovoLOG) 0-12 UNITS QIDACHS SQ Last administered on 12/18/16 11:33; Start 12/18/16 at 07:30 Ondansetron HCl (Zofran) 4 mg 1X ONCE IV Last administered on 12/18/16 00:45 ; Start 12/18/16 at 00:45; Stop 12/18/16 at 00:51; Status DC Info (Do NOT chart on this placeholder) 1 each 1X ONCE MC ; Start 12/18/16 at 01:30; Stop 12/18/16 at 01:31; Status UNV Influenza Virus Vaccine Quadrival (Fluarix Quad 5006-3756 Syringe) 0.5 ml ONCE ONCE VAX IM ; Start 12/18/16 at 09:00; Stop 12/18/16 at 09:01; Status DC Bisacodyl (Dulcolax Supp) 10 mg 1X ONCE [place] Last administered on 12/18/16 03: 41; Start 12/18/16 at 04:00; Stop 12/18/16 at 04:01; Status DC Ondansetron HCl (Zofran) 4 mg PRN Q6HRS PRN IV NAUSEA/VOMITING; Start at 03:30 Sodium Chloride 1,000 ml @ 75 mls/hr [id number] IV ; Start 12/18/16 at 09:45 Fentanyl Citrate (Fentanyl 2ml Vial) 50 mcg PRN Q2HR PRN IV PAIN; Start at 11:45 Active Scripts Active Lantus (Insulin Glargine,Hum.rec.anlog) 100 Unit/1 Ml Vial 40 Unit SQ HS Humalog (Insulin Lispro) 100 Unit/1 Ml Vial 20 Unit SQ TIDAC Fluconazole 100 Mg Tablet 200 Mg PO DAILY Amox Tr-K Clv 875-125 Mg Tab (Amoxicillin/Potassium Clav) 1 Each Tablet 1 Tab PO BID Aspirin Ec (Aspirin) 81 Mg Tablet.dr 81 Mg PO DAILYWBKFT Clopidogrel (Clopidogrel Bisulfate) 75 Mg Tablet 75 Mg PO DAILYWBKFT Hydrocodone-Apap 5-325 (Hydrocodone Bit/Acetaminophen) 1 Each Tablet 1 Tab PO PRN Q4HRS PRN Metoprolol Tartrate 25 Mg Tablet 25 Mg PO BID Reported Potassium Chloride 20 Meq Tablet.er 20 Meq PO DAILY Saw [place] (Saw [place] Fruit) 450 Mg Capsule 450 Mg PO Novolog (Insulin Aspart) 100 Unit/1 Ml Cartridge 40 Unit SQ Cinnamon (Cinnamon Bark) 500 Mg Capsule 1,000 Mg PO Spectravite Senior (Multivitamin W/Iron, Minerals) 1 Each Tablet 1 Each PO Fish Oil 1,000 Mg Capsule ([place]-3 Fatty Acids/Fish Oil) 1 Each Capsule 1 Each PO Finasteride 5 Mg Tablet 5 Mg PO DAILY Tamsulosin Hcl 0.4 Mg Cap.er.24h 0.4 Mg PO DAILY Iron (Ferrous Sulfate) 325 Mg Tablet 325 Mg PO Fish Oil 1,000 Mg Softgel ([place]-3 Fatty Acids/Fish Oil) 1 Each Capsule 1,000 Each PO Vitamin D (Cholecalciferol (Vitamin D3)) 1,000 Unit Capsule 1,000 Unit PO Ascorbic Acid 500 Mg Tablet 500 Mg PO Lovastatin 20 Mg Tablet 20 Mg PO HS Lasix (Furosemide) 40 Mg Tablet 40 Mg PO BID Losartan Potassium 50 Mg Tablet 50 Mg PO DAILY Allergies Allergies: Coded Allergies: No Known Drug Allergies (Unverified , 10/26/15) ROS General: No: Chills, Night Sweats, Fatigue, Malaise, Appetite PSYCHOLOGICAL ROS: No: Anxiety, Behavioral Disorder, Concentration difficultie , Decreased libido, Depression, Disorientation, Hallucinations, Hostility, Irritablity, Memory difficulties, Mood Swings, Obsessive thoughts, Physical abuse, Sexual abuse, Sleep disturbances, Suicidal ideation Eyes: No Blurry vision, No Decreased vision, No Double vision, No Dry eyes, No Excessive tearing, No Eye Pain, No Itchy Eyes, No Loss of vision, No Photophobia , No Scotomata, No Uses contacts, No Uses glasses HEENT: No: Heacaches, Visual Changes, Hearing change, Nasal congestion, Nasal discharge, Oral lesions, Sinus pain, Sore Throat, Epistaxis, Sneezing, Snoring, Tinnitus, Vertigo, Vocal changes ALLERGY AND IMMUNOLOGY: No: Hives, Insect Bite Sensitivity, Itchy/Watery Eyes, Nasal Congestion, Post Nasal Drip, Seasonal Allergies Hematological and Lymphatic: No: Bleeding Problems, Blood Clots, Blood Transfusions, Brusing, Night Sweats, Pallor, Swollen Lymph Nodes ENDOCRINE: No: Breast Changes, Galactorrhea, Hair Pattern Changes, Hot Flashes , Malaise/lethargy, Mood Swings, Palpitations, Polydipsia/polyuria, Skin Changes , Temperature Intolerance, Unexpected Weight Changes Respiratory: YES: Shortness of breath, No: Cough, Hemoptysis, Orthopnea, Pleuritic Pain, SOB with excertion, Sputum Changes, Stridor, Tachypnea, Wheezing Cardiovascular: yes Chest Pain, No Palpitations, No Orthopnea, No Paroxysmal Noc. Dyspnea, No Edema, No Lt Headedness Gastrointestinal: No Nausea, No Vomiting, No Abdominal Pain, No Diarrhea, No Constipation, No Melena, No Hematochezia Genitourinary: No Dysuria, No Frequency, No Incontinence, No Hematuria, No Retention, No Discharge, No Urgency, No Pain, No Flank Pain Musculoskeletal: No Gait Disturbance, No Joint Pain, No Joint Stiffness, No Joint Swelling, No Muscle Pain, No Muscular Weakness, No Pain In:, No Swelling In: Neurological: No Behavorial Changes, No Bowel/Bladder ControlChng, No Confusion , No Dizziness, No Gait Disturbance, No Headaches, No Impaired Coord/balance, No Memory Loss, No Numbness/Tingling, No Seizures, No Speech Problems, No Tremors, No Visual Changes, No Weakness Skin: No Dry Skin, No Eczema, No Hair Changes, No Lumps, No Mole Changes, No Mottling, No Nail Changes, No Pruritus, No Rash, No Skin Lesion Changes, No Acne Physical Exam General: Alert, Oriented X3, No acute distress HEENT: Atraumatic, PERRLA Lungs: Clear to auscultation Heart: Regular rate, Normal S1, Normal S2 Abdomen: Soft, No tenderness Skin: No significant lesion Neuro: Normal gait, Normal speech, Strength at 5/5 X4 ext, Normal tone, Sensation intact, Cranial nerves 3-12 NL Psych/Mental Status: Mental status NL MUSCULOSKELETAL: No deformity Vitals VITALS Vital Signs Date Time Temp Pulse Resp B/P (MAP) Pulse Ox O2 Delivery O2 Flow Rate FiO2 12/18/16 14:00 100 21 134/54 (80) 95 5.0 12/18/16 13:00 98.6 Nasal Cannula 98.6 Labs Labs Laboratory Tests Test 12/17/16 20:15 12/17/16 20:29 12/18/16 04:49 12/18/16 09:53 White Blood Count 9.8 x10^3/uL (4.0-11.0) 9.9 x10^3/uL (4.0-11.0) Red Blood Count 4.68 x10^6/uL (4.30-5.70) 4.32 x10^6/uL (4.30-5.70) Hemoglobin 14.1 g/dL (13.0-17.5) 12.8 g/dL (13.0-17.5) Hematocrit 42.4 % (39.0-53.0) 38.8 % (39.0-53.0) Mean Corpuscular Volume 91 fL (79-100) 90 fL (79-100) Mean Corpuscular Hemoglobin 30 pg (25-35) 30 pg (25-35) Mean Corpuscular Hemoglobin Concent 33 g/dL (31-37) 33 g/dL (31-37) Red Cell Distribution Width 14.9 % (11.5-14.5) 14.1 % (11.5-14.5) Platelet Count 266 x10^3/uL (140-400) 265 x10^3/uL (140-400) Neutrophils (%) (Auto) 71 % (31-73) 89 % (31-73) Lymphocytes (%) (Auto) 18 % (24-48) 7 % (24-48) Monocytes (%) (Auto) 8 % (0-9) 4 % (0-9) Eosinophils (%) (Auto) 2 % (0-3) 0 % (0-3) Basophils (%) (Auto) 1 % (0-3) 0 % (0-3) Neutrophils # (Auto) 7.0 x10^3uL (1.8-7.7) 8.8 x10^3uL (1.8-7.7) Lymphocytes # (Auto) 1.8 x10^3/uL (1.0-4.8) 0.7 x10^3/uL (1.0-4.8) Monocytes # (Auto) 0.8 x10^3/uL (0.0-1.1) 0.4 x10^3/uL (0.0-1.1) Eosinophils # (Auto) 0.1 x10^3/uL (0.0-0.7) 0.0 x10^3/uL (0.0-0.7) Basophils # (Auto) 0.1 x10^3/uL (0.0-0.2) 0.0 x10^3/uL (0.0-0.2) Sodium Level 139 mmol/L (136-145) 139 mmol/L (136-145) Potassium Level 4.0 mmol/L (3.5-5.1) 5.0 mmol/L (3.5-5.1) Chloride Level 102 mmol/L (98-107) 104 mmol/L (98-107) Carbon Dioxide Level 27 mmol/L (21-32) 23 mmol/L (21-32) Anion Gap 10 (6-14) 12 (6-14) Blood Urea Nitrogen 40 mg/dL (8-26) 37 mg/dL (8-26) Creatinine 2.4 mg/dL (0.7-1.3) 2.1 mg/dL (0.7-1.3) Estimated GFR (Cockcroft-Gault) 26.5 30.9 BUN/Creatinine Ratio 17 (6-20) 18 (6-20) Glucose Level 287 mg/dL (70-99) 290 mg/dL (70-99) Calcium Level 8.9 mg/dL (8.5-10.1) 8.5 mg/dL (8.5-10.1) Magnesium Level 2.4 mg/dL (1.8-2.4) 2.6 mg/dL (1.8-2.4) Total Bilirubin 0.3 mg/dL (0.2-1.0) 0.4 mg/dL (0.2-1.0) Aspartate Amino Transf (AST/SGOT) 31 U/L (15-37) 180 U/L (15-37) Alanine Aminotransferase (ALT/SGPT) 27 U/L (16-63) 43 U/L (16-63) Alkaline Phosphatase 84 U/L (46-116) 77 U/L (46-116) Creatine Kinase 117 U/L (39-308) Creatine Kinase MB (Mass) 2.7 ng/mL (0.0-3.6) Creatine Kinase MB Relative Index 2.4 % (0-4) Troponin I Quantitative 1.333 ng/mL (0.000-0.055) 53.207 ng/mL (0.000-0.055) SW-Fos-E-Type Natriuretic Peptide 1061 pg/mL (0-449) Total Protein 8.4 g/dL (6.4-8.2) 7.2 g/dL (6.4-8.2) Albumin 3.6 g/dL (3.4-5.0) 3.4 g/dL (3.4-5.0) Albumin/Globulin Ratio 0.8 (1.0-1.7) 0.9 (1.0-1.7) Lipase 95 U/L (73-393) Bedside Troponin I 0.94 ng/ml (<0.08) Segmented Neutrophils % 79 % (35-66) Band Neutrophils % 10 % (0-9) Lymphocytes % 8 % (24-48) Monocytes % 3 % (0-10) Platelet Estimate Adequate (ADEQUATE) Heparin Anti-Xa Act, Unfractionated < 0.10 IU/mL (0.30-0.70) Triglycerides Level 142 mg/dL (0-150) Cholesterol Level 147 mg/dL (0-200) LDL Cholesterol, Calculated 83 mg/dL (0-100) VLDL Cholesterol, Calculated 28 mg/dL (0-40) Non-HDL Cholesterol Calculated 111 mg/dL (0-129) HDL Cholesterol 36 mg/dL (40-60) Cholesterol/HDL Ratio 4.1 Glucose (Fingerstick) 297 mg/dL (70-99) Test 12/18/16 11:27 12/18/16 12:15 Glucose (Fingerstick) 282 mg/dL (70-99) Heparin Anti-Xa Act, Unfractionated 0.40 IU/mL (0.30-0.70) Laboratory Tests Test 12/17/16 20:15 12/17/16 20:29 12/18/16 04:49 12/18/16 09:53 White Blood Count 9.8 x10^3/uL (4.0-11.0) 9.9 x10^3/uL (4.0-11.0) Red Blood Count 4.68 x10^6/uL (4.30-5.70) 4.32 x10^6/uL (4.30-5.70) Hemoglobin 14.1 g/dL (13.0-17.5) 12.8 g/dL (13.0-17.5) Hematocrit 42.4 % (39.0-53.0) 38.8 % (39.0-53.0) Mean Corpuscular Volume 91 fL (79-100) 90 fL (79-100) Mean Corpuscular Hemoglobin 30 pg (25-35) 30 pg (25-35) Mean Corpuscular Hemoglobin Concent 33 g/dL (31-37) 33 g/dL (31-37) Red Cell Distribution Width 14.9 % (11.5-14.5) 14.1 % (11.5-14.5) Platelet Count 266 x10^3/uL (140-400) 265 x10^3/uL (140-400) Neutrophils (%) (Auto) 71 % (31-73) 89 % (31-73) Lymphocytes (%) (Auto) 18 % (24-48) 7 % (24-48) Monocytes (%) (Auto) 8 % (0-9) 4 % (0-9) Eosinophils (%) (Auto) 2 % (0-3) 0 % (0-3) Basophils (%) (Auto) 1 % (0-3) 0 % (0-3) Neutrophils # (Auto) 7.0 x10^3uL (1.8-7.7) 8.8 x10^3uL (1.8-7.7) Lymphocytes # (Auto) 1.8 x10^3/uL (1.0-4.8) 0.7 x10^3/uL (1.0-4.8) Monocytes # (Auto) 0.8 x10^3/uL (0.0-1.1) 0.4 x10^3/uL (0.0-1.1) Eosinophils # (Auto) 0.1 x10^3/uL (0.0-0.7) 0.0 x10^3/uL (0.0-0.7) Basophils # (Auto) 0.1 x10^3/uL (0.0-0.2) 0.0 x10^3/uL (0.0-0.2) Sodium Level 139 mmol/L (136-145) 139 mmol/L (136-145) Potassium Level 4.0 mmol/L (3.5-5.1) 5.0 mmol/L (3.5-5.1) Chloride Level 102 mmol/L (98-107) 104 mmol/L (98-107) Carbon Dioxide Level 27 mmol/L (21-32) 23 mmol/L (21-32) Anion Gap 10 (6-14) 12 (6-14) Blood Urea Nitrogen 40 mg/dL (8-26) 37 mg/dL (8-26) Creatinine 2.4 mg/dL (0.7-1.3) 2.1 mg/dL (0.7-1.3) Estimated GFR (Cockcroft-Gault) 26.5 30.9 BUN/Creatinine Ratio 17 (6-20) 18 (6-20) Glucose Level 287 mg/dL (70-99) 290 mg/dL (70-99) Calcium Level 8.9 mg/dL (8.5-10.1) 8.5 mg/dL (8.5-10.1) Magnesium Level 2.4 mg/dL (1.8-2.4) 2.6 mg/dL (1.8-2.4) Total Bilirubin 0.3 mg/dL (0.2-1.0) 0.4 mg/dL (0.2-1.0) Aspartate Amino Transf (AST/SGOT) 31 U/L (15-37) 180 U/L (15-37) Alanine Aminotransferase (ALT/SGPT) 27 U/L (16-63) 43 U/L (16-63) Alkaline Phosphatase 84 U/L (46-116) 77 U/L (46-116) Creatine Kinase 117 U/L (39-308) Creatine Kinase MB (Mass) 2.7 ng/mL (0.0-3.6) Creatine Kinase MB Relative Index 2.4 % (0-4) Troponin I Quantitative 1.333 ng/mL (0.000-0.055) 53.207 ng/mL (0.000-0.055) HO-Ruz-Y-Type Natriuretic Peptide 1061 pg/mL (0-449) Total Protein 8.4 g/dL (6.4-8.2) 7.2 g/dL (6.4-8.2) Albumin 3.6 g/dL (3.4-5.0) 3.4 g/dL (3.4-5.0) Albumin/Globulin Ratio 0.8 (1.0-1.7) 0.9 (1.0-1.7) Lipase 95 U/L (73-393) Bedside Troponin I 0.94 ng/ml (<0.08) Segmented Neutrophils % 79 % (35-66) Band Neutrophils % 10 % (0-9) Lymphocytes % 8 % (24-48) Monocytes % 3 % (0-10) Platelet Estimate Adequate (ADEQUATE) Heparin Anti-Xa Act, Unfractionated < 0.10 IU/mL (0.30-0.70) Triglycerides Level 142 mg/dL (0-150) Cholesterol Level 147 mg/dL (0-200) LDL Cholesterol, Calculated 83 mg/dL (0-100) VLDL Cholesterol, Calculated 28 mg/dL (0-40) Non-HDL Cholesterol Calculated 111 mg/dL (0-129) HDL Cholesterol 36 mg/dL (40-60) Cholesterol/HDL Ratio 4.1 Glucose (Fingerstick) 297 mg/dL (70-99) Test 12/18/16 11:27 12/18/16 12:15 Glucose (Fingerstick) 282 mg/dL (70-99) Heparin Anti-Xa Act, Unfractionated 0.40 IU/mL (0.30-0.70) Images Images Cath results. LAD. Proximal lesion 80%, mid distal lesion of 80%, distal lesion of 90%, D1 lesion of 90%. LCX. Proximal lesion of 30%. Smaller vessel disease of OM1 of 85%, mid LCX lesion of 90%. RCA. Proximal lesion of greater than 90%, mid lesion of 85%, more distal lesion of greater than 90%. LVEDP of 25 mmHg. Creatine of 2.4. Assessment/Plan Assessment/Plan 76 year old male, admitted with NSTEMI. In June 2016 he underwent 4 stents in the RCA, proximal stent in the LAD and a PTCA in the distal LAD. His troponin this morning peaked at 53. He underwent coronary angiography which demonstrated that all his stents were occluded. He is a diffusely diseased RCA with a dual system RPDA, diffuse disease in the left circumflex with a possible obtuse marginal targets, a proximal mid and distal LAD stenosis, with a diffusely calcified high diagonal. His LV function is preserved. He received Plavix today. He is hypoxic with sats in the low 90s with 6 L nasal cannula. His chronic kidney disease with a baseline creatinine of 2.2. The patient does not have great targets. His vessels are diffusely calcified. His LAD has 3 lesions at 3 different levels. Unfortunately though, he does not have any other options apart from surgical coronary revascularization. I will plan to place the WILKERSON to the mid LAD, saphenous vein graft to an obtuse marginal and possible sequential to the diagonal, if calcifications allow for an anastomosis, and another vein graft to the RPDA. The patient received Plavix today, and we will need to wait at least 5 days before proceeding with surgery. Would recommend PTCA to the RCA, which is the culprit vessel, but a postprocedural Integrilin, as a temporizing measure. This should help with his chest pain and allow us time for the Plavix to wear off, to treat his congestive heart failure and improve pulmonary opacity and allow his myocardium to settle after this insult. Plan for CABG next Sunday, December 25, 2016. No plavix ASA OK Heparin or Integrilin OK No KEYA inhibitor Follow Troponin until down trends Non contrast CT chest Carotid duplex Vein mapping QUOC DILL MD Dec 18, 2016 14:26
[2016-12-18] MEDS: IV NORMAL SALINE 1000ML BAG 1,000 ML IV SCH (17:54)
[2016-12-18] MEDS: HEPARIN 25,000UTS/500ML PREMIX 500 ML IV PRN (17:59)
[2016-12-18] MEDS ORDERED: NON FORMULARY ITEM (Lovastatin 20 MG) PO SCH (21:00)
[2016-12-18] MEDS: ATORVASTATIN CALCIUM 20 MG TABLET PO SCH (21:13)
[2016-12-18] MEDS: INSULIN DETEMIR 300 UNITS/3 ML INSULN.PEN. SQ SCH (21:15)
[2016-12-19] VITALS (24 sets, daily range): BP systolic 11–160; BP diastolic 40–70
[2016-12-19] MEDS: NITROGLYCERIN PREMIX 250 ML IV PRN (01:14)
[2016-12-19 06:31] LABS: BASO % 0 % (0-3); EOS % 0 % (0-3); HEMATOCRIT 38.6 % (39.0-53.0); HEMOGLOBIN 12.6 g/dL (13.0-17.5); LYMPH # 1.1 x10^3/uL (1.0-4.8); LYMPH % 8 % (24-48); MEAN CORPUSCULAR HEMOGLOBIN 30 pg (25-35); MEAN CORPUSCULAR HGB CONC 33 g/dL (31-37); MEAN CORPUSCULAR VOLUME 91 fL (79-100); MONO % 6 % (0-9); NEUT % 85 % (31-73); PLATELET COUNT 243 x10^3/uL (140-400); RED BLOOD COUNT 4.25 x10^6/uL (4.30-5.70); RED CELL DISTRIBUTION WIDTH 14.3 % (11.5-14.5); WHITE BLOOD COUNT 12.8 x10^3/uL (4.0-11.0)
[2016-12-19 07:03] LABS: CALCIUM 8.5 mg/dL (8.5-10.1); GFR 32.6; MAGNESIUM 2.6 mg/dL (1.8-2.4); POTASSIUM 4.7 mmol/L (3.5-5.1)
[2016-12-19] MEDS: INSULIN ASPART 300 UNITS/3 ML INSULN.PEN SQ SCH ×7 (07:30→20:55)
[2016-12-19] MEDS: IV NORMAL SALINE 1000ML BAG 1,000 ML IV SCH ×2 (07:43→20:39)
[2016-12-19] MEDS: ASCORBIC ACID 500 MG TABLET PO SCH (08:25)
[2016-12-19] MEDS: ASPIRIN ENTERIC COATED 81 MG TABLET.DR. PO SCH (08:25)
[2016-12-19] MEDS: METOPROLOL TART IMMED RELEASE 25 MG TABLET. PO SCH ×2 (08:26→20:39)
[2016-12-19] MEDS: TAMSULOSIN 0.4 MG CAP.ER.24H. PO SCH (08:26)
[2016-12-19] MEDS: FINASTERIDE 5 MG TABLET. PO SCH (08:26)
[2016-12-19] MEDS: LOSARTAN POTASSIUM 50 MG TABLET. PO SCH (08:26)
--- NOTE | 2016-12-19 08:44 | CARD ---
APPROVED REPORT Procedures Left heart catheterization Selective coronary angiogram The patient is a 76-year-old male who had multiple stents placed approximately 6 months ago including 3 stents to the right coronary artery and 1 stent to the proximal LAD. [facility]4 days of chest pain. EKG showed ST segment changes. The patient was treated with a spirin and heparin. Emergency catheterization was recommended. Risks and benefits were discussed. The patient agreed to proceed. After informed consent was obtained the patient was brought to the catheterization lab. The area of t he right femoral artery was prepared usual manner with Betadine, sterile draping and local anesthetic . An 18-gauge needle was used to enter the right femoral artery, a wire placed and a 6 Congolese sheath placed over the wire. A diagnostic 6 Congolese JR4 catheter was advanced to the ascending aorta. It was used for an injection of the right coronary artery. A 6 Congolese JL4 diagnostic catheter was then advan navarro into ascending aorta. It was used for sequential injections in the left coronary artery system. F ollowing this an AR-1 diagnostic catheter was used for an additional injection of the right coronary artery. A pigtail catheter was advanced into ascending aorta and the left ventricle. Pressures were o btained. Pullback pressures were measured. The catheter was removed from the patient. The sheath was sutured into place with the patient remaining on heparin. By the end of the procedure the patient's p ain has decreased to 1 out of 10. Rhythm remained stable. Initial systolic blood pressure of greater than 200 was controlled with IV heparin with a final pressure of 140. Findings. Hemodynamics. Initial systolic pressure of 204 mmHg. Posttreatment LV pressure of 140/24, aortic root pressure 138/86. Coronaries. Left main. The left main had mild distal disease of less than 10%. Left anterior descending. The LAD had a proximal 80% lesion, a mid 80% lesion and mid to distal 90% l esion. The first diagonal vessel had a 90% lesion. Left circumflex. The left circumflex circumflex had a proximal 30-40% lesion. The more distal vessel was relatively small with an obtuse marginal one lesion of 85% and a mid to distal left circumflex le [place] of 85%. Right coronary artery. The right coronary artery was a moderate size vessel. It had diffuse disease t hroughout the previous placed stents including a proximal greater than 90% lesion, a mid 85% lesion a nd a mid to distal greater than 90% lesion. <Conclusion> Severe three-vessel coronary disease with aggressive restenosis within all the patient's previously p laced stents. Accelerated hypertension at the beginning of the case which was controlled with IV nitroglycerin. CV surgery evaluation.
[2016-12-19] MEDS: HEPARIN 25,000UTS/500ML PREMIX 500 ML IV PRN ×2 (10:04→23:19)
--- NOTE | 2016-12-19 11:13 | PDOC ---
PROGRESS NOTES Subjective Subjective Patient feeling better. CTS eval seen and appreciated. Patient needs to wait for anticoagulation to dissipate prior to surgery. Plan for CABG 12/25. Patient c/o constipation. Objective Objective Vital Signs Date Time Temp Pulse Resp B/P (MAP) Pulse Ox O2 Delivery O2 Flow Rate FiO2 12/19/16 10:20 90 21 100/46 (64) 89 Room Air 12/19/16 08:00 97.0 97.0 12/19/16 07:00 6.0 Intake and Output 12/20/16 07:00 Intake Total 1046 ml Output Total 250 ml Balance 796 ml Intake Oral 320 ml IV Total 726 ml Output Urine Total 250 ml Physical Exam Abdomen: Normal bowel sounds Heart: Regular rate Extremities: No edema General: Alert Lungs: Clear to auscultation Assessment Assessment Problems Medical Problems: (1) Acute NC, inferior wall, initial episode of care Status: Acute (2) Kidney disease Status: Acute 1. Acute ST changes of myocardial infarction. 2. Severe 3-vessel coronary artery disease. 3. Type 2 diabetes. 4. Hypertension. 5. Chronic kidney disease Plan Plan of Care CABG 12/25 Add stool softeners Start PT/OT Continue heparin and nitro Comment Review of Relevant I have reviewed the following items tereso (where applicable) has been applied. Labs Laboratory Tests Test 12/17/16 20:15 12/17/16 20:29 12/17/16 21:27 12/17/16 22:38 White Blood Count 9.8 x10^3/uL (4.0-11.0) Red Blood Count 4.68 x10^6/uL (4.30-5.70) Hemoglobin 14.1 g/dL (13.0-17.5) Hematocrit 42.4 % (39.0-53.0) Mean Corpuscular Volume 91 fL (79-100) Mean Corpuscular Hemoglobin 30 pg (25-35) Mean Corpuscular Hemoglobin Concent 33 g/dL (31-37) Red Cell Distribution Width 14.9 % (11.5-14.5) Platelet Count 266 x10^3/uL (140-400) Neutrophils (%) (Auto) 71 % (31-73) Lymphocytes (%) (Auto) 18 % (24-48) Monocytes (%) (Auto) 8 % (0-9) Eosinophils (%) (Auto) 2 % (0-3) Basophils (%) (Auto) 1 % (0-3) Neutrophils # (Auto) 7.0 x10^3uL (1.8-7.7) Lymphocytes # (Auto) 1.8 x10^3/uL (1.0-4.8) Monocytes # (Auto) 0.8 x10^3/uL (0.0-1.1) Eosinophils # (Auto) 0.1 x10^3/uL (0.0-0.7) Basophils # (Auto) 0.1 x10^3/uL (0.0-0.2) Sodium Level 139 mmol/L (136-145) Potassium Level 4.0 mmol/L (3.5-5.1) Chloride Level 102 mmol/L (98-107) Carbon Dioxide Level 27 mmol/L (21-32) Anion Gap 10 (6-14) Blood Urea Nitrogen 40 mg/dL (8-26) Creatinine 2.4 mg/dL (0.7-1.3) Estimated GFR (Cockcroft-Gault) 26.5 BUN/Creatinine Ratio 17 (6-20) Glucose Level 287 mg/dL (70-99) Calcium Level 8.9 mg/dL (8.5-10.1) Magnesium Level 2.4 mg/dL (1.8-2.4) Total Bilirubin 0.3 mg/dL (0.2-1.0) Aspartate Amino Transf (AST/SGOT) 31 U/L (15-37) Alanine Aminotransferase (ALT/SGPT) 27 U/L (16-63) Alkaline Phosphatase 84 U/L (46-116) Creatine Kinase 117 U/L (39-308) Creatine Kinase MB (Mass) 2.7 ng/mL (0.0-3.6) Creatine Kinase MB Relative Index 2.4 % (0-4) Troponin I Quantitative 1.333 ng/mL (0.000-0.055) OI-Vio-L-Type Natriuretic Peptide 1061 pg/mL (0-449) Total Protein 8.4 g/dL (6.4-8.2) Albumin 3.6 g/dL (3.4-5.0) Albumin/Globulin Ratio 0.8 (1.0-1.7) Lipase 95 U/L (73-393) Bedside Troponin I 0.94 ng/ml (<0.08) Activated Clotting Time 192 sec (92-181) Nasal Screen MRSA (PCR) Negative (Negative) Test 12/18/16 04:49 12/18/16 09:53 12/18/16 11:27 12/18/16 12:15 White Blood Count 9.9 x10^3/uL (4.0-11.0) Red Blood Count 4.32 x10^6/uL (4.30-5.70) Hemoglobin 12.8 g/dL (13.0-17.5) Hematocrit 38.8 % (39.0-53.0) Mean Corpuscular Volume 90 fL (79-100) Mean Corpuscular Hemoglobin 30 pg (25-35) Mean Corpuscular Hemoglobin Concent 33 g/dL (31-37) Red Cell Distribution Width 14.1 % (11.5-14.5) Platelet Count 265 x10^3/uL (140-400) Neutrophils (%) (Auto) 89 % (31-73) Lymphocytes (%) (Auto) 7 % (24-48) Monocytes (%) (Auto) 4 % (0-9) Eosinophils (%) (Auto) 0 % (0-3) Basophils (%) (Auto) 0 % (0-3) Neutrophils # (Auto) 8.8 x10^3uL (1.8-7.7) Lymphocytes # (Auto) 0.7 x10^3/uL (1.0-4.8) Monocytes # (Auto) 0.4 x10^3/uL (0.0-1.1) Eosinophils # (Auto) 0.0 x10^3/uL (0.0-0.7) Basophils # (Auto) 0.0 x10^3/uL (0.0-0.2) Segmented Neutrophils % 79 % (35-66) Band Neutrophils % 10 % (0-9) Lymphocytes % 8 % (24-48) Monocytes % 3 % (0-10) Platelet Estimate Adequate (ADEQUATE) Heparin Anti-Xa Act, Unfractionated < 0.10 IU/mL (0.30-0.70) 0.40 IU/mL (0.30-0.70) Sodium Level 139 mmol/L (136-145) Potassium Level 5.0 mmol/L (3.5-5.1) Chloride Level 104 mmol/L (98-107) Carbon Dioxide Level 23 mmol/L (21-32) Anion Gap 12 (6-14) Blood Urea Nitrogen 37 mg/dL (8-26) Creatinine 2.1 mg/dL (0.7-1.3) Estimated GFR (Cockcroft-Gault) 30.9 BUN/Creatinine Ratio 18 (6-20) Glucose Level 290 mg/dL (70-99) Calcium Level 8.5 mg/dL (8.5-10.1) Magnesium Level 2.6 mg/dL (1.8-2.4) Total Bilirubin 0.4 mg/dL (0.2-1.0) Aspartate Amino Transf (AST/SGOT) 180 U/L (15-37) Alanine Aminotransferase (ALT/SGPT) 43 U/L (16-63) Alkaline Phosphatase 77 U/L (46-116) Troponin I Quantitative 53.207 ng/mL (0.000-0.055) Total Protein 7.2 g/dL (6.4-8.2) Albumin 3.4 g/dL (3.4-5.0) Albumin/Globulin Ratio 0.9 (1.0-1.7) Triglycerides Level 142 mg/dL (0-150) Cholesterol Level 147 mg/dL (0-200) LDL Cholesterol, Calculated 83 mg/dL (0-100) VLDL Cholesterol, Calculated 28 mg/dL (0-40) Non-HDL Cholesterol Calculated 111 mg/dL (0-129) HDL Cholesterol 36 mg/dL (40-60) Cholesterol/HDL Ratio 4.1 Glucose (Fingerstick) 297 mg/dL (70-99) 282 mg/dL (70-99) Test 12/18/16 15:07 12/18/16 18:07 12/18/16 21:12 12/18/16 22:35 Activated Clotting Time 168 sec (92-181) Glucose (Fingerstick) 236 mg/dL (70-99) 202 mg/dL (70-99) Heparin Anti-Xa Act, Unfractionated 0.13 IU/mL (0.30-0.70) Test 12/19/16 06:15 12/19/16 08:10 White Blood Count 12.8 x10^3/uL (4.0-11.0) Red Blood Count 4.25 x10^6/uL (4.30-5.70) Hemoglobin 12.6 g/dL (13.0-17.5) Hematocrit 38.6 % (39.0-53.0) Mean Corpuscular Volume 91 fL (79-100) Mean Corpuscular Hemoglobin 30 pg (25-35) Mean Corpuscular Hemoglobin Concent 33 g/dL (31-37) Red Cell Distribution Width 14.3 % (11.5-14.5) Platelet Count 243 x10^3/uL (140-400) Neutrophils (%) (Auto) 85 % (31-73) Lymphocytes (%) (Auto) 8 % (24-48) Monocytes (%) (Auto) 6 % (0-9) Eosinophils (%) (Auto) 0 % (0-3) Basophils (%) (Auto) 0 % (0-3) Neutrophils # (Auto) 10.8 x10^3uL (1.8-7.7) Lymphocytes # (Auto) 1.1 x10^3/uL (1.0-4.8) Monocytes # (Auto) 0.8 x10^3/uL (0.0-1.1) Eosinophils # (Auto) 0.0 x10^3/uL (0.0-0.7) Basophils # (Auto) 0.0 x10^3/uL (0.0-0.2) Heparin Anti-Xa Act, Unfractionated 0.45 IU/mL (0.30-0.70) Sodium Level 141 mmol/L (136-145) Potassium Level 4.7 mmol/L (3.5-5.1) Chloride Level 105 mmol/L (98-107) Carbon Dioxide Level 25 mmol/L (21-32) Anion Gap 11 (6-14) Blood Urea Nitrogen 32 mg/dL (8-26) Creatinine 2.0 mg/dL (0.7-1.3) Estimated GFR (Cockcroft-Gault) 32.6 Glucose Level 202 mg/dL (70-99) Calcium Level 8.5 mg/dL (8.5-10.1) Magnesium Level 2.6 mg/dL (1.8-2.4) Glucose (Fingerstick) 183 mg/dL (70-99) Laboratory Tests Test 12/18/16 11:27 12/18/16 12:15 12/18/16 15:07 12/18/16 18:07 Glucose (Fingerstick) 282 mg/dL (70-99) 236 mg/dL (70-99) Heparin Anti-Xa Act, Unfractionated 0.40 IU/mL (0.30-0.70) Activated Clotting Time 168 sec (92-181) Test 12/18/16 21:12 12/18/16 22:35 12/19/16 06:15 12/19/16 08:10 Glucose (Fingerstick) 202 mg/dL (70-99) 183 mg/dL (70-99) Heparin Anti-Xa Act, Unfractionated 0.13 IU/mL (0.30-0.70) 0.45 IU/mL (0.30-0.70) White Blood Count 12.8 x10^3/uL (4.0-11.0) Red Blood Count 4.25 x10^6/uL (4.30-5.70) Hemoglobin 12.6 g/dL (13.0-17.5) Hematocrit 38.6 % (39.0-53.0) Mean Corpuscular Volume 91 fL (79-100) Mean Corpuscular Hemoglobin 30 pg (25-35) Mean Corpuscular Hemoglobin Concent 33 g/dL (31-37) Red Cell Distribution Width 14.3 % (11.5-14.5) Platelet Count 243 x10^3/uL (140-400) Neutrophils (%) (Auto) 85 % (31-73) Lymphocytes (%) (Auto) 8 % (24-48) Monocytes (%) (Auto) 6 % (0-9) Eosinophils (%) (Auto) 0 % (0-3) Basophils (%) (Auto) 0 % (0-3) Neutrophils # (Auto) 10.8 x10^3uL (1.8-7.7) Lymphocytes # (Auto) 1.1 x10^3/uL (1.0-4.8) Monocytes # (Auto) 0.8 x10^3/uL (0.0-1.1) Eosinophils # (Auto) 0.0 x10^3/uL (0.0-0.7) Basophils # (Auto) 0.0 x10^3/uL (0.0-0.2) Sodium Level 141 mmol/L (136-145) Potassium Level 4.7 mmol/L (3.5-5.1) Chloride Level 105 mmol/L (98-107) Carbon Dioxide Level 25 mmol/L (21-32) Anion Gap 11 (6-14) Blood Urea Nitrogen 32 mg/dL (8-26) Creatinine 2.0 mg/dL (0.7-1.3) Estimated GFR (Cockcroft-Gault) 32.6 Glucose Level 202 mg/dL (70-99) Calcium Level 8.5 mg/dL (8.5-10.1) Magnesium Level 2.6 mg/dL (1.8-2.4) Medications Current Medications Aspirin (Children'S Aspirin) 324 mg 1X ONCE PO Last administered on 20:23; Start 12/17/16 at 20:45; Stop 12/17/16 at 20:46; Status DC Heparin Sodium (Porcine) (Heparin Sodium) 4,000 unit 1X ONCE IV Last administered on 12/17/16 20:24; Start 12/17/16 at 20:30; Stop 12/17/16 at 20 :31; Status DC Fentanyl Citrate (Fentanyl 2ml Vial) 100 mcg STK-MED ONCE .ROUTE ; Start at 20:39; Stop 12/17/16 at 20:40; Status DC Midazolam HCl (Versed) 2 mg STK-MED ONCE .ROUTE ; Start 12/17/16 at 20:39; Stop 12/17/16 at 20:40; Status DC Heparin Sodium (Porcine) (Heparin Sodium) 10,000 unit STK-MED ONCE .ROUTE ; Start 12/17/16 at 20:39; Stop 12/17/16 at 20:40; Status DC Tirofiban/Sodium Chloride 0 ml @ As Directed STK-MED ONCE IV ; Start 12/17/16 at 20:39; Stop 12/17/16 at 20:40; Status DC Dopamine HCl/ Dextrose 0 ml @ As Directed STK-MED ONCE IV ; Start 12/17/16 at 20:40; Stop 12/17/16 at 20:41; Status DC Lidocaine HCl 20 ml STK-MED ONCE .ROUTE ; Start 12/17/16 at 20:47; Stop at 20:48; Status DC Iohexol (Omnipaque 350 Mg/ml) 100 ml STK-MED ONCE .ROUTE ; Start 12/17/16 at 20 :47; Stop 12/17/16 at 20:48; Status DC Heparin Sodium/ Sodium Chloride 1,000 ml @ As Directed STK-MED ONCE .ROUTE ; Start 12/17/16 at 20:48; Stop 12/17/16 at 20:49; Status DC Morphine Sulfate 2 mg 1X ONCE IV ; Start 12/17/16 at 21:15; Stop 12/17/16 at 21:16; Status DC Ondansetron HCl (Zofran) 4 mg 1X ONCE IV ; Start 12/17/16 at 21:15; Stop at 21:16; Status DC Nitroglycerin/ Dextrose 250 ml @ As Directed STK-MED ONCE IV ; Start 12/17/16 at 21:01; Stop 12/17/16 at 21:02; Status DC Heparin Sodium/ Sodium Chloride 1,000 unit 1X ONCE IART ; Start 12/17/16 at 21 :15; Stop 12/17/16 at 21:19; Status DC Midazolam HCl (Versed) 1 mg 1X ONCE IV Last administered on 12/17/16 21:15; Start 12/17/16 at 21:15; Stop 12/17/16 at 21:19; Status DC Fentanyl Citrate (Fentanyl 2ml Vial) 25 mcg 1X ONCE IV Last administered on 21:15; Start 12/17/16 at 21:15; Stop 12/17/16 at 21:19; Status DC Iodixanol (Visipaque 320) 100 ml 1X ONCE IART Last administered on 12/17/16 21:15; Start 12/17/16 at 21:15; Stop 12/17/16 at 21:19; Status DC Lidocaine HCl 20 ml 1X ONCE IJ Last administered on 12/17/16 21:15; Start 12/17/16 at 21:15; Stop 12/17/16 at 21:20; Status DC Nitroglycerin/ Dextrose 250 ml @ 0 mls/hr 1X ONCE IV Last administered on 21:06; Start 12/17/16 at 21:30; Stop 12/17/16 at 21:31; Status DC Heparin Sodium/ Sodium Chloride 500 ml @ As Directed STK-MED ONCE .ROUTE ; Start 12/17/16 at 21:21; Stop 12/17/16 at 21:22; Status DC Heparin Sodium/ Dextrose 500 ml @ As Directed STK-MED ONCE IV ; Start at 21:24; Stop 12/17/16 at 21:49; Status DC Heparin Sodium/ Dextrose 500 ml @ 0 mls/hr 1X ONCE IV ; Start 12/17/16 at 21: 30; Stop 12/17/16 at 21:31; Status DC Heparin Sodium (Porcine) (Heparin Sodium) 10,000 unit STK-MED ONCE .ROUTE ; Start 12/17/16 at 21:37; Stop 12/17/16 at 21:38; Status DC Heparin Sodium (Porcine) (Heparin Sodium) 1,500 unit 1X ONCE IV ; Start at 22:00; Stop 12/17/16 at 22:01; Status DC Heparin Sodium/ Dextrose 500 ml @ 0 mls/hr 1X ONCE IV ; Start 12/17/16 at 21: 45; Stop 12/17/16 at 21:46; Status UNV Heparin Sodium/ Dextrose 500 ml @ 0 mls/hr CONT PRN IV SEE I/O RECORD Last administered on 12/19/16 10:04; Start 12/17/16 at 21:45 Heparin Sodium (Porcine) (Heparin Sodium) 3,400 unit PRN Q6HRS PRN IV FOR UFH LEVEL LESS THAN 0.2 Last administered on 12/18/16 23:50; Start 12/17/16 at 21 :45 Sodium Chloride (Normal Saline Flush) 3 ml QSHIFT PRN IV AFTER MEDS AND BLOOD DRAWS; Start 12/17/16 at 22:30 Sodium Chloride 1,000 ml @ 60 mls/hr [id number] IV Last administered on 17:54; Start 12/17/16 at 22:23 Aspirin (Ecotrin) 81 mg DAILYWBKFT PO Last administered on 12/19/16 08:25; Start 12/18/16 at 08:00 Metoprolol Tartrate (Lopressor) 25 mg BID PO Last administered on 12/19/16 08 :26; Start 12/18/16 at 09:00 Losartan Potassium (Cozaar) 50 mg DAILY PO Last administered on 12/19/16 08: 26; Start 12/18/16 at 09:00 Atorvastatin Calcium (Lipitor) 20 mg QHS PO Last administered on 12/18/16 21: 13; Start 12/18/16 at 21:00 Acetaminophen (Tylenol) 650 mg PRN Q6HRS PRN PO MILD PAIN; Start 12/17/16 at 22:30 Fentanyl Citrate (Fentanyl 2ml Vial) 25 mcg PRN Q1HR PRN IV Moderate or severe pain Last administered on 12/18/16 10:05; Start 12/17/16 at 22:30; Stop at 11:50; Status DC Nitroglycerin (Nitrostat) 0.4 mg PRN Q5MIN PRN SL CHEST PAIN; Start 12/17/16 at 22:30 Ascorbic Acid (Vitamin C) 500 mg DAILY PO Last administered on 12/19/16 08:25 ; Start 12/18/16 at 09:00 Aspirin (Ecotrin) 81 mg DAILYWBKFT PO ; Start 12/18/16 at 08:00; Status UNV Clopidogrel Bisulfate (Plavix) 75 mg DAILYWBKFT PO Last administered on 07:49; Start 12/18/16 at 08:00; Stop 12/18/16 at 09:35; Status DC Finasteride (Proscar) 5 mg DAILY PO Last administered on 12/19/16 08:26; Start 12/18/16 at 09:00 Acetaminophen/ Hydrocodone Bitart (Lortab 5/325) 1 tab PRN Q4HRS PRN PO MODERATE PAIN; Start 12/17/16 at 22:45 Losartan Potassium (Cozaar) 50 mg DAILY PO ; Start 12/18/16 at 09:00; Status UNV Metoprolol Tartrate (Lopressor) 25 mg BID PO ; Start 12/18/16 at 09:00; Status UNV Tamsulosin HCl (Flomax) 0.4 mg DAILY PO Last administered on 12/19/16 08:26; Start 12/18/16 at 09:00 Insulin Detemir (Levemir) 40 units QHS SQ Last administered on 12/18/16 21:15 ; Start 12/18/16 at 21:00 Insulin Aspart (NovoLOG) 20 units TIDAC SQ Last administered on 12/19/16 08: 29; Start 12/18/16 at 07:30 Non-Formulary Medication 20 mg HS PO ; Start 12/18/16 at 21:00; Status UNV Insulin Aspart (NovoLOG) 0-12 UNITS QIDACHS SQ Last administered on 12/18/16 18:11; Start 12/18/16 at 07:30 Ondansetron HCl (Zofran) 4 mg 1X ONCE IV Last administered on 12/18/16 00:45 ; Start 12/18/16 at 00:45; Stop 12/18/16 at 00:51; Status DC Info (Do NOT chart on this placeholder) 1 each 1X ONCE MC ; Start 12/18/16 at 01:30; Stop 12/18/16 at 01:31; Status UNV Influenza Virus Vaccine Quadrival (Fluarix Quad 8931-4299 Syringe) 0.5 ml ONCE ONCE VAX IM ; Start 12/18/16 at 09:00; Stop 12/18/16 at 09:01; Status DC Bisacodyl (Dulcolax Supp) 10 mg 1X ONCE ID Last administered on 12/18/16 03: 41; Start 12/18/16 at 04:00; Stop 12/18/16 at 04:01; Status DC Ondansetron HCl (Zofran) 4 mg PRN Q6HRS PRN IV NAUSEA/VOMITING; Start at 03:30 Sodium Chloride 1,000 ml @ 75 mls/hr [id number] IV ; Start 12/18/16 at 09:45; Stop 12/19/16 at 08:14; Status DC Fentanyl Citrate (Fentanyl 2ml Vial) 50 mcg PRN Q2HR PRN IV PAIN; Start at 11:45 Nitroglycerin/ Dextrose 250 ml @ 0 mls/hr CONT PRN IV SEE I/O RECORD Last administered on 12/19/16 01:14; Start 12/19/16 at 00:00 Active Scripts Active Lantus (Insulin Glargine,Hum.rec.anlog) 100 Unit/1 Ml Vial 40 Unit SQ HS Humalog (Insulin Lispro) 100 Unit/1 Ml Vial 20 Unit SQ TIDAC Fluconazole 100 Mg Tablet 200 Mg PO DAILY Amox Tr-K Clv 875-125 Mg Tab (Amoxicillin/Potassium Clav) 1 Each Tablet 1 Tab PO BID Aspirin Ec (Aspirin) 81 Mg Tablet.dr 81 Mg PO DAILYWBKFT Clopidogrel (Clopidogrel Bisulfate) 75 Mg Tablet 75 Mg PO DAILYWBKFT Hydrocodone-Apap 5-325 (Hydrocodone Bit/Acetaminophen) 1 Each Tablet 1 Tab PO PRN Q4HRS PRN Metoprolol Tartrate 25 Mg Tablet 25 Mg PO BID Reported Potassium Chloride 20 Meq Tablet.er 20 Meq PO DAILY [place] ([place] Fruit) 450 Mg Capsule 450 Mg PO Novolog (Insulin Aspart) 100 Unit/1 Ml Cartridge 40 Unit SQ Cinnamon (Cinnamon Bark) 500 Mg Capsule 1,000 Mg PO Spectravite Senior (Multivitamin W/Iron, Minerals) 1 Each Tablet 1 Each PO Fish Oil 1,000 Mg Capsule ([place]-3 Fatty Acids/Fish Oil) 1 Each Capsule 1 Each PO Finasteride 5 Mg Tablet 5 Mg PO DAILY Tamsulosin Hcl 0.4 Mg Cap.er.24h 0.4 Mg PO DAILY Iron (Ferrous Sulfate) 325 Mg Tablet 325 Mg PO Fish Oil 1,000 Mg Softgel ([place]-3 Fatty Acids/Fish Oil) 1 Each Capsule 1,000 Each PO Vitamin D (Cholecalciferol (Vitamin D3)) 1,000 Unit Capsule 1,000 Unit PO Ascorbic Acid 500 Mg Tablet 500 Mg PO Lovastatin 20 Mg Tablet 20 Mg PO HS Lasix (Furosemide) 40 Mg Tablet 40 Mg PO BID Losartan Potassium 50 Mg Tablet 50 Mg PO DAILY Vitals/I & O Vital Sign - Last 24 Hours 12/18/16 12/18/16 12/18/16 12/18/16 12:00 12:00 13:00 14:00 Temp 98.6 98.6 Pulse 100 99 100 Resp 18 19 21 B/P (MAP) 133/61 (85) 137/56 (83) 134/54 (80) Pulse Ox 94 95 95 O2 Delivery Nasal Cannula Nasal Cannula Nasal Cannula O2 Flow Rate 5.0 5.0 12/18/16 12/18/16 12/18/16 12/18/16 15:00 16:00 16:00 16:15 Temp 98.0 98.0 Pulse 100 104 96 Resp 18 23 21 B/P (MAP) 138/50 (79) 141/71 (94) 129/69 (89) Pulse Ox 93 91 O2 Delivery Nasal Cannula Nasal Cannula Nasal Cannula Nasal Cannula O2 Flow Rate 5.0 5.0 6.0 12/18/16 12/18/16 12/18/16 12/18/16 16:30 16:45 17:00 17:30 Pulse 96 98 96 100 Resp 20 20 19 31 B/P (MAP) 148/71 (96) 152/76 (101) 146/73 (97) 117/57 (77) Pulse Ox 89 93 88 O2 Delivery Nasal Cannula Nasal Cannula Nasal Cannula Nasal Cannula 12/18/16 12/18/16 12/18/16 12/18/16 18:00 19:00 20:00 20:00 Pulse 62 98 94 Resp 24 21 26 B/P (MAP) 134/72 (92) 130/63 (85) 112/57 (75) Pulse Ox 89 98 92 O2 Delivery Nasal Cannula Nasal Cannula Nasal Cannula Nasal Cannula O2 Flow Rate 6.0 6.0 6.0 12/18/16 12/18/16 12/18/16 12/18/16 21:00 21:13 22:00 23:00 Temp 98.0 98.0 Pulse 93 94 96 92 Resp 17 20 20 B/P (MAP) 95/48 (64) 112/57 131/64 (86) 119/58 (78) Pulse Ox 94 92 93 O2 Delivery Nasal Cannula Nasal Cannula Nasal Cannula O2 Flow Rate 6.0 6.0 6.0 12/19/16 12/19/16 12/19/16 12/19/16 00:00 00:08 01:00 02:00 Temp 98.2 98.2 Pulse 94 93 90 Resp 24 20 20 B/P (MAP) 99/47 (64) 109/42 (64) 98/40 (59) Pulse Ox 92 94 96 O2 Delivery Nasal Cannula Nasal Cannula Nasal Cannula Nasal Cannula O2 Flow Rate 6.0 6.0 6.0 6.0 12/19/16 12/19/16 12/19/16 12/19/16 03:00 03:55 04:00 05:00 Pulse 88 87 86 Resp 17 19 18 B/P (MAP) 115/53 (73) 88/42 (57) 118/51 (73) Pulse Ox 95 93 95 O2 Delivery Nasal Cannula Nasal Cannula Nasal Cannula Nasal Cannula O2 Flow Rate 6.0 6.0 6.0 6.0 12/19/16 12/19/16 12/19/16 12/19/16 06:00 07:00 08:00 08:00 Temp 97.0 97.0 Pulse 90 90 92 Resp 22 21 23 B/P (MAP) 116/52 (73) 124/49 (74) 110/54 (72) Pulse Ox 95 94 90 O2 Delivery Nasal Cannula Nasal Cannula Room Air Room Air O2 Flow Rate 6.0 6.0 12/19/16 12/19/16 12/19/16 12/19/16 08:26 08:26 10:00 10:20 Pulse 101 90 90 90 Resp 24 21 B/P (MAP) 111/64 116/52 98/56 (70) 100/46 (64) Pulse Ox 88 89 O2 Delivery Room Air Room Air Intake and Output 12/19/16 12/19/16 12/20/16 15:00 23:00 07:00 Intake Total 1046 ml Output Total 250 ml Balance 796 ml ALAN VERDIN MD Dec 19, 2016 11:13
--- NOTE | 2016-12-19 12:01 | PDOC ---
CARDIO Progress Notes Date and Time Date of Service 12/19/2016 Time of Evaluation 1120 Subjective Subjective: No Chest Pain, No shortness of breath, No Palpitations, Other (CP resolved overnight, complains of constipation) Vitals Vitals Vital Signs Date Time Temp Pulse Resp B/P (MAP) Pulse Ox O2 Delivery O2 Flow Rate FiO2 12/19/16 11:09 90 28 123/57 (79) Room Air 12/19/16 10:20 89 12/19/16 08:00 97.0 97.0 12/19/16 07:00 6.0 Weight Weight [ ] Input and Output Intake and Output Intake and Output 12/20/16 07:00 Intake Total 1246 ml Output Total 250 ml Balance 996 ml Intake Oral 520 ml IV Total 726 ml Output Urine Total 250 ml Laboratory Labs Laboratory Tests Test 12/18/16 12:15 12/18/16 15:07 12/18/16 18:07 12/18/16 21:12 Heparin Anti-Xa Act, Unfractionated 0.40 IU/mL (0.30-0.70) Activated Clotting Time 168 sec (92-181) Glucose (Fingerstick) 236 mg/dL (70-99) 202 mg/dL (70-99) Test 12/18/16 22:35 12/19/16 06:15 12/19/16 08:10 Heparin Anti-Xa Act, Unfractionated 0.13 IU/mL (0.30-0.70) 0.45 IU/mL (0.30-0.70) White Blood Count 12.8 x10^3/uL (4.0-11.0) Red Blood Count 4.25 x10^6/uL (4.30-5.70) Hemoglobin 12.6 g/dL (13.0-17.5) Hematocrit 38.6 % (39.0-53.0) Mean Corpuscular Volume 91 fL (79-100) Mean Corpuscular Hemoglobin 30 pg (25-35) Mean Corpuscular Hemoglobin Concent 33 g/dL (31-37) Red Cell Distribution Width 14.3 % (11.5-14.5) Platelet Count 243 x10^3/uL (140-400) Neutrophils (%) (Auto) 85 % (31-73) Lymphocytes (%) (Auto) 8 % (24-48) Monocytes (%) (Auto) 6 % (0-9) Eosinophils (%) (Auto) 0 % (0-3) Basophils (%) (Auto) 0 % (0-3) Neutrophils # (Auto) 10.8 x10^3uL (1.8-7.7) Lymphocytes # (Auto) 1.1 x10^3/uL (1.0-4.8) Monocytes # (Auto) 0.8 x10^3/uL (0.0-1.1) Eosinophils # (Auto) 0.0 x10^3/uL (0.0-0.7) Basophils # (Auto) 0.0 x10^3/uL (0.0-0.2) Sodium Level 141 mmol/L (136-145) Potassium Level 4.7 mmol/L (3.5-5.1) Chloride Level 105 mmol/L (98-107) Carbon Dioxide Level 25 mmol/L (21-32) Anion Gap 11 (6-14) Blood Urea Nitrogen 32 mg/dL (8-26) Creatinine 2.0 mg/dL (0.7-1.3) Estimated GFR (Cockcroft-Gault) 32.6 Glucose Level 202 mg/dL (70-99) Calcium Level 8.5 mg/dL (8.5-10.1) Magnesium Level 2.6 mg/dL (1.8-2.4) Glucose (Fingerstick) 183 mg/dL (70-99) Physical Exam HEENT: Neck Supple W Full Motion Chest: Symmetric LUNGS: Clear to Auscultation Heart: S1S2, RRR (SR with PVC) Abdomen: Soft N/T Extremities: No Calf Tenderness Neurology: alert, oriented, follow commands Other Exams right groin arteriotomy site post sheath removal, intact no swelling or hematoma , neurovascular status to bilateral LE intact. Assessment Assessment 1. Severe 3VD: CABG planned for Mon. 2. CP: better overnight 3. Acute diastolic CHF: compensated. TTE with EF 50-55% and moderate inferolateral hypokinesis 4. CKD3 5. DM2/HLP Recommendations 1. Continue with heparin gtt. ASA, metoprolol and ASA. DC ARB in anticipation for CABG. 2. Preop w/u per CABG protocol per CTS 3. BG optimization per PCP ERVIN ORELLANA APRN Dec 19, 2016 12:01
[2016-12-19] MEDS: POLYETHYLENE GLYCOL 3350 17 GM PACKET. PO SCH (15:00)
[2016-12-19] MEDS: DOCUSATE SODIUM 100 MG CAPSULE. PO SCH ×2 (15:00→20:38)
[2016-12-19] MEDS ORDERED: BISACODYL 10 MG SUPP.RECT. PR PRN (19:00)
[2016-12-19] MEDS: ATORVASTATIN CALCIUM 20 MG TABLET PO SCH (20:38)
[2016-12-19] MEDS: INSULIN DETEMIR 300 UNITS/3 ML INSULN.PEN. SQ SCH (20:56)
[2016-12-20] VITALS (20 sets, daily range): BP systolic 87–134; BP diastolic 41–71
[2016-12-20] MEDS: NITROGLYCERIN PREMIX 250 ML IV PRN (05:15)
[2016-12-20] MEDS: INSULIN ASPART 300 UNITS/3 ML INSULN.PEN SQ SCH ×7 (07:30→21:00)
[2016-12-20] MEDS: FINASTERIDE 5 MG TABLET. PO SCH (08:58)
[2016-12-20] MEDS: ASCORBIC ACID 500 MG TABLET PO SCH (08:58)
[2016-12-20] MEDS: ASPIRIN ENTERIC COATED 81 MG TABLET.DR. PO SCH (08:59)
[2016-12-20] MEDS: METOPROLOL TART IMMED RELEASE 25 MG TABLET. PO SCH ×2 (08:59→21:59)
[2016-12-20] MEDS: DOCUSATE SODIUM 100 MG CAPSULE. PO SCH ×2 (08:59→21:59)
[2016-12-20] MEDS: TAMSULOSIN 0.4 MG CAP.ER.24H. PO SCH (08:59)
[2016-12-20] MEDS: POLYETHYLENE GLYCOL 3350 17 GM PACKET. PO SCH (08:59)
[2016-12-20] MEDS: ANTI-COAG MONITOR BY PHARMACY. MC PRN (11:04)
--- NOTE | 2016-12-20 11:18 | RAD ---
APPROVED REPORT Patient Location: IN-PATIENT Laterality:Bilateral Indications preop CABG Doppler Spectral Velocity Analysis Right Left mCCA 60/10 cm/smCCA 68/10 cm/s pICA 131/28 cm/spICA 142/30 cm/s Joe 114/22 cm/smICA 93/22 cm/s dICA 56/11 cm/sdICA 80/27 cm/s ICA/CCA 2.18ICA/CCA 2.08 Findings Medina scale images of the right common carotid artery reveals mild intimal hyperplasia. The carotid bu lb demonstrates moderate atherosclerotic plaque. The right internal carotid artery is not well visual ized. Spectral waveforms demonstrate approximately a 50-69% stenosis by ultrasound velocity criteria in the proximal right internal carotid artery. The right mid and distal internal carotid artery was n ot well visualized. Nonetheless, spectral and velocity profiles are grossly unremarkable. The right e xternal carotid artery has normal spectral waveforms and velocities. The right vertebral artery veloc ities are antegrade and within normal limits. Medina scale images of the left common carotid artery reveal mild intimal hyperplasia with mild to mode rate plaque noted at the level of the carotid bulb. The left external carotid artery demonstrates darcy vated velocities suggestive of approximately greater than 50% stenosis. The left internal carotid art aziza demonstrates approximately 50-69% stenosis based on ultrasound velocity criteria. The left verteb ral velocity is antegrade. Bilateral ICA to CCA ratios demonstrate moderate degree of stenosis. Critical Notification Critical Value: No <Conclusion> 1. Moderate approximately 50-69% stenosis involving the bilateral proximal internal carotid arteries. 2. Antegrade bilateral vertebral velocities.
--- NOTE | 2016-12-20 11:18 | RAD ---
Indication anticipated coronary artery bypass surgery. Assess aortic calcifications and lung lesions. Noncontrast images through the chest were obtained and is compared to an examination 06/08/2016. Note is made of a plain film examination 12/17/2016. Imaging through the upper abdomen is unremarkable. There is a small right pleural effusion and a minute left. There is no significant hilar or mediastinal adenopathy. There is no appreciable calcification of the ascending thoracic aorta. There is slight calcification at the origin of the great vessels off the arch with some associated minimal calcification of the aortic arch itself. There is some volume loss in the right lower lobe which may reflect atelectasis associated with the pleural fluid. Underlying pneumonia is not entirely excluded. There is some pleural thickening in the right lung which is similar to the previous CT examination. There are scattered calcified parenchymal granulomas. A dominant soft tissue mass in either lung is not seen. There is suggested small peripheral nodules in the right upper lobe images 21 and 16, series 2. The largest of these measures approximately 9 mm. These may be atelectatic in nature. They are not readily apparent on the prior CT. A dominant soft tissue mass in either lung is not seen. IMPRESSION: Small right and minute left pleural effusion. No significant calcification seen associated with the ascending thoracic aorta. No dominant soft tissue mass in either lung. Nodular opacities peripherally in the right lung may represent areas of atelectasis. Developing new pulmonary nodule is not entirely excluded and follow-up imaging should be considered. Volume loss in the right lower lobe probably reflecting atelectasis. Pneumonia is not entirely excluded Chronic pleural changes in the right lung compatible with scarring similar to the prior CT. PQRS Compliance Statement: One or more of the following individualized dose reduction techniques were utilized for this examination: 1. Automated exposure control 2. Adjustment of the mA and/or kV according to patient size 3. Use of iterative reconstruction technique
--- NOTE | 2016-12-20 12:18 | PDOC ---
CARDIO Progress Notes Date and Time Date of Service 12/20/16 Time of Evaluation 1205 Subjective Subjective: No Chest Pain, No shortness of breath, No Palpitations, Other (CP resolved overnight, complains of constipation) Vitals Vitals Vital Signs Date Time Temp Pulse Resp B/P (MAP) Pulse Ox O2 Delivery O2 Flow Rate FiO2 12/20/16 11:00 76 122/66 (84) 95 Nasal Cannula 4.0 12/20/16 08:00 98.5 98.5 12/20/16 06:00 16 Weight Weight [ ] Input and Output Intake and Output Intake and Output 12/21/16 07:00 Intake Total 200 ml Output Total 500 ml Balance -300 ml Intake Oral 200 ml Output Urine Total 500 ml Laboratory Labs Laboratory Tests Test 12/19/16 12:26 12/19/16 17:47 12/19/16 20:54 12/20/16 05:07 Glucose (Fingerstick) 213 mg/dL (70-99) 154 mg/dL (70-99) 114 mg/dL (70-99) Heparin Anti-Xa Act, Unfractionated 0.36 IU/mL (0.30-0.70) Test 12/20/16 08:34 Glucose (Fingerstick) 149 mg/dL (70-99) Physical Exam HEENT: Neck Supple W Full Motion Chest: Symmetric LUNGS: Clear to Auscultation Heart: S1S2, RRR (SR with PVC ad PAC's ) Abdomen: Soft N/T Extremities: No Calf Tenderness Neurology: alert, oriented, follow commands Assessment Assessment 1. Severe 3VD: CP free. CABG planned for Sun. as per CTS 2. CP: better overnight 3. Acute diastolic CHF: compensated. TTE with EF 50-55% and moderate inferolateral hypokinesis 4. CKD3; Cr improving 5. DM2/HLP; statin therapy Recommendations 1. Continue with heparin gtt., ASA, and metoprolol . 2. No KEYA/ARB in preparation for CABG 3. Continue supportive care 4. Preop w/u per CABG protocol per CTS BRENT LEIJA APRN Dec 20, 2016 12:18
--- NOTE | 2016-12-20 13:17 | PDOC ---
PROGRESS NOTES Subjective Subjective Patient feeling better. Patient continues to require heparin and nitro drip and oxygen to control his chest pains and improve his oxygenation. Patient CT chest was unremarkable. Patient's carotid Doppler does show moderate carotid artery disease. Patient constipation resolved with good BM yesterday. Objective Objective Vital Signs Date Time Temp Pulse Resp B/P (MAP) Pulse Ox O2 Delivery O2 Flow Rate FiO2 12/20/16 11:00 76 122/66 (84) 95 Nasal Cannula 4.0 12/20/16 08:00 98.5 98.5 12/20/16 06:00 16 Intake and Output 12/21/16 07:00 Intake Total 200 ml Output Total 800 ml Balance -600 ml Intake Oral 200 ml Output Urine Total 800 ml Physical Exam Abdomen: Normal bowel sounds Heart: Regular rate Extremities: No edema General: Alert Lungs: Clear to auscultation Assessment Assessment Problems Medical Problems: (1) Acute CO, inferior wall, initial episode of care Status: Acute (2) Kidney disease Status: Acute 1. Acute ST changes of myocardial infarction. 2. Severe 3-vessel coronary artery disease. 3. Type 2 diabetes. 4. Hypertension. 5. Chronic kidney disease Plan Plan of Care Continue preop evaluation for surgery on December 25, 2016. Continue supportive care for coronary artery disease Proceed with PT and OT modalities preoperatively Comment Review of Relevant I have reviewed the following items tereso (where applicable) has been applied. Labs Laboratory Tests Test 12/18/16 15:07 12/18/16 18:07 12/18/16 21:12 12/18/16 22:35 Activated Clotting Time 168 sec (92-181) Glucose (Fingerstick) 236 mg/dL (70-99) 202 mg/dL (70-99) Heparin Anti-Xa Act, Unfractionated 0.13 IU/mL (0.30-0.70) Test 12/19/16 06:15 12/19/16 08:10 12/19/16 11:50 12/19/16 12:26 White Blood Count 12.8 x10^3/uL (4.0-11.0) Red Blood Count 4.25 x10^6/uL (4.30-5.70) Hemoglobin 12.6 g/dL (13.0-17.5) Hematocrit 38.6 % (39.0-53.0) Mean Corpuscular Volume 91 fL (79-100) Mean Corpuscular Hemoglobin 30 pg (25-35) Mean Corpuscular Hemoglobin Concent 33 g/dL (31-37) Red Cell Distribution Width 14.3 % (11.5-14.5) Platelet Count 243 x10^3/uL (140-400) Neutrophils (%) (Auto) 85 % (31-73) Lymphocytes (%) (Auto) 8 % (24-48) Monocytes (%) (Auto) 6 % (0-9) Eosinophils (%) (Auto) 0 % (0-3) Basophils (%) (Auto) 0 % (0-3) Neutrophils # (Auto) 10.8 x10^3uL (1.8-7.7) Lymphocytes # (Auto) 1.1 x10^3/uL (1.0-4.8) Monocytes # (Auto) 0.8 x10^3/uL (0.0-1.1) Eosinophils # (Auto) 0.0 x10^3/uL (0.0-0.7) Basophils # (Auto) 0.0 x10^3/uL (0.0-0.2) Heparin Anti-Xa Act, Unfractionated 0.45 IU/mL (0.30-0.70) 0.43 IU/mL (0.30-0.70) Sodium Level 141 mmol/L (136-145) Potassium Level 4.7 mmol/L (3.5-5.1) Chloride Level 105 mmol/L (98-107) Carbon Dioxide Level 25 mmol/L (21-32) Anion Gap 11 (6-14) Blood Urea Nitrogen 32 mg/dL (8-26) Creatinine 2.0 mg/dL (0.7-1.3) Estimated GFR (Cockcroft-Gault) 32.6 Glucose Level 202 mg/dL (70-99) Calcium Level 8.5 mg/dL (8.5-10.1) Magnesium Level 2.6 mg/dL (1.8-2.4) Glucose (Fingerstick) 183 mg/dL (70-99) 213 mg/dL (70-99) Troponin I Quantitative 18.615 ng/mL (0.000-0.055) Test 12/19/16 17:47 12/19/16 20:54 12/20/16 05:07 12/20/16 08:34 Glucose (Fingerstick) 154 mg/dL (70-99) 114 mg/dL (70-99) 149 mg/dL (70-99) Heparin Anti-Xa Act, Unfractionated 0.36 IU/mL (0.30-0.70) Test 12/20/16 12:36 Glucose (Fingerstick) 154 mg/dL (70-99) Laboratory Tests Test 12/19/16 17:47 12/19/16 20:54 12/20/16 05:07 12/20/16 08:34 Glucose (Fingerstick) 154 mg/dL (70-99) 114 mg/dL (70-99) 149 mg/dL (70-99) Heparin Anti-Xa Act, Unfractionated 0.36 IU/mL (0.30-0.70) Test 12/20/16 12:36 Glucose (Fingerstick) 154 mg/dL (70-99) Medications Current Medications Aspirin (Children'S Aspirin) 324 mg 1X ONCE PO Last administered on 20:23; Start 12/17/16 at 20:45; Stop 12/17/16 at 20:46; Status DC Heparin Sodium (Porcine) (Heparin Sodium) 4,000 unit 1X ONCE IV Last administered on 12/17/16 20:24; Start 12/17/16 at 20:30; Stop 12/17/16 at 20 :31; Status DC Fentanyl Citrate (Fentanyl 2ml Vial) 100 mcg STK-MED ONCE .ROUTE ; Start at 20:39; Stop 12/17/16 at 20:40; Status DC Midazolam HCl (Versed) 2 mg STK-MED ONCE .ROUTE ; Start 12/17/16 at 20:39; Stop 12/17/16 at 20:40; Status DC Heparin Sodium (Porcine) (Heparin Sodium) 10,000 unit STK-MED ONCE .ROUTE ; Start 12/17/16 at 20:39; Stop 12/17/16 at 20:40; Status DC Tirofiban/Sodium Chloride 0 ml @ As Directed STK-MED ONCE IV ; Start 12/17/16 at 20:39; Stop 12/17/16 at 20:40; Status DC Dopamine HCl/ Dextrose 0 ml @ As Directed STK-MED ONCE IV ; Start 12/17/16 at 20:40; Stop 12/17/16 at 20:41; Status DC Lidocaine HCl 20 ml STK-MED ONCE .ROUTE ; Start 12/17/16 at 20:47; Stop at 20:48; Status DC Iohexol (Omnipaque 350 Mg/ml) 100 ml STK-MED ONCE .ROUTE ; Start 12/17/16 at 20 :47; Stop 12/17/16 at 20:48; Status DC Heparin Sodium/ Sodium Chloride 1,000 ml @ As Directed STK-MED ONCE .ROUTE ; Start 12/17/16 at 20:48; Stop 12/17/16 at 20:49; Status DC Morphine Sulfate 2 mg 1X ONCE IV ; Start 12/17/16 at 21:15; Stop 12/17/16 at 21:16; Status DC Ondansetron HCl (Zofran) 4 mg 1X ONCE IV ; Start 12/17/16 at 21:15; Stop at 21:16; Status DC Nitroglycerin/ Dextrose 250 ml @ As Directed STK-MED ONCE IV ; Start 12/17/16 at 21:01; Stop 12/17/16 at 21:02; Status DC Heparin Sodium/ Sodium Chloride 1,000 unit 1X ONCE IART ; Start 12/17/16 at 21 :15; Stop 12/17/16 at 21:19; Status DC Midazolam HCl (Versed) 1 mg 1X ONCE IV Last administered on 12/17/16 21:15; Start 12/17/16 at 21:15; Stop 12/17/16 at 21:19; Status DC Fentanyl Citrate (Fentanyl 2ml Vial) 25 mcg 1X ONCE IV Last administered on 21:15; Start 12/17/16 at 21:15; Stop 12/17/16 at 21:19; Status DC Iodixanol (Visipaque 320) 100 ml 1X ONCE IART Last administered on 12/17/16 21:15; Start 12/17/16 at 21:15; Stop 12/17/16 at 21:19; Status DC Lidocaine HCl 20 ml 1X ONCE IJ Last administered on 12/17/16 21:15; Start 12/17/16 at 21:15; Stop 12/17/16 at 21:20; Status DC Nitroglycerin/ Dextrose 250 ml @ 0 mls/hr 1X ONCE IV Last administered on 21:06; Start 12/17/16 at 21:30; Stop 12/17/16 at 21:31; Status DC Heparin Sodium/ Sodium Chloride 500 ml @ As Directed STK-MED ONCE .ROUTE ; Start 12/17/16 at 21:21; Stop 12/17/16 at 21:22; Status DC Heparin Sodium/ Dextrose 500 ml @ As Directed STK-MED ONCE IV ; Start at 21:24; Stop 12/17/16 at 21:49; Status DC Heparin Sodium/ Dextrose 500 ml @ 0 mls/hr 1X ONCE IV ; Start 12/17/16 at 21: 30; Stop 12/17/16 at 21:31; Status DC Heparin Sodium (Porcine) (Heparin Sodium) 10,000 unit STK-MED ONCE .ROUTE ; Start 12/17/16 at 21:37; Stop 12/17/16 at 21:38; Status DC Heparin Sodium (Porcine) (Heparin Sodium) 1,500 unit 1X ONCE IV ; Start at 22:00; Stop 12/17/16 at 22:01; Status DC Heparin Sodium/ Dextrose 500 ml @ 0 mls/hr 1X ONCE IV ; Start 12/17/16 at 21: 45; Stop 12/17/16 at 21:46; Status UNV Heparin Sodium/ Dextrose 500 ml @ 0 mls/hr CONT PRN IV SEE I/O RECORD Last administered on 12/19/16 23:19; Start 12/17/16 at 21:45 Heparin Sodium (Porcine) (Heparin Sodium) 3,400 unit PRN Q6HRS PRN IV FOR UFH LEVEL LESS THAN 0.2 Last administered on 12/18/16 23:50; Start 12/17/16 at 21 :45 Sodium Chloride (Normal Saline Flush) 3 ml QSHIFT PRN IV AFTER MEDS AND BLOOD DRAWS; Start 12/17/16 at 22:30 Sodium Chloride 1,000 ml @ 60 mls/hr [id number] IV Last administered on 20:39; Start 12/17/16 at 22:23 Aspirin (Ecotrin) 81 mg DAILYWBKFT PO Last administered on 12/20/16 08:59; Start 12/18/16 at 08:00 Metoprolol Tartrate (Lopressor) 25 mg BID PO Last administered on 12/20/16 08 :59; Start 12/18/16 at 09:00 Losartan Potassium (Cozaar) 50 mg DAILY PO Last administered on 12/19/16 08: 26; Start 12/18/16 at 09:00; Stop 12/19/16 at 11:15; Status DC Atorvastatin Calcium (Lipitor) 20 mg QHS PO Last administered on 12/19/16 20: 38; Start 12/18/16 at 21:00 Acetaminophen (Tylenol) 650 mg PRN Q6HRS PRN PO MILD PAIN; Start 12/17/16 at 22:30 Fentanyl Citrate (Fentanyl 2ml Vial) 25 mcg PRN Q1HR PRN IV Moderate or severe pain Last administered on 12/18/16 10:05; Start 12/17/16 at 22:30; Stop at 11:50; Status DC Nitroglycerin (Nitrostat) 0.4 mg PRN Q5MIN PRN SL CHEST PAIN; Start 12/17/16 at 22:30 Ascorbic Acid (Vitamin C) 500 mg DAILY PO Last administered on 12/20/16 08:58 ; Start 12/18/16 at 09:00 Aspirin (Ecotrin) 81 mg DAILYWBKFT PO ; Start 12/18/16 at 08:00; Status UNV Clopidogrel Bisulfate (Plavix) 75 mg DAILYWBKFT PO Last administered on 07:49; Start 12/18/16 at 08:00; Stop 12/18/16 at 09:35; Status DC Finasteride (Proscar) 5 mg DAILY PO Last administered on 12/20/16 08:58; Start 12/18/16 at 09:00 Acetaminophen/ Hydrocodone Bitart (Lortab 5/325) 1 tab PRN Q4HRS PRN PO MODERATE PAIN; Start 12/17/16 at 22:45 Losartan Potassium (Cozaar) 50 mg DAILY PO ; Start 12/18/16 at 09:00; Status UNV Metoprolol Tartrate (Lopressor) 25 mg BID PO ; Start 12/18/16 at 09:00; Status UNV Tamsulosin HCl (Flomax) 0.4 mg DAILY PO Last administered on 12/20/16 08:59; Start 12/18/16 at 09:00 Insulin Detemir (Levemir) 40 units QHS SQ Last administered on 12/18/16 21:15 ; Start 12/18/16 at 21:00 Insulin Aspart (NovoLOG) 20 units TIDAC SQ Last administered on 12/20/16 12: 38; Start 12/18/16 at 07:30 Non-Formulary Medication 20 mg HS PO ; Start 12/18/16 at 21:00; Status UNV Insulin Aspart (NovoLOG) 0-12 UNITS QIDACHS SQ Last administered on 12/20/16 12:39; Start 12/18/16 at 07:30 Ondansetron HCl (Zofran) 4 mg 1X ONCE IV Last administered on 12/18/16 00:45 ; Start 12/18/16 at 00:45; Stop 12/18/16 at 00:51; Status DC Info (Do NOT chart on this placeholder) 1 each 1X ONCE MC ; Start 12/18/16 at 01:30; Stop 12/18/16 at 01:31; Status UNV Influenza Virus Vaccine Quadrival (Fluarix Quad [id number] Syringe) 0.5 ml ONCE ONCE VAX IM ; Start 12/18/16 at 09:00; Stop 12/18/16 at 09:01; Status DC Bisacodyl (Dulcolax Supp) 10 mg 1X ONCE [place] Last administered on 12/18/16 03: 41; Start 12/18/16 at 04:00; Stop 12/18/16 at 04:01; Status DC Ondansetron HCl (Zofran) 4 mg PRN Q6HRS PRN IV NAUSEA/VOMITING; Start at 03:30 Sodium Chloride 1,000 ml @ 75 mls/hr [id number] IV ; Start 12/18/16 at 09:45; Stop 12/19/16 at 08:14; Status DC Fentanyl Citrate (Fentanyl 2ml Vial) 50 mcg PRN Q2HR PRN IV PAIN; Start at 11:45 Nitroglycerin/ Dextrose 250 ml @ 0 mls/hr CONT PRN IV SEE I/O RECORD Last administered on 12/20/16 05:15; Start 12/19/16 at 00:00 Polyethylene Glycol (miraLAX PACKET) 17 gm DAILY PO Last administered on 08:59; Start 12/19/16 at 11:30 Docusate Sodium (Colace) 100 mg BID PO Last administered on 12/20/16 08:59; Start 12/19/16 at 11:30 Bisacodyl (Dulcolax Supp) 10 mg PRN DAILY PRN [place] CONSTIPATION Last administered on 12/19/16 19:11; Start 12/19/16 at 19:00 Info (Anti-Coagulation Monitoring By Pharmacy) 1 each PRN DAILY PRN MC SEE COMMENTS Last administered on 12/20/16 11:04; Start 12/20/16 at 10:15 Active Scripts Active Lantus (Insulin Glargine,Hum.rec.anlog) 100 Unit/1 Ml Vial 40 Unit SQ HS Humalog (Insulin Lispro) 100 Unit/1 Ml Vial 20 Unit SQ TIDAC Fluconazole 100 Mg Tablet 200 Mg PO DAILY Amox Tr-K Clv 875-125 Mg Tab (Amoxicillin/Potassium Clav) 1 Each Tablet 1 Tab PO BID Aspirin Ec (Aspirin) 81 Mg Tablet.dr 81 Mg PO DAILYWBKFT Clopidogrel (Clopidogrel Bisulfate) 75 Mg Tablet 75 Mg PO DAILYWBKFT Hydrocodone-Apap 5-325 (Hydrocodone Bit/Acetaminophen) 1 Each Tablet 1 Tab PO PRN Q4HRS PRN Metoprolol Tartrate 25 Mg Tablet 25 Mg PO BID Reported Potassium Chloride 20 Meq Tablet.er 20 Meq PO DAILY Saw [place] (Saw [place] Fruit) 450 Mg Capsule 450 Mg PO Novolog (Insulin Aspart) 100 Unit/1 Ml Cartridge 40 Unit SQ Cinnamon (Cinnamon Bark) 500 Mg Capsule 1,000 Mg PO Spectravite Senior (Multivitamin W/Iron, Minerals) 1 Each Tablet 1 Each PO Fish Oil 1,000 Mg Capsule ([place]-3 Fatty Acids/Fish Oil) 1 Each Capsule 1 Each PO Finasteride 5 Mg Tablet 5 Mg PO DAILY Tamsulosin Hcl 0.4 Mg Cap.er.24h 0.4 Mg PO DAILY Iron (Ferrous Sulfate) 325 Mg Tablet 325 Mg PO Fish Oil 1,000 Mg Softgel ([place]-3 Fatty Acids/Fish Oil) 1 Each Capsule 1,000 Each PO Vitamin D (Cholecalciferol (Vitamin D3)) 1,000 Unit Capsule 1,000 Unit PO Ascorbic Acid 500 Mg Tablet 500 Mg PO Lovastatin 20 Mg Tablet 20 Mg PO HS Lasix (Furosemide) 40 Mg Tablet 40 Mg PO BID Losartan Potassium 50 Mg Tablet 50 Mg PO DAILY Vitals/I & O Vital Sign - Last 24 Hours 12/19/16 12/19/16 12/19/16 12/19/16 14:00 15:00 15:56 16:00 Pulse 92 90 90 Resp 25 26 24 B/P (MAP) 118/61 (80) 100/45 (63) 115/54 (74) Pulse Ox 88 96 O2 Delivery Room Air Nasal Cannula Nasal Cannula Room Air O2 Flow Rate 5.0 5.0 12/19/16 12/19/16 12/19/16 12/19/16 16:00 17:00 18:00 19:00 Temp 97.8 97.8 97.8 97.8 Pulse 97 92 86 89 Resp 20 19 24 B/P (MAP) 100/48 (65) 115/54 (74) 135/69 (91) 136/58 (84) Pulse Ox 92 95 O2 Delivery Room Air Room Air Room Air Room Air 12/19/16 12/19/16 12/19/16 12/19/16 19:45 20:00 20:39 21:00 Pulse 89 89 78 Resp 17 B/P (MAP) 160/65 (96) 160/65 149/66 (93) Pulse Ox 92 96 O2 Delivery Room Air Room Air Nasal Cannula O2 Flow Rate 3.0 12/19/16 12/19/16 12/20/16 12/20/16 22:00 23:00 00:00 00:12 Temp 98.3 98.3 Pulse 84 82 74 Resp 24 22 23 B/P (MAP) 134/70 (91) 96/48 (64) Pulse Ox 94 97 93 O2 Delivery Nasal Cannula Nasal Cannula Nasal Cannula Room Air O2 Flow Rate 3.0 3.0 6.0 12/20/16 12/20/16 12/20/16 12/20/16 01:00 02:00 03:00 04:00 Pulse 74 83 84 Resp 19 26 B/P (MAP) 111/54 (73) 122/47 (72) 115/48 (70) Pulse Ox 93 92 93 O2 Delivery Nasal Cannula Nasal Cannula Nasal Cannula Room Air O2 Flow Rate 6.0 6.0 6.0 12/20/16 12/20/16 12/20/16 12/20/16 04:00 05:00 06:00 07:00 Temp 97.9 97.9 Pulse 88 80 83 78 Resp 25 20 16 B/P (MAP) 87/41 (56) 92/50 (64) 134/57 (82) 91/41 (58) Pulse Ox 96 97 97 96 O2 Delivery Nasal Cannula Nasal Cannula Nasal Cannula Nasal Cannula O2 Flow Rate 6.0 6.0 6.0 6.0 12/20/16 12/20/16 12/20/16 12/20/16 08:00 08:00 08:59 10:00 Temp 98.5 98.5 Pulse 82 86 B/P (MAP) 103/42 (62) 103/42 110/54 (72) Pulse Ox 96 94 O2 Delivery Room Air Nasal Cannula Nasal Cannula O2 Flow Rate 6.0 4.0 12/20/16 11:00 Pulse 76 B/P (MAP) 122/66 (84) Pulse Ox 95 O2 Delivery Nasal Cannula O2 Flow Rate 4.0 Intake and Output 12/20/16 12/20/16 12/21/16 15:00 23:00 07:00 Intake Total 200 ml Output Total 800 ml Balance -600 ml ALAN VERDIN MD Dec 20, 2016 13:17
[2016-12-20] MEDS: IV NORMAL SALINE 1000ML BAG 1,000 ML IV SCH (13:29)
--- NOTE | 2016-12-20 16:54 | RAD ---
APPROVED REPORT Patient Location: IN-PATIENT Indications preop CABG Findings Grayscale images of the right great saphenous vein were performed from the saphenofemoral junction to the ankle level. The vein is compressible and show spontaneous flow with measurements as noted. The right lesser saphenous vein in the proximal and midsegment is visualized is but the distal segment is not seen. Proximally the vein measures approximately 3 mm. Right great saphenous vein measures approximate 4.4 mm proximally and tapers to proximately 2.1 mm at the distal segment below the knee. The left great saphenous vein measures approximately 4 mm in the proximal segment and is fairly stabl e and sized to the level of the knee. Below the knee the vein does not appear to be compressible. The lack of compressibility may be suggestive of chronic thrombus versus body habitus issues. The left l leonardo saphenous vein was not well visualized. Critical Notification Critical Value: No <Conclusion> 1. Patent right great saphenous vein with acceptable measurements for bypass grafting. 2. Patent proximal left great saphenous vein above the knee with suitable measurements for bypass. No ncompressible below-knee left great saphenous vein. 3. Less than optimal right small saphenous vein and nonvisualized left small saphenous vein.
[2016-12-20] MEDS: INSULIN DETEMIR 300 UNITS/3 ML INSULN.PEN. SQ SCH (21:00)
[2016-12-20] MEDS: ATORVASTATIN CALCIUM 20 MG TABLET PO SCH (21:59)
[2016-12-21] MEDS: HEPARIN 25,000UTS/500ML PREMIX 500 ML IV PRN ×2 (02:56→15:58)
[2016-12-21 04:00] VITALS: BP 136/67
[2016-12-21] MEDS: IV NORMAL SALINE 1000ML BAG 1,000 ML IV SCH ×2 (06:24→22:57)
[2016-12-21 08:00] VITALS: BP 128/71
[2016-12-21] MEDS: INSULIN ASPART 300 UNITS/3 ML INSULN.PEN SQ SCH ×7 (08:41→21:00)
[2016-12-21] MEDS: ASPIRIN ENTERIC COATED 81 MG TABLET.DR. PO SCH (08:50)
[2016-12-21] MEDS: TAMSULOSIN 0.4 MG CAP.ER.24H. PO SCH (08:50)
[2016-12-21] MEDS: POLYETHYLENE GLYCOL 3350 17 GM PACKET. PO SCH (08:50)
[2016-12-21] MEDS: ASCORBIC ACID 500 MG TABLET PO SCH (08:50)
[2016-12-21] MEDS: FINASTERIDE 5 MG TABLET. PO SCH (08:50)
[2016-12-21] MEDS: DOCUSATE SODIUM 100 MG CAPSULE. PO SCH ×2 (08:50→21:27)
[2016-12-21] MEDS: METOPROLOL TART IMMED RELEASE 25 MG TABLET. PO SCH ×2 (08:56→21:27)
--- NOTE | 2016-12-21 09:52 | PDOC ---
CARDIO Progress Notes Date and Time Date of Service 12/21/16 Time of Evaluation 0935 Subjective Subjective: No Chest Pain, No Palpitations, Other (mild BOONE this morning ) Vitals Vitals Vital Signs Date Time Temp Pulse Resp B/P (MAP) Pulse Ox O2 Delivery O2 Flow Rate FiO2 12/21/16 08:56 96 148/72 12/21/16 04:00 22 92 Nasal Cannula 4.0 12/20/16 23:59 98.6 98.6 Weight Weight [ ] Laboratory Labs Laboratory Tests Test 12/20/16 12:36 12/20/16 17:36 12/20/16 22:00 12/21/16 07:40 Glucose (Fingerstick) 154 mg/dL (70-99) 112 mg/dL (70-99) 112 mg/dL (70-99) Heparin Anti-Xa Act, Unfractionated 0.20 IU/mL (0.30-0.70) Test 12/21/16 08:19 Glucose (Fingerstick) 186 mg/dL (70-99) Physical Exam HEENT: Neck Supple W Full Motion Chest: Symmetric LUNGS: Clear to Auscultation, Other (fine bibasilar crackles) Heart: S1S2, RRR (SR with PVC ad PAC's ) Abdomen: Soft N/T Extremities: No Calf Tenderness, Other (1+ bilateral LE edema ) Neurology: alert, oriented, follow commands Assessment Assessment 1. Severe 3VD: CP free. CABG planned for Mon. as per CTS 2. Acute diastolic CHF: LVEF 50-55%. mild SOA this morning although appear compensated, overall. + 3.4L balance over last 24 hrs. 4. CKD3; Cr improving 5. DM2/HLP; statin therapy Recommendations 1. Continue with heparin gtt, ASA, and metoprolol . 2. No KEYA/ARB in preparation for CABG 3. Obtain CXR due to dyspnea. May need to decrease IVFs 4. Am labs 5. Supportive care BRENT LEIJA APRN Dec 21, 2016 09:52
[2016-12-21 12:00] VITALS: BP 133/75
[2016-12-21] MEDS: NITROGLYCERIN PREMIX 250 ML IV PRN (12:58)
[2016-12-21] MEDS: ANTI-COAG MONITOR BY PHARMACY. MC PRN (13:26)
[2016-12-21 16:00] VITALS: BP 126/62
--- NOTE | 2016-12-21 17:07 | RAD ---
EXAM: Chest one view. HISTORY: Shortness of breath. COMPARISON: 12/17/2016. FINDINGS: A frontal view of the chest is obtained. Hyperinflation suggests air trapping. There are small bilateral pleural effusions with bibasilar atelectasis and likely mild pulmonary edema. There are atherosclerotic calcifications of the aorta. There is no pneumothorax. The heart is not enlarged. IMPRESSION: 1. Small bilateral pleural effusions. Mild pulmonary edema.
--- NOTE | 2016-12-21 17:29 | PDOC ---
PROGRESS NOTES Subjective Subjective Patient feeling better today. Patient had difficult time sleeping due to decreased activity and increased sleeping during the day. Patient did have some increasing shortness of breath and continues to be on nitroglycerin drip as well as heparin with aggressive ICU care due to severe coronary artery disease and ongoing symptoms. Fluid load is being controlled by cardiology. Objective Objective Vital Signs Date Time Temp Pulse Resp B/P (MAP) Pulse Ox O2 Delivery O2 Flow Rate FiO2 12/21/16 13:45 97 Room Air 12/21/16 13:00 2.0 12/21/16 12:00 98.3 84 18 133/75 (94) 98.3 Intake and Output 12/22/16 07:00 Output Total 500 ml Balance -500 ml Output Urine Total 500 ml # Voids 2 Physical Exam Abdomen: Normal bowel sounds Heart: Regular rate Extremities: No edema General: Alert Lungs: Clear to auscultation Assessment Assessment Problems Medical Problems: (1) Acute MD, inferior wall, initial episode of care Status: Acute (2) Kidney disease Status: Acute 1. Acute ST changes of myocardial infarction. 2. Severe 3-vessel coronary artery disease. 3. Type 2 diabetes. 4. Hypertension. 5. Chronic kidney disease Plan Plan of Care Continue preop evaluation for surgery on December 25, 2016. Continue supportive care for coronary artery disease Proceed with PT and OT modalities preoperatively Monitor fluid balance and adjust IV fluids give Lasix if needed. Comment Review of Relevant I have reviewed the following items tereso (where applicable) has been applied. Labs Laboratory Tests Test 12/19/16 17:47 12/19/16 20:54 12/20/16 05:07 12/20/16 08:34 Glucose (Fingerstick) 154 mg/dL (70-99) 114 mg/dL (70-99) 149 mg/dL (70-99) Heparin Anti-Xa Act, Unfractionated 0.36 IU/mL (0.30-0.70) Test 12/20/16 12:36 12/20/16 17:36 12/20/16 22:00 12/21/16 07:40 Glucose (Fingerstick) 154 mg/dL (70-99) 112 mg/dL (70-99) 112 mg/dL (70-99) Heparin Anti-Xa Act, Unfractionated 0.20 IU/mL (0.30-0.70) Test 12/21/16 08:19 12/21/16 12:15 12/21/16 17:16 Glucose (Fingerstick) 186 mg/dL (70-99) 147 mg/dL (70-99) 114 mg/dL (70-99) Laboratory Tests Test 12/20/16 17:36 12/20/16 22:00 12/21/16 07:40 12/21/16 08:19 Glucose (Fingerstick) 112 mg/dL (70-99) 112 mg/dL (70-99) 186 mg/dL (70-99) Heparin Anti-Xa Act, Unfractionated 0.20 IU/mL (0.30-0.70) Test 12/21/16 12:15 12/21/16 17:16 Glucose (Fingerstick) 147 mg/dL (70-99) 114 mg/dL (70-99) Medications Current Medications Aspirin (Children'S Aspirin) 324 mg 1X ONCE PO Last administered on 20:23; Start 12/17/16 at 20:45; Stop 12/17/16 at 20:46; Status DC Heparin Sodium (Porcine) (Heparin Sodium) 4,000 unit 1X ONCE IV Last administered on 12/17/16 20:24; Start 12/17/16 at 20:30; Stop 12/17/16 at 20 :31; Status DC Fentanyl Citrate (Fentanyl 2ml Vial) 100 mcg STK-MED ONCE .ROUTE ; Start at 20:39; Stop 12/17/16 at 20:40; Status DC Midazolam HCl (Versed) 2 mg STK-MED ONCE .ROUTE ; Start 12/17/16 at 20:39; Stop 12/17/16 at 20:40; Status DC Heparin Sodium (Porcine) (Heparin Sodium) 10,000 unit STK-MED ONCE .ROUTE ; Start 12/17/16 at 20:39; Stop 12/17/16 at 20:40; Status DC Tirofiban/Sodium Chloride 0 ml @ As Directed STK-MED ONCE IV ; Start 12/17/16 at 20:39; Stop 12/17/16 at 20:40; Status DC Dopamine HCl/ Dextrose 0 ml @ As Directed STK-MED ONCE IV ; Start 12/17/16 at 20:40; Stop 12/17/16 at 20:41; Status DC Lidocaine HCl 20 ml STK-MED ONCE .ROUTE ; Start 12/17/16 at 20:47; Stop at 20:48; Status DC Iohexol (Omnipaque 350 Mg/ml) 100 ml STK-MED ONCE .ROUTE ; Start 12/17/16 at 20 :47; Stop 12/17/16 at 20:48; Status DC Heparin Sodium/ Sodium Chloride 1,000 ml @ As Directed STK-MED ONCE .ROUTE ; Start 12/17/16 at 20:48; Stop 12/17/16 at 20:49; Status DC Morphine Sulfate 2 mg 1X ONCE IV ; Start 12/17/16 at 21:15; Stop 12/17/16 at 21:16; Status DC Ondansetron HCl (Zofran) 4 mg 1X ONCE IV ; Start 12/17/16 at 21:15; Stop at 21:16; Status DC Nitroglycerin/ Dextrose 250 ml @ As Directed STK-MED ONCE IV ; Start 12/17/16 at 21:01; Stop 12/17/16 at 21:02; Status DC Heparin Sodium/ Sodium Chloride 1,000 unit 1X ONCE IART ; Start 12/17/16 at 21 :15; Stop 12/17/16 at 21:19; Status DC Midazolam HCl (Versed) 1 mg 1X ONCE IV Last administered on 12/17/16 21:15; Start 12/17/16 at 21:15; Stop 12/17/16 at 21:19; Status DC Fentanyl Citrate (Fentanyl 2ml Vial) 25 mcg 1X ONCE IV Last administered on 21:15; Start 12/17/16 at 21:15; Stop 12/17/16 at 21:19; Status DC Iodixanol (Visipaque 320) 100 ml 1X ONCE IART Last administered on 12/17/16 21:15; Start 12/17/16 at 21:15; Stop 12/17/16 at 21:19; Status DC Lidocaine HCl 20 ml 1X ONCE IJ Last administered on 12/17/16 21:15; Start 12/17/16 at 21:15; Stop 12/17/16 at 21:20; Status DC Nitroglycerin/ Dextrose 250 ml @ 0 mls/hr 1X ONCE IV Last administered on 21:06; Start 12/17/16 at 21:30; Stop 12/17/16 at 21:31; Status DC Heparin Sodium/ Sodium Chloride 500 ml @ As Directed STK-MED ONCE .ROUTE ; Start 12/17/16 at 21:21; Stop 12/17/16 at 21:22; Status DC Heparin Sodium/ Dextrose 500 ml @ As Directed STK-MED ONCE IV ; Start at 21:24; Stop 12/17/16 at 21:49; Status DC Heparin Sodium/ Dextrose 500 ml @ 0 mls/hr 1X ONCE IV Last administered on 13:30; Start 12/17/16 at 21:30; Stop 12/17/16 at 21:31; Status DC Heparin Sodium (Porcine) (Heparin Sodium) 10,000 unit STK-MED ONCE .ROUTE ; Start 12/17/16 at 21:37; Stop 12/17/16 at 21:38; Status DC Heparin Sodium (Porcine) (Heparin Sodium) 1,500 unit 1X ONCE IV ; Start at 22:00; Stop 12/17/16 at 22:01; Status DC Heparin Sodium/ Dextrose 500 ml @ 0 mls/hr 1X ONCE IV ; Start 12/17/16 at 21: 45; Stop 12/17/16 at 21:46; Status UNV Heparin Sodium/ Dextrose 500 ml @ 0 mls/hr CONT PRN IV SEE I/O RECORD Last administered on 12/21/16 15:58; Start 12/17/16 at 21:45 Heparin Sodium (Porcine) (Heparin Sodium) 3,400 unit PRN Q6HRS PRN IV FOR UFH LEVEL LESS THAN 0.2 Last administered on 12/18/16 23:50; Start 12/17/16 at 21 :45 Sodium Chloride (Normal Saline Flush) 3 ml QSHIFT PRN IV AFTER MEDS AND BLOOD DRAWS; Start 12/17/16 at 22:30 Sodium Chloride 1,000 ml @ 60 mls/hr [id number] IV Last administered on 06:24; Start 12/17/16 at 22:23 Aspirin (Ecotrin) 81 mg DAILYWBKFT PO Last administered on 12/21/16 08:50; Start 12/18/16 at 08:00 Metoprolol Tartrate (Lopressor) 25 mg BID PO Last administered on 12/21/16 08 :56; Start 12/18/16 at 09:00 Losartan Potassium (Cozaar) 50 mg DAILY PO Last administered on 12/19/16 08: 26; Start 12/18/16 at 09:00; Stop 12/19/16 at 11:15; Status DC Atorvastatin Calcium (Lipitor) 20 mg QHS PO Last administered on 12/20/16 21: 59; Start 12/18/16 at 21:00 Acetaminophen (Tylenol) 650 mg PRN Q6HRS PRN PO MILD PAIN; Start 12/17/16 at 22:30 Fentanyl Citrate (Fentanyl 2ml Vial) 25 mcg PRN Q1HR PRN IV Moderate or severe pain Last administered on 12/18/16 10:05; Start 12/17/16 at 22:30; Stop at 11:50; Status DC Nitroglycerin (Nitrostat) 0.4 mg PRN Q5MIN PRN SL CHEST PAIN; Start 12/17/16 at 22:30 Ascorbic Acid (Vitamin C) 500 mg DAILY PO Last administered on 12/21/16 08:50 ; Start 12/18/16 at 09:00 Aspirin (Ecotrin) 81 mg DAILYWBKFT PO ; Start 12/18/16 at 08:00; Status UNV Clopidogrel Bisulfate (Plavix) 75 mg DAILYWBKFT PO Last administered on 07:49; Start 12/18/16 at 08:00; Stop 12/18/16 at 09:35; Status DC Finasteride (Proscar) 5 mg DAILY PO Last administered on 12/21/16 08:50; Start 12/18/16 at 09:00 Acetaminophen/ Hydrocodone Bitart (Lortab 5/325) 1 tab PRN Q4HRS PRN PO MODERATE PAIN; Start 12/17/16 at 22:45 Losartan Potassium (Cozaar) 50 mg DAILY PO ; Start 12/18/16 at 09:00; Status UNV Metoprolol Tartrate (Lopressor) 25 mg BID PO ; Start 12/18/16 at 09:00; Status UNV Tamsulosin HCl (Flomax) 0.4 mg DAILY PO Last administered on 12/21/16 08:50; Start 12/18/16 at 09:00 Insulin Detemir (Levemir) 40 units QHS SQ Last administered on 12/18/16 21:15 ; Start 12/18/16 at 21:00 Insulin Aspart (NovoLOG) 20 units TIDAC SQ Last administered on 12/21/16 12: 18; Start 12/18/16 at 07:30 Non-Formulary Medication 20 mg HS PO ; Start 12/18/16 at 21:00; Status UNV Insulin Aspart (NovoLOG) 0-12 UNITS QIDACHS SQ Last administered on 12/21/16 08:42; Start 12/18/16 at 07:30 Ondansetron HCl (Zofran) 4 mg 1X ONCE IV Last administered on 12/18/16 00:45 ; Start 12/18/16 at 00:45; Stop 12/18/16 at 00:51; Status DC Info (Do NOT chart on this placeholder) 1 each 1X ONCE MC ; Start 12/18/16 at 01:30; Stop 12/18/16 at 01:31; Status UNV Influenza Virus Vaccine Quadrival (Fluarix Quad [id number] Syringe) 0.5 ml ONCE ONCE VAX IM Last administered on 12/19/16 18:00; Start 12/18/16 at 09:00; Stop 12/18/16 at 09:01; Status DC Bisacodyl (Dulcolax Supp) 10 mg 1X ONCE LA Last administered on 12/18/16 03: 41; Start 12/18/16 at 04:00; Stop 12/18/16 at 04:01; Status DC Ondansetron HCl (Zofran) 4 mg PRN Q6HRS PRN IV NAUSEA/VOMITING; Start at 03:30 Sodium Chloride 1,000 ml @ 75 mls/hr [id number] IV ; Start 12/18/16 at 09:45; Stop 12/19/16 at 08:14; Status DC Fentanyl Citrate (Fentanyl 2ml Vial) 50 mcg PRN Q2HR PRN IV PAIN; Start at 11:45 Nitroglycerin/ Dextrose 250 ml @ 0 mls/hr CONT PRN IV SEE I/O RECORD Last administered on 12/21/16 12:58; Start 12/19/16 at 00:00 Polyethylene Glycol (miraLAX PACKET) 17 gm DAILY PO Last administered on 08:50; Start 12/19/16 at 11:30 Docusate Sodium (Colace) 100 mg BID PO Last administered on 12/21/16 08:50; Start 12/19/16 at 11:30 Bisacodyl (Dulcolax Supp) 10 mg PRN DAILY PRN LA CONSTIPATION Last administered on 12/19/16 19:11; Start 12/19/16 at 19:00 Info (Anti-Coagulation Monitoring By Pharmacy) 1 each PRN DAILY PRN MC SEE COMMENTS Last administered on 12/21/16 13:26; Start 12/20/16 at 10:15 Active Scripts Active Lantus (Insulin Glargine,Hum.rec.anlog) 100 Unit/1 Ml Vial 40 Unit SQ HS Humalog (Insulin Lispro) 100 Unit/1 Ml Vial 20 Unit SQ TIDAC Fluconazole 100 Mg Tablet 200 Mg PO DAILY Amox Tr-K Clv 875-125 Mg Tab (Amoxicillin/Potassium Clav) 1 Each Tablet 1 Tab PO BID Aspirin Ec (Aspirin) 81 Mg Tablet.dr 81 Mg PO DAILYWBKFT Clopidogrel (Clopidogrel Bisulfate) 75 Mg Tablet 75 Mg PO DAILYWBKFT Hydrocodone-Apap 5-325 (Hydrocodone Bit/Acetaminophen) 1 Each Tablet 1 Tab PO PRN Q4HRS PRN Metoprolol Tartrate 25 Mg Tablet 25 Mg PO BID Reported Potassium Chloride 20 Meq Tablet.er 20 Meq PO DAILY [place] (Saw [place] Fruit) 450 Mg Capsule 450 Mg PO Novolog (Insulin Aspart) 100 Unit/1 Ml Cartridge 40 Unit SQ Cinnamon (Cinnamon Bark) 500 Mg Capsule 1,000 Mg PO Spectravite Senior (Multivitamin W/Iron, Minerals) 1 Each Tablet 1 Each PO Fish Oil 1,000 Mg Capsule ([place]-3 Fatty Acids/Fish Oil) 1 Each Capsule 1 Each PO Finasteride 5 Mg Tablet 5 Mg PO DAILY Tamsulosin Hcl 0.4 Mg Cap.er.24h 0.4 Mg PO DAILY Iron (Ferrous Sulfate) 325 Mg Tablet 325 Mg PO Fish Oil 1,000 Mg Softgel ([place]-3 Fatty Acids/Fish Oil) 1 Each Capsule 1,000 Each PO Vitamin D (Cholecalciferol (Vitamin D3)) 1,000 Unit Capsule 1,000 Unit PO Ascorbic Acid 500 Mg Tablet 500 Mg PO Lovastatin 20 Mg Tablet 20 Mg PO HS Lasix (Furosemide) 40 Mg Tablet 40 Mg PO BID Losartan Potassium 50 Mg Tablet 50 Mg PO DAILY Vitals/I & O Vital Sign - Last 24 Hours 12/20/16 12/20/16 12/20/16 12/20/16 18:00 20:00 20:00 21:59 Temp 98.4 98.4 Pulse 90 84 86 Resp 23 20 B/P (MAP) 134/71 (92) 119/67 (84) 119/67 Pulse Ox 98 95 O2 Delivery Nasal Cannula Nasal Cannula Nasal Cannula O2 Flow Rate 4.0 4.0 4.0 12/20/16 12/21/16 12/21/16 12/21/16 23:59 04:00 08:00 08:00 Temp 98.6 98.4 98.6 98.4 Pulse 84 86 88 Resp 25 22 20 B/P (MAP) 125/60 (81) 136/67 (90) 128/71 (90) Pulse Ox 95 92 98 O2 Delivery Nasal Cannula Nasal Cannula Nasal Cannula Nasal Cannula O2 Flow Rate 4.0 4.0 4.0 4.0 12/21/16 12/21/16 12/21/16 12/21/16 08:56 12:00 13:00 13:45 Temp 98.3 98.3 Pulse 96 84 Resp 18 B/P (MAP) 148/72 133/75 (94) Pulse Ox 97 96 97 O2 Delivery Nasal Cannula Nasal Cannula Room Air O2 Flow Rate 3.0 2.0 Intake and Output 12/21/16 12/21/16 12/22/16 15:00 23:00 07:00 Output Total 500 ml Balance -500 ml ALAN VERDIN MD Dec 21, 2016 17:29
[2016-12-21 20:00] VITALS: BP 122/62
[2016-12-21] MEDS: ATORVASTATIN CALCIUM 20 MG TABLET PO SCH (21:27)
[2016-12-21] MEDS: INSULIN DETEMIR 300 UNITS/3 ML INSULN.PEN. SQ SCH (21:30)
[2016-12-22] VITALS: BP 118/65
[2016-12-22 04:00] VITALS: BP 102/60
[2016-12-22] MEDS: HEPARIN 25,000UTS/500ML PREMIX 500 ML IV PRN ×2 (04:13→17:19)
[2016-12-22 06:58] LABS: CALCIUM 7.8 mg/dL (8.5-10.1); CREATININE 1.7 mg/dL (0.7-1.3); GFR 39.4; MAGNESIUM 2.3 mg/dL (1.8-2.4); POTASSIUM 4.1 mmol/L (3.5-5.1)
[2016-12-22] MEDS: INSULIN ASPART 300 UNITS/3 ML INSULN.PEN SQ SCH ×7 (07:30→22:27)
[2016-12-22 08:00] VITALS: BP 157/67
[2016-12-22] MEDS: FINASTERIDE 5 MG TABLET. PO SCH (08:13)
[2016-12-22] MEDS: DOCUSATE SODIUM 100 MG CAPSULE. PO SCH ×2 (08:13→22:19)
[2016-12-22] MEDS: ASCORBIC ACID 500 MG TABLET PO SCH (08:13)
[2016-12-22] MEDS: ASPIRIN ENTERIC COATED 81 MG TABLET.DR. PO SCH (08:13)
[2016-12-22] MEDS: TAMSULOSIN 0.4 MG CAP.ER.24H. PO SCH (08:13)
[2016-12-22] MEDS: METOPROLOL TART IMMED RELEASE 25 MG TABLET. PO SCH ×2 (08:14→22:19)
[2016-12-22] MEDS: POLYETHYLENE GLYCOL 3350 17 GM PACKET. PO SCH (08:14)
--- NOTE | 2016-12-22 11:50 | PDOC ---
ERVIN ORELLANA OPTICAL INSTRUMENT REPAIRER 12/22/16 1150: CARDIO Progress Notes Date and Time Date of Service 12/22/2016 Time of Evaluation 1110 Subjective Subjective: No Chest Pain, No shortness of breath, No Palpitations, Other ( tolerated shower today but with mild SOA. ) Vitals Vitals Vital Signs Date Time Temp Pulse Resp B/P (MAP) Pulse Ox O2 Delivery O2 Flow Rate FiO2 12/22/16 08:14 81 157/67 12/22/16 08:00 98.8 34 30 Room Air 98.8 12/21/16 13:00 2.0 Weight Weight [ ] Input and Output Intake and Output Intake and Output 12/23/16 07:00 Output Total 100 ml Balance -100 ml Output Urine Total 100 ml Laboratory Labs Laboratory Tests Test 12/21/16 12:15 12/21/16 17:16 12/21/16 17:30 12/21/16 21:27 Glucose (Fingerstick) 147 mg/dL (70-99) 114 mg/dL (70-99) 145 mg/dL (70-99) Heparin Anti-Xa Act, Unfractionated 0.30 IU/mL (0.30-0.70) Test 12/21/16 23:23 12/22/16 06:26 12/22/16 08:15 Heparin Anti-Xa Act, Unfractionated 0.39 IU/mL (0.30-0.70) 0.41 IU/mL (0.30-0.70) Sodium Level 138 mmol/L (136-145) Potassium Level 4.1 mmol/L (3.5-5.1) Chloride Level 109 mmol/L (98-107) Carbon Dioxide Level 22 mmol/L (21-32) Anion Gap 7 (6-14) Blood Urea Nitrogen 23 mg/dL (8-26) Creatinine 1.7 mg/dL (0.7-1.3) Estimated GFR (Cockcroft-Gault) 39.4 Glucose Level 136 mg/dL (70-99) Calcium Level 7.8 mg/dL (8.5-10.1) Magnesium Level 2.3 mg/dL (1.8-2.4) Glucose (Fingerstick) 125 mg/dL (70-99) Physical Exam HEENT: Neck Supple W Full Motion Chest: Symmetric LUNGS: Other (basilar crackles) Heart: S1S2, RRR (SR with PACs) Abdomen: Soft N/T Extremities: No Calf Tenderness Neurology: alert, oriented, follow commands Assessment Assessment 1. Severe 3VD: CP free. CABG planned for Sun. as per CTS 2. Acute diastolic CHF: LVEF 50-55%. Better. 4. CKD3; better Cr at 1.7 5. DM2/HLP Recommendations 1. Continue with heparin gtt, and secondary prevention 2. No KEYA/ARB in preparation for CABG 3. X1 low dose lasix. Maintain PO hydration and will stop IVF. Supportive care AGATA CARDENAS MD 12/22/16 1601: CARDIO Progress Notes Assessment Assessment Patient seen and examined. Agree with ONCOLOGY SOCIAL WORKER's assessment and plan. Patient currently chest pain-free. Agree with intravenous Lasix for mild fluid overload. Continue current medications including heparin. Plan for CABG on Sunday per CTS. ERVIN ORELLANA APRN Dec 22, 2016 11:50 AGATA CARDENAS MD Dec 22, 2016 16:01
[2016-12-22 12:00] VITALS: BP 99/49
[2016-12-22] MEDS ORDERED: FUROSEMIDE 20 MG/2 ML VIAL. IVP ONE (12:00)
[2016-12-22 16:00] VITALS: BP 126/49
--- NOTE | 2016-12-22 17:53 | PDOC ---
PROGRESS NOTES Subjective Subjective Patient feeling well continues to stabilize prior to planned surgery on 12/25 Objective Objective Vital Signs Date Time Temp Pulse Resp B/P (MAP) Pulse Ox O2 Delivery O2 Flow Rate FiO2 12/22/16 16:00 98.4 79 22 126/49 (74) 97 Room Air 98.4 12/21/16 13:00 2.0 Intake and Output 12/23/16 07:00 Intake Total 400 ml Output Total 1725 ml Balance -1325 ml Intake Oral 400 ml Output Urine Total 1725 ml Physical Exam Abdomen: Normal bowel sounds Heart: Regular rate Extremities: No edema General: Alert Lungs: Clear to auscultation Assessment Assessment Problems Medical Problems: (1) Acute NE, inferior wall, initial episode of care Status: Acute (2) Kidney disease Status: Acute 1. Acute ST changes of myocardial infarction. 2. Severe 3-vessel coronary artery disease. 3. Type 2 diabetes. 4. Hypertension. 5. Chronic kidney disease Plan Plan of Care Continue preop evaluation for surgery on December 25, 2016. Continue supportive care for coronary artery disease Proceed with PT and OT modalities preoperatively Monitor fluid balance and adjust IV fluids give Lasix if needed. Comment Review of Relevant I have reviewed the following items tereso (where applicable) has been applied. Labs Laboratory Tests Test 12/20/16 22:00 12/21/16 07:40 12/21/16 08:19 12/21/16 12:15 Glucose (Fingerstick) 112 mg/dL (70-99) 186 mg/dL (70-99) 147 mg/dL (70-99) Heparin Anti-Xa Act, Unfractionated 0.20 IU/mL (0.30-0.70) Test 12/21/16 17:16 12/21/16 17:30 12/21/16 21:27 12/21/16 23:23 Glucose (Fingerstick) 114 mg/dL (70-99) 145 mg/dL (70-99) Heparin Anti-Xa Act, Unfractionated 0.30 IU/mL (0.30-0.70) 0.39 IU/mL (0.30-0.70) Test 12/22/16 06:26 12/22/16 08:15 12/22/16 12:12 12/22/16 17:20 Heparin Anti-Xa Act, Unfractionated 0.41 IU/mL (0.30-0.70) Sodium Level 138 mmol/L (136-145) Potassium Level 4.1 mmol/L (3.5-5.1) Chloride Level 109 mmol/L (98-107) Carbon Dioxide Level 22 mmol/L (21-32) Anion Gap 7 (6-14) Blood Urea Nitrogen 23 mg/dL (8-26) Creatinine 1.7 mg/dL (0.7-1.3) Estimated GFR (Cockcroft-Gault) 39.4 Glucose Level 136 mg/dL (70-99) Calcium Level 7.8 mg/dL (8.5-10.1) Magnesium Level 2.3 mg/dL (1.8-2.4) Glucose (Fingerstick) 125 mg/dL (70-99) 183 mg/dL (70-99) 120 mg/dL (70-99) Laboratory Tests Test 12/21/16 21:27 12/21/16 23:23 12/22/16 06:26 12/22/16 08:15 Glucose (Fingerstick) 145 mg/dL (70-99) 125 mg/dL (70-99) Heparin Anti-Xa Act, Unfractionated 0.39 IU/mL (0.30-0.70) 0.41 IU/mL (0.30-0.70) Sodium Level 138 mmol/L (136-145) Potassium Level 4.1 mmol/L (3.5-5.1) Chloride Level 109 mmol/L (98-107) Carbon Dioxide Level 22 mmol/L (21-32) Anion Gap 7 (6-14) Blood Urea Nitrogen 23 mg/dL (8-26) Creatinine 1.7 mg/dL (0.7-1.3) Estimated GFR (Cockcroft-Gault) 39.4 Glucose Level 136 mg/dL (70-99) Calcium Level 7.8 mg/dL (8.5-10.1) Magnesium Level 2.3 mg/dL (1.8-2.4) Test 12/22/16 12:12 12/22/16 17:20 Glucose (Fingerstick) 183 mg/dL (70-99) 120 mg/dL (70-99) Medications Current Medications Aspirin (Children'S Aspirin) 324 mg 1X ONCE PO Last administered on t 20:23; Start 12/17/16 at 20:45; Stop 12/17/16 at 20:46; Status DC Heparin Sodium (Porcine) (Heparin Sodium) 4,000 unit 1X ONCE IV Last administered on 12/17/16t 20:24; Start 12/17/16 at 20:30; Stop 12/17/16 at 20 :31; Status DC Fentanyl Citrate (Fentanyl 2ml Vial) 100 mcg STK-MED ONCE .ROUTE ; Start at 20:39; Stop 12/17/16 at 20:40; Status DC Midazolam HCl (Versed) 2 mg STK-MED ONCE .ROUTE ; Start 12/17/16 at 20:39; Stop 12/17/16 at 20:40; Status DC Heparin Sodium (Porcine) (Heparin Sodium) 10,000 unit STK-MED ONCE .ROUTE ; Start 12/17/16 at 20:39; Stop 12/17/16 at 20:40; Status DC Tirofiban/Sodium Chloride 0 ml @ As Directed STK-MED ONCE IV ; Start 12/17/16 at 20:39; Stop 12/17/16 at 20:40; Status DC Dopamine HCl/ Dextrose 0 ml @ As Directed STK-MED ONCE IV ; Start 12/17/16 at 20:40; Stop 12/17/16 at 20:41; Status DC Lidocaine HCl 20 ml STK-MED ONCE .ROUTE ; Start 12/17/16 at 20:47; Stop at 20:48; Status DC Iohexol (Omnipaque 350 Mg/ml) 100 ml STK-MED ONCE .ROUTE ; Start 12/17/16 at 20 :47; Stop 12/17/16 at 20:48; Status DC Heparin Sodium/ Sodium Chloride 1,000 ml @ As Directed STK-MED ONCE .ROUTE ; Start 12/17/16 at 20:48; Stop 12/17/16 at 20:49; Status DC Morphine Sulfate 2 mg 1X ONCE IV ; Start 12/17/16 at 21:15; Stop 12/17/16 at 21:16; Status DC Ondansetron HCl (Zofran) 4 mg 1X ONCE IV ; Start 12/17/16 at 21:15; Stop at 21:16; Status DC Nitroglycerin/ Dextrose 250 ml @ As Directed STK-MED ONCE IV ; Start 12/17/16 at 21:01; Stop 12/17/16 at 21:02; Status DC Heparin Sodium/ Sodium Chloride 1,000 unit 1X ONCE IART ; Start 12/17/16 at 21 :15; Stop 12/17/16 at 21:19; Status DC Midazolam HCl (Versed) 1 mg 1X ONCE IV Last administered on 12/17/16 21:15; Start 12/17/16 at 21:15; Stop 12/17/16 at 21:19; Status DC Fentanyl Citrate (Fentanyl 2ml Vial) 25 mcg 1X ONCE IV Last administered on 21:15; Start 12/17/16 at 21:15; Stop 12/17/16 at 21:19; Status DC Iodixanol (Visipaque 320) 100 ml 1X ONCE IART Last administered on 12/17/16 21:15; Start 12/17/16 at 21:15; Stop 12/17/16 at 21:19; Status DC Lidocaine HCl 20 ml 1X ONCE IJ Last administered on 12/17/16 21:15; Start 12/17/16 at 21:15; Stop 12/17/16 at 21:20; Status DC Nitroglycerin/ Dextrose 250 ml @ 0 mls/hr 1X ONCE IV Last administered on 21:06; Start 12/17/16 at 21:30; Stop 12/17/16 at 21:31; Status DC Heparin Sodium/ Sodium Chloride 500 ml @ As Directed STK-MED ONCE .ROUTE ; Start 12/17/16 at 21:21; Stop 12/17/16 at 21:22; Status DC Heparin Sodium/ Dextrose 500 ml @ As Directed STK-MED ONCE IV ; Start at 21:24; Stop 12/17/16 at 21:49; Status DC Heparin Sodium/ Dextrose 500 ml @ 0 mls/hr 1X ONCE IV Last administered on 13:30; Start 12/17/16 at 21:30; Stop 12/17/16 at 21:31; Status DC Heparin Sodium (Porcine) (Heparin Sodium) 10,000 unit STK-MED ONCE .ROUTE ; Start 12/17/16 at 21:37; Stop 12/17/16 at 21:38; Status DC Heparin Sodium (Porcine) (Heparin Sodium) 1,500 unit 1X ONCE IV ; Start at 22:00; Stop 12/17/16 at 22:01; Status DC Heparin Sodium/ Dextrose 500 ml @ 0 mls/hr 1X ONCE IV ; Start 12/17/16 at 21: 45; Stop 12/17/16 at 21:46; Status UNV Heparin Sodium/ Dextrose 500 ml @ 0 mls/hr CONT PRN IV SEE I/O RECORD Last administered on 12/22/16 17:19; Start 12/17/16 at 21:45 Heparin Sodium (Porcine) (Heparin Sodium) 3,400 unit PRN Q6HRS PRN IV FOR UFH LEVEL LESS THAN 0.2 Last administered on 12/18/16 23:50; Start 12/17/16 at 21 :45 Sodium Chloride (Normal Saline Flush) 3 ml QSHIFT PRN IV AFTER MEDS AND BLOOD DRAWS; Start 12/17/16 at 22:30 Sodium Chloride 1,000 ml @ 60 mls/hr [id number] IV Last administered on 22:57; Start 12/17/16 at 22:23 Aspirin (Ecotrin) 81 mg DAILYWBKFT PO Last administered on 12/22/16 08:13; Start 12/18/16 at 08:00 Metoprolol Tartrate (Lopressor) 25 mg BID PO Last administered on 12/22/16 08 :14; Start 12/18/16 at 09:00 Losartan Potassium (Cozaar) 50 mg DAILY PO Last administered on 12/19/16 08: 26; Start 12/18/16 at 09:00; Stop 12/19/16 at 11:15; Status DC Atorvastatin Calcium (Lipitor) 20 mg QHS PO Last administered on 12/21/16 21: 27; Start 12/18/16 at 21:00 Acetaminophen (Tylenol) 650 mg PRN Q6HRS PRN PO MILD PAIN; Start 12/17/16 at 22:30 Fentanyl Citrate (Fentanyl 2ml Vial) 25 mcg PRN Q1HR PRN IV Moderate or severe pain Last administered on 12/18/16 10:05; Start 12/17/16 at 22:30; Stop at 11:50; Status DC Nitroglycerin (Nitrostat) 0.4 mg PRN Q5MIN PRN SL CHEST PAIN; Start 12/17/16 at 22:30 Ascorbic Acid (Vitamin C) 500 mg DAILY PO Last administered on 12/22/16 08:13 ; Start 12/18/16 at 09:00 Aspirin (Ecotrin) 81 mg DAILYWBKFT PO ; Start 12/18/16 at 08:00; Status UNV Clopidogrel Bisulfate (Plavix) 75 mg DAILYWBKFT PO Last administered on 07:49; Start 12/18/16 at 08:00; Stop 12/18/16 at 09:35; Status DC Finasteride (Proscar) 5 mg DAILY PO Last administered on 12/22/16 08:13; Start 12/18/16 at 09:00 Acetaminophen/ Hydrocodone Bitart (Lortab 5/325) 1 tab PRN Q4HRS PRN PO MODERATE PAIN; Start 12/17/16 at 22:45 Losartan Potassium (Cozaar) 50 mg DAILY PO ; Start 12/18/16 at 09:00; Status UNV Metoprolol Tartrate (Lopressor) 25 mg BID PO ; Start 12/18/16 at 09:00; Status UNV Tamsulosin HCl (Flomax) 0.4 mg DAILY PO Last administered on 12/22/16 08:13; Start 12/18/16 at 09:00 Insulin Detemir (Levemir) 40 units QHS SQ Last administered on 12/21/16 21:30 ; Start 12/18/16 at 21:00 Insulin Aspart (NovoLOG) 20 units TIDAC SQ Last administered on 12/22/16 17: 23; Start 12/18/16 at 07:30 Non-Formulary Medication 20 mg HS PO ; Start 12/18/16 at 21:00; Status UNV Insulin Aspart (NovoLOG) 0-12 UNITS QIDACHS SQ Last administered on 12/22/16 12:20; Start 12/18/16 at 07:30 Ondansetron HCl (Zofran) 4 mg 1X ONCE IV Last administered on 12/18/16 00:45 ; Start 12/18/16 at 00:45; Stop 12/18/16 at 00:51; Status DC Info (Do NOT chart on this placeholder) 1 each 1X ONCE MC ; Start 12/18/16 at 01:30; Stop 12/18/16 at 01:31; Status UNV Influenza Virus Vaccine Quadrival (Fluarix Quad [id number] Syringe) 0.5 ml ONCE ONCE VAX IM Last administered on 12/19/16 18:00; Start 12/18/16 at 09:00; Stop 12/18/16 at 09:01; Status DC Bisacodyl (Dulcolax Supp) 10 mg 1X ONCE DE Last administered on 12/18/16 03: 41; Start 12/18/16 at 04:00; Stop 12/18/16 at 04:01; Status DC Ondansetron HCl (Zofran) 4 mg PRN Q6HRS PRN IV NAUSEA/VOMITING; Start at 03:30 Sodium Chloride 1,000 ml @ 75 mls/hr [id number] IV ; Start 12/18/16 at 09:45; Stop 12/19/16 at 08:14; Status DC Fentanyl Citrate (Fentanyl 2ml Vial) 50 mcg PRN Q2HR PRN IV PAIN; Start at 11:45 Nitroglycerin/ Dextrose 250 ml @ 0 mls/hr CONT PRN IV SEE I/O RECORD Last administered on 12/21/16 12:58; Start 12/19/16 at 00:00 Polyethylene Glycol (miraLAX PACKET) 17 gm DAILY PO Last administered on 08:14; Start 12/19/16 at 11:30 Docusate Sodium (Colace) 100 mg BID PO Last administered on 12/22/16 08:13; Start 12/19/16 at 11:30 Bisacodyl (Dulcolax Supp) 10 mg PRN DAILY PRN DE CONSTIPATION Last administered on 12/19/16 19:11; Start 12/19/16 at 19:00 Info (Anti-Coagulation Monitoring By Pharmacy) 1 each PRN DAILY PRN MC SEE COMMENTS Last administered on 12/21/16 13:26; Start 12/20/16 at 10:15 Furosemide (Lasix) 20 mg 1X ONCE IVP Last administered on 12/22/16 12:17; Start 12/22/16 at 12:00; Stop 12/22/16 at 12:01; Status DC Morphine Sulfate 1 mg PRN Q10MIN PRN IV SEVERE PAIN; Start 12/25/16 at 07:00; Stop 12/26/16 at 06:59 Ringer's Solution 1,000 ml @ 30 mls/hr Q24H IV ; Start 12/25/16 at 07:00; Stop 12/25/16 at 18:59 Lidocaine HCl (Xylocaine-Mpf 1% Vial) 2 ml PRN 1X PRN ID PRIOR TO IV START; Start 12/25/16 at 07:00; Stop 12/26/16 at 06:59 Hydromorphone HCl (Dilaudid) 0.5 mg PRN Q10MIN PRN IV SEV PAIN, Second choice; Start 12/25/16 at 07:00; Stop 12/26/16 at 06:59 Prochlorperazine Edisylate (Compazine) 5 mg PACU PRN PRN IV NAUSEA, MRX1; Start 12/25/16 at 07:00; Stop 12/26/16 at 06:59 Active Scripts Active Lantus (Insulin Glargine,Hum.rec.anlog) 100 Unit/1 Ml Vial 40 Unit SQ HS Humalog (Insulin Lispro) 100 Unit/1 Ml Vial 20 Unit SQ TIDAC Fluconazole 100 Mg Tablet 200 Mg PO DAILY Amox Tr-K Clv 875-125 Mg Tab (Amoxicillin/Potassium Clav) 1 Each Tablet 1 Tab PO BID Aspirin Ec (Aspirin) 81 Mg Tablet.dr 81 Mg PO DAILYWBKFT Clopidogrel (Clopidogrel Bisulfate) 75 Mg Tablet 75 Mg PO DAILYWBKFT Hydrocodone-Apap 5-325 (Hydrocodone Bit/Acetaminophen) 1 Each Tablet 1 Tab PO PRN Q4HRS PRN Metoprolol Tartrate 25 Mg Tablet 25 Mg PO BID Reported Potassium Chloride 20 Meq Tablet.er 20 Meq PO DAILY [place] ([place] Fruit) 450 Mg Capsule 450 Mg PO Novolog (Insulin Aspart) 100 Unit/1 Ml Cartridge 40 Unit SQ Cinnamon (Cinnamon Bark) 500 Mg Capsule 1,000 Mg PO Spectravite Senior (Multivitamin W/Iron, Minerals) 1 Each Tablet 1 Each PO Fish Oil 1,000 Mg Capsule ([place]-3 Fatty Acids/Fish Oil) 1 Each Capsule 1 Each PO Finasteride 5 Mg Tablet 5 Mg PO DAILY Tamsulosin Hcl 0.4 Mg Cap.er.24h 0.4 Mg PO DAILY Iron (Ferrous Sulfate) 325 Mg Tablet 325 Mg PO Fish Oil 1,000 Mg Softgel ([place]-3 Fatty Acids/Fish Oil) 1 Each Capsule 1,000 Each PO Vitamin D (Cholecalciferol (Vitamin D3)) 1,000 Unit Capsule 1,000 Unit PO Ascorbic Acid 500 Mg Tablet 500 Mg PO Lovastatin 20 Mg Tablet 20 Mg PO HS Lasix (Furosemide) 40 Mg Tablet 40 Mg PO BID Losartan Potassium 50 Mg Tablet 50 Mg PO DAILY Vitals/I & O Vital Sign - Last 24 Hours 12/21/16 12/21/16 12/21/16 12/22/16 20:00 20:00 21:27 00:00 Temp 98.6 98.9 98.6 98.9 Pulse 86 86 81 Resp 18 20 B/P (MAP) 122/62 (82) 122/62 118/65 (82) Pulse Ox 98 95 O2 Delivery Room Air Room Air Room Air 12/22/16 12/22/16 12/22/16 12/22/16 04:00 08:00 08:00 08:14 Temp 98.8 98.8 98.8 98.8 Pulse 74 89 81 Resp 21 34 B/P (MAP) 102/60 (74) 157/67 (97) 157/67 Pulse Ox 95 30 O2 Delivery Room Air Room Air Room Air 12/22/16 12/22/16 12:00 16:00 Temp 98.6 98.4 98.6 98.4 Pulse 81 79 Resp 22 22 B/P (MAP) 99/49 (66) 126/49 (74) Pulse Ox 97 97 O2 Delivery Room Air Room Air Intake and Output 12/22/16 12/22/16 12/23/16 15:00 23:00 07:00 Intake Total 200 ml 200 ml Output Total 750 ml 975 ml Balance -550 ml -775 ml ALAN VERDIN MD Dec 22, 2016 17:53
[2016-12-22] MEDS: IV NORMAL SALINE 1000ML BAG 1,000 ML IV SCH (19:03)
[2016-12-22 20:06] VITALS: BP 154/78
[2016-12-22] MEDS: ATORVASTATIN CALCIUM 20 MG TABLET PO SCH (22:18)
[2016-12-22] MEDS: INSULIN DETEMIR 300 UNITS/3 ML INSULN.PEN. SQ SCH (22:25)
[2016-12-23] VITALS (7 sets, daily range): BP systolic 103–143; BP diastolic 52–69
[2016-12-23] MEDS: HEPARIN 25,000UTS/500ML PREMIX 500 ML IV PRN ×2 (05:09→17:28)
[2016-12-23] MEDS: INSULIN ASPART 300 UNITS/3 ML INSULN.PEN SQ SCH ×7 (07:30→21:30)
[2016-12-23] MEDS: POLYETHYLENE GLYCOL 3350 17 GM PACKET. PO SCH (09:14)
[2016-12-23] MEDS: TAMSULOSIN 0.4 MG CAP.ER.24H. PO SCH (09:15)
[2016-12-23] MEDS: ASCORBIC ACID 500 MG TABLET PO SCH (09:15)
[2016-12-23] MEDS: DOCUSATE SODIUM 100 MG CAPSULE. PO SCH ×2 (09:15→21:26)
[2016-12-23] MEDS: ASPIRIN ENTERIC COATED 81 MG TABLET.DR. PO SCH (09:16)
[2016-12-23] MEDS: FINASTERIDE 5 MG TABLET. PO SCH (09:16)
[2016-12-23] MEDS: METOPROLOL TART IMMED RELEASE 25 MG TABLET. PO SCH ×2 (09:17→21:26)
[2016-12-23] MEDS: IV NORMAL SALINE 1000ML BAG 1,000 ML IV SCH (11:43)
--- NOTE | 2016-12-23 12:15 | PDOC ---
PROGRESS NOTES Subjective Subjective Patient denied any chest pain or shortness of breath Objective Objective Vital Signs Date Time Temp Pulse Resp B/P (MAP) Pulse Ox O2 Delivery O2 Flow Rate FiO2 12/23/16 09:17 79 113/62 12/23/16 08:48 99.3 24 91 Room Air 99.3 Intake and Output 12/24/16 07:00 Intake Total 180 ml Output Total 1 ml Balance 179 ml Intake Oral 180 ml Output Urine Total 1 ml # Bowel Movements 1 Physical Exam Abdomen: Normal bowel sounds Heart: Regular rate Extremities: No edema General: Alert HEENT: Atraumatic, PERRLA Lungs: Clear to auscultation MUSCULOSKELETAL: No deformity Neuro: Normal gait, Normal speech, Strength at 5/5 X4 ext, Normal tone, Sensation intact, Cranial nerves 3-12 NL Psych/Mental Status: Mental status NL Skin: No significant lesion Assessment Assessment 1. Severe 3VD: CP free. Telemetry did not show any significant arrhythmias. CABG planned for Mon. as per CTS 2. Acute diastolic CHF: LVEF 50-55%. Better compensated. Continue diuretics. 3. Hypertension: Well-controlled 4. HLP: Statins 5. DM treated per IM Plan Plan of Care Problems Medical Problems: (1) Acute MD, inferior wall, initial episode of care Status: Acute (2) Kidney disease Status: Acute Comment Review of Relevant I have reviewed the following items tereso (where applicable) has been applied. Labs Laboratory Tests Test 12/22/16 17:20 12/22/16 20:48 12/23/16 07:40 12/23/16 09:20 Glucose (Fingerstick) 120 mg/dL (70-99) 165 mg/dL (70-99) 132 mg/dL (70-99) Heparin Anti-Xa Act, Unfractionated 0.46 IU/mL (0.30-0.70) Test 12/23/16 11:43 Glucose (Fingerstick) 215 mg/dL (70-99) Medications Current Medications Hydromorphone HCl (Dilaudid) 0.5 mg PRN Q10MIN PRN IV SEV PAIN, Second choice; Start 12/25/16 at 07:00; Stop 12/26/16 at 06:59 Lidocaine HCl (Xylocaine-Mpf 1% Vial) 2 ml PRN 1X PRN ID PRIOR TO IV START; Start 12/25/16 at 07:00; Stop 12/26/16 at 06:59 Morphine Sulfate 1 mg PRN Q10MIN PRN IV SEVERE PAIN; Start 12/25/16 at 07:00; Stop 12/26/16 at 06:59 Prochlorperazine Edisylate (Compazine) 5 mg PACU PRN PRN IV NAUSEA, MRX1; Start 12/25/16 at 07:00; Stop 12/26/16 at 06:59 Ringer's Solution 1,000 ml @ 30 mls/hr Q24H IV ; Start 12/25/16 at 07:00; Stop 12/25/16 at 18:59 Vitals/I & O Vital Sign - Last 24 Hours 12/22/16 12/22/16 12/22/16 12/22/16 16:00 20:00 20:06 22:19 Temp 98.4 98.0 98.4 98.0 Pulse 79 87 86 Resp 22 20 B/P (MAP) 126/49 (74) 154/78 (103) 154/78 Pulse Ox 97 94 O2 Delivery Room Air Room Air Room Air 12/23/16 12/23/16 12/23/16 12/23/16 00:23 03:55 08:00 08:48 Temp 97.9 97.7 99.3 97.9 97.7 99.3 Pulse 86 75 79 Resp 22 24 B/P (MAP) 129/66 (87) 135/69 (91) 113/62 (79) Pulse Ox 92 94 91 O2 Delivery Room Air Room Air Room Air Room Air 12/23/16 09:17 Pulse 79 B/P (MAP) 113/62 Intake and Output 12/23/16 12/23/16 12/24/16 15:00 23:00 07:00 Intake Total 180 ml Output Total 1 ml Balance 179 ml AGATA CARDENAS MD Dec 23, 2016 12:15
--- NOTE | 2016-12-23 14:24 | PDOC ---
PROGRESS NOTES Subjective No chest pain or SOA, resting comfortably, awaiting CABG Sunday, no nursing concerns Objective Afebrile BP: noted General: NAD Heart: RRR Lungs: CTAB Abd: obese, non tender Ext: no clubbing or cyanosis skin: intact Vital Signs Vital Signs Date Time Temp Pulse Resp B/P (MAP) Pulse Ox O2 Delivery O2 Flow Rate FiO2 12/23/16 12:00 98.7 79 20 115/52 (73) 92 Room Air 98.7 12/21/16 13:00 2.0 I & O Intake and Output 12/24/16 07:00 Intake Total 280 ml Output Total 1 ml Balance 279 ml Intake Oral 280 ml Output Urine Total 1 ml # Bowel Movements 1 Assessment and Plan Problems Medical Problems: (1) Acute [place], inferior wall, initial episode of care Status: Acute (2) Kidney disease Status: Acute 1. Acute ST changes of myocardial infarction. 2. Severe 3-vessel coronary artery disease. 3. Type 2 diabetes. 4. Hypertension. 5. Chronic kidney disease Plan Plan of Care CABG on December 25, 2016. Continue supportive care for coronary artery disease Proceed with PT and OT modalities preoperatively Monitor fluids to balance CKD vs CHF. Problems: Yakelin MCCLURE MD Dec 23, 2016 14:24
[2016-12-23] MEDS: ANTI-COAG MONITOR BY PHARMACY. MC PRN (16:19)
[2016-12-23] MEDS: ATORVASTATIN CALCIUM 20 MG TABLET PO SCH (21:26)
[2016-12-23] MEDS: INSULIN DETEMIR 300 UNITS/3 ML INSULN.PEN. SQ SCH (21:30)
[2016-12-24 03:20] VITALS: BP 135/64
[2016-12-24 05:00] LABS: BASO # 0.1 x10^3/uL (0.0-0.2); BASO % 1 % (0-3); EOS % 3 % (0-3); HEMATOCRIT 32.6 % (39.0-53.0); HEMOGLOBIN 10.8 g/dL (13.0-17.5); LYMPH # 1.8 x10^3/uL (1.0-4.8); LYMPH % 17 % (24-48); MEAN CORPUSCULAR HEMOGLOBIN 30 pg (25-35); MEAN CORPUSCULAR HGB CONC 33 g/dL (31-37); MEAN CORPUSCULAR VOLUME 90 fL (79-100); MONO % 6 % (0-9); NEUT % 73 % (31-73); PLATELET COUNT 245 x10^3/uL (140-400); RED BLOOD COUNT 3.61 x10^6/uL (4.30-5.70); RED CELL DISTRIBUTION WIDTH 14.4 % (11.5-14.5); WHITE BLOOD COUNT 10.2 x10^3/uL (4.0-11.0)
[2016-12-24 05:22] LABS: ALBUMIN 2.5 g/dL (3.4-5.0); ALBUMIN/GLOBULIN RATIO 0.6 (1.0-1.7); CALCIUM 8.3 mg/dL (8.5-10.1); CREATININE 1.7 mg/dL (0.7-1.3); GFR 39.4; MAGNESIUM 2.2 mg/dL (1.8-2.4); PHOSPHORUS 3.7 mg/dL (2.6-4.7); POTASSIUM 4.2 mmol/L (3.5-5.1); TOTAL BILIRUBIN 0.3 mg/dL (0.2-1.0); TOTAL PROTEIN 6.7 g/dL (6.4-8.2)
[2016-12-24] MEDS: NITROGLYCERIN PREMIX 250 ML IV PRN (05:32)
[2016-12-24] MEDS: HEPARIN 25,000UTS/500ML PREMIX 500 ML IV PRN ×2 (05:37→16:54)
[2016-12-24 07:00] VITALS: BP 132/79
[2016-12-24] MEDS: INSULIN ASPART 300 UNITS/3 ML INSULN.PEN SQ SCH ×7 (07:30→21:16)
[2016-12-24] MEDS: POLYETHYLENE GLYCOL 3350 17 GM PACKET. PO SCH (08:19)
[2016-12-24] MEDS: FINASTERIDE 5 MG TABLET. PO SCH (08:19)
[2016-12-24] MEDS: TAMSULOSIN 0.4 MG CAP.ER.24H. PO SCH (08:19)
[2016-12-24] MEDS: DOCUSATE SODIUM 100 MG CAPSULE. PO SCH ×2 (08:19→21:10)
[2016-12-24] MEDS: ASPIRIN ENTERIC COATED 81 MG TABLET.DR. PO SCH (08:20)
[2016-12-24] MEDS: METOPROLOL TART IMMED RELEASE 25 MG TABLET. PO SCH ×2 (08:20→21:10)
[2016-12-24] MEDS: ASCORBIC ACID 500 MG TABLET PO SCH (08:20)
--- NOTE | 2016-12-24 10:09 | PDOC ---
PROGRESS NOTES Subjective No chest pain, coughing up clear phlegm this am, had BM last night, no questions regarding surgery, son present Objective Afebrile General: NAD, pleasant, A&O HEENT: wearing glasses, no congestion, moist mucous membranes Heart: RRR , monitor NSR Lungs: CTA but diminished breath sounds Abd: obese, soft, non distended Ext: no C/C/E Hgb: 10.4 Creat: 1.7 Vital Signs Vital Signs Date Time Temp Pulse Resp B/P (MAP) Pulse Ox O2 Delivery O2 Flow Rate FiO2 12/24/16 08:20 82 132/79 12/24/16 08:00 Room Air 12/24/16 07:00 97.8 18 92.0 97.8 12/24/16 03:20 92 I & O Intake and Output 12/25/16 06:59 Output Total 500 ml Balance -500 ml Output Urine Total 500 ml Assessment and Plan Problems Medical Problems: (1) Acute [place], inferior wall, initial episode of care Status: Acute (2) Kidney disease Status: Acute ASSESSMENT: 1. Acute ST changes of myocardial infarction. 2. Severe 3-vessel coronary artery disease. 3. Type 2 diabetes. 4. Hypertension. 5. Chronic kidney disease 6. COPD Plan Plan of Care CABG on December 25, 2016. Continue supportive care for coronary artery disease Proceed with PT and OT modalities preoperatively Monitor fluids to balance CKD vs CHF. Add po Mucinex; DuoNeb, budesonide nebulized, cont IS, encouraged ambulation today Problems: Yakelin MCCLURE MD Dec 24, 2016 10:09
[2016-12-24 11:00] VITALS: BP 124/67
[2016-12-24] MEDS: IPRATRPIUM/ALBUTEROL 0.5/2.5MG 3 ML NEBU. NEB SCH ×3 (12:05→20:26)
[2016-12-24] MEDS: ANTI-COAG MONITOR BY PHARMACY. MC PRN (14:32)
[2016-12-24 15:00] VITALS: BP 133/65
[2016-12-24 19:25] VITALS: BP 124/55
[2016-12-24] MEDS: BUDESONIDE 0.5 MG/2 ML NEBU. NEB SCH (20:29)
[2016-12-24] MEDS: ATORVASTATIN CALCIUM 20 MG TABLET PO SCH (21:10)
[2016-12-24] MEDS: INSULIN DETEMIR 300 UNITS/3 ML INSULN.PEN. SQ SCH (21:17)
[2016-12-24 23:00] VITALS: BP 138/69
[2016-12-25] VITALS (21 sets, daily range): BP systolic 78–137; BP diastolic 38–68
[2016-12-25] MEDS ORDERED: POTASSIUM CHLORIDE 15 MEQ, SODIUM BICARBONATE VIAL 12.5 MEQ in IV ELECTROLYTE-S (PH 7.4... IRR ONE (06:00)
[2016-12-25] MEDS ORDERED: POTASSIUM CHLORIDE 70 MEQ, SODIUM BICARBONATE VIAL 12.5 MEQ, LIDOCAINE 2% 24 ML in IV E... IRR ONE (06:00)
[2016-12-25] MEDS ORDERED: HEPARIN 20,000 UNIT in IV RINGERS,LACTATED 1000ML 1,000 ML IRR ONE (06:00)
[2016-12-25] MEDS: HEPARIN 25,000UTS/500ML PREMIX 500 ML IV PRN (06:25)
[2016-12-25] MEDS ORDERED: VANCOMYCIN 10GM VIAL for OR. ONE (06:32)
[2016-12-25] MEDS ORDERED: 0.9 % SODIUM CHLORIDE 50 ML VIAL. IJ ONE (06:33)
[2016-12-25] MEDS ORDERED: ASPIRIN 300 MG SUPP.RECT ONE (06:33)
[2016-12-25] MEDS ORDERED: SURGICEL HEMOSTAT 4X8 EACH. ONE (06:33)
[2016-12-25] MEDS ORDERED: PAPAVERINE 60 MG/2 ML VIAL FOR OR ONLY. ONE (06:33)
[2016-12-25] MEDS ORDERED: SUFentanil 100 MCG/2 ML AMPUL. ONE (06:56)
[2016-12-25] MEDS ORDERED: ROCURONIUM 100 MG/10 ML VIAL. ONE (06:56)
[2016-12-25] MEDS ORDERED: MIDAZOLAM HCL/PF 2 MG/2 ML VIAL. ONE ×3 (06:57→14:20)
[2016-12-25] MEDS ORDERED: DEXAMETHASONE SOD PHOS 20 MG/5 ML VIAL. ONE (06:58)
[2016-12-25] MEDS ORDERED: HEPARIN for IV BOLUS 10,000 UNIT/10 ML VIAL. ONE ×4 (06:58→15:17)
[2016-12-25] MEDS ORDERED: PHENYLEPHRINE 10 MG/ML VIAL. ONE ×2 (06:58)
[2016-12-25] MEDS ORDERED: ISOFLURANE > 120 MINUTES. IH ONE (06:58)
[2016-12-25] MEDS ORDERED: LIDOCAINE 2% PF Vial for OR 5 ML VIAL. ONE ×2 (06:58→15:17)
[2016-12-25] MEDS ORDERED: AMINOCAPROIC ACID 5,000 MG/20 ML VIAL. IV ONE ×3 (06:59)
[2016-12-25] MEDS ORDERED: ETOMIDATE 20 MG/10 ML VIAL. IV ONE (06:59)
[2016-12-25] MEDS ORDERED: IV RINGERS,LACTATED 1000ML 1,000 ML IV SCH (07:00)
[2016-12-25] MEDS ORDERED: PROCHLORPERAZINE 10 MG/2 ML VIAL. IV PRN (07:00)
[2016-12-25] MEDS ORDERED: HYDROmorphone 2 MG/ML VIAL IV PRN (07:00)
[2016-12-25] MEDS ORDERED: LIDOCAINE 1% PF 2 ML VIAL. ID PRN (07:00)
[2016-12-25] MEDS: INSULIN ASPART 300 UNITS/3 ML INSULN.PEN SQ SCH ×7 (07:30→21:57)
[2016-12-25] MEDS ORDERED: INSULIN REGULAR VIAL 150 UNIT in 0.9 % SODIUM CHLORIDE 150ML 150 ML IV ONE (08:15)
[2016-12-25] MEDS: METOPROLOL TART IMMED RELEASE 25 MG TABLET. PO SCH ×2 (09:00→21:00)
[2016-12-25] MEDS: ASCORBIC ACID 500 MG TABLET PO SCH (09:00)
[2016-12-25] MEDS: TAMSULOSIN 0.4 MG CAP.ER.24H. PO SCH (09:00)
[2016-12-25] MEDS: DOCUSATE SODIUM 100 MG CAPSULE. PO SCH ×2 (09:00→21:35)
[2016-12-25] MEDS: FINASTERIDE 5 MG TABLET. PO SCH (09:00)
[2016-12-25] MEDS: POLYETHYLENE GLYCOL 3350 17 GM PACKET. PO SCH (09:00)
[2016-12-25] MEDS ORDERED: HEPARIN 30,000 UNIT/30 ML VIAL. ONE ×4 (09:03→15:19)
[2016-12-25] MEDS ORDERED: PROPOFOL 20 ML IV ONE ×2 (09:23→12:42)
[2016-12-25] MEDS ORDERED: PROTAMINE 250 MG/25 ML VIAL IV ONE ×2 (09:47)
[2016-12-25] MEDS ORDERED: SODIUM BICARB ADULT 8.4% 50 MEQ/50 ML DISP.SYRIN. ONE ×3 (10:49→15:16)
[2016-12-25] MEDS ORDERED: ROCURONIUM 50 MG/5 ML VIAL. ONE (12:41)
[2016-12-25] MEDS ORDERED: PROPOFOL 50 ML IV ONE (13:16)
[2016-12-25] MEDS ORDERED: NITROGLYCERIN PREMIX 250 ML IV ONE (13:25)
[2016-12-25] MEDS ORDERED: NOREPINEPHRIN PREMIX 250 ML IV ONE (15:00)
[2016-12-25] MEDS ORDERED: EPINEPHrine 1 MG/ML VIAL ONE (15:00)
[2016-12-25] MEDS ORDERED: MAGNESIUM SULFATE 5 GM/10 ML VIAL. ONE (15:17)
[2016-12-25] MEDS ORDERED: CALCIUM CHLORIDE 1,000 MG/10 ML DISP.SYRIN IV ONE (15:17)
[2016-12-25] MEDS ORDERED: ALBUMIN HUMAN 25% 100 ML IV ONE (15:18)
[2016-12-25] MEDS ORDERED: MANNITOL 25% 12.5 G/50 ML VIAL FOR OR. ONE (15:18)
[2016-12-25 15:32] LABS: BASO % 0 % (0-3); EOS % 0 % (0-3); HEMATOCRIT 25.1 % (39.0-53.0); HEMOGLOBIN 8.2 g/dL (13.0-17.5); LYMPH # 1.3 x10^3/uL (1.0-4.8); LYMPH % 7 % (24-48); MEAN CORPUSCULAR HEMOGLOBIN 30 pg (25-35); MEAN CORPUSCULAR HGB CONC 33 g/dL (31-37); MEAN CORPUSCULAR VOLUME 92 fL (79-100); MONO % 1 % (0-9); NEUT % 92 % (31-73); PLATELET COUNT 164 x10^3/uL (140-400); RED BLOOD COUNT 2.74 x10^6/uL (4.30-5.70); RED CELL DISTRIBUTION WIDTH 14.6 % (11.5-14.5)
[2016-12-25 15:42] LABS: INR 1.8 (0.8-1.1); PROTHROMBIN TIME PATIENT 19.7 SEC (11.7-14.0)
[2016-12-25] MEDS ORDERED: ELECTROLYTE (ICU) PROTOCOL. MC PRN (15:45)
[2016-12-25] MEDS ORDERED: MEPERIDINE PF 25 MG/ML VIAL. IV PRN (15:45)
[2016-12-25] MEDS ORDERED: MAGNESIUM SULFATE 1GM 100 ML IV PRN (15:45)
[2016-12-25] MEDS ORDERED: INSULIN REGULAR VIAL 150 UNIT in 0.9 % SODIUM CHLORIDE 150ML 150 ML IV PRN (15:45)
[2016-12-25] MEDS ORDERED: ASPIRIN 300 MG SUPP.RECT PR PRN (15:45)
[2016-12-25] MEDS ORDERED: DEXTROSE 50% 25 GM / 50ML DISP.SYRIN. IV PRN (15:45)
[2016-12-25 16:34] LABS: ART BE ISTAT -5 mmol/L (0-3); ART GLUC ISTAT 151 mg/dL (70-99); ART HCO3 ISTAT 20 mmol/L (21-28); ART HCT ISTAT 29 % (37-52); ART HGB ISTAT 9.9 g/dL (14-18); ART ION CA ISTAT 1.06 mmol/L (1.13-1.32); ART K ISTAT 4.2 mmol/L (3.5-5.0); ART NA ISTAT 141 mmol/L (135-145); ART PCO2 ISTAT 33 mmHg (35-45); ART PH ISTAT 7.39 (7.35-7.45); ART PO2 ISTAT 112 mmHg (75-100); ART SAT O2 SAT 98 % (95-99); ART TCO2 ISTAT 21 mmol/L (21-32); TOSPEC ART
[2016-12-25 16:34] LABS: ART BE ISTAT 0 mmol/L (0-3); ART GLUC ISTAT 131 mg/dL (70-99); ART HCO3 ISTAT 24 mmol/L (21-28); ART HCT ISTAT 25 % (37-52); ART HGB ISTAT 8.5 g/dL (14-18); ART K ISTAT 4.4 mmol/L (3.5-5.0); ART NA ISTAT 142 mmol/L (135-145); ART PCO2 ISTAT 38 mmHg (35-45); ART PH ISTAT 7.42 (7.35-7.45); ART PO2 ISTAT 315 mmHg (75-100); ART SAT O2 SAT 100 % (95-99); ART TCO2 ISTAT 25 mmol/L (21-32); TOSPEC ART
[2016-12-25 16:34] LABS: ART BE ISTAT 0 mmol/L (0-3); ART GLUC ISTAT 134 mg/dL (70-99); ART HCO3 ISTAT 24 mmol/L (21-28); ART HCT ISTAT 26 % (37-52); ART HGB ISTAT 8.8 g/dL (14-18); ART ION CA ISTAT 1.04 mmol/L (1.13-1.32); ART K ISTAT 4.2 mmol/L (3.5-5.0); ART NA ISTAT 141 mmol/L (135-145); ART PCO2 ISTAT 34 mmHg (35-45); ART PH ISTAT 7.46 (7.35-7.45); ART PO2 ISTAT 361 mmHg (75-100); ART SAT O2 SAT 100 % (95-99); ART TCO2 ISTAT 25 mmol/L (21-32); TOSPEC ART
[2016-12-25 16:34] LABS: ART BE ISTAT -5 mmol/L (0-3); ART GLUC ISTAT 162 mg/dL (70-99); ART HCO3 ISTAT 22 mmol/L (21-28); ART HCT ISTAT 32 % (37-52); ART HGB ISTAT 10.9 g/dL (14-18); ART K ISTAT 4.5 mmol/L (3.5-5.0); ART NA ISTAT 139 mmol/L (135-145); ART PCO2 ISTAT 43 mmHg (35-45); ART PH ISTAT 7.31 (7.35-7.45); ART PO2 ISTAT 166 mmHg (75-100); ART SAT O2 SAT 99 % (95-99); ART TCO2 ISTAT 23 mmol/L (21-32); TOSPEC ART
[2016-12-25 16:34] LABS: ART BE ISTAT -5 mmol/L (0-3); ART GLUC ISTAT 151 mg/dL (70-99); ART HCO3 ISTAT 21 mmol/L (21-28); ART HCT ISTAT 30 % (37-52); ART HGB ISTAT 10.2 g/dL (14-18); ART ION CA ISTAT 1.24 mmol/L (1.13-1.32); ART K ISTAT 4.1 mmol/L (3.5-5.0); ART NA ISTAT 140 mmol/L (135-145); ART PCO2 ISTAT 38 mmHg (35-45); ART PH ISTAT 7.35 (7.35-7.45); ART PO2 ISTAT 138 mmHg (75-100); ART SAT O2 SAT 99 % (95-99); ART TCO2 ISTAT 22 mmol/L (21-32); TOSPEC ART
[2016-12-25 16:35] LABS: ART BE ISTAT -3 mmol/L (0-3); ART GLUC ISTAT 151 mg/dL (70-99); ART HCO3 ISTAT 23 mmol/L (21-28); ART HCT ISTAT 25 % (37-52); ART HGB ISTAT 8.5 g/dL (14-18); ART ION CA ISTAT 1.13 mmol/L (1.13-1.32); ART K ISTAT 4.6 mmol/L (3.5-5.0); ART NA ISTAT 140 mmol/L (135-145); ART PCO2 ISTAT 43 mmHg (35-45); ART PH ISTAT 7.34 (7.35-7.45); ART PO2 ISTAT 232 mmHg (75-100); ART SAT O2 SAT 100 % (95-99); ART TCO2 ISTAT 24 mmol/L (21-32); TOSPEC ART
[2016-12-25 16:35] LABS: ART BE ISTAT -6 mmol/L (0-3); ART GLUC ISTAT 152 mg/dL (70-99); ART HCO3 ISTAT 20 mmol/L (21-28); ART HCT ISTAT 29 % (37-52); ART HGB ISTAT 9.9 g/dL (14-18); ART ION CA ISTAT 1.34 mmol/L (1.13-1.32); ART K ISTAT 4.5 mmol/L (3.5-5.0); ART NA ISTAT 142 mmol/L (135-145); ART PCO2 ISTAT 39 mmHg (35-45); ART PH ISTAT 7.32 (7.35-7.45); ART PO2 ISTAT 72 mmHg (75-100); ART SAT O2 SAT 93 % (95-99); ART TCO2 ISTAT 22 mmol/L (21-32); TOSPEC ART
[2016-12-25 16:35] LABS: ART BE ISTAT -1 mmol/L (0-3); ART GLUC ISTAT 129 mg/dL (70-99); ART HCO3 ISTAT 23 mmol/L (21-28); ART HCT ISTAT 26 % (37-52); ART HGB ISTAT 8.8 g/dL (14-18); ART ION CA ISTAT 1.13 mmol/L (1.13-1.32); ART K ISTAT 4.3 mmol/L (3.5-5.0); ART NA ISTAT 141 mmol/L (135-145); ART PCO2 ISTAT 36 mmHg (35-45); ART PH ISTAT 7.41 (7.35-7.45); ART PO2 ISTAT 234 mmHg (75-100); ART SAT O2 SAT 100 % (95-99); ART TCO2 ISTAT 24 mmol/L (21-32); TOSPEC ART
[2016-12-25 16:35] LABS: ART BE ISTAT -1 mmol/L (0-3); ART GLUC ISTAT 139 mg/dL (70-99); ART HCO3 ISTAT 24 mmol/L (21-28); ART HCT ISTAT 27 % (37-52); ART HGB ISTAT 9.2 g/dL (14-18); ART ION CA ISTAT 1.15 mmol/L (1.13-1.32); ART K ISTAT 4.3 mmol/L (3.5-5.0); ART NA ISTAT 142 mmol/L (135-145); ART PCO2 ISTAT 39 mmHg (35-45); ART PH ISTAT 7.38 (7.35-7.45); ART PO2 ISTAT 178 mmHg (75-100); ART SAT O2 SAT 100 % (95-99); ART TCO2 ISTAT 25 mmol/L (21-32); TOSPEC ART
[2016-12-25 16:35] LABS: ART BE ISTAT -2 mmol/L (0-3); ART GLUC ISTAT 147 mg/dL (70-99); ART HCO3 ISTAT 24 mmol/L (21-28); ART HCT ISTAT 26 % (37-52); ART HGB ISTAT 8.8 g/dL (14-18); ART ION CA ISTAT 1.14 mmol/L (1.13-1.32); ART K ISTAT 4.3 mmol/L (3.5-5.0); ART NA ISTAT 142 mmol/L (135-145); ART PCO2 ISTAT 42 mmHg (35-45); ART PH ISTAT 7.35 (7.35-7.45); ART PO2 ISTAT 213 mmHg (75-100); ART SAT O2 SAT 100 % (95-99); ART TCO2 ISTAT 25 mmol/L (21-32); TOSPEC ART
[2016-12-25 16:35] LABS: ART BE ISTAT -6 mmol/L (0-3); ART GLUC ISTAT 176 mg/dL (70-99); ART HCO3 ISTAT 21 mmol/L (21-28); ART HCT ISTAT 26 % (37-52); ART HGB ISTAT 8.8 g/dL (14-18); ART ION CA ISTAT 1.42 mmol/L (1.13-1.32); ART K ISTAT 4.4 mmol/L (3.5-5.0); ART NA ISTAT 142 mmol/L (135-145); ART PCO2 ISTAT 42 mmHg (35-45); ART PO2 ISTAT 128 mmHg (75-100); ART SAT O2 SAT 99 % (95-99); ART TCO2 ISTAT 22 mmol/L (21-32); TOSPEC ART
--- NOTE | 2016-12-25 16:46 | PDOC ---
BRIEF OPERATIVE NOTE Pre-Op Diagnosis NSTEMI Congestive heart failure Type 1 diabetes COPD Hypertension Hyperlipidemia Morbid obesity S/p failed PCI Post-Op Diagnosis NSTEMI Congestive heart failure Type 1 diabetes COPD Hypertension Hyperlipidemia Morbid obesity S/p failed PCI Procedure Performed CABG x 4 (WILKERSON to LAD, SVG to OM and sequential to D1, SVG to RPDA) Left endoscopic greater saphenous vein harvest Surgeon Quoc Dill MD Fur Repairer Keke Kraft, LUIS Butts PLATE GAUGER Anesthesiologist Dr Balderas Anesthesia Type: General Blood Loss Cellsaver IV Fluid Crystalloid: 1300 mls Cellsaver: 1000 mls 1 FFP Urine Output 550 mls Specimens Obtained None Findings Overall very poor and diffusely calcified targets Diffusely calcified 1,5mm LAD Small and diffusely calcified 1mm D1 and 1,5mm OM Moderate size RPDA 1,5mm, softer than other targets Good caliber and quality left GSV Normal LV function ACT would not increase despite large doses of intravenous heparin. 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 FFP given in order to rise the ACT with heparin Complications None OPerative Note Additional remarks: CPB time: 169 min x clamp time: 141 min QUOC DILL MD Dec 25, 2016 16:46
--- NOTE | 2016-12-25 16:47 | PDOC4 ---
Operative Note Operative Note Prepoperative diagnosis NSTEMI Congestive heart failure Type 1 diabetes COPD Hypertension Hyperlipidemia Morbid obesity S/p failed PCI Postopetative diagnosis NSTEMI Congestive heart failure Antithrombin III deficiency Type 1 diabetes COPD Hypertension Hyperlipidemia Morbid obesity S/p failed PCI Procedure CABG x 4 (WILKERSON to LAD, SVG to OM and sequential to D1, SVG to RPDA) Left endoscopic greater saphenous vein harvest Surgeon Celestina Dill MD Cardiac Nurse Specialist Keke Kraft, LUIS Butts SUPERVISOR STENO [employer] Anesthesiologist Dr Balderas Anesthesia General Blood loss Cellsaver IV fluids Crystalloid: 1300 mls Cellsaver: 1000 mls 1 FFP Urine output 550 mls Specimens obtained None Findings Overall very poor and diffusely calcified targets Diffusely calcified 1,5mm LAD Small and diffusely calcified 1mm D1 and 1,5mm OM Moderate size RPDA 1,5mm, softer than other targets Good caliber and quality left GSV Normal LV function ACT would not increase despite large doses of intravenous heparin. 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 FFP given in order to rise the ACT with heparin Complications None Additional remarks: CPB time: 169 min x clamp time: 141 min Indication The patient is a 76-year-old male who was admitted a week ago with a 4 day history of intermittent chest pain. He was admitted with analogous symptoms back in June 2016, when he underwent 4 stents in the RCA, proximal stent in the LAD and a PTCA in the distal LAD. His troponin peaked at 53. He underwent coronary angiography which demonstrated that all his stents were occluded. He is a diffusely diseased RCA with a dual RPDA, diffuse disease in the left circumflex with a possible obtuse marginal targets, a proximal mid and distal LAD stenosis, with a diffusely calcified high diagonal. His LV function is preserved. A CABG was indicated. Risks, benefits and limitations of procedure were explained to the patient who agreed to proceed. Informed consent was obtained. Operation After appropriate identification, the patient was brought to the operating room and placed supine on the operating table. Anesthesia was induced and the airway was secured with an endotracheal tube. A right subclavian [place]-Rogerio catheter and a left radial arterial line were placed. Antibiotics were delivered and the patient was preped and draped in the usual standard surgical sterile fashion. A timeout was then performed. A median sternotomy was performed and the internal mammary artery was harvested, which was of moderate size and quality. A side branch of the WILKERSON which was torn was repaired with a 6-0 Prolene. Simultaneously the left greater saphenous vein was harvested endoscopically, which was of excellent quality and caliber. The pericardium was incised. The patient was heparinized. The ACT would not increase despite giving 50,000 of IV heparin. At that point antithrombin III deficiency suspected and the patient was given a unit of FFP followed again by heparinization which resulted in a ACT above 400. Cardiopulmonary bypass was established through the ascending aorta and the right atrium. The patient was cooled to 34. Myocardial protection was achieved with antegrade blood cardioplegia. The cross-clamp was applied and diastolic arrest was achieved. Intermittent dosages of cardioplegia were given. Grafts: Saphenous vein graft to right posterior descending coronary artery, end to side anastomosis with 7-0 Prolene. 1.5 mm vessel. Saphenous vein graft to obtuse marginal coronary artery, end to side anastomosis with 7-0 Prolene. The diffusely calcified 1.5 mm vessel. Sequential anastomosis to the first diagonal coronary artery, side to side anastomosis with 7-0 Prolene. Diffusely calcified 1 mm vessel. Left internal mammary artery to distal left anterior descending, end to side anastomosis with 7-0 Prolene. Diffusely calcified 1.5 mm vessel Two proximal anastomosis were performed using a 6-0 Prolene running suture. The cross-clamp was removed. The heart was allowed to rewarm and reperfuse. The grafts were de-aired. The patient resumed normal sinus rhythm and was from cardiopulmonary bypass with mild pharmacologic support. Heparin was reversed with protamine. Atrial and ventricular pacing wires were placed. Hemostasis was confirmed. An angled 32 Faroese chest tube was placed in the left pleural space, a 32Fr angled in the posterior pericardium and a 32 straight in the anterior pericardium. The sternotomy was closed with seven steel wires. The incision was closed with a layer of 0 Vicryl followed by 2-0 Vicryl and then 4-0 Monocryl for the epidermis. Sterile dressings were applied. The total cardiopulmonary bypass time was 169 minutes and the cross-clamp time was 141 minutes. The instrument, sponge and needle counts were correct. The patient was then transferred to the ICU in critical. CELESTINA DILL MD Dec 25, 2016 16:47
--- NOTE | 2016-12-25 17:08 | RAD ---
Left femur, 12/25/2016: History: Incorrect instrument count A single AP view of the distal left femur and knee was obtained as requested. Surgical clips are present in the soft tissues medially. Arterial calcifications are evident. There is no evidence of a retained surgical instrument, needle or radiopaque sponge on this single view.
[2016-12-25] MEDS: ALBUMIN HUMAN 5% 250 ML IV PRN ×4 (17:19→21:04)
[2016-12-25] MEDS: IV RINGERS,LACTATED 1000ML 1,000 ML IV SCH (17:19)
[2016-12-25] MEDS: MORPHINE SULFATE 2 MG/ML DISP.SYRIN. IV PRN ×3 (17:21→17:43)
--- NOTE | 2016-12-25 17:25 | RAD ---
Portable chest, 12/25/2016: History: Postop CABG Comparison is made to a study from 12/21/2016. Sternal wires have been placed. An ET tube is in place with its tip located well above the ceasar. An NG tube extends into the stomach. A right jugular [place]-Rogerio catheter has its tip overlying the right hilum. Two mediastinal drains and a left chest tube are now in place. The heart is within normal limits in size. There is loss of vascular margination suggesting congestion. There are bibasilar opacities obscuring the hemidiaphragms compatible with atelectasis/infiltrate. There is increasing pleural thickening laterally on the right compatible with pleural fluid. There is no evidence of pneumothorax. IMPRESSION: 1. Numerous tubes and catheters have been placed as described above. 2. Vascular congestion. 3. Worsening bibasilar opacities compatible with atelectasis/infiltrate and pleural fluid.
[2016-12-25 17:31] LABS: BASE EXCESS COOX -6 mmol/L (-3-3); CARBON MONOXIDE 0.3 % (0.0-1.9); HCO3 COOX 19 mmol/L (21-28); HEMATOCRIT 29.8 % (39.0-53.0); HEMOGLOBIN 9.8 g/dL (13.0-17.5); METHEMOGLOBIN 0.5 % (0.0-1.9); OXYHEMOGLOBIN 94.8 %; PCO2 COOX 35 mmHg (35-46); PH COOX 7.35 (7.35-7.45); PO2 COOX 88 mmHg (65-108); RED BLOOD COUNT 3.28 x10^6/uL (4.30-5.70); RED CELL DISTRIBUTION WIDTH 14.6 % (11.5-14.5); SAT O2 COOX 96 % (92-99); TOTAL HEMOGLOBIN 13.9 g/dL; WHITE BLOOD COUNT 21.4 x10^3/uL (4.0-11.0)
[2016-12-25 17:33] LABS: FIO2 COOX 100
[2016-12-25 17:42] LABS: CALCIUM 8.8 mg/dL (8.5-10.1); CREATININE 1.9 mg/dL (0.7-1.3); GFR 34.6; POTASSIUM 5.1 mmol/L (3.5-5.1)
[2016-12-25 17:43] LABS: MAGNESIUM 2.5 mg/dL (1.8-2.4)
[2016-12-25] MEDS ORDERED: SODIUM BICARB ADULT 8.4% 50 MEQ/50 ML DISP.SYRIN. IV ONE (17:45)
[2016-12-25 17:46] LABS: INR 1.3 (0.8-1.1); PROTHROMBIN TIME PATIENT 15.6 SEC (11.7-14.0)
--- NOTE | 2016-12-25 17:54 | EKG ---
[facility] [address] [place] [address] Test Date: 2016-12-25 Test Time: 17:59:35 Pat Name: CARLOS EDUARDO BOLANOS Department: Room: 102 1 Gender: M Barrel Centerer: BETTY : 1940 Requested By: OMER BRICEÑO Order Number: [id number] Reading MD: Diana Mitchell Measurements Intervals [place] Rate: 101 P: ND: QRS: -18 QRSD: 80 T: 73 QT: 352 QTc: 457 Interpretive Statements ACCELERATED JUNCTIONAL RHYTHM ACUTE ST ELEVATION ANTEROLATERAL WALL MA LEFTWARD AXIS LOW LIMB LEAD VOLTAGE QRS(T) CONTOUR ABNORMALITY CONSISTENT WITH INFERIOR INFARCT PROBABLY OLD ABNORMAL ECG Electronically Signed On 12-26-2016 19:52:35 CDT by Diana Mitchell
[2016-12-25] MEDS: BUDESONIDE 0.5 MG/2 ML NEBU. NEB SCH (19:32)
[2016-12-25] MEDS: IPRATRPIUM/ALBUTEROL 0.5/2.5MG 3 ML NEBU. NEB SCH (19:32)
[2016-12-25 20:51] LABS: HCO3 ABG 20 mmol/L (21-28); PCO2 ABG 27 mmHg (35-46); PH ABG 7.48 (7.35-7.45); PO2 ABG 65 mmHg (65-108); SAT O2 ABG 91 % (92-99)
[2016-12-25] MEDS ORDERED: FAMOTIDINE 20 MG/2 ML VIAL IVP SCH (21:00)
[2016-12-25 21:23] LABS: FIO2 ABG 40
[2016-12-25] MEDS: ATORVASTATIN CALCIUM 20 MG TABLET PO SCH (21:35)
[2016-12-25] MEDS: ceFAZolin SODIUM 3 GM in IV DEXTROSE 5% 100 ML IV SCH (21:35)
[2016-12-25] MEDS: HYDROcodone/APAP 5/325MG 1 TAB TABLET PO PRN (21:36)
[2016-12-25] MEDS: INSULIN DETEMIR 300 UNITS/3 ML INSULN.PEN. SQ SCH (21:57)
[2016-12-25] MEDS: fentaNYL PF VIAL 100 MCG/2 ML VIAL IV PRN (22:12)
[2016-12-25 22:21] LABS: HEMATOCRIT 24.9 % (39.0-53.0); HEMOGLOBIN 8.2 g/dL (13.0-17.5)
[2016-12-25 22:37] LABS: MAGNESIUM 2.6 mg/dL (1.8-2.4); POTASSIUM 5.1 mmol/L (3.5-5.1)
[2016-12-26] VITALS (36 sets, daily range): BP systolic 68–118; BP diastolic 30–57
[2016-12-26] MEDS: fentaNYL PF VIAL 100 MCG/2 ML VIAL IV PRN ×4 (00:11→11:37)
[2016-12-26] MEDS: HYDROcodone/APAP 5/325MG 1 TAB TABLET PO PRN ×4 (02:16→16:59)
[2016-12-26 03:10] LABS: HEMATOCRIT 23.6 % (39.0-53.0); HEMOGLOBIN 7.9 g/dL (13.0-17.5); RED BLOOD COUNT 2.62 x10^6/uL (4.30-5.70); RED CELL DISTRIBUTION WIDTH 14.8 % (11.5-14.5); WHITE BLOOD COUNT 14.8 x10^3/uL (4.0-11.0)
[2016-12-26 03:31] LABS: CREATININE 2.4 mg/dL (0.7-1.3); GFR 26.5; MAGNESIUM 2.5 mg/dL (1.8-2.4); POTASSIUM 4.8 mmol/L (3.5-5.1)
--- NOTE | 2016-12-26 03:35 | EKG ---
[facility] [address] [place] [address] Test Date: 2016-12-26 Test Time: 03:40:14 Pat Name: CARLOS EDUARDO BOLANOS Department: Room: 102 1 Gender: M Travel Services Professional: : 1940 Requested By: OMER BRICEÑO Order Number: [id number] Reading MD: Diana Mitchell Measurements Intervals [place] Rate: 116 P: TX: QRS: -15 QRSD: 70 T: 106 QT: 318 QTc: 442 Interpretive Statements ACCELERATED JUNCTIONAL RHYTHM LEFTWARD AXIS LOW LIMB LEAD VOLTAGE QRS(T) CONTOUR ABNORMALITY CONSISTENT WITH INFERIOR INFARCT ST & T ABNORMALITY, CONSIDER HIGH LATERAL ISCHEMIA ABNORMAL ECG Electronically Signed On 12-26-2016 20:03:24 CDT by Diana Mitchell
[2016-12-26 05:30] LABS: FIO2 ABG 40; HCO3 ABG 17 mmol/L (21-28); PCO2 ABG 24 mmHg (35-46); PH ABG 7.45 (7.35-7.45); PO2 ABG 81 mmHg (65-108); SAT O2 ABG 95 % (92-99)
[2016-12-26] MEDS: ceFAZolin SODIUM 3 GM in IV DEXTROSE 5% 100 ML IV SCH ×2 (05:40→13:48)
--- NOTE | 2016-12-26 05:52 | PDOC ---
Progress Note Subjective Subjective Fast track extubation. On 8mcg levo. Hg 7.9, creat 2.4. Boderline UO. Sinus rhythm. Minimal drain output. ROS ROS No nausea No vomiting No pain No rash Vital Sign Vital Signs Vital Signs Date Time Temp Pulse Resp B/P (MAP) Pulse Ox O2 Delivery O2 Flow Rate FiO2 12/26/16 05:00 117 24 95/48 (64) 90 Nasal Cannula 5.0 12/26/16 04:00 99.3 99.3 Physical Exam PHYSICAL EXAM GENERAL: NAD, Alert HEENT: PERRL, OC/OP NECK: Supple, no JVD, no LN LUNGS: Clear HEART: S1S2, no gallop, no murmur ABD: Soft, NT, no organomegaly, no rebound EXT: No edema, no cyanosis LAY OUT AND DETAIL DRAFTER: Alert, oriented x 3, no focal neurologic deficit SKIN: No rash IV: ok Labs Lab Laboratory Tests Test 12/25/16 07:25 12/25/16 08:33 12/25/16 08:36 12/25/16 10:29 Glucose (Fingerstick) 146 mg/dL (70-99) Bedside Hemoglobin (Calculated) 10.2 g/dL (14-18) 10.9 g/dL (14-18) Bedside Hematocrit 30 % (37-52) 32 % (37-52) Bedside Arterial pH 7.35 (7.35-7.45) 7.31 (7.35-7.45) Bedside Arterial pCO2 38 mmHg (35-45) 43 mmHg (35-45) Bedside Arterial pO2 138 mmHg (75-100) 166 mmHg (75-100) Bedside Arterial HCO3 21 mmol/L (21-28) 22 mmol/L (21-28) Bedside Arterial Total CO2 22 mmol/L (21-32) 23 mmol/L (21-32) Arterial Bld O2 Saturation (Measur) 99 % (95-99) 99 % (95-99) Bedside Arterial Blood Base Excess -5 mmol/L (0-3) -5 mmol/L (0-3) Bedside FiO2 100.0 100.0 Bedside Sodium 140 mmol/L (135-145) 139 mmol/L (135-145) Bedside Potassium 4.1 mmol/L (3.5-5.0) 4.5 mmol/L (3.5-5.0) Glucose Level 151 mg/dL (70-99) 162 mg/dL (70-99) Bedside Ionized Calcium (Mary Jane) 1.24 mmol/L (1.13-1.32) 1.20 mmol/L (1.13-1.32) Activated Clotting Time 99 SEC (90-125) Test 12/25/16 10:32 12/25/16 10:46 12/25/16 10:57 12/25/16 11:45 Activated Clotting Time 389 SEC (90-125) 363 SEC (90-125) 379 SEC (90-125) Bedside Hemoglobin (Calculated) 9.9 g/dL (14-18) Bedside Hematocrit 29 % (37-52) Bedside Arterial pH 7.39 (7.35-7.45) Bedside Arterial pCO2 33 mmHg (35-45) Bedside Arterial pO2 112 mmHg (75-100) Bedside Arterial HCO3 20 mmol/L (21-28) Bedside Arterial Total CO2 21 mmol/L (21-32) Arterial Bld O2 Saturation (Measur) 98 % (95-99) Bedside Arterial Blood Base Excess -5 mmol/L (0-3) Bedside FiO2 100.0 Bedside Sodium 141 mmol/L (135-145) Bedside Potassium 4.2 mmol/L (3.5-5.0) Glucose Level 151 mg/dL (70-99) Bedside Ionized Calcium (Mary Jane) 1.06 mmol/L (1.13-1.32) Test 12/25/16 11:48 12/25/16 12:06 12/25/16 12:10 12/25/16 12:37 Activated Clotting Time 399 SEC (90-125) 424 SEC (90-125) Bedside Hemoglobin (Calculated) 8.8 g/dL (14-18) 8.5 g/dL (14-18) Bedside Hematocrit 26 % (37-52) 25 % (37-52) Bedside Arterial pH 7.46 (7.35-7.45) 7.42 (7.35-7.45) Bedside Arterial pCO2 34 mmHg (35-45) 38 mmHg (35-45) Bedside Arterial pO2 361 mmHg (75-100) 315 mmHg (75-100) Bedside Arterial HCO3 24 mmol/L (21-28) 24 mmol/L (21-28) Bedside Arterial Total CO2 25 mmol/L (21-32) 25 mmol/L (21-32) Arterial Bld O2 Saturation (Measur) 100 % (95-99) 100 % (95-99) Bedside Arterial Blood Base Excess 0 mmol/L (0-3) 0 mmol/L (0-3) Bedside FiO2 90.0 80.0 Bedside Sodium 141 mmol/L (135-145) 142 mmol/L (135-145) Bedside Potassium 4.2 mmol/L (3.5-5.0) 4.4 mmol/L (3.5-5.0) Glucose Level 134 mg/dL (70-99) 131 mg/dL (70-99) Bedside Ionized Calcium (Mary Jane) 1.04 mmol/L (1.13-1.32) 1.10 mmol/L (1.13-1.32) Test 12/25/16 12:40 12/25/16 13:06 12/25/16 13:09 12/25/16 13:35 Activated Clotting Time 432 SEC (90-125) 422 SEC (90-125) Bedside Hemoglobin (Calculated) 8.8 g/dL (14-18) 9.2 g/dL (14-18) Bedside Hematocrit 26 % (37-52) 27 % (37-52) Bedside Arterial pH 7.41 (7.35-7.45) 7.38 (7.35-7.45) Bedside Arterial pCO2 36 mmHg (35-45) 39 mmHg (35-45) Bedside Arterial pO2 234 mmHg (75-100) 178 mmHg (75-100) Bedside Arterial HCO3 23 mmol/L (21-28) 24 mmol/L (21-28) Bedside Arterial Total CO2 24 mmol/L (21-32) 25 mmol/L (21-32) Arterial Bld O2 Saturation (Measur) 100 % (95-99) 100 % (95-99) Bedside Arterial Blood Base Excess -1 mmol/L (0-3) -1 mmol/L (0-3) Bedside FiO2 75.0 75.0 Bedside Sodium 141 mmol/L (135-145) 142 mmol/L (135-145) Bedside Potassium 4.3 mmol/L (3.5-5.0) 4.3 mmol/L (3.5-5.0) Glucose Level 129 mg/dL (70-99) 139 mg/dL (70-99) Bedside Ionized Calcium (Mary Jane) 1.13 mmol/L (1.13-1.32) 1.15 mmol/L (1.13-1.32) Test 12/25/16 13:38 12/25/16 14:06 12/25/16 14:10 12/25/16 14:36 Activated Clotting Time 422 SEC (90-125) 465 SEC (90-125) Bedside Hemoglobin (Calculated) 8.8 g/dL (14-18) 8.5 g/dL (14-18) Bedside Hematocrit 26 % (37-52) 25 % (37-52) Bedside Arterial pH 7.35 (7.35-7.45) 7.34 (7.35-7.45) Bedside Arterial pCO2 42 mmHg (35-45) 43 mmHg (35-45) Bedside Arterial pO2 213 mmHg (75-100) 232 mmHg (75-100) Bedside Arterial HCO3 24 mmol/L (21-28) 23 mmol/L (21-28) Bedside Arterial Total CO2 25 mmol/L (21-32) 24 mmol/L (21-32) Arterial Bld O2 Saturation (Measur) 100 % (95-99) 100 % (95-99) Bedside Arterial Blood Base Excess -2 mmol/L (0-3) -3 mmol/L (0-3) Bedside FiO2 80.0 85.0 Bedside Sodium 142 mmol/L (135-145) 140 mmol/L (135-145) Bedside Potassium 4.3 mmol/L (3.5-5.0) 4.6 mmol/L (3.5-5.0) Glucose Level 147 mg/dL (70-99) 151 mg/dL (70-99) Bedside Ionized Calcium (Mary Jane) 1.14 mmol/L (1.13-1.32) 1.13 mmol/L (1.13-1.32) Test 12/25/16 14:40 12/25/16 15:18 12/25/16 15:22 12/25/16 15:28 Activated Clotting Time 420 SEC (90-125) 112 SEC (90-125) Bedside Hemoglobin (Calculated) 8.8 g/dL (14-18) Bedside Hematocrit 26 % (37-52) Bedside Arterial pH 7.30 (7.35-7.45) Bedside Arterial pCO2 42 mmHg (35-45) Bedside Arterial pO2 128 mmHg (75-100) Bedside Arterial HCO3 21 mmol/L (21-28) Bedside Arterial Total CO2 22 mmol/L (21-32) Arterial Bld O2 Saturation (Measur) 99 % (95-99) Bedside Arterial Blood Base Excess -6 mmol/L (0-3) Bedside FiO2 100.0 Bedside Sodium 142 mmol/L (135-145) Bedside Potassium 4.4 mmol/L (3.5-5.0) Glucose Level 176 mg/dL (70-99) Bedside Ionized Calcium (Mary Jane) 1.42 mmol/L (1.13-1.32) White Blood Count 18.0 x10^3/uL (4.0-11.0) Red Blood Count 2.74 x10^6/uL (4.30-5.70) Hemoglobin 8.2 g/dL (13.0-17.5) Hematocrit 25.1 % (39.0-53.0) Mean Corpuscular Volume 92 fL (79-100) Mean Corpuscular Hemoglobin 30 pg (25-35) Mean Corpuscular Hemoglobin Concent 33 g/dL (31-37) Red Cell Distribution Width 14.6 % (11.5-14.5) Platelet Count 164 x10^3/uL (140-400) Neutrophils (%) (Auto) 92 % (31-73) Lymphocytes (%) (Auto) 7 % (24-48) Monocytes (%) (Auto) 1 % (0-9) Eosinophils (%) (Auto) 0 % (0-3) Basophils (%) (Auto) 0 % (0-3) Neutrophils # (Auto) 16.5 x10^3uL (1.8-7.7) Lymphocytes # (Auto) 1.3 x10^3/uL (1.0-4.8) Monocytes # (Auto) 0.2 x10^3/uL (0.0-1.1) Eosinophils # (Auto) 0.1 x10^3/uL (0.0-0.7) Basophils # (Auto) 0.0 x10^3/uL (0.0-0.2) Prothrombin Time 19.7 SEC (11.7-14.0) Prothromb Time International Ratio 1.8 (0.8-1.1) Activated Partial Thromboplast Time 35 SEC (24-38) Fibrinogen 556 mg/dL (200-440) Test 12/25/16 16:06 12/25/16 16:10 12/25/16 17:20 12/25/16 17:23 Bedside Hemoglobin (Calculated) 9.9 g/dL (14-18) Bedside Hematocrit 29 % (37-52) Bedside Arterial pH 7.32 (7.35-7.45) Bedside Arterial pCO2 39 mmHg (35-45) Bedside Arterial pO2 72 mmHg (75-100) Bedside Arterial HCO3 20 mmol/L (21-28) Bedside Arterial Total CO2 22 mmol/L (21-32) Arterial Bld O2 Saturation (Measur) 93 % (95-99) Bedside Arterial Blood Base Excess -6 mmol/L (0-3) Bedside FiO2 100.0 Bedside Sodium 142 mmol/L (135-145) Bedside Potassium 4.5 mmol/L (3.5-5.0) Glucose Level 152 mg/dL (70-99) 136 mg/dL (70-99) Bedside Ionized Calcium (Mary Jane) 1.34 mmol/L (1.13-1.32) Activated Clotting Time 111 SEC (90-125) White Blood Count 21.4 x10^3/uL (4.0-11.0) Red Blood Count 3.28 x10^6/uL (4.30-5.70) Hemoglobin 9.8 g/dL (13.0-17.5) Hematocrit 29.8 % (39.0-53.0) Mean Corpuscular Volume 91 fL (79-100) Mean Corpuscular Hemoglobin 30 pg (25-35) Mean Corpuscular Hemoglobin Concent 33 g/dL (31-37) Red Cell Distribution Width 14.6 % (11.5-14.5) Platelet Count 198 x10^3/uL (140-400) Prothrombin Time 15.6 SEC (11.7-14.0) Prothromb Time International Ratio 1.3 (0.8-1.1) Activated Partial Thromboplast Time 34 SEC (24-38) O2 Saturation 96 % (92-99) Arterial Blood pH 7.35 (7.35-7.45) Arterial Blood pCO2 at Patient Temp 35 mmHg (35-46) Arterial Blood pO2 at Patient Temp 88 mmHg (65-108) Arterial Blood HCO3 19 mmol/L (21-28) Arterial Blood Base Excess -6 mmol/L (-3-3) Oxyhemoglobin 94.8 % Methemoglobin 0.5 % (0.0-1.9) Carbon Monoxide, Quantitative 0.3 % (0.0-1.9) FiO2 100 Sodium Level 143 mmol/L (136-145) Potassium Level 5.1 mmol/L (3.5-5.1) Chloride Level 110 mmol/L (98-107) Carbon Dioxide Level 21 mmol/L (21-32) Anion Gap 12 (6-14) Blood Urea Nitrogen 19 mg/dL (8-26) Creatinine 1.9 mg/dL (0.7-1.3) Estimated GFR (Cockcroft-Gault) 34.6 Calcium Level 8.8 mg/dL (8.5-10.1) Magnesium Level 2.5 mg/dL (1.8-2.4) Glucose (Fingerstick) 126 mg/dL (70-99) Test 12/25/16 18:23 12/25/16 19:25 12/25/16 20:26 12/25/16 20:45 Glucose (Fingerstick) 115 mg/dL (70-99) 148 mg/dL (70-99) 153 mg/dL (70-99) O2 Saturation 91 % (92-99) Arterial Blood pH 7.48 (7.35-7.45) Arterial Blood pCO2 at Patient Temp 27 mmHg (35-46) Arterial Blood pO2 at Patient Temp 65 mmHg (65-108) Arterial Blood HCO3 20 mmol/L (21-28) Arterial Blood Base Excess -3 mmol/L (-3-3) FiO2 40 Test 12/25/16 21:29 12/25/16 22:05 12/25/16 22:31 12/25/16 23:32 Glucose (Fingerstick) 176 mg/dL (70-99) 187 mg/dL (70-99) 195 mg/dL (70-99) Hemoglobin 8.2 g/dL (13.0-17.5) Hematocrit 24.9 % (39.0-53.0) Mean Corpuscular Hemoglobin Concent 33 g/dL (31-37) Potassium Level 5.1 mmol/L (3.5-5.1) Magnesium Level 2.6 mg/dL (1.8-2.4) Test 12/26/16 00:31 12/26/16 01:31 12/26/16 02:32 12/26/16 03:04 Glucose (Fingerstick) 175 mg/dL (70-99) 168 mg/dL (70-99) 155 mg/dL (70-99) White Blood Count 14.8 x10^3/uL (4.0-11.0) Red Blood Count 2.62 x10^6/uL (4.30-5.70) Hemoglobin 7.9 g/dL (13.0-17.5) Hematocrit 23.6 % (39.0-53.0) Mean Corpuscular Volume 90 fL (79-100) Mean Corpuscular Hemoglobin 30 pg (25-35) Mean Corpuscular Hemoglobin Concent 33 g/dL (31-37) Red Cell Distribution Width 14.8 % (11.5-14.5) Platelet Count 197 x10^3/uL (140-400) Sodium Level 141 mmol/L (136-145) Potassium Level 4.8 mmol/L (3.5-5.1) Chloride Level 107 mmol/L (98-107) Carbon Dioxide Level 22 mmol/L (21-32) Anion Gap 12 (6-14) Blood Urea Nitrogen 26 mg/dL (8-26) Creatinine 2.4 mg/dL (0.7-1.3) Estimated GFR (Cockcroft-Gault) 26.5 Glucose Level 150 mg/dL (70-99) Calcium Level 9.0 mg/dL (8.5-10.1) Magnesium Level 2.5 mg/dL (1.8-2.4) Test 12/26/16 03:37 12/26/16 04:40 12/26/16 05:05 Glucose (Fingerstick) 137 mg/dL (70-99) 137 mg/dL (70-99) O2 Saturation 95 % (92-99) Arterial Blood pH 7.45 (7.35-7.45) Arterial Blood pCO2 at Patient Temp 24 mmHg (35-46) Arterial Blood pO2 at Patient Temp 81 mmHg (65-108) Arterial Blood HCO3 17 mmol/L (21-28) Arterial Blood Base Excess -6 mmol/L (-3-3) FiO2 40 Objective Assessment POD#1, s/p CABG x 4 (WILKERSON to LAD, SVG to OM and sequential to D1, SVG to RPDA) Fast track extubation. On 8mcg levo. Hg 7.9, creat 2.4. Boderline UO. Sinus rhythm. Minimal drain output. Plan Plan of Care Give 2 units PRBCs-should help with weaning levo Lasix 40mg iv 1 amp HCO3 D/c [place]-Rogerio D/c a-line, when off levophed D/c mediastinal tubes this afternoon after ambulation. Leave left pleural QUOC DILL MD Dec 26, 2016 05:52
[2016-12-26] MEDS ORDERED: SODIUM BICARB ADULT 8.4% 50 MEQ/50 ML DISP.SYRIN. IV ONE ×2 (06:00→18:30)
[2016-12-26] MEDS ORDERED: FUROSEMIDE 40 MG/4 ML VIAL. IVP ONE (06:00)
[2016-12-26] MEDS: ONDANSETRON PF 4 MG/2 ML VIAL. IV PRN ×2 (06:34→11:35)
[2016-12-26] MEDS: INSULIN ASPART 300 UNITS/3 ML INSULN.PEN SQ SCH ×6 (07:30→17:24)
[2016-12-26] MEDS ORDERED: ASPIRIN ENTERIC COATED 325 MG TABLET.DR. PO SCH (08:00)
--- NOTE | 2016-12-26 08:20 | RAD ---
Portable chest, 12/26/2016: History: Postop evaluation Comparison is made to yesterday's study. The ET tube, NG tube and [place]-Rogerio catheter have been removed. A right jugular vascular sheath remains in place. Mediastinal drains and a left chest tube remain in place. The heart size is normal. The pulmonary vascularity is better defined. The lungs have partially cleared with mild residual streaky basilar atelectasis. There is persistent blunting the lateral costophrenic angles compatible with a small amount of pleural fluid and/or scarring. There is no evidence of pneumothorax. IMPRESSION: 1. Probable small residual pleural effusions and mild bibasilar atelectasis. 2. No new abnormality is detected.
[2016-12-26] MEDS: IPRATRPIUM/ALBUTEROL 0.5/2.5MG 3 ML NEBU. NEB SCH ×3 (08:22→15:18)
[2016-12-26] MEDS: BUDESONIDE 0.5 MG/2 ML NEBU. NEB SCH (08:22)
[2016-12-26] MEDS: METOPROLOL TART IMMED RELEASE 25 MG TABLET. PO SCH (09:00)
--- NOTE | 2016-12-26 09:27 | RESP ---
DATE OF SERVICE: 12/21/2016 ATTENDING PHYSICIAN: Dr. Yaz Ramirez. The patient's FEV1 was 1.4, which is 44% predicted. FVC 1.8, which is 40% predicted. The patient's [id number] was 54% predicted and the patient's flow volume loop suggesting of obstructive pattern. IMPRESSION: 1. Moderate obstructive airway disease. 2. Would need lung volumes to rule out any coexisting restrictive lung disease. ISMA CHAMPAGNE MD DR: EDWIN/christophe JOB#: [id number] / [id number]
[2016-12-26] MEDS: ASCORBIC ACID 500 MG TABLET PO SCH (10:27)
[2016-12-26] MEDS: FINASTERIDE 5 MG TABLET. PO SCH (10:28)
[2016-12-26] MEDS: DOCUSATE SODIUM 100 MG CAPSULE. PO SCH (10:28)
[2016-12-26] MEDS: TAMSULOSIN 0.4 MG CAP.ER.24H. PO SCH (10:28)
[2016-12-26] MEDS: POLYETHYLENE GLYCOL 3350 17 GM PACKET. PO SCH (10:28)
--- NOTE | 2016-12-26 12:25 | PDOC ---
CARDIO Progress Notes Date and Time Date of Service 12/26/2016 Time of Evaluation 1200 Subjective Subjective: No Palpitations, Other (nauseated presently, incisional pain controlled) Vitals Vitals Vital Signs Date Time Temp Pulse Resp B/P (MAP) Pulse Ox O2 Delivery O2 Flow Rate FiO2 12/26/16 12:00 Nasal Cannula 5.0 12/26/16 11:45 111 29 94/54 (67) 95 12/26/16 10:15 97.0 97.0 Weight Weight [ ] Input and Output Intake and Output Intake and Output 12/27/16 07:00 Intake Total 650 ml Output Total 185 ml Balance 465 ml Intake Oral 500 ml Blood Product IV Normal Saline Flush 150 ml Output Urine Total 80 ml Chest Tube Drainage Total 105 ml Laboratory Labs Laboratory Tests Test 12/25/16 12:37 12/25/16 12:40 12/25/16 13:06 12/25/16 13:09 Bedside Hemoglobin (Calculated) 8.5 g/dL (14-18) 8.8 g/dL (14-18) Bedside Hematocrit 25 % (37-52) 26 % (37-52) Bedside Arterial pH 7.42 (7.35-7.45) 7.41 (7.35-7.45) Bedside Arterial pCO2 38 mmHg (35-45) 36 mmHg (35-45) Bedside Arterial pO2 315 mmHg (75-100) 234 mmHg (75-100) Bedside Arterial HCO3 24 mmol/L (21-28) 23 mmol/L (21-28) Bedside Arterial Total CO2 25 mmol/L (21-32) 24 mmol/L (21-32) Arterial Bld O2 Saturation (Measur) 100 % (95-99) 100 % (95-99) Bedside Arterial Blood Base Excess 0 mmol/L (0-3) -1 mmol/L (0-3) Bedside FiO2 80.0 75.0 Bedside Sodium 142 mmol/L (135-145) 141 mmol/L (135-145) Bedside Potassium 4.4 mmol/L (3.5-5.0) 4.3 mmol/L (3.5-5.0) Glucose Level 131 mg/dL (70-99) 129 mg/dL (70-99) Bedside Ionized Calcium (Mary Jane) 1.10 mmol/L (1.13-1.32) 1.13 mmol/L (1.13-1.32) Activated Clotting Time 432 SEC (90-125) 422 SEC (90-125) Test 12/25/16 13:35 12/25/16 13:38 12/25/16 14:06 12/25/16 14:10 Bedside Hemoglobin (Calculated) 9.2 g/dL (14-18) 8.8 g/dL (14-18) Bedside Hematocrit 27 % (37-52) 26 % (37-52) Bedside Arterial pH 7.38 (7.35-7.45) 7.35 (7.35-7.45) Bedside Arterial pCO2 39 mmHg (35-45) 42 mmHg (35-45) Bedside Arterial pO2 178 mmHg (75-100) 213 mmHg (75-100) Bedside Arterial HCO3 24 mmol/L (21-28) 24 mmol/L (21-28) Bedside Arterial Total CO2 25 mmol/L (21-32) 25 mmol/L (21-32) Arterial Bld O2 Saturation (Measur) 100 % (95-99) 100 % (95-99) Bedside Arterial Blood Base Excess -1 mmol/L (0-3) -2 mmol/L (0-3) Bedside FiO2 75.0 80.0 Bedside Sodium 142 mmol/L (135-145) 142 mmol/L (135-145) Bedside Potassium 4.3 mmol/L (3.5-5.0) 4.3 mmol/L (3.5-5.0) Glucose Level 139 mg/dL (70-99) 147 mg/dL (70-99) Bedside Ionized Calcium (Mary Jane) 1.15 mmol/L (1.13-1.32) 1.14 mmol/L (1.13-1.32) Activated Clotting Time 422 SEC (90-125) 465 SEC (90-125) Test 12/25/16 14:36 12/25/16 14:40 12/25/16 15:18 12/25/16 15:22 Bedside Hemoglobin (Calculated) 8.5 g/dL (14-18) 8.8 g/dL (14-18) Bedside Hematocrit 25 % (37-52) 26 % (37-52) Bedside Arterial pH 7.34 (7.35-7.45) 7.30 (7.35-7.45) Bedside Arterial pCO2 43 mmHg (35-45) 42 mmHg (35-45) Bedside Arterial pO2 232 mmHg (75-100) 128 mmHg (75-100) Bedside Arterial HCO3 23 mmol/L (21-28) 21 mmol/L (21-28) Bedside Arterial Total CO2 24 mmol/L (21-32) 22 mmol/L (21-32) Arterial Bld O2 Saturation (Measur) 100 % (95-99) 99 % (95-99) Bedside Arterial Blood Base Excess -3 mmol/L (0-3) -6 mmol/L (0-3) Bedside FiO2 85.0 100.0 Bedside Sodium 140 mmol/L (135-145) 142 mmol/L (135-145) Bedside Potassium 4.6 mmol/L (3.5-5.0) 4.4 mmol/L (3.5-5.0) Glucose Level 151 mg/dL (70-99) 176 mg/dL (70-99) Bedside Ionized Calcium (Mary Jane) 1.13 mmol/L (1.13-1.32) 1.42 mmol/L (1.13-1.32) Activated Clotting Time 420 SEC (90-125) 112 SEC (90-125) Test 12/25/16 15:28 12/25/16 16:06 12/25/16 16:10 12/25/16 17:20 White Blood Count 18.0 x10^3/uL (4.0-11.0) 21.4 x10^3/uL (4.0-11.0) Red Blood Count 2.74 x10^6/uL (4.30-5.70) 3.28 x10^6/uL (4.30-5.70) Hemoglobin 8.2 g/dL (13.0-17.5) 9.8 g/dL (13.0-17.5) Hematocrit 25.1 % (39.0-53.0) 29.8 % (39.0-53.0) Mean Corpuscular Volume 92 fL (79-100) 91 fL (79-100) Mean Corpuscular Hemoglobin 30 pg (25-35) 30 pg (25-35) Mean Corpuscular Hemoglobin Concent 33 g/dL (31-37) 33 g/dL (31-37) Red Cell Distribution Width 14.6 % (11.5-14.5) 14.6 % (11.5-14.5) Platelet Count 164 x10^3/uL (140-400) 198 x10^3/uL (140-400) Neutrophils (%) (Auto) 92 % (31-73) Lymphocytes (%) (Auto) 7 % (24-48) Monocytes (%) (Auto) 1 % (0-9) Eosinophils (%) (Auto) 0 % (0-3) Basophils (%) (Auto) 0 % (0-3) Neutrophils # (Auto) 16.5 x10^3uL (1.8-7.7) Lymphocytes # (Auto) 1.3 x10^3/uL (1.0-4.8) Monocytes # (Auto) 0.2 x10^3/uL (0.0-1.1) Eosinophils # (Auto) 0.1 x10^3/uL (0.0-0.7) Basophils # (Auto) 0.0 x10^3/uL (0.0-0.2) Prothrombin Time 19.7 SEC (11.7-14.0) 15.6 SEC (11.7-14.0) Prothromb Time International Ratio 1.8 (0.8-1.1) 1.3 (0.8-1.1) Activated Partial Thromboplast Time 35 SEC (24-38) 34 SEC (24-38) Fibrinogen 556 mg/dL (200-440) Bedside Hemoglobin (Calculated) 9.9 g/dL (14-18) Bedside Hematocrit 29 % (37-52) Bedside Arterial pH 7.32 (7.35-7.45) Bedside Arterial pCO2 39 mmHg (35-45) Bedside Arterial pO2 72 mmHg (75-100) Bedside Arterial HCO3 20 mmol/L (21-28) Bedside Arterial Total CO2 22 mmol/L (21-32) Arterial Bld O2 Saturation (Measur) 93 % (95-99) Bedside Arterial Blood Base Excess -6 mmol/L (0-3) Bedside FiO2 100.0 Bedside Sodium 142 mmol/L (135-145) Bedside Potassium 4.5 mmol/L (3.5-5.0) Glucose Level 152 mg/dL (70-99) 136 mg/dL (70-99) Bedside Ionized Calcium (Mary Jane) 1.34 mmol/L (1.13-1.32) Activated Clotting Time 111 SEC (90-125) O2 Saturation 96 % (92-99) Arterial Blood pH 7.35 (7.35-7.45) Arterial Blood pCO2 at Patient Temp 35 mmHg (35-46) Arterial Blood pO2 at Patient Temp 88 mmHg (65-108) Arterial Blood HCO3 19 mmol/L (21-28) Arterial Blood Base Excess -6 mmol/L (-3-3) Oxyhemoglobin 94.8 % Methemoglobin 0.5 % (0.0-1.9) Carbon Monoxide, Quantitative 0.3 % (0.0-1.9) FiO2 100 Sodium Level 143 mmol/L (136-145) Potassium Level 5.1 mmol/L (3.5-5.1) Chloride Level 110 mmol/L (98-107) Carbon Dioxide Level 21 mmol/L (21-32) Anion Gap 12 (6-14) Blood Urea Nitrogen 19 mg/dL (8-26) Creatinine 1.9 mg/dL (0.7-1.3) Estimated GFR (Cockcroft-Gault) 34.6 Calcium Level 8.8 mg/dL (8.5-10.1) Magnesium Level 2.5 mg/dL (1.8-2.4) Test 12/25/16 17:23 12/25/16 18:23 12/25/16 19:25 12/25/16 20:26 Glucose (Fingerstick) 126 mg/dL (70-99) 115 mg/dL (70-99) 148 mg/dL (70-99) 153 mg/dL (70-99) Test 12/25/16 20:45 12/25/16 21:29 12/25/16 22:05 12/25/16 22:31 O2 Saturation 91 % (92-99) Arterial Blood pH 7.48 (7.35-7.45) Arterial Blood pCO2 at Patient Temp 27 mmHg (35-46) Arterial Blood pO2 at Patient Temp 65 mmHg (65-108) Arterial Blood HCO3 20 mmol/L (21-28) Arterial Blood Base Excess -3 mmol/L (-3-3) FiO2 40 Glucose (Fingerstick) 176 mg/dL (70-99) 187 mg/dL (70-99) Hemoglobin 8.2 g/dL (13.0-17.5) Hematocrit 24.9 % (39.0-53.0) Mean Corpuscular Hemoglobin Concent 33 g/dL (31-37) Potassium Level 5.1 mmol/L (3.5-5.1) Magnesium Level 2.6 mg/dL (1.8-2.4) Test 12/25/16 23:32 12/26/16 00:31 12/26/16 01:31 12/26/16 02:32 Glucose (Fingerstick) 195 mg/dL (70-99) 175 mg/dL (70-99) 168 mg/dL (70-99) 155 mg/dL (70-99) Test 12/26/16 03:04 12/26/16 03:37 12/26/16 04:40 12/26/16 05:05 White Blood Count 14.8 x10^3/uL (4.0-11.0) Red Blood Count 2.62 x10^6/uL (4.30-5.70) Hemoglobin 7.9 g/dL (13.0-17.5) Hematocrit 23.6 % (39.0-53.0) Mean Corpuscular Volume 90 fL (79-100) Mean Corpuscular Hemoglobin 30 pg (25-35) Mean Corpuscular Hemoglobin Concent 33 g/dL (31-37) Red Cell Distribution Width 14.8 % (11.5-14.5) Platelet Count 197 x10^3/uL (140-400) Sodium Level 141 mmol/L (136-145) Potassium Level 4.8 mmol/L (3.5-5.1) Chloride Level 107 mmol/L (98-107) Carbon Dioxide Level 22 mmol/L (21-32) Anion Gap 12 (6-14) Blood Urea Nitrogen 26 mg/dL (8-26) Creatinine 2.4 mg/dL (0.7-1.3) Estimated GFR (Cockcroft-Gault) 26.5 Glucose Level 150 mg/dL (70-99) Calcium Level 9.0 mg/dL (8.5-10.1) Magnesium Level 2.5 mg/dL (1.8-2.4) Glucose (Fingerstick) 137 mg/dL (70-99) 137 mg/dL (70-99) O2 Saturation 95 % (92-99) Arterial Blood pH 7.45 (7.35-7.45) Arterial Blood pCO2 at Patient Temp 24 mmHg (35-46) Arterial Blood pO2 at Patient Temp 81 mmHg (65-108) Arterial Blood HCO3 17 mmol/L (21-28) Arterial Blood Base Excess -6 mmol/L (-3-3) FiO2 40 Test 12/26/16 05:50 12/26/16 10:34 Glucose (Fingerstick) 139 mg/dL (70-99) 243 mg/dL (70-99) Physical Exam HEENT: Neck Supple W Full Motion Chest: Symmetric LUNGS: Other (basilar crackles; chest tubes in place) Heart: S1S2, RRR (SR/ST) Abdomen: Soft N/T Extremities: No Calf Tenderness Neurology: alert, oriented, follow commands Assessment Assessment 1. Severe 3VD: CABG x 4 POD#1 2. Postoperative anemia: Hgb 7.9 3. Acute diastolic CHF 4. CKD3 5. DM2/HLP 6. Presyncope: vasovagal episode this am with hypotension. Recommendations 1. Post CABG per protocol 2. Levophed to titrate as warranted. Pacer reactivated. Albumin to be given. 3. S/P 2U PRBC. Will consider for addtl lasix after albumin 3. Continue with secondary prevention. Supportive care. ERVIN ORELLANA APRN Dec 26, 2016 12:25
[2016-12-26] MEDS ORDERED: ALBUMIN HUMAN 5% 500 ML IV ONE ×2 (12:30→16:30)
--- NOTE | 2016-12-26 12:55 | PDOC ---
PROGRESS NOTES Subjective Subjective Patient awake and alert postop day 1 coronary artery bypass graft. Patient still on BiPAP and struggling with low blood pressures and low oxygen saturations off BiPAP. She still not taking deep breaths due to pain. Patient's last BM 1022 Objective Objective Vital Signs Date Time Temp Pulse Resp B/P (MAP) Pulse Ox O2 Delivery O2 Flow Rate FiO2 12/26/16 12:00 Nasal Cannula 5.0 12/26/16 11:45 111 29 94/54 (67) 95 12/26/16 10:15 97.0 97.0 Intake and Output 12/27/16 06:59 Intake Total 650 ml Output Total 230 ml Balance 420 ml Intake Oral 500 ml Blood Product IV Normal Saline Flush 150 ml Output Urine Total 110 ml Chest Tube Drainage Total 120 ml Physical Exam Abdomen: Normal bowel sounds Extremities: No edema General: Alert Lungs: Other (clear anteriorly diminished in bases) Assessment Assessment Problems Medical Problems: (1) Acute [place], inferior wall, initial episode of care Status: Acute (2) Kidney disease Status: Acute 1. Postop day one coronary artery bypass graft diagnosis coronary artery disease 2. Severe 3-vessel coronary artery disease. 3. Type 2 diabetes. 4. Hypertension. 5. Chronic kidney disease 6. Acute ST changes of myocardial infarction. On admit Plan Plan of Care Continue CTS postop care BiPAP and transfusion as needed Continue pain control Comment Review of Relevant I have reviewed the following items tereso (where applicable) has been applied. Labs Laboratory Tests Test 12/24/16 16:34 12/24/16 20:41 12/25/16 04:07 12/25/16 05:08 Glucose (Fingerstick) 155 mg/dL (70-99) 226 mg/dL (70-99) 144 mg/dL (70-99) Heparin Anti-Xa Act, Unfractionated 0.11 IU/mL (0.30-0.70) Test 12/25/16 07:25 12/25/16 08:33 12/25/16 08:36 12/25/16 10:29 Glucose (Fingerstick) 146 mg/dL (70-99) Bedside Hemoglobin (Calculated) 10.2 g/dL (14-18) 10.9 g/dL (14-18) Bedside Hematocrit 30 % (37-52) 32 % (37-52) Bedside Arterial pH 7.35 (7.35-7.45) 7.31 (7.35-7.45) Bedside Arterial pCO2 38 mmHg (35-45) 43 mmHg (35-45) Bedside Arterial pO2 138 mmHg (75-100) 166 mmHg (75-100) Bedside Arterial HCO3 21 mmol/L (21-28) 22 mmol/L (21-28) Bedside Arterial Total CO2 22 mmol/L (21-32) 23 mmol/L (21-32) Arterial Bld O2 Saturation (Measur) 99 % (95-99) 99 % (95-99) Bedside Arterial Blood Base Excess -5 mmol/L (0-3) -5 mmol/L (0-3) Bedside FiO2 100.0 100.0 Bedside Sodium 140 mmol/L (135-145) 139 mmol/L (135-145) Bedside Potassium 4.1 mmol/L (3.5-5.0) 4.5 mmol/L (3.5-5.0) Glucose Level 151 mg/dL (70-99) 162 mg/dL (70-99) Bedside Ionized Calcium (Mary Jane) 1.24 mmol/L (1.13-1.32) 1.20 mmol/L (1.13-1.32) Activated Clotting Time 99 SEC (90-125) Test 12/25/16 10:32 12/25/16 10:46 12/25/16 10:57 12/25/16 11:45 Activated Clotting Time 389 SEC (90-125) 363 SEC (90-125) 379 SEC (90-125) Bedside Hemoglobin (Calculated) 9.9 g/dL (14-18) Bedside Hematocrit 29 % (37-52) Bedside Arterial pH 7.39 (7.35-7.45) Bedside Arterial pCO2 33 mmHg (35-45) Bedside Arterial pO2 112 mmHg (75-100) Bedside Arterial HCO3 20 mmol/L (21-28) Bedside Arterial Total CO2 21 mmol/L (21-32) Arterial Bld O2 Saturation (Measur) 98 % (95-99) Bedside Arterial Blood Base Excess -5 mmol/L (0-3) Bedside FiO2 100.0 Bedside Sodium 141 mmol/L (135-145) Bedside Potassium 4.2 mmol/L (3.5-5.0) Glucose Level 151 mg/dL (70-99) Bedside Ionized Calcium (Mary Jane) 1.06 mmol/L (1.13-1.32) Test 12/25/16 11:48 12/25/16 12:06 12/25/16 12:10 12/25/16 12:37 Activated Clotting Time 399 SEC (90-125) 424 SEC (90-125) Bedside Hemoglobin (Calculated) 8.8 g/dL (14-18) 8.5 g/dL (14-18) Bedside Hematocrit 26 % (37-52) 25 % (37-52) Bedside Arterial pH 7.46 (7.35-7.45) 7.42 (7.35-7.45) Bedside Arterial pCO2 34 mmHg (35-45) 38 mmHg (35-45) Bedside Arterial pO2 361 mmHg (75-100) 315 mmHg (75-100) Bedside Arterial HCO3 24 mmol/L (21-28) 24 mmol/L (21-28) Bedside Arterial Total CO2 25 mmol/L (21-32) 25 mmol/L (21-32) Arterial Bld O2 Saturation (Measur) 100 % (95-99) 100 % (95-99) Bedside Arterial Blood Base Excess 0 mmol/L (0-3) 0 mmol/L (0-3) Bedside FiO2 90.0 80.0 Bedside Sodium 141 mmol/L (135-145) 142 mmol/L (135-145) Bedside Potassium 4.2 mmol/L (3.5-5.0) 4.4 mmol/L (3.5-5.0) Glucose Level 134 mg/dL (70-99) 131 mg/dL (70-99) Bedside Ionized Calcium (Mary Jane) 1.04 mmol/L (1.13-1.32) 1.10 mmol/L (1.13-1.32) Test 12/25/16 12:40 12/25/16 13:06 12/25/16 13:09 12/25/16 13:35 Activated Clotting Time 432 SEC (90-125) 422 SEC (90-125) Bedside Hemoglobin (Calculated) 8.8 g/dL (14-18) 9.2 g/dL (14-18) Bedside Hematocrit 26 % (37-52) 27 % (37-52) Bedside Arterial pH 7.41 (7.35-7.45) 7.38 (7.35-7.45) Bedside Arterial pCO2 36 mmHg (35-45) 39 mmHg (35-45) Bedside Arterial pO2 234 mmHg (75-100) 178 mmHg (75-100) Bedside Arterial HCO3 23 mmol/L (21-28) 24 mmol/L (21-28) Bedside Arterial Total CO2 24 mmol/L (21-32) 25 mmol/L (21-32) Arterial Bld O2 Saturation (Measur) 100 % (95-99) 100 % (95-99) Bedside Arterial Blood Base Excess -1 mmol/L (0-3) -1 mmol/L (0-3) Bedside FiO2 75.0 75.0 Bedside Sodium 141 mmol/L (135-145) 142 mmol/L (135-145) Bedside Potassium 4.3 mmol/L (3.5-5.0) 4.3 mmol/L (3.5-5.0) Glucose Level 129 mg/dL (70-99) 139 mg/dL (70-99) Bedside Ionized Calcium (Mary Jane) 1.13 mmol/L (1.13-1.32) 1.15 mmol/L (1.13-1.32) Test 12/25/16 13:38 12/25/16 14:06 12/25/16 14:10 12/25/16 14:36 Activated Clotting Time 422 SEC (90-125) 465 SEC (90-125) Bedside Hemoglobin (Calculated) 8.8 g/dL (14-18) 8.5 g/dL (14-18) Bedside Hematocrit 26 % (37-52) 25 % (37-52) Bedside Arterial pH 7.35 (7.35-7.45) 7.34 (7.35-7.45) Bedside Arterial pCO2 42 mmHg (35-45) 43 mmHg (35-45) Bedside Arterial pO2 213 mmHg (75-100) 232 mmHg (75-100) Bedside Arterial HCO3 24 mmol/L (21-28) 23 mmol/L (21-28) Bedside Arterial Total CO2 25 mmol/L (21-32) 24 mmol/L (21-32) Arterial Bld O2 Saturation (Measur) 100 % (95-99) 100 % (95-99) Bedside Arterial Blood Base Excess -2 mmol/L (0-3) -3 mmol/L (0-3) Bedside FiO2 80.0 85.0 Bedside Sodium 142 mmol/L (135-145) 140 mmol/L (135-145) Bedside Potassium 4.3 mmol/L (3.5-5.0) 4.6 mmol/L (3.5-5.0) Glucose Level 147 mg/dL (70-99) 151 mg/dL (70-99) Bedside Ionized Calcium (Mary Jane) 1.14 mmol/L (1.13-1.32) 1.13 mmol/L (1.13-1.32) Test 12/25/16 14:40 12/25/16 15:18 12/25/16 15:22 12/25/16 15:28 Activated Clotting Time 420 SEC (90-125) 112 SEC (90-125) Bedside Hemoglobin (Calculated) 8.8 g/dL (14-18) Bedside Hematocrit 26 % (37-52) Bedside Arterial pH 7.30 (7.35-7.45) Bedside Arterial pCO2 42 mmHg (35-45) Bedside Arterial pO2 128 mmHg (75-100) Bedside Arterial HCO3 21 mmol/L (21-28) Bedside Arterial Total CO2 22 mmol/L (21-32) Arterial Bld O2 Saturation (Measur) 99 % (95-99) Bedside Arterial Blood Base Excess -6 mmol/L (0-3) Bedside FiO2 100.0 Bedside Sodium 142 mmol/L (135-145) Bedside Potassium 4.4 mmol/L (3.5-5.0) Glucose Level 176 mg/dL (70-99) Bedside Ionized Calcium (Mary Jane) 1.42 mmol/L (1.13-1.32) White Blood Count 18.0 x10^3/uL (4.0-11.0) Red Blood Count 2.74 x10^6/uL (4.30-5.70) Hemoglobin 8.2 g/dL (13.0-17.5) Hematocrit 25.1 % (39.0-53.0) Mean Corpuscular Volume 92 fL (79-100) Mean Corpuscular Hemoglobin 30 pg (25-35) Mean Corpuscular Hemoglobin Concent 33 g/dL (31-37) Red Cell Distribution Width 14.6 % (11.5-14.5) Platelet Count 164 x10^3/uL (140-400) Neutrophils (%) (Auto) 92 % (31-73) Lymphocytes (%) (Auto) 7 % (24-48) Monocytes (%) (Auto) 1 % (0-9) Eosinophils (%) (Auto) 0 % (0-3) Basophils (%) (Auto) 0 % (0-3) Neutrophils # (Auto) 16.5 x10^3uL (1.8-7.7) Lymphocytes # (Auto) 1.3 x10^3/uL (1.0-4.8) Monocytes # (Auto) 0.2 x10^3/uL (0.0-1.1) Eosinophils # (Auto) 0.1 x10^3/uL (0.0-0.7) Basophils # (Auto) 0.0 x10^3/uL (0.0-0.2) Prothrombin Time 19.7 SEC (11.7-14.0) Prothromb Time International Ratio 1.8 (0.8-1.1) Activated Partial Thromboplast Time 35 SEC (24-38) Fibrinogen 556 mg/dL (200-440) Test 12/25/16 16:06 12/25/16 16:10 12/25/16 17:20 12/25/16 17:23 Bedside Hemoglobin (Calculated) 9.9 g/dL (14-18) Bedside Hematocrit 29 % (37-52) Bedside Arterial pH 7.32 (7.35-7.45) Bedside Arterial pCO2 39 mmHg (35-45) Bedside Arterial pO2 72 mmHg (75-100) Bedside Arterial HCO3 20 mmol/L (21-28) Bedside Arterial Total CO2 22 mmol/L (21-32) Arterial Bld O2 Saturation (Measur) 93 % (95-99) Bedside Arterial Blood Base Excess -6 mmol/L (0-3) Bedside FiO2 100.0 Bedside Sodium 142 mmol/L (135-145) Bedside Potassium 4.5 mmol/L (3.5-5.0) Glucose Level 152 mg/dL (70-99) 136 mg/dL (70-99) Bedside Ionized Calcium (Mary Jane) 1.34 mmol/L (1.13-1.32) Activated Clotting Time 111 SEC (90-125) White Blood Count 21.4 x10^3/uL (4.0-11.0) Red Blood Count 3.28 x10^6/uL (4.30-5.70) Hemoglobin 9.8 g/dL (13.0-17.5) Hematocrit 29.8 % (39.0-53.0) Mean Corpuscular Volume 91 fL (79-100) Mean Corpuscular Hemoglobin 30 pg (25-35) Mean Corpuscular Hemoglobin Concent 33 g/dL (31-37) Red Cell Distribution Width 14.6 % (11.5-14.5) Platelet Count 198 x10^3/uL (140-400) Prothrombin Time 15.6 SEC (11.7-14.0) Prothromb Time International Ratio 1.3 (0.8-1.1) Activated Partial Thromboplast Time 34 SEC (24-38) O2 Saturation 96 % (92-99) Arterial Blood pH 7.35 (7.35-7.45) Arterial Blood pCO2 at Patient Temp 35 mmHg (35-46) Arterial Blood pO2 at Patient Temp 88 mmHg (65-108) Arterial Blood HCO3 19 mmol/L (21-28) Arterial Blood Base Excess -6 mmol/L (-3-3) Oxyhemoglobin 94.8 % Methemoglobin 0.5 % (0.0-1.9) Carbon Monoxide, Quantitative 0.3 % (0.0-1.9) FiO2 100 Sodium Level 143 mmol/L (136-145) Potassium Level 5.1 mmol/L (3.5-5.1) Chloride Level 110 mmol/L (98-107) Carbon Dioxide Level 21 mmol/L (21-32) Anion Gap 12 (6-14) Blood Urea Nitrogen 19 mg/dL (8-26) Creatinine 1.9 mg/dL (0.7-1.3) Estimated GFR (Cockcroft-Gault) 34.6 Calcium Level 8.8 mg/dL (8.5-10.1) Magnesium Level 2.5 mg/dL (1.8-2.4) Glucose (Fingerstick) 126 mg/dL (70-99) Test 12/25/16 18:23 12/25/16 19:25 12/25/16 20:26 12/25/16 20:45 Glucose (Fingerstick) 115 mg/dL (70-99) 148 mg/dL (70-99) 153 mg/dL (70-99) O2 Saturation 91 % (92-99) Arterial Blood pH 7.48 (7.35-7.45) Arterial Blood pCO2 at Patient Temp 27 mmHg (35-46) Arterial Blood pO2 at Patient Temp 65 mmHg (65-108) Arterial Blood HCO3 20 mmol/L (21-28) Arterial Blood Base Excess -3 mmol/L (-3-3) FiO2 40 Test 12/25/16 21:29 12/25/16 22:05 12/25/16 22:31 12/25/16 23:32 Glucose (Fingerstick) 176 mg/dL (70-99) 187 mg/dL (70-99) 195 mg/dL (70-99) Hemoglobin 8.2 g/dL (13.0-17.5) Hematocrit 24.9 % (39.0-53.0) Mean Corpuscular Hemoglobin Concent 33 g/dL (31-37) Potassium Level 5.1 mmol/L (3.5-5.1) Magnesium Level 2.6 mg/dL (1.8-2.4) Test 12/26/16 00:31 12/26/16 01:31 12/26/16 02:32 12/26/16 03:04 Glucose (Fingerstick) 175 mg/dL (70-99) 168 mg/dL (70-99) 155 mg/dL (70-99) White Blood Count 14.8 x10^3/uL (4.0-11.0) Red Blood Count 2.62 x10^6/uL (4.30-5.70) Hemoglobin 7.9 g/dL (13.0-17.5) Hematocrit 23.6 % (39.0-53.0) Mean Corpuscular Volume 90 fL (79-100) Mean Corpuscular Hemoglobin 30 pg (25-35) Mean Corpuscular Hemoglobin Concent 33 g/dL (31-37) Red Cell Distribution Width 14.8 % (11.5-14.5) Platelet Count 197 x10^3/uL (140-400) Sodium Level 141 mmol/L (136-145) Potassium Level 4.8 mmol/L (3.5-5.1) Chloride Level 107 mmol/L (98-107) Carbon Dioxide Level 22 mmol/L (21-32) Anion Gap 12 (6-14) Blood Urea Nitrogen 26 mg/dL (8-26) Creatinine 2.4 mg/dL (0.7-1.3) Estimated GFR (Cockcroft-Gault) 26.5 Glucose Level 150 mg/dL (70-99) Calcium Level 9.0 mg/dL (8.5-10.1) Magnesium Level 2.5 mg/dL (1.8-2.4) Test 12/26/16 03:37 12/26/16 04:40 12/26/16 05:05 12/26/16 05:50 Glucose (Fingerstick) 137 mg/dL (70-99) 137 mg/dL (70-99) 139 mg/dL (70-99) O2 Saturation 95 % (92-99) Arterial Blood pH 7.45 (7.35-7.45) Arterial Blood pCO2 at Patient Temp 24 mmHg (35-46) Arterial Blood pO2 at Patient Temp 81 mmHg (65-108) Arterial Blood HCO3 17 mmol/L (21-28) Arterial Blood Base Excess -6 mmol/L (-3-3) FiO2 40 Test 12/26/16 10:34 Glucose (Fingerstick) 243 mg/dL (70-99) Laboratory Tests Test 12/25/16 13:06 12/25/16 13:09 12/25/16 13:35 12/25/16 13:38 Bedside Hemoglobin (Calculated) 8.8 g/dL (14-18) 9.2 g/dL (14-18) Bedside Hematocrit 26 % (37-52) 27 % (37-52) Bedside Arterial pH 7.41 (7.35-7.45) 7.38 (7.35-7.45) Bedside Arterial pCO2 36 mmHg (35-45) 39 mmHg (35-45) Bedside Arterial pO2 234 mmHg (75-100) 178 mmHg (75-100) Bedside Arterial HCO3 23 mmol/L (21-28) 24 mmol/L (21-28) Bedside Arterial Total CO2 24 mmol/L (21-32) 25 mmol/L (21-32) Arterial Bld O2 Saturation (Measur) 100 % (95-99) 100 % (95-99) Bedside Arterial Blood Base Excess -1 mmol/L (0-3) -1 mmol/L (0-3) Bedside FiO2 75.0 75.0 Bedside Sodium 141 mmol/L (135-145) 142 mmol/L (135-145) Bedside Potassium 4.3 mmol/L (3.5-5.0) 4.3 mmol/L (3.5-5.0) Glucose Level 129 mg/dL (70-99) 139 mg/dL (70-99) Bedside Ionized Calcium (Mary Jane) 1.13 mmol/L (1.13-1.32) 1.15 mmol/L (1.13-1.32) Activated Clotting Time 422 SEC (90-125) 422 SEC (90-125) Test 12/25/16 14:06 12/25/16 14:10 12/25/16 14:36 12/25/16 14:40 Bedside Hemoglobin (Calculated) 8.8 g/dL (14-18) 8.5 g/dL (14-18) Bedside Hematocrit 26 % (37-52) 25 % (37-52) Bedside Arterial pH 7.35 (7.35-7.45) 7.34 (7.35-7.45) Bedside Arterial pCO2 42 mmHg (35-45) 43 mmHg (35-45) Bedside Arterial pO2 213 mmHg (75-100) 232 mmHg (75-100) Bedside Arterial HCO3 24 mmol/L (21-28) 23 mmol/L (21-28) Bedside Arterial Total CO2 25 mmol/L (21-32) 24 mmol/L (21-32) Arterial Bld O2 Saturation (Measur) 100 % (95-99) 100 % (95-99) Bedside Arterial Blood Base Excess -2 mmol/L (0-3) -3 mmol/L (0-3) Bedside FiO2 80.0 85.0 Bedside Sodium 142 mmol/L (135-145) 140 mmol/L (135-145) Bedside Potassium 4.3 mmol/L (3.5-5.0) 4.6 mmol/L (3.5-5.0) Glucose Level 147 mg/dL (70-99) 151 mg/dL (70-99) Bedside Ionized Calcium (Mary Jane) 1.14 mmol/L (1.13-1.32) 1.13 mmol/L (1.13-1.32) Activated Clotting Time 465 SEC (90-125) 420 SEC (90-125) Test 12/25/16 15:18 12/25/16 15:22 12/25/16 15:28 12/25/16 16:06 Bedside Hemoglobin (Calculated) 8.8 g/dL (14-18) 9.9 g/dL (14-18) Bedside Hematocrit 26 % (37-52) 29 % (37-52) Bedside Arterial pH 7.30 (7.35-7.45) 7.32 (7.35-7.45) Bedside Arterial pCO2 42 mmHg (35-45) 39 mmHg (35-45) Bedside Arterial pO2 128 mmHg (75-100) 72 mmHg (75-100) Bedside Arterial HCO3 21 mmol/L (21-28) 20 mmol/L (21-28) Bedside Arterial Total CO2 22 mmol/L (21-32) 22 mmol/L (21-32) Arterial Bld O2 Saturation (Measur) 99 % (95-99) 93 % (95-99) Bedside Arterial Blood Base Excess -6 mmol/L (0-3) -6 mmol/L (0-3) Bedside FiO2 100.0 100.0 Bedside Sodium 142 mmol/L (135-145) 142 mmol/L (135-145) Bedside Potassium 4.4 mmol/L (3.5-5.0) 4.5 mmol/L (3.5-5.0) Glucose Level 176 mg/dL (70-99) 152 mg/dL (70-99) Bedside Ionized Calcium (Mary Jane) 1.42 mmol/L (1.13-1.32) 1.34 mmol/L (1.13-1.32) Activated Clotting Time 112 SEC (90-125) White Blood Count 18.0 x10^3/uL (4.0-11.0) Red Blood Count 2.74 x10^6/uL (4.30-5.70) Hemoglobin 8.2 g/dL (13.0-17.5) Hematocrit 25.1 % (39.0-53.0) Mean Corpuscular Volume 92 fL (79-100) Mean Corpuscular Hemoglobin 30 pg (25-35) Mean Corpuscular Hemoglobin Concent 33 g/dL (31-37) Red Cell Distribution Width 14.6 % (11.5-14.5) Platelet Count 164 x10^3/uL (140-400) Neutrophils (%) (Auto) 92 % (31-73) Lymphocytes (%) (Auto) 7 % (24-48) Monocytes (%) (Auto) 1 % (0-9) Eosinophils (%) (Auto) 0 % (0-3) Basophils (%) (Auto) 0 % (0-3) Neutrophils # (Auto) 16.5 x10^3uL (1.8-7.7) Lymphocytes # (Auto) 1.3 x10^3/uL (1.0-4.8) Monocytes # (Auto) 0.2 x10^3/uL (0.0-1.1) Eosinophils # (Auto) 0.1 x10^3/uL (0.0-0.7) Basophils # (Auto) 0.0 x10^3/uL (0.0-0.2) Prothrombin Time 19.7 SEC (11.7-14.0) Prothromb Time International Ratio 1.8 (0.8-1.1) Activated Partial Thromboplast Time 35 SEC (24-38) Fibrinogen 556 mg/dL (200-440) Test 12/25/16 16:10 12/25/16 17:20 12/25/16 17:23 12/25/16 18:23 Activated Clotting Time 111 SEC (90-125) White Blood Count 21.4 x10^3/uL (4.0-11.0) Red Blood Count 3.28 x10^6/uL (4.30-5.70) Hemoglobin 9.8 g/dL (13.0-17.5) Hematocrit 29.8 % (39.0-53.0) Mean Corpuscular Volume 91 fL (79-100) Mean Corpuscular Hemoglobin 30 pg (25-35) Mean Corpuscular Hemoglobin Concent 33 g/dL (31-37) Red Cell Distribution Width 14.6 % (11.5-14.5) Platelet Count 198 x10^3/uL (140-400) Prothrombin Time 15.6 SEC (11.7-14.0) Prothromb Time International Ratio 1.3 (0.8-1.1) Activated Partial Thromboplast Time 34 SEC (24-38) O2 Saturation 96 % (92-99) Arterial Blood pH 7.35 (7.35-7.45) Arterial Blood pCO2 at Patient Temp 35 mmHg (35-46) Arterial Blood pO2 at Patient Temp 88 mmHg (65-108) Arterial Blood HCO3 19 mmol/L (21-28) Arterial Blood Base Excess -6 mmol/L (-3-3) Oxyhemoglobin 94.8 % Methemoglobin 0.5 % (0.0-1.9) Carbon Monoxide, Quantitative 0.3 % (0.0-1.9) FiO2 100 Sodium Level 143 mmol/L (136-145) Potassium Level 5.1 mmol/L (3.5-5.1) Chloride Level 110 mmol/L (98-107) Carbon Dioxide Level 21 mmol/L (21-32) Anion Gap 12 (6-14) Blood Urea Nitrogen 19 mg/dL (8-26) Creatinine 1.9 mg/dL (0.7-1.3) Estimated GFR (Cockcroft-Gault) 34.6 Glucose Level 136 mg/dL (70-99) Calcium Level 8.8 mg/dL (8.5-10.1) Magnesium Level 2.5 mg/dL (1.8-2.4) Glucose (Fingerstick) 126 mg/dL (70-99) 115 mg/dL (70-99) Test 12/25/16 19:25 12/25/16 20:26 12/25/16 20:45 12/25/16 21:29 Glucose (Fingerstick) 148 mg/dL (70-99) 153 mg/dL (70-99) 176 mg/dL (70-99) O2 Saturation 91 % (92-99) Arterial Blood pH 7.48 (7.35-7.45) Arterial Blood pCO2 at Patient Temp 27 mmHg (35-46) Arterial Blood pO2 at Patient Temp 65 mmHg (65-108) Arterial Blood HCO3 20 mmol/L (21-28) Arterial Blood Base Excess -3 mmol/L (-3-3) FiO2 40 Test 12/25/16 22:05 12/25/16 22:31 12/25/16 23:32 12/26/16 00:31 Hemoglobin 8.2 g/dL (13.0-17.5) Hematocrit 24.9 % (39.0-53.0) Mean Corpuscular Hemoglobin Concent 33 g/dL (31-37) Potassium Level 5.1 mmol/L (3.5-5.1) Magnesium Level 2.6 mg/dL (1.8-2.4) Glucose (Fingerstick) 187 mg/dL (70-99) 195 mg/dL (70-99) 175 mg/dL (70-99) Test 12/26/16 01:31 12/26/16 02:32 12/26/16 03:04 12/26/16 03:37 Glucose (Fingerstick) 168 mg/dL (70-99) 155 mg/dL (70-99) 137 mg/dL (70-99) White Blood Count 14.8 x10^3/uL (4.0-11.0) Red Blood Count 2.62 x10^6/uL (4.30-5.70) Hemoglobin 7.9 g/dL (13.0-17.5) Hematocrit 23.6 % (39.0-53.0) Mean Corpuscular Volume 90 fL (79-100) Mean Corpuscular Hemoglobin 30 pg (25-35) Mean Corpuscular Hemoglobin Concent 33 g/dL (31-37) Red Cell Distribution Width 14.8 % (11.5-14.5) Platelet Count 197 x10^3/uL (140-400) Sodium Level 141 mmol/L (136-145) Potassium Level 4.8 mmol/L (3.5-5.1) Chloride Level 107 mmol/L (98-107) Carbon Dioxide Level 22 mmol/L (21-32) Anion Gap 12 (6-14) Blood Urea Nitrogen 26 mg/dL (8-26) Creatinine 2.4 mg/dL (0.7-1.3) Estimated GFR (Cockcroft-Gault) 26.5 Glucose Level 150 mg/dL (70-99) Calcium Level 9.0 mg/dL (8.5-10.1) Magnesium Level 2.5 mg/dL (1.8-2.4) Test 12/26/16 04:40 12/26/16 05:05 12/26/16 05:50 12/26/16 10:34 Glucose (Fingerstick) 137 mg/dL (70-99) 139 mg/dL (70-99) 243 mg/dL (70-99) O2 Saturation 95 % (92-99) Arterial Blood pH 7.45 (7.35-7.45) Arterial Blood pCO2 at Patient Temp 24 mmHg (35-46) Arterial Blood pO2 at Patient Temp 81 mmHg (65-108) Arterial Blood HCO3 17 mmol/L (21-28) Arterial Blood Base Excess -6 mmol/L (-3-3) FiO2 40 Medications Current Medications Aspirin (Children'S Aspirin) 324 mg 1X ONCE PO Last administered on 20:23; Start 12/17/16 at 20:45; Stop 12/17/16 at 20:46; Status DC Heparin Sodium (Porcine) (Heparin Sodium) 4,000 unit 1X ONCE IV Last administered on 12/17/16 20:24; Start 12/17/16 at 20:30; Stop 12/17/16 at 20 :31; Status DC Fentanyl Citrate (Fentanyl 2ml Vial) 100 mcg STK-MED ONCE .ROUTE ; Start at 20:39; Stop 12/17/16 at 20:40; Status DC Midazolam HCl (Versed) 2 mg STK-MED ONCE .ROUTE ; Start 12/17/16 at 20:39; Stop 12/17/16 at 20:40; Status DC Heparin Sodium (Porcine) (Heparin Sodium) 10,000 unit STK-MED ONCE .ROUTE ; Start 12/17/16 at 20:39; Stop 12/17/16 at 20:40; Status DC Tirofiban/Sodium Chloride 0 ml @ As Directed STK-MED ONCE IV ; Start 12/17/16 at 20:39; Stop 12/17/16 at 20:40; Status DC Dopamine HCl/ Dextrose 0 ml @ As Directed STK-MED ONCE IV ; Start 12/17/16 at 20:40; Stop 12/17/16 at 20:41; Status DC Lidocaine HCl 20 ml STK-MED ONCE .ROUTE ; Start 12/17/16 at 20:47; Stop at 20:48; Status DC Iohexol (Omnipaque 350 Mg/ml) 100 ml STK-MED ONCE .ROUTE ; Start 12/17/16 at 20 :47; Stop 12/17/16 at 20:48; Status DC Heparin Sodium/ Sodium Chloride 1,000 ml @ As Directed STK-MED ONCE .ROUTE ; Start 12/17/16 at 20:48; Stop 12/17/16 at 20:49; Status DC Morphine Sulfate 2 mg 1X ONCE IV ; Start 12/17/16 at 21:15; Stop 12/17/16 at 21:16; Status DC Ondansetron HCl (Zofran) 4 mg 1X ONCE IV ; Start 12/17/16 at 21:15; Stop at 21:16; Status DC Nitroglycerin/ Dextrose 250 ml @ As Directed STK-MED ONCE IV ; Start 12/17/16 at 21:01; Stop 12/17/16 at 21:02; Status DC Heparin Sodium/ Sodium Chloride 1,000 unit 1X ONCE IART ; Start 12/17/16 at 21 :15; Stop 12/17/16 at 21:19; Status DC Midazolam HCl (Versed) 1 mg 1X ONCE IV Last administered on 12/17/16 21:15; Start 12/17/16 at 21:15; Stop 12/17/16 at 21:19; Status DC Fentanyl Citrate (Fentanyl 2ml Vial) 25 mcg 1X ONCE IV Last administered on 21:15; Start 12/17/16 at 21:15; Stop 12/17/16 at 21:19; Status DC Iodixanol (Visipaque 320) 100 ml 1X ONCE IART Last administered on 12/17/16 21:15; Start 12/17/16 at 21:15; Stop 12/17/16 at 21:19; Status DC Lidocaine HCl 20 ml 1X ONCE IJ Last administered on 12/17/16 21:15; Start 12/17/16 at 21:15; Stop 12/17/16 at 21:20; Status DC Nitroglycerin/ Dextrose 250 ml @ 0 mls/hr 1X ONCE IV Last administered on 21:06; Start 12/17/16 at 21:30; Stop 12/17/16 at 21:31; Status DC Heparin Sodium/ Sodium Chloride 500 ml @ As Directed STK-MED ONCE .ROUTE ; Start 12/17/16 at 21:21; Stop 12/17/16 at 21:22; Status DC Heparin Sodium/ Dextrose 500 ml @ As Directed STK-MED ONCE IV ; Start at 21:24; Stop 12/17/16 at 21:49; Status DC Heparin Sodium/ Dextrose 500 ml @ 0 mls/hr 1X ONCE IV Last administered on 13:30; Start 12/17/16 at 21:30; Stop 12/17/16 at 21:31; Status DC Heparin Sodium (Porcine) (Heparin Sodium) 10,000 unit STK-MED ONCE .ROUTE ; Start 12/17/16 at 21:37; Stop 12/17/16 at 21:38; Status DC Heparin Sodium (Porcine) (Heparin Sodium) 1,500 unit 1X ONCE IV ; Start at 22:00; Stop 12/17/16 at 22:01; Status DC Heparin Sodium/ Dextrose 500 ml @ 0 mls/hr 1X ONCE IV ; Start 12/17/16 at 21: 45; Stop 12/17/16 at 21:46; Status UNV Heparin Sodium/ Dextrose 500 ml @ 0 mls/hr CONT PRN IV SEE I/O RECORD Last administered on 12/25/16 06:25; Start 12/17/16 at 21:45; Stop 12/25/16 at 15 :45; Status DC Heparin Sodium (Porcine) (Heparin Sodium) 3,400 unit PRN Q6HRS PRN IV FOR UFH LEVEL LESS THAN 0.2 Last administered on 12/18/16 23:50; Start 12/17/16 at 21 :45; Stop 12/25/16 at 15:45; Status DC Sodium Chloride (Normal Saline Flush) 3 ml QSHIFT PRN IV AFTER MEDS AND BLOOD DRAWS; Start 12/17/16 at 22:30 Sodium Chloride 1,000 ml @ 60 mls/hr [id number] IV Last administered on 22:57; Start 12/17/16 at 22:23; Stop 12/23/16 at 16:52; Status DC Aspirin (Ecotrin) 81 mg [id number] PO Last administered on 12/24/16 08:20; Start 12/18/16 at 08:00; Stop 12/25/16 at 15:47; Status DC Metoprolol Tartrate (Lopressor) 25 mg BID PO Last administered on 12/24/16 21 :10; Start 12/18/16 at 09:00 Losartan Potassium (Cozaar) 50 mg DAILY PO Last administered on 12/19/16 08: 26; Start 12/18/16 at 09:00; Stop 12/19/16 at 11:15; Status DC Atorvastatin Calcium (Lipitor) 20 mg QHS PO Last administered on 12/25/16 21: 35; Start 12/18/16 at 21:00 Acetaminophen (Tylenol) 650 mg PRN Q6HRS PRN PO MILD PAIN; Start 12/17/16 at 22:30 Fentanyl Citrate (Fentanyl 2ml Vial) 25 mcg PRN Q1HR PRN IV Moderate or severe pain Last administered on 12/18/16 10:05; Start 12/17/16 at 22:30; Stop at 11:50; Status DC Nitroglycerin (Nitrostat) 0.4 mg PRN Q5MIN PRN SL CHEST PAIN; Start 12/17/16 at 22:30 Ascorbic Acid (Vitamin C) 500 mg DAILY PO Last administered on 12/26/16 10:27 ; Start 12/18/16 at 09:00 Aspirin (Ecotrin) 81 mg DAILYWBKFT PO ; Start 12/18/16 at 08:00; Status UNV Clopidogrel Bisulfate (Plavix) 75 mg DAILYWBKFT PO Last administered on 07:49; Start 12/18/16 at 08:00; Stop 12/18/16 at 09:35; Status DC Finasteride (Proscar) 5 mg DAILY PO Last administered on 12/26/16 10:28; Start 12/18/16 at 09:00 Acetaminophen/ Hydrocodone Bitart (Lortab 5/325) 1 tab PRN Q4HRS PRN PO MODERATE PAIN Last administered on 12/24/16 23:07; Start 12/17/16 at 22:45 Losartan Potassium (Cozaar) 50 mg DAILY PO ; Start 12/18/16 at 09:00; Status UNV Metoprolol Tartrate (Lopressor) 25 mg BID PO ; Start 12/18/16 at 09:00; Status UNV Tamsulosin HCl (Flomax) 0.4 mg DAILY PO Last administered on 12/26/16 10:28; Start 12/18/16 at 09:00 Insulin Detemir (Levemir) 40 units QHS SQ Last administered on 12/25/16 21:57 ; Start 12/18/16 at 21:00 Insulin Aspart (NovoLOG) 20 units TIDAC SQ Last administered on 12/26/16 10: 36; Start 12/18/16 at 07:30 Non-Formulary Medication 20 mg HS PO ; Start 12/18/16 at 21:00; Status UNV Insulin Aspart (NovoLOG) 0-12 UNITS QIDACHS SQ Last administered on 12/25/16 21:57; Start 12/18/16 at 07:30 Ondansetron HCl (Zofran) 4 mg 1X ONCE IV Last administered on 12/18/16 00:45 ; Start 12/18/16 at 00:45; Stop 12/18/16 at 00:51; Status DC Info (Do NOT chart on this placeholder) 1 each 1X ONCE MC ; Start 12/18/16 at 01:30; Stop 12/18/16 at 01:31; Status UNV Influenza Virus Vaccine Quadrival (Fluarix Quad 2303-4591 Syringe) 0.5 ml ONCE ONCE VAX IM Last administered on 12/19/16 18:00; Start 12/18/16 at 09:00; Stop 12/18/16 at 09:01; Status DC Bisacodyl (Dulcolax Supp) 10 mg 1X ONCE VT Last administered on 12/18/16 03: 41; Start 12/18/16 at 04:00; Stop 12/18/16 at 04:01; Status DC Ondansetron HCl (Zofran) 4 mg PRN Q6HRS PRN IV NAUSEA/VOMITING Last administered on 12/26/16 11:35; Start 12/18/16 at 03:30 Sodium Chloride 1,000 ml @ 75 mls/hr [id number] IV ; Start 12/18/16 at 09:45; Stop 12/19/16 at 08:14; Status DC Fentanyl Citrate (Fentanyl 2ml Vial) 50 mcg PRN Q2HR PRN IV PAIN Last administered on 12/26/16 11:37; Start 12/18/16 at 11:45 Nitroglycerin/ Dextrose 250 ml @ 0 mls/hr CONT PRN IV SEE I/O RECORD Last administered on 12/24/16 05:32; Start 12/19/16 at 00:00 Polyethylene Glycol (miraLAX PACKET) 17 gm DAILY PO Last administered on 10:28; Start 12/19/16 at 11:30 Docusate Sodium (Colace) 100 mg BID PO Last administered on 12/26/16 10:28; Start 12/19/16 at 11:30 Bisacodyl (Dulcolax Supp) 10 mg PRN DAILY PRN VT CONSTIPATION Last administered on 12/19/16 19:11; Start 12/19/16 at 19:00 Info (Anti-Coagulation Monitoring By Pharmacy) 1 each PRN DAILY PRN MC SEE COMMENTS Last administered on 12/24/16 14:32; Start 12/20/16 at 10:15; Stop 12/25/16 at 15:45; Status DC Furosemide (Lasix) 20 mg 1X ONCE IVP Last administered on 12/22/16 12:17; Start 12/22/16 at 12:00; Stop 12/22/16 at 12:01; Status DC Morphine Sulfate 1 mg PRN Q10MIN PRN IV SEVERE PAIN Last administered on 17:43; Start 12/25/16 at 07:00; Stop 12/26/16 at 06:59; Status DC Ringer's Solution 1,000 ml @ 30 mls/hr Q24H IV Last administered on 17:19; Start 12/25/16 at 07:00; Stop 12/25/16 at 18:59; Status DC Lidocaine HCl (Xylocaine-Mpf 1% Vial) 2 ml PRN 1X PRN ID PRIOR TO IV START; Start 12/25/16 at 07:00; Stop 12/26/16 at 06:59; Status DC Hydromorphone HCl (Dilaudid) 0.5 mg PRN Q10MIN PRN IV SEV PAIN, Second choice; Start 12/25/16 at 07:00; Stop 12/26/16 at 06:59; Status DC Prochlorperazine Edisylate (Compazine) 5 mg PACU PRN PRN IV NAUSEA, MRX1; Start 12/25/16 at 07:00; Stop 12/26/16 at 06:59; Status DC Potassium Chloride 70 meq/ Sodium Bicarbonate 12.5 meq/Lidocaine HCl 24 ml/ Parenteral Electrolytes 571.5 ml @ 571.5 mls/ hr 1X PERIOP ONCE IRR ; Start 12/25/16 at 06:00; Stop 12/25/16 at 06:59; Status DC Potassium Chloride 15 meq/ Sodium Bicarbonate 12.5 meq/Parenteral Electrolytes 520 ml @ 520 mls/hr 1X PERIOP ONCE IRR ; Start 12/25/16 at 06:00; Stop 12/25 at 06:59; Status DC Heparin Sodium (Porcine) 22437 unit/Ringer's Solution 1,020 ml @ 1,020 mls/hr 1X PERIOP ONCE IRR Last administered on 12/25/16 09:01; Start 12/25/16 at 06:00; Stop 12/25/16 at 06:59; Status DC Cefazolin Sodium 1 gm/Sodium Chloride 500 ml @ 500 mls/hr 1X PERIOP ONCE IRR Last administered on 12/25/16 08:30; Start 12/25/16 at 06:00; Stop 12/25/16 at 06:59; Status DC Guaifenesin (Mucinex) 600 mg BID PO Last administered on 12/24/16 21:10; Start 12/24/16 at 10:30; Stop 12/25/16 at 15:45; Status DC Albuterol/ Ipratropium (Duoneb) 3 ml RTQID NEB Last administered on 12/26/16 08:22; Start 12/24/16 at 12:00 Budesonide (Pulmicort) 0.5 mg RTBID NEB Last administered on 12/26/16 08:22; Start 12/24/16 at 20:00 Rocuronium [place] (Zemuron) 100 mg STK-MED ONCE .ROUTE ; Start 12/25/16 at 06: 56; Stop 12/25/16 at 06:57; Status DC Sufentanil Citrate (Sufenta) 100 mcg STK-MED ONCE .ROUTE ; Start 12/25/16 at 06 :56; Stop 12/25/16 at 06:57; Status DC Midazolam HCl (Versed) 2 mg STK-MED ONCE .ROUTE ; Start 12/25/16 at 06:57; Stop 12/25/16 at 06:58; Status DC Isoflurane (Isoflurane) 90 ml STK-MED ONCE IH ; Start 12/25/16 at 06:58; Stop 12/25/16 at 06:59; Status DC Heparin Sodium (Porcine) (Heparin Sodium) 10,000 unit STK-MED ONCE .ROUTE ; Start 12/25/16 at 06:58; Stop 12/25/16 at 06:59; Status DC Heparin Sodium (Porcine) (Heparin Sodium) 10,000 unit STK-MED ONCE .ROUTE ; Start 12/25/16 at 06:58; Stop 12/25/16 at 06:59; Status DC Heparin Sodium (Porcine) (Heparin Sodium) 10,000 unit STK-MED ONCE .ROUTE ; Start 12/25/16 at 06:58; Stop 12/25/16 at 06:59; Status DC Dexamethasone Sodium Phosphate (Decadron) 20 mg STK-MED ONCE .ROUTE ; Start at 06:58; Stop 12/25/16 at 06:59; Status DC Lidocaine HCl (Lidocaine Pf 2% Vial) 5 ml STK-MED ONCE .ROUTE ; Start 12/25/16 at 06:58; Stop 12/25/16 at 06:59; Status DC Phenylephrine HCl (Fidencio-Synephrine Inj) 10 mg STK-MED ONCE .ROUTE ; Start at 06:58; Stop 12/25/16 at 06:59; Status DC Phenylephrine HCl (Fidencio-Synephrine Inj) 10 mg STK-MED ONCE .ROUTE ; Start at 06:58; Stop 12/25/16 at 06:59; Status DC Aminocaproic Acid (Amicar) 5,000 mg STK-MED ONCE IV ; Start 12/25/16 at 06:59; Stop 12/25/16 at 07:00; Status DC Aminocaproic Acid (Amicar) 5,000 mg STK-MED ONCE IV ; Start 12/25/16 at 06:59; Stop 12/25/16 at 07:00; Status DC Aminocaproic Acid (Amicar) 5,000 mg STK-MED ONCE IV ; Start 12/25/16 at 06:59; Stop 12/25/16 at 07:00; Status DC Etomidate (Amidate) 20 mg STK-MED ONCE IV ; Start 12/25/16 at 06:59; Stop at 07:00; Status DC Vancomycin HCl (Vanco) 10 gm STK-MED ONCE .ROUTE Last administered on 09:01; Start 12/25/16 at 06:32; Stop 12/25/16 at 07:33; Status DC Cellulose 1 each STK-MED ONCE .ROUTE Last administered on 12/25/16 09:01; Start 12/25/16 at 06:33; Stop 12/25/16 at 07:33; Status DC Papaverine HCl 60 mg STK-MED ONCE .ROUTE Last administered on 12/25/16 09:01 ; Start 12/25/16 at 06:33; Stop 12/25/16 at 07:33; Status DC Aspirin (Aspirin) 300 mg STK-MED ONCE .ROUTE Last administered on 12/25/16 16 :27; Start 12/25/16 at 06:33; Stop 12/25/16 at 07:33; Status DC Sodium Chloride (Sodium Chloride) 50 ml STK-MED ONCE IJ Last administered on 09:01; Start 12/25/16 at 06:33; Stop 12/25/16 at 07:33; Status DC Cefazolin Sodium/ Dextrose 50 ml @ As Directed STK-MED ONCE IV ; Start at 07:47; Stop 12/25/16 at 07:48; Status DC Cefazolin Sodium/ Dextrose 50 ml @ 100 mls/hr 1X ONCE IV Last administered on 12/25/16 15:37; Start 12/25/16 at 08:00; Stop 12/25/16 at 08:29; Status DC Insulin Human Regular 150 unit/ Sodium Chloride 151.5 ml @ 0 mls/hr 1X ONCE IV Last administered on 12/25/16 17:24; Start 12/25/16 at 08:15; Stop 12/25 at 08:16; Status DC Heparin Sodium (Porcine) 30,000 unit STK-MED ONCE .ROUTE ; Start 12/25/16 at 09 :03; Stop 12/25/16 at 09:04; Status DC Propofol 20 ml @ As Directed STK-MED ONCE IV ; Start 12/25/16 at 09:23; Stop 12/25/16 at 09:24; Status DC Protamine Sulfate 250 mg STK-MED ONCE IV ; Start 12/25/16 at 09:47; Stop 12/25 at 09:48; Status DC Protamine Sulfate 250 mg STK-MED ONCE IV ; Start 12/25/16 at 09:47; Stop 12/25 at 09:48; Status DC Sodium Bicarbonate 50 meq STK-MED ONCE .ROUTE ; Start 12/25/16 at 10:49; Stop 12/25/16 at 10:50; Status DC Heparin Sodium (Porcine) 30,000 unit STK-MED ONCE .ROUTE ; Start 12/25/16 at 10 :52; Stop 12/25/16 at 10:53; Status DC Sodium Bicarbonate 50 meq STK-MED ONCE .ROUTE ; Start 12/25/16 at 11:55; Stop 12/25/16 at 11:56; Status DC Midazolam HCl (Versed) 2 mg STK-MED ONCE .ROUTE ; Start 12/25/16 at 11:56; Stop 12/25/16 at 11:57; Status DC Rocuronium [place] (Zemuron) 50 mg STK-MED ONCE .ROUTE ; Start 12/25/16 at 12: 41; Stop 12/25/16 at 12:42; Status DC Propofol 20 ml @ As Directed STK-MED ONCE IV ; Start 12/25/16 at 12:42; Stop 12/25/16 at 12:43; Status DC Propofol 50 ml @ As Directed STK-MED ONCE IV ; Start 12/25/16 at 13:16; Stop 12/25/16 at 13:17; Status DC Nitroglycerin/ Dextrose 250 ml @ As Directed STK-MED ONCE IV ; Start 12/25/16 at 13:25; Stop 12/25/16 at 13:26; Status DC Midazolam HCl (Versed) 2 mg STK-MED ONCE .ROUTE ; Start 12/25/16 at 14:20; Stop 12/25/16 at 14:21; Status DC Norepinephrine Bitartrate 250 ml @ 1.875 mls/ hr 1X ONCE IV Last administered on 12/25/16t 16:45; Start 12/25/16 at 15:00; Stop 12/31/16 at 04 :19 Ephedrine Sulfate (Akovaz) 50 mg STK-MED ONCE .ROUTE ; Start 12/25/16 at 15:00 ; Stop 12/25/16 at 15:01; Status DC Epinephrine HCl (Adrenalin) 1 mg STK-MED ONCE .ROUTE ; Start 12/25/16 at 15:00 ; Stop 12/25/16 at 15:01; Status DC Sodium Bicarbonate 50 meq STK-MED ONCE .ROUTE ; Start 12/25/16 at 15:16; Stop 12/25/16 at 15:17; Status DC Heparin Sodium (Porcine) (Heparin Sodium) 10,000 unit STK-MED ONCE .ROUTE ; Start 12/25/16 at 15:17; Stop 12/25/16 at 15:18; Status DC Heparin Sodium (Porcine) 30,000 unit STK-MED ONCE .ROUTE ; Start 12/25/16 at 15 :17; Stop 12/25/16 at 15:18; Status DC Magnesium Sulfate 5 gm STK-MED ONCE .ROUTE ; Start 12/25/16 at 15:17; Stop at 15:18; Status DC Calcium Chloride 1,000 mg STK-MED ONCE IV ; Start 12/25/16 at 15:17; Stop at 15:18; Status DC Lidocaine HCl (Lidocaine Pf 2% Vial) 5 ml STK-MED ONCE .ROUTE ; Start 12/25/16 at 15:17; Stop 12/25/16 at 15:18; Status DC Mannitol (Mannitol) 12.5 g STK-MED ONCE .ROUTE ; Start 12/25/16 at 15:18; Stop 12/25/16 at 15:19; Status DC Albumin Human 100 ml @ As Directed STK-MED ONCE IV ; Start 12/25/16 at 15:18; Stop 12/25/16 at 15:19; Status DC Heparin Sodium (Porcine) 30,000 unit STK-MED ONCE .ROUTE ; Start 12/25/16 at 15 :19; Stop 12/25/16 at 15:20; Status DC Cefazolin Sodium/ Dextrose 50 ml @ As Directed STK-MED ONCE IV ; Start at 14:37; Stop 12/25/16 at 15:37; Status DC Ringer's Solution 1,000 ml @ 30 mls/hr Q24H IV Last administered on 17:19; Start 12/25/16 at 15:35 Albumin Human 250 ml @ 60 mls/hr PRN Q4HRS PRN IV SEE I/O RECORD Last administered on 12/25/16t 21:04; Start 12/25/16 at 15:45 Insulin Human Regular 150 unit/ Sodium Chloride 151.5 ml @ 0 mls/hr CONT PRN PRN IV SEE I/O RECORD; Start 12/25/16 at 15:45 Dextrose (Dextrose 50%-Water Syringe) 25 gm PRN Q15MIN PRN IV LOW BLOOD SUGAR; Start 12/25/16 at 15:45 Info 1 ea CONT PRN PRN MC SEE COMMENTS; Start 12/25/16 at 15:45 Magnesium Sulfate/ Dextrose 100 ml @ 100 mls/hr PRN DAILY PRN IV FOR MAG < 2.2 ; Start 12/25/16 at 15:45 Famotidine (Pepcid) 20 mg BID IVP Last administered on 12/25/16 21:35; Start 12/25/16 at 21:00; Stop 12/26/16 at 08:09; Status DC Meperidine HCl (Demerol) 12.5 mg PRN Q15MIN PRN IV SHIVERING; Start 12/25/16 at 15:45; Stop 12/26/16 at 15:35 Aspirin (Ecotrin) 325 mg DAILYWBKFT PO Last administered on 12/26/16 10:28; Start 12/26/16 at 08:00 Aspirin (Aspirin) 300 mg PRN DAILY PRN VT IF UNABLE TO TAKE PO; Start at 15:45 Nicardipine HCl 50 mg/Sodium Chloride 270 ml @ 0 mls/hr CONT PRN PRN IV PER PROTOCOL; Start 12/25/16 at 15:45 Acetaminophen/ Hydrocodone Bitart (Lortab 5/325) 2 tab PRN Q4HRS PRN PO MODERATE PAIN, SEVERE PAIN Last administered on 12/26/16 09:11; Start at 15:45 Cefazolin Sodium 3 gm/Dextrose 100 ml @ 200 mls/hr Q8H IV Last administered on 12/26/16 05:40; Start 12/25/16 at 16:00; Stop 12/27/16 at 06:29 Sodium Bicarbonate 100 meq 1X ONCE IV Last administered on 12/25/16 17:44; Start 12/25/16 at 17:45; Stop 12/25/16 at 17:46; Status DC Furosemide (Lasix) 40 mg 1X ONCE IVP Last administered on 12/26/16 06:25; Start 12/26/16 at 06:00; Stop 12/26/16 at 06:05; Status DC Sodium Bicarbonate 50 meq 1X ONCE IV Last administered on 12/26/16 06:26; Start 12/26/16 at 06:00; Stop 12/26/16 at 06:05; Status DC Famotidine (Pepcid) 20 mg QHS IVP ; Start 12/26/16 at 21:00 Albumin Human 500 ml @ 125 mls/hr 1X ONCE IV ; Start 12/26/16 at 12:30; Stop 12/26/16 at 16:29 Active Scripts Active Lantus (Insulin Glargine,Hum.rec.anlog) 100 Unit/1 Ml Vial 40 Unit SQ HS Humalog (Insulin Lispro) 100 Unit/1 Ml Vial 20 Unit SQ TIDAC Fluconazole 100 Mg Tablet 200 Mg PO DAILY Amox Tr-K Clv 875-125 Mg Tab (Amoxicillin/Potassium Clav) 1 Each Tablet 1 Tab PO BID Aspirin Ec (Aspirin) 81 Mg Tablet.dr 81 Mg PO DAILYWBKFT Clopidogrel (Clopidogrel Bisulfate) 75 Mg Tablet 75 Mg PO DAILYWBKFT Hydrocodone-Apap 5-325 (Hydrocodone Bit/Acetaminophen) 1 Each Tablet 1 Tab PO PRN Q4HRS PRN Metoprolol Tartrate 25 Mg Tablet 25 Mg PO BID Reported Potassium Chloride 20 Meq Tablet.er 20 Meq PO DAILY Saw [place] (Saw [place] Fruit) 450 Mg Capsule 450 Mg PO Novolog (Insulin Aspart) 100 Unit/1 Ml Cartridge 40 Unit SQ Cinnamon (Cinnamon Bark) 500 Mg Capsule 1,000 Mg PO Spectravite Senior (Multivitamin W/Iron, Minerals) 1 Each Tablet 1 Each PO Fish Oil 1,000 Mg Capsule ([place]-3 Fatty Acids/Fish Oil) 1 Each Capsule 1 Each PO Finasteride 5 Mg Tablet 5 Mg PO DAILY Tamsulosin Hcl 0.4 Mg Cap.er.24h 0.4 Mg PO DAILY Iron (Ferrous Sulfate) 325 Mg Tablet 325 Mg PO Fish Oil 1,000 Mg Softgel ([place]-3 Fatty Acids/Fish Oil) 1 Each Capsule 1,000 Each PO Vitamin D (Cholecalciferol (Vitamin D3)) 1,000 Unit Capsule 1,000 Unit PO Ascorbic Acid 500 Mg Tablet 500 Mg PO Lovastatin 20 Mg Tablet 20 Mg PO HS Lasix (Furosemide) 40 Mg Tablet 40 Mg PO BID Losartan Potassium 50 Mg Tablet 50 Mg PO DAILY Vitals/I & O Vital Sign - Last 24 Hours 12/25/16 12/25/16 12/25/16 12/25/16 16:50 16:55 16:55 17:00 Temp 98.3 98.3 Pulse 101 Resp 16 B/P (MAP) 137/61 (86) 119/62 (81) Pulse Ox 96 100 O2 Delivery Ventilator Ventilator Mechanical Ventilator 12/25/16 12/25/16 12/25/16 12/25/16 17:00 17:10 17:15 17:21 Temp 98.3 98.0 98.0 98.3 98.0 98.0 Pulse 101 101 102 Resp 16 16 16 16 B/P (MAP) 137/61 99/49 (66) 99/49 Pulse Ox 96 96 O2 Delivery Ventilator Ventilator 12/25/16 12/25/16 12/25/16 12/25/16 17:22 17:25 17:35 17:43 Temp 98.1 98.3 98.1 98.3 Pulse 102 101 Resp 19 23 B/P (MAP) 97/57 (70) 106/59 (75) Pulse Ox 96 96 97 96 O2 Delivery Ventilator Ventilator Ventilator Ventilator 12/25/16 12/25/16 12/25/16 12/25/16 17:50 17:55 17:55 17:55 Temp 98.3 98.3 Pulse 98 100 Resp 20 16 12 24 B/P (MAP) 111/54 119/56 (77) Pulse Ox 96 96 97 O2 Delivery Ventilator Ventilator Ventilator 12/25/16 12/25/16 12/25/16 12/25/16 17:55 18:20 18:40 19:00 Temp 98.7 98.7 Pulse 98 112 Resp 20 18 B/P (MAP) 111/54 (73) 97/49 (65) Pulse Ox 97 94 O2 Delivery Ventilator Ventilator Ventilator Ventilator 12/25/16 12/25/16 12/25/16 12/25/16 19:32 19:51 20:00 20:15 Temp 99.0 99.0 Pulse 102 Resp 19 B/P (MAP) 90/47 (61) Pulse Ox 93 92 93 O2 Delivery Ventilator Mechanical Ventilator Ventilator Ventilator 12/25/16 12/25/16 12/25/16 12/25/16 21:00 21:00 21:15 21:30 Temp 99.3 99.3 Pulse 115 109 Resp 24 B/P (MAP) 85/43 85/43 (57) 78/48 (58) 123/68 (86) Pulse Ox 93 O2 Delivery Nasal Cannula O2 Flow Rate 5.0 12/25/16 12/25/16 12/25/16 12/25/16 21:36 21:45 22:00 22:12 Temp 99.6 99.6 Pulse 115 Resp 22 20 28 B/P (MAP) 116/50 (72) 113/51 (71) Pulse Ox 93 96 94 O2 Delivery Nasal Cannula Nasal Cannula Nasal Cannula O2 Flow Rate 5.0 3.0 3.0 12/25/16 12/25/16 12/25/16 12/25/16 22:15 22:30 23:00 23:49 Pulse 119 Resp 24 B/P (MAP) 95/46 (62) 84/38 (53) 116/53 (74) Pulse Ox 95 O2 Delivery Nasal Cannula Nasal Cannula O2 Flow Rate 3.0 3.0 12/26/16 12/26/16 12/26/16 12/26/16 00:00 00:11 01:00 02:00 Temp 99.9 99.9 Pulse 119 116 116 Resp 18 22 B/P (MAP) 117/51 (73) 109/54 (72) 114/53 (73) Pulse Ox 96 96 97 93 O2 Delivery Nasal Cannula Nasal Cannula Nasal Cannula Nasal Cannula O2 Flow Rate 3.0 3.0 3.0 1.0 12/26/16 12/26/16 12/26/16 12/26/16 02:15 02:16 03:00 03:16 Pulse 114 Resp 18 18 26 B/P (MAP) 93/45 (61) Pulse Ox 92 93 97 O2 Delivery Nasal Cannula Nasal Cannula Nasal Cannula O2 Flow Rate 1.0 1.0 1.0 1.0 12/26/16 12/26/16 12/26/16 12/26/16 03:52 04:00 04:23 04:53 Temp 99.3 99.3 Pulse 115 Resp 28 21 B/P (MAP) 113/49 (70) Pulse Ox 97 97 91 O2 Delivery Nasal Cannula Nasal Cannula Nasal Cannula Nasal Cannula O2 Flow Rate 1.0 1.0 1.0 5.0 12/26/16 12/26/16 12/26/16 12/26/16 05:00 06:00 07:00 07:15 Pulse 117 118 112 116 Resp 24 26 26 26 B/P (MAP) 95/48 (64) 101/45 (63) 88/39 (55) 90/46 (61) Pulse Ox 90 95 97 100 O2 Delivery Nasal Cannula Nasal Cannula Nasal Cannula Nasal Cannula O2 Flow Rate 5.0 5.0 5.0 5.0 12/26/16 12/26/16 12/26/16 12/26/16 07:30 07:45 07:45 08:00 Temp 97.2 97.2 Pulse 110 80 116 Resp B/P (MAP) 80/42 (55) 72/30 (44) 72/30 Pulse Ox 90 77 O2 Delivery Nasal Cannula Nasal Cannula Bi-pap O2 Flow Rate 5.0 5.0 12/26/16 12/26/16 12/26/16 12/26/16 08:00 08:00 08:15 08:15 Temp 97.1 97.1 Pulse 115 116 114 114 Resp B/P (MAP) 100/45 (63) 94/38 100/46 (64) 100/46 Pulse Ox 99 98 O2 Delivery BiPAP/CPAP BiPAP/CPAP 12/26/16 12/26/16 12/26/16 12/26/16 08:16 08:24 08:30 08:30 Temp 97.8 97.8 97.8 97.8 Pulse 110 110 B/P (MAP) 92/44 92/44 Pulse Ox 99 99 O2 Delivery BiPAP/CPAP BiPAP/CPAP 12/26/16 12/26/16 12/26/16 12/26/16 08:30 08:45 08:45 09:00 Temp 97.8 97.7 97.8 97.7 Pulse 110 110 110 108 Resp B/P (MAP) 92/44 (60) 92/44 (60) 92/44 94/44 Pulse Ox 100 99 O2 Delivery BiPAP/CPAP BiPAP/CPAP 12/26/16 12/26/16 12/26/16 12/26/16 09:00 09:11 09:15 09:15 Temp 97.2 97.2 Pulse 109 110 110 Resp B/P (MAP) 91/45 (60) 68/38 (48) 68/38 Pulse Ox 99 99 98 O2 Delivery BiPAP/CPAP BiPAP/CPAP BiPAP/CPAP 10/24/12/26/16 12/26/16 12/26/16 09:30 09:30 09:35 09:45 Temp 97.2 97.2 Pulse 108 108 108 Resp B/P (MAP) 86/44 (58) 86/44 98/48 (65) Pulse Ox 97 98 95 O2 Delivery BiPAP/CPAP BiPAP/CPAP BiPAP/CPAP 12/26/16 12/26/16 12/26/16 12/26/16 09:45 10:00 10:10 10:15 Temp 97.7 97.0 97.7 97.0 Pulse 108 108 106 Resp B/P (MAP) 98/48 94/48 (63) 92/48 (63) Pulse Ox 97 98 97 O2 Delivery BiPAP/CPAP BiPAP/CPAP BiPAP/CPAP 12/26/16 12/26/16 12/26/16 12/26/16 10:30 10:45 11:00 11:15 Pulse 110 112 111 110 Resp 16 16 25 B/P (MAP) 88/48 (61) 78/44 (55) 92/49 (63) 96/50 (65) Pulse Ox 97 99 96 95 O2 Delivery Nasal Cannula Nasal Cannula Nasal Cannula Nasal Cannula O2 Flow Rate 5.0 5.0 5.0 5.0 12/26/16 12/26/16 12/26/16 12/26/16 11:30 11:37 11:45 12:00 Pulse 110 111 Resp 22 16 29 B/P (MAP) 104/50 (68) 94/54 (67) Pulse Ox 98 96 95 O2 Delivery Nasal Cannula Nasal Cannula Nasal Cannula Nasal Cannula O2 Flow Rate 5.0 5.0 5.0 5.0 Intake and Output 12/26/16 12/26/16 12/27/16 14:59 22:59 06:59 Intake Total 650 ml Output Total 230 ml Balance 420 ml ALNA VERDIN MD Dec 26, 2016 12:55
[2016-12-26 15:37] LABS: HEMATOCRIT 30.5 % (39.0-53.0); RED BLOOD COUNT 3.3 x10^6/uL (4.30-5.70); RED CELL DISTRIBUTION WIDTH 14.9 % (11.5-14.5); WHITE BLOOD COUNT 19.6 x10^3/uL (4.0-11.0)
[2016-12-26] MEDS ORDERED: FUROSEMIDE 20 MG/2 ML VIAL. IVP ONE (16:30)
[2016-12-26] MEDS: IV RINGERS,LACTATED 1000ML 1,000 ML IV SCH (17:00)
[2016-12-26 17:43] LABS: CALCIUM 8.6 mg/dL (8.5-10.1); CREATININE 3.9 mg/dL (0.7-1.3); GFR 15.1; MAGNESIUM 2.9 mg/dL (1.8-2.4)
[2016-12-26 17:44] LABS: POTASSIUM 6.5 mmol/L (3.5-5.1)
[2016-12-26] MEDS ORDERED: SODIUM BICARB ADULT 8.4% 50 MEQ/50 ML DISP.SYRIN. ONE (18:00)
[2016-12-26] MEDS ORDERED: ADENOSINE 6 MG/2 ML VIAL. IV ONE (18:00)
[2016-12-26] MEDS ORDERED: AMIODARONE 150 MG/3 ML VIAL ONE (18:00)
[2016-12-26] MEDS ORDERED: CALCIUM CHLORIDE 1,000 MG/10 ML DISP.SYRIN IV ONE (18:00)
[2016-12-26] MEDS ORDERED: EPINEPHrine VIAL 30 MG/30 ML VIAL ONE (18:00)
[2016-12-26] MEDS ORDERED: DEXTROSE 50% 25 GM / 50ML DISP.SYRIN. IV ONE (18:15)
[2016-12-26] MEDS ORDERED: INSULIN REGULAR VIAL 150 UNIT in 0.9 % SODIUM CHLORIDE 150ML 150 ML IV PRN (18:15)
[2016-12-26] MEDS ORDERED: INSULIN ASPART 300 UNITS/3 ML INSULN.PEN SQ ONE (18:30)
[2016-12-26] MEDS ORDERED: SODIUM BICARBONATE VIAL 50 MEQ in IV 1/2 NORMAL SALINE 1,000 ML IV SCH (18:45)
[2016-12-26] MEDS ORDERED: SODIUM POLYSTYRENE SULFONATE 15 GM/60 ML ORAL.SUSP. PO ONE (18:45)
[2016-12-26 19:36] LABS: POTASSIUM ISTAT 5.6 mmol/L (3.5-5.0)
[2016-12-26] MEDS ORDERED: FAMOTIDINE 20 MG/2 ML VIAL IVP SCH (21:00)
== END 2016-12-26 19:28 | disposition expired | DRG 233 ==
LOC: ER 20:02 → 1 WEST ICU 21:00 → 2 NORTH 12-22 19:26 → 1 WEST ICU 12-25 09:42
PROVIDERS: ADMIT Family Medicine; ATTEND Family Medicine
PROC: 4A023N7 Measurement of Cardiac Sampling and Pressure, Left Heart, Percutaneous Approach (ICD-10-PCS; 2016-12-17)
PROC: B2111ZZ Fluoroscopy of Multiple Coronary Arteries using Low Osmolar Contrast (ICD-10-PCS; 2016-12-17)
PROC: B2151ZZ Fluoroscopy of Left Heart using Low Osmolar Contrast (ICD-10-PCS; 2016-12-17)
PROC: 30233N1 Transfusion of Nonautologous Red Blood Cells into Peripheral Vein, Percutaneous Approach (ICD-10-PCS; 2016-12-25)
PROC: 02100Z9 Bypass Coronary Artery, One Artery from Left Internal Mammary, Open Approach (ICD-10-PCS; principal; 2016-12-26)
PROC: 06BQ4ZZ Excision of Left Saphenous Vein, Percutaneous Endoscopic Approach (ICD-10-PCS; 2016-12-26)
PROC: 021209W Bypass Coronary Artery, Three Arteries from Aorta with Autologous Venous Tissue, Open Approach (ICD-10-PCS; 2016-12-26)
PROC: 5A09357 Assistance with Respiratory Ventilation, Less than 24 Consecutive Hours, Continuous Positive Airway Pressure (ICD-10-PCS; 2016-12-26)
PROC: 5A1221Z Performance of Cardiac Output, Continuous (ICD-10-PCS; 2016-12-26)
PROC: 0W9B30Z Drainage of Left Pleural Cavity with Drainage Device, Percutaneous Approach (ICD-10-PCS; 2016-12-26)
PROC: 30233L1 Transfusion of Nonautologous Fresh Plasma into Peripheral Vein, Percutaneous Approach (ICD-10-PCS; 2016-12-26)
PROC: 30233K1 Transfusion of Nonautologous Frozen Plasma into Peripheral Vein, Percutaneous Approach (ICD-10-PCS; 2016-12-26)
DX: T82.855A Stenosis of coronary artery stent, initial encounter (principal); I21.19 ST elevation (STEMI) myocardial infarction involving other coronary artery of inferior wall; I50.41 Acute combined systolic (congestive) and diastolic (congestive) heart failure; N17.9 Acute kidney failure, unspecified; D68.59 Other primary thrombophilia; E11.22 Type 2 diabetes mellitus with diabetic chronic kidney disease; E11.40 Type 2 diabetes mellitus with diabetic neuropathy, unspecified; E66.01 Morbid (severe) obesity due to excess calories; N18.3 Chronic kidney disease, stage 3 (moderate); I13.0 Hypertensive heart and chronic kidney disease with heart failure and stage 1 through stage 4 chronic kidney disease, or unspecified chronic kidney disease; Y83.8 Other surgical procedures as the cause of abnormal reaction of the patient, or of later complication, without mention of misadventure at the time of the procedure; J44.9 Chronic obstructive pulmonary disease, unspecified; I50.9 Heart failure, unspecified; D64.9 Anemia, unspecified; E78.00 Pure hypercholesterolemia, unspecified; K59.00 Constipation, unspecified; E78.5 Hyperlipidemia, unspecified; G47.33 Obstructive sleep apnea (adult) (pediatric); I25.119 Atherosclerotic heart disease of native coronary artery with unspecified angina pectoris; Z68.37 Body mass index [BMI] 37.0-37.9, adult; I25.2 Old myocardial infarction; Z79.4 Long term (current) use of insulin; Y92.89 Other specified places as the place of occurrence of the external cause; Z82.49 Family history of ischemic heart disease and other diseases of the circulatory system; Z87.891 Personal history of nicotine dependence; Z83.3 Family history of diabetes mellitus; Z95.5 Presence of coronary angioplasty implant and graft; Z90.89 Acquired absence of other organs; Z90.49 Acquired absence of other specified parts of digestive tract; Z80.42 Family history of malignant neoplasm of prostate
CPT/HCPCS: 36415; 36600; 71010; 71250; 73552; 80047; 80048; 80053; 80061; 82550; 82553; 82803; 82805; 82962; 83690; 83735; 83880; 84100; 84132; 84484; 85007; 85014; 85018; 85025; 85027; 85347; 85384; 85520; 85610; 85730; 86850; 86900; 86901; 86920; 86927; 87641; 90686; 93005; 93306; 93458; 93880; 93970; 94002; 94010; 94250; 94640; 94660; 94760; 96374; C1769; C1781; C1887; C1892; J0153; J0171; J0282; J0690; J1100; J1644; J1815; J1940; J2150; J2250; J2270; J2405; J2440; J2704; J3010; J3370; J3475; J3490; J7030; J7040; J7042; J7050; J7120; J7620; J7626; P9016; P9017; P9041; P9045; P9046; S0028; 97110; 97530; 97535; 99291-25; J2001